=== PATIENT | male | born 1935 | race Caucasian/White ===

== ENCOUNTER 2020-07-21 09:42 | Emergency (ER) | payer MEDICARE, SELFPAY ==
[2020-07-21 09:52] VITALS: BP 115/61; PULSE 92; RESP 16; TEMP 36.8; O2SAT 95; BMI 25.8
--- NOTE | 2020-07-21 09:57 | ECG_ITS ---
Test Reason : NAUSA VOMMITING Blood Pressure : / mmHG Vent. Rate : 087 BPM Atrial Rate : 087 BPM P-R Int : 186 ms QRS Dur : 096 ms QT Int : 360 ms P-R-T Axes : 073 076 071 degrees QTc Int : 433 ms Sinus rhythm with Premature atrial complexes in a pattern of bigeminy Nonspecific ST abnormality Inferior leads Abnormal ECG When compared with ECG of 10-AUG-2008 13:06, Premature atrial complexes are now Present Referred By: Kristen Freeman Electronically Signed By:DALIA NAIR MD
--- NOTE | 2020-07-21 09:58 | XR_ITS ---
EXAMINATION: XR CHEST CLINICAL INFORMATION: Weakness with chills COMPARISON: April 10, 2014 TECHNIQUE: AP portable view of the chest was obtained. FINDINGS: Bilateral regions of chronic scarring are evident. There is question of small focus of density in the mid peripheral right lung which appear to be related to overlying soft tissues. There are prominent calcified costochondral junctions. No definite new confluent pneumonitis is seen. Heart normal size. No evidence of pulmonary edema. No pneumothorax or pleural effusion. XR/XR chest 1V IMPRESSION: Chronic lung scarring with no definite acute parenchymal disease.
--- NOTE | 2020-07-21 10:00 | ED.GENADULT ---
HPI - General Adult General Chief complaint: General Medical Stated complaint: flu like symptoms Time Seen by Provider: 07/21/20 09:45 Source: patient Mode of arrival: ambulatory Limitations: no limitations History of Present Illness HPI narrative: 84-year-old male with a past medical history of COPD, anxiety, HLD, GERD here with multiple complaints. The patient will be on Wednesday he had nausea with dry heaves. Had some associated chills and malaise. On Wednesday he had several episodes of diarrhea as well as morning. He tells me he has some upper abdominal discomfort and feels like something is stuck, this radiates to his sternum with the same sensation.He denies chest pain, cough, fevers. He tells me he has shortness of breath but this is chronic for him and is unchanged from baseline. No leg swelling or pain. No sick contact. Onset (ago): day(s) Location: abdomen Radiation: non-radiation Severity: mild Pain Consistency: constant Relieving factors: none Exacerbating factors: none Associated symptoms: malaise and nausea/vomiting Treatments prior to arrival: none Related Data Home Medications Medication Instructions Recorded Confirmed paroxetine HCl 1 tab PO DAILY 07/21/20 07/21/20 Previous Rx's Medication Instructions Recorded ondansetron 4 mg PO Q6H PRN #10 tab 07/21/20 Allergies Allergy/AdvReac Type Severity Reaction Status Date / Time No Known Allergies Allergy Mild NOT Verified 07/21/20 09:56 APPLICABLE Review of Systems Review of Systems: Yes all other systems are reviewed and are negative Constitutional: Constitutional: Reports no additional constitutional complaints, Denies body ache(s), Reports chills, Denies fever(s), Denies headache(s) and Denies weakness Eyes: Eyes: Reports no additional eye complaints and Denies change in vision ENT: Reports system reviewed and no additional complaints, except as documented, Denies dizziness, Denies headache(s), Denies nasal congestion, Denies nasal discharge and Denies neck pain Cardiovascular: Cardiovascular: Reports no additional cardiovascular complaints, Denies chest pain, Denies leg edema and Denies dyspnea Respiratory: Respiratory: Reports no additional respiratory complaints, Denies cough and Denies dyspnea Gastrointestinal: Gastrointestinal: Reports no additional gastrointestinal complaints, Reports abdominal pain, Denies diarrhea, Reports nausea and Denies vomiting Genitourinary: Genitourinary: Denies urinary incontinence Musculoskeletal: Musculoskeletal: Reports no additional musculoskeletal complaints, Denies back pain, Denies arthralgias, Denies joint swelling, Denies neck pain, Denies numbness and Denies tingling Integumentary/Breasts: Skin/Breast: Reports system reviewed and no additional complaints, except as docu and Denies rash Neurologic: Reports system reviewed and no additional complaints, except as documented, Denies Abnormal speech present, Denies dizziness, Denies headache(s), Denies numbness, Denies tingling and Denies weakness [facility] Past Medical History Attestation statement: The following information was validated with the patient. Source: obtained from family and nursing notes reviewed Medical History Anxiety COPD (chronic obstructive pulmonary disease) Social History Social History Smoking Status: Former smoker Use of substances other than those prescribed or required for medical reasons: No Advance Directives: No Advance Directives Information Provided: Yes Physical Exam Vital Signs: Vital Signs: Last Vital Signs Temp 98.3 F 07/21/20 09:52 Pulse 82 07/21/20 14:00 Resp 16 07/21/20 14:00 BP 140/56 H 07/21/20 14:00 Pulse Ox 95 07/21/20 14:00 Body Mass Index 25.8 Const: General: cooperative, healthy appearing, comfortable and no acute distress Orientation/consciousness: patient oriented x3 Limitations: no limitations HENMT: Head: Yes normal to inspection Ears: hearing grossly normal bilaterally General nose exam: Normal external nose present Face and sinus: Yes normal facial exam Mouth: Normal oral and palatal mucosa present Throat: Yes posterior oropharynx normal Eyes: General: appearance normal, both eyes and all related structures Pupils: Equal, round and reactive pupils present Neck: Neck: Yes normal visual inspection Chest: Chest palpation & inspection: normal inspection of the chest Resp: Effort & Inspection: normal respiratory effort Auscultation: clear to auscultation bilaterally Cardio: Rate: regular rate Rhythm: regular rhythm Peripheral pulses: Peripheral pulses 2+ throughout GI: Inspection: Yes normal to inspection Palpation (GI): Firmness to palpation present (GI), Tenderness to palpation present (GI) (moderate tenderness) in the epigastrum; with no rebound tenderness and no guarding Auscultation: normal bowel sounds Back/Spine/Pelvis: Thoracic/Lumbar Spine: thoracic and lumbar spine normal to inspection Skin: General skin exam: no rashes or lesions noted Neuro: General: patient oriented x3, no focal motor deficits and normal sensation to monofilament Cranial nerves: Yes Equal, round and reactive pupils present Cognition (Neuro): normal cognition Speech: No Abnormal speech present Gait exam (Neuro): Normal gait present Motor exam (neuro): 5/5 motor strength present throughout Extrem: General: Yes normal to inspection Course Course Course Narrative: 84 yo male here with diarrhea, upper abdominal discomfort, nausea, chills x several days. On exam has moderate tenderness in upper abdomen. Will need labs including blood cultures, lactic acid, UA, EKG, CXR, Viral panel including COVID 19, CT A/P, CT chest. 1115-lactic acid 2.5. Likely secondary to dehydration from diarrhea. Will give normal saline bolus and recheck. 1430-Repeat lactic acid and troponin pending. Unfortunately, CT chest is concerning for lung malignancy with reactive lymphadenopathy, small pericardial effusion. Discussed findings in detail with patient and son (IRMA). Aware of results and plan for follow-up with oncology outpatient. 1515-Repeat troponin pending down. Repat lactic acid normalized. Patient tolerating PO. Stable vital signs with no hypoxia on discharge. Reviewed worrisome signs/symptoms with patient and when to return to ED. Comfortable with discharge home. Medical Decision Making MDM Narrative Medical decision making narrative: considered ACS, gastritis, GERD, gastroenteritis, cholecystitis, cholelithiasis, viral infection, COVID-19 infection less likely acs with 2 unequivocal troponins, unremarkable ekg, atypical symptoms. less likely viral or covid infection with negative swab. less likely shraddha/gallstones with no RUQ pain or CT showing no abnormality. Medical Records Medical records reviewed: Yes I reviewed the patient's medical records. Lab Data Lab results reviewed: Yes I reviewed the patient's lab results. Result diagrams: 07/21/20 10:30 07/21/20 10:30 Labs: Lab Results 07/21/20 07/21/20 07/21/20 Range/Units 10:30 10:30 10:30 WBC 6.3 (4.8-10.8) X10*3/uL RBC 4.88 (4.60-5.80) X10*6/uL Hgb 15.2 (14.0-18.0) g/dl Hct 43.6 (42-52) % MCV 89.3 (80-98) fL MCH 31.1 (27.0-33.0) pg MCHC 34.9 (31.0-36.0) g/dl RDW 12.8 (11.0-16.0) % Plt Count 155 L (160-400) X10*3/uL MPV 8.8 L (9.4-12.4) fL Immature Gran % (Auto) 0.6 H (0.0-0.4) % Neut % (Auto) 64.3 (45-73) % Lymph % (Auto) 10.2 L (20-40) % [place] % (Auto) 24.6 H (2-11) % Eos % (Auto) 0.0 (0-4) % Baso % (Auto) 0.3 (0-2) % Lymph # (Auto) 0.6 L (1.2-4.9) X10*3/uL [place] # (Auto) 1.5 H (0.1-1.2) X10*3/uL Eos # (Auto) 0.0 (0.0-0.4) X10*3/uL Baso # (Auto) 0.0 (0.0-0.2) X10*3/uL Abs Immat Gran (auto) 0.04 H (0.00-0.03) X10*3/uL Absolute Neuts (auto) 4.0 (2.0-8.3) X10*3/uL Absolute Nucleated RBC 0.000 (0.0-0.012) X10*3/uL Nucleated RBC % (auto) 0.0 (0.0-0.2) /100WBC Smear Tech's Comments VERIFIED PT 13.0 (10.8-13.0) SEC INR 1.1 (0.9-1.1) Sodium 132 L (135-145) mmol/L Potassium 4.8 (3.3-5.1) mmol/l Chloride 96 (96-108) mmol/L Carbon Dioxide 26 (22-29) mmol/L Anion Gap 15 (12-20) BUN 18 H (9-16) mg/dL Creatinine 1.08 (0.5-1.4) mg/dL Estim Creat Clear Calc 51.8 Estimated GFR > 60 Random Glucose 97 (60-115) mg/dL Lactic Acid (0.5-2.0) mmol/L Lactic Acid Fup @ 2Hr (0.5-2.0) mmol/L Calcium 8.4 (8.4-10.2) mg/dL Magnesium 2.4 (1.6-2.6) mg/dL Total Bilirubin 0.7 (0.0-1.0) mg/dL Direct Bilirubin 0.3 (0.0-0.5) mg/dL AST 29 (5-37) U/L ALT 22 (0-40) U/L Alkaline Phosphatase 53 (39-117) U/L Troponin I High Sens (<3.5-35.0) ng/L Total Protein 6.6 (6.5-8.0) g/dL Albumin 3.9 (3.5-5.0) g/dL Urine Color Urine Appearance Urine pH (5.0-8.0) Ur Specific [place] (1.005-1.025) Urine Protein (NEG-TRACE) MG/DL Urine Glucose (UA) (NEG) MG/DL Urine Ketones (NEG) MG/DL Urine Blood (NEG) Urine Nitrite (NEG) Ur Leukocyte Esterase (NEG) Urine RBC (0) /HPF Urine WBC (0-4) /HPF Ur Squamous Epith Cells /LPF Urine Bacteria /LPF Urine Mucus /LPF Respiratory Panel [place] Adenovirus (Rapid PCR) (Not Detect.) B.pert (TEM-PCR) (Not Detect.) B.parapertussis DNA PCR (Not Detect.) C. pneumoniae DNA (PCR) (Not Detect.) Coronavirus OC43 (PCR) (Not Detect.) Coronavirus HKU1 (PCR) (Not Detect.) Coronavirus 229E (PCR) (Not Detect.) Coronavirus NL63 (PCR) (Not Detect.) Human Metapneumovir PCR (Not Detect.) Influenza A (RT-PCR) (Not Detect.) Influenza B (RT-PCR) (Not Detect.) M. pneumoniae (PCR) (Not Detect.) Parainfluenza 1 (PCR) (Not Detect.) Parainfluenza 2 (PCR) (Not Detect.) Parainfluenza 3 (PCR) (Not Detect.) Parainfluenza 4 (PCR) (Not Detect.) RSV (PCR) (Not Detect.) Entero/Rhino (PCR) (Not Detect.) SARS-CoV-2 RNA (RT-PCR) (Not Detect.) 07/21/20 07/21/20 07/21/20 Range/Units 10:30 10:30 10:35 WBC (4.8-10.8) X10*3/uL RBC (4.60-5.80) X10*6/uL Hgb (14.0-18.0) g/dl Hct (42-52) % MCV (80-98) fL MCH (27.0-33.0) pg MCHC (31.0-36.0) g/dl RDW (11.0-16.0) % Plt Count (160-400) X10*3/uL MPV (9.4-12.4) fL Immature Gran % (Auto) (0.0-0.4) % Neut % (Auto) (45-73) % Lymph % (Auto) (20-40) % [place] % (Auto) (2-11) % Eos % (Auto) (0-4) % Baso % (Auto) (0-2) % Lymph # (Auto) (1.2-4.9) X10*3/uL [place] # (Auto) (0.1-1.2) X10*3/uL Eos # (Auto) (0.0-0.4) X10*3/uL Baso # (Auto) (0.0-0.2) X10*3/uL Abs Immat Gran (auto) (0.00-0.03) X10*3/uL Absolute Neuts (auto) (2.0-8.3) X10*3/uL Absolute Nucleated RBC (0.0-0.012) X10*3/uL Nucleated RBC % (auto) (0.0-0.2) /100WBC Smear Tech's Comments PT (10.8-13.0) SEC INR (0.9-1.1) Sodium (135-145) mmol/L Potassium (3.3-5.1) mmol/l Chloride (96-108) mmol/L Carbon Dioxide (22-29) mmol/L Anion Gap (12-20) BUN (9-16) mg/dL Creatinine (0.5-1.4) mg/dL Estim Creat Clear Calc Estimated GFR Random Glucose (60-115) mg/dL Lactic Acid 2.5 H* (0.5-2.0) mmol/L Lactic Acid Fup @ 2Hr (0.5-2.0) mmol/L Calcium (8.4-10.2) mg/dL Magnesium (1.6-2.6) mg/dL Total Bilirubin (0.0-1.0) mg/dL Direct Bilirubin (0.0-0.5) mg/dL AST (5-37) U/L ALT (0-40) U/L Alkaline Phosphatase (39-117) U/L Troponin I High Sens 6.3 (<3.5-35.0) ng/L Total Protein (6.5-8.0) g/dL Albumin (3.5-5.0) g/dL Urine Color Urine Appearance Urine pH (5.0-8.0) Ur Specific [place] (1.005-1.025) Urine Protein (NEG-TRACE) MG/DL Urine Glucose (UA) (NEG) MG/DL Urine Ketones (NEG) MG/DL Urine Blood (NEG) Urine Nitrite (NEG) Ur Leukocyte Esterase (NEG) Urine RBC (0) /HPF Urine WBC (0-4) /HPF Ur Squamous Epith Cells /LPF Urine Bacteria /LPF Urine Mucus /LPF Respiratory Panel [place] See Note Adenovirus (Rapid PCR) Not Detected (Not Detect.) B.pert (TEM-PCR) Not Detected (Not Detect.) B.parapertussis DNA PCR Not Detected (Not Detect.) C. pneumoniae DNA (PCR) Not Detected (Not Detect.) Coronavirus OC43 (PCR) Not Detected (Not Detect.) Coronavirus HKU1 (PCR) Not Detected (Not Detect.) Coronavirus 229E (PCR) Not Detected (Not Detect.) Coronavirus NL63 (PCR) Not Detected (Not Detect.) Human Metapneumovir PCR Not Detected (Not Detect.) Influenza A (RT-PCR) Not Detected (Not Detect.) Influenza B (RT-PCR) Not Detected (Not Detect.) M. pneumoniae (PCR) Not Detected (Not Detect.) Parainfluenza 1 (PCR) Not Detected (Not Detect.) Parainfluenza 2 (PCR) Not Detected (Not Detect.) Parainfluenza 3 (PCR) Not Detected (Not Detect.) Parainfluenza 4 (PCR) Not Detected (Not Detect.) RSV (PCR) Not Detected (Not Detect.) Entero/Rhino (PCR) Not Detected (Not Detect.) SARS-CoV-2 RNA (RT-PCR) Not Detected (Not Detect.) 07/21/20 07/21/20 07/21/20 Range/Units 12:07 13:44 13:44 WBC (4.8-10.8) X10*3/uL RBC (4.60-5.80) X10*6/uL Hgb (14.0-18.0) g/dl Hct (42-52) % MCV (80-98) fL MCH (27.0-33.0) pg MCHC (31.0-36.0) g/dl RDW (11.0-16.0) % Plt Count (160-400) X10*3/uL MPV (9.4-12.4) fL Immature Gran % (Auto) (0.0-0.4) % Neut % (Auto) (45-73) % Lymph % (Auto) (20-40) % [place] % (Auto) (2-11) % Eos % (Auto) (0-4) % Baso % (Auto) (0-2) % Lymph # (Auto) (1.2-4.9) X10*3/uL [place] # (Auto) (0.1-1.2) X10*3/uL Eos # (Auto) (0.0-0.4) X10*3/uL Baso # (Auto) (0.0-0.2) X10*3/uL Abs Immat Gran (auto) (0.00-0.03) X10*3/uL Absolute Neuts (auto) (2.0-8.3) X10*3/uL Absolute Nucleated RBC (0.0-0.012) X10*3/uL Nucleated RBC % (auto) (0.0-0.2) /100WBC Smear Tech's Comments PT (10.8-13.0) SEC INR (0.9-1.1) Sodium (135-145) mmol/L Potassium (3.3-5.1) mmol/l Chloride (96-108) mmol/L Carbon Dioxide (22-29) mmol/L Anion Gap (12-20) BUN (9-16) mg/dL Creatinine (0.5-1.4) mg/dL Estim Creat Clear Calc Estimated GFR Random Glucose (60-115) mg/dL Lactic Acid (0.5-2.0) mmol/L Lactic Acid Fup @ 2Hr 3.8 H* (0.5-2.0) mmol/L Calcium (8.4-10.2) mg/dL Magnesium (1.6-2.6) mg/dL Total Bilirubin (0.0-1.0) mg/dL Direct Bilirubin (0.0-0.5) mg/dL AST (5-37) U/L ALT (0-40) U/L Alkaline Phosphatase (39-117) U/L Troponin I High Sens 6.9 (<3.5-35.0) ng/L Total Protein (6.5-8.0) g/dL Albumin (3.5-5.0) g/dL Urine Color YELLOW Urine Appearance CLEAR Urine pH 5.5 (5.0-8.0) Ur Specific [place] 1.010 (1.005-1.025) Urine Protein NEG (NEG-TRACE) MG/DL Urine Glucose (UA) NEG (NEG) MG/DL Urine Ketones NEG (NEG) MG/DL Urine Blood TRACE (NEG) Urine Nitrite NEG (NEG) Ur Leukocyte Esterase NEG (NEG) Urine RBC 0-2 (0) /HPF Urine WBC 0-2 (0-4) /HPF Ur Squamous Epith Cells TRACE /LPF Urine Bacteria NONE /LPF Urine Mucus TRACE /LPF Respiratory Panel [place] Adenovirus (Rapid PCR) (Not Detect.) B.pert (TEM-PCR) (Not Detect.) B.parapertussis DNA PCR (Not Detect.) C. pneumoniae DNA (PCR) (Not Detect.) Coronavirus OC43 (PCR) (Not Detect.) Coronavirus HKU1 (PCR) (Not Detect.) Coronavirus 229E (PCR) (Not Detect.) Coronavirus NL63 (PCR) (Not Detect.) Human Metapneumovir PCR (Not Detect.) Influenza A (RT-PCR) (Not Detect.) Influenza B (RT-PCR) (Not Detect.) M. pneumoniae (PCR) (Not Detect.) Parainfluenza 1 (PCR) (Not Detect.) Parainfluenza 2 (PCR) (Not Detect.) Parainfluenza 3 (PCR) (Not Detect.) Parainfluenza 4 (PCR) (Not Detect.) RSV (PCR) (Not Detect.) Entero/Rhino (PCR) (Not Detect.) SARS-CoV-2 RNA (RT-PCR) (Not Detect.) 07/21/20 Range/Units 14:34 WBC (4.8-10.8) X10*3/uL RBC (4.60-5.80) X10*6/uL Hgb (14.0-18.0) g/dl Hct (42-52) % MCV (80-98) fL MCH (27.0-33.0) pg MCHC (31.0-36.0) g/dl RDW (11.0-16.0) % Plt Count (160-400) X10*3/uL MPV (9.4-12.4) fL Immature Gran % (Auto) (0.0-0.4) % Neut % (Auto) (45-73) % Lymph % (Auto) (20-40) % [place] % (Auto) (2-11) % Eos % (Auto) (0-4) % Baso % (Auto) (0-2) % Lymph # (Auto) (1.2-4.9) X10*3/uL [place] # (Auto) (0.1-1.2) X10*3/uL Eos # (Auto) (0.0-0.4) X10*3/uL Baso # (Auto) (0.0-0.2) X10*3/uL Abs Immat Gran (auto) (0.00-0.03) X10*3/uL Absolute Neuts (auto) (2.0-8.3) X10*3/uL Absolute Nucleated RBC (0.0-0.012) X10*3/uL Nucleated RBC % (auto) (0.0-0.2) /100WBC Smear Tech's Comments PT (10.8-13.0) SEC INR (0.9-1.1) Sodium (135-145) mmol/L Potassium (3.3-5.1) mmol/l Chloride (96-108) mmol/L Carbon Dioxide (22-29) mmol/L Anion Gap (12-20) BUN (9-16) mg/dL Creatinine (0.5-1.4) mg/dL Estim Creat Clear Calc Estimated GFR Random Glucose (60-115) mg/dL Lactic Acid 1.3 (0.5-2.0) mmol/L Lactic Acid Fup @ 2Hr (0.5-2.0) mmol/L Calcium (8.4-10.2) mg/dL Magnesium (1.6-2.6) mg/dL Total Bilirubin (0.0-1.0) mg/dL Direct Bilirubin (0.0-0.5) mg/dL AST (5-37) U/L ALT (0-40) U/L Alkaline Phosphatase (39-117) U/L Troponin I High Sens (<3.5-35.0) ng/L Total Protein (6.5-8.0) g/dL Albumin (3.5-5.0) g/dL Urine Color Urine Appearance Urine pH (5.0-8.0) Ur Specific [place] (1.005-1.025) Urine Protein (NEG-TRACE) MG/DL Urine Glucose (UA) (NEG) MG/DL Urine Ketones (NEG) MG/DL Urine Blood (NEG) Urine Nitrite (NEG) Ur Leukocyte Esterase (NEG) Urine RBC (0) /HPF Urine WBC (0-4) /HPF Ur Squamous Epith Cells /LPF Urine Bacteria /LPF Urine Mucus /LPF Respiratory Panel [place] Adenovirus (Rapid PCR) (Not Detect.) B.pert (TEM-PCR) (Not Detect.) B.parapertussis DNA PCR (Not Detect.) C. pneumoniae DNA (PCR) (Not Detect.) Coronavirus OC43 (PCR) (Not Detect.) Coronavirus HKU1 (PCR) (Not Detect.) Coronavirus 229E (PCR) (Not Detect.) Coronavirus NL63 (PCR) (Not Detect.) Human Metapneumovir PCR (Not Detect.) Influenza A (RT-PCR) (Not Detect.) Influenza B (RT-PCR) (Not Detect.) M. pneumoniae (PCR) (Not Detect.) Parainfluenza 1 (PCR) (Not Detect.) Parainfluenza 2 (PCR) (Not Detect.) Parainfluenza 3 (PCR) (Not Detect.) Parainfluenza 4 (PCR) (Not Detect.) RSV (PCR) (Not Detect.) Entero/Rhino (PCR) (Not Detect.) SARS-CoV-2 RNA (RT-PCR) (Not Detect.) Imaging Data Chest x-ray: Attestation: I personally reviewed and interpreted this imaging study as follows: Radiologist's impression: [address] [address] XRay Report Signed Patient: Asaf Sheth JMR#: [id number] : 12/28/1936Acct:[id number] Age/Sex: 84 / MADM Date: 07/21/20 Loc: .ED Attending Dr: Ordering Physician: KRISTEN ADKINS NP Date of Service: 07/21/20 Procedure(s): XR chest 1V Accession Number(s): [id number] cc: KRISTEN ADKINS NP~ EXAMINATION: XR CHEST CLINICAL INFORMATION: Weakness with chills COMPARISON: April 10, 2014 TECHNIQUE: AP portable view of the chest was obtained. FINDINGS: Bilateral regions of chronic scarring are evident. There is question of small focus of density in the mid peripheral right lung which appear to be related to overlying soft tissues. There are prominent calcified costochondral junctions. No definite new confluent pneumonitis is seen. Heart normal size. No evidence of pulmonary edema. No pneumothorax or pleural effusion. XR/XR chest 1V IMPRESSION: Chronic lung scarring with no definite acute parenchymal disease. CT scan - abdomen: Attestation: I personally reviewed and interpreted this imaging study as follows: Radiologist's impression: EXAMINATION: CT ABDOMEN AND PELVIS WITH CONTRAST CLINICAL INFORMATION: Diffuse abdominal pain. Constipation. Rule out small bowel obstruction. COMPARISON: None TECHNIQUE: Multidetector volumetric images were obtained from the superior aspect of the liver through the pubic symphysis following administration 85 mL of Omnipaque 350 intravenous contrast. Sagittal and coronal reformatted images were obtained on the technologist's workstation. Oral contrast: No This CT examination was performed using dose optimization techniques as appropriate, variously including the following: *Automated exposure control *Adjustment of mA and/or kV according to patient size (this includes techniques or standardized protocols for targeted exams where dose is matched to indication/reason for exam; i.e. extremities or head) *Use of iterative reconstruction technique DLP: 712 mGy-cm FINDINGS: LUNG BASES: There is mild dependent atelectasis bilaterally. LIVER, GALLBLADDER, AND BILIARY TREE: The liver is normal in size, shape, and attenuation. No focal hepatic lesion or biliary ductal dilatation is present. The gallbladder is unremarkable with no evidence of radiopaque gallstones, gallbladder wall thickening, or obvious pericholecystic inflammatory changes. PANCREAS: Unremarkable. SPLEEN: Unremarkable. ADRENAL GLANDS: Unremarkable. KIDNEYS AND URETERS: The kidneys are normal in size, shape, and attenuation. No hydronephrosis, hydroureter, or calculi seen. No perinephric stranding. BLADDER: Unremarkable. GASTROINTESTINAL TRACT: The stomach and duodenum are unremarkable. Proximal loops of jejunum are mildly dilated. There is a transition zone to the right of midline in the upper abdomen. The appearance suggests incomplete obstruction. No mass or wall thickening is demonstrated. Distal small bowel loops are decompressed and unremarkable. No abnormality of the small bowel mesentery is demonstrated. The colon is unremarkable. Air and stool are present through the course of the colon. The appendix is normal. ABDOMINAL WALL: No significant hernia is appreciated. LYMPH NODES: Normal. VASCULAR: Unremarkable. PELVIC VISCERA: Unremarkable. OSSEOUS STRUCTURES: An electrical stimulator is present along the right side of the sacrum extending to the sciatic notch. No bony abnormality is demonstrated. CT/CT abdomen pelvis w con IMPRESSION: Mildly dilated proximal jejunal loops with transition zone in the right upper abdomen concerning for incomplete small bowel obstruction. Cause of obstruction is not apparent. CT scan - chest: Attestation: I personally reviewed and interpreted this imaging study as follows: Radiologist's impression: EXAMINATION: CT CHEST WITHOUT CONTRAST CLINICAL INFORMATION: Shortness of breath. COMPARISON: Chest radiograph done earlier today. CT of the chest done on 08/11/2008. TECHNIQUE: Multidetector volumetric CT imaging of the chest was done. Axial MIP volume rendering provided. Sagittal and coronal reformatted images were obtained. This CT examination was performed using dose optimization techniques as appropriate, variously including the following: *Automated exposure control *Adjustment of mA and/or kV according to patient size (this includes techniques or standardized protocols for targeted exams where dose is matched to indication/reason for exam; i.e. extremities or head) *Use of iterative reconstruction technique DLP: 291.2 mGy-cm FINDINGS: SHOULDER BONER: Hyperinflated lung field is present with presumed superimposed pleural parenchymal scar at both upper lobes. LUNGS: Concordant with prior chest radiograph, extensive emphysematous disease is present bilaterally with predominant involvement of both upper lobes and presumed superimposed pleural parenchymal scar at both lung apices. Note is made of presence of a somewhat irregular, 6 solid sub-5 mm noncalcified within the right lower lobe of the lung laterally (image #[id number] series 6). Few scattered sub-5 mm nodular opacities are also noted within the right middle lobe adjacent to the fissure anteriorly and also at left upper lobe anteriorly (image #304, and 313, and image #333. Tiny patent punctate calcified nodule is also noted within the right upper lobe near the apex (image #115 series 6). MEDIASTINUM: Right paratracheal lymphadenopathy is noted with maximum short axis dimension measuring 1.6 cm (image #238 series 6). Few additional subcarinal and probable bilateral hilar lymph nodes are also noted. As you know, due to lack of contrast, evaluation of the hilum is technically limited. Atherosclerotic disease including coronary arterial calcifications are noted. PLEURA: There is no pleural effusion. No pleural mass or thickening. PERICARDIUM: Trace amount of simple appearing pericardial effusion is noted. AXILLA: No lymphadenopathy. UPPER ABDOMEN: Please refer to the report of the CT of the abdomen and pelvis done earlier today for further full details. OSSEOUS STRUCTURES: Unremarkable. CT/CT chest wo con IMPRESSION: 1. Extensive emphysematous disease is present predominantly involving both upper lobes with superimposed presumed pleural-parenchymal scar at both lung apices. 2. Superimposed sub-5 mm multifocal lung nodules are noted at right upper, left upper and right lower lobe of the lung. All these nodules appear new since 2007. The right lower lobar lung nodule is slightly irregular and is suspicious for potential primary malignancy. 3. Note is also made of presence of pathologically enlarged right paratracheal lymphadenopathy. 4. Trace amount of simple appearing pericardial effusion. ECG Data Attestation: I personally reviewed and interpreted this ECG as follows: Interpretation: Normal sinus rhythm with frequent PACs. Normal p.r., normal QRS, normal QT Discharge Plan Discharge Clinical Impression: Lung mass Patient Disposition: Home, Self-Care Instructions: Pulmonary Nodules (ED) Additional Instructions: Your CT chest shows a lung mass concerning for cancer. Please call Dr Finch (oncology) for a follow-up appointment Prescriptions: New ondansetron 4 mg tablet,disintegrating 4 mg PO Q6H PRN (Reason: nausea and vomiting) Qty: 10 RF: 0 No Action paroxetine HCl 20 mg tablet 1 tab PO DAILY RF: 0 Referrals: Safia Finch MD [Physician] - 2 days Interventions: ED Discharge Assessment Last Done: 07/21/20 15:44 Discharge Date/Time: 07/21/20 15:44
[2020-07-21 10:17] VITALS: PULSE 84; O2SAT 95
[2020-07-21 10:37] VITALS: BP 110/51; PULSE 86; RESP 16; O2SAT 94
[2020-07-21 10:40] LABS: Basophils Percent Auto 0.3 % (0-2); Hematocrit 43.6 % (42-52); Hemoglobin 15.2 g/dl (14.0-18.0); Imm Gran Abs Auto 0.04 X10*3/uL (0.00-0.03); Imm Gran Pct Auto 0.6 % (0.0-0.4); Lymphocytes Absolute Auto 0.6 X10*3/uL (1.2-4.9); Lymphocytes Percent Auto 10.2 % (20-40); MANUAL DIFF FLAG SCAN; Mean Corpuscular HGB Conc 34.9 g/dl (31.0-36.0); Mean Corpuscular Hemoglobin 31.1 pg (27.0-33.0); Mean Corpuscular Volume 89.3 fL (80-98); Mean Platelet Volume 8.8 fL (9.4-12.4); Monocytes Absolute Auto 1.5 X10*3/uL (0.1-1.2); Monocytes Percent Auto 24.6 % (2-11); Neutrophils Percent Auto 64.3 % (45-73); Platelet Count 155 X10*3/uL (160-400); Red Blood Count 4.88 X10*6/uL (4.60-5.80); Red Cell Distribution Width 12.8 % (11.0-16.0); SCAN SMEAR FLAG 1; White Blood Count 6.3 X10*3/uL (4.8-10.8)
[2020-07-21 10:47] LABS: INTERNATIONAL NORM RATIO 1.1 (0.9-1.1)
[2020-07-21 10:59] LABS: Adenovirus PCR Not Detected (Not Detect.); Bordetella parapertussis PCR Not Detected (Not Detect.); Bordetella pertussis PCR Not Detected (Not Detect.); Chlamydia pneumoniae PCR Not Detected (Not Detect.); Coronavirus 229E PCR Not Detected (Not Detect.); Coronavirus HKU1 PCR Not Detected (Not Detect.); Coronavirus NL63 PCR Not Detected (Not Detect.); Coronavirus OC43 PCR Not Detected (Not Detect.); Human metapneumovirus PCR Not Detected (Not Detect.); Influenza A PCR Not Detected (Not Detect.); Influenza B PCR Not Detected (Not Detect.); Mycoplasma pneumoniae PCR Not Detected (Not Detect.); Parainfluenza 1 PCR Not Detected (Not Detect.); Parainfluenza 2 PCR Not Detected (Not Detect.); Parainfluenza 3 PCR Not Detected (Not Detect.); Parainfluenza 4 PCR Not Detected (Not Detect.); RSV PCR Not Detected (Not Detect.); Rhino/Enterovirus PCR Not Detected (Not Detect.); SARS-CoV-2 PCR Not Detected (Not Detect.)
[2020-07-21 11:07] LABS: Alanine Aminotransferase 22 U/L (0-40); Albumin Level 3.9 g/dL (3.5-5.0); Alkaline Phosphatase 53 U/L (39-117); Anion Gap 15 (12-20); Aspartate Amino Transferase 29 U/L (5-37); Bilirubin Direct 0.3 mg/dL (0.0-0.5); Bilirubin Total 0.7 mg/dL (0.0-1.0); Blood Urea Nitrogen 18 mg/dL (9-16); Calcium 8.4 mg/dL (8.4-10.2); Carbon Dioxide 26 mmol/L (22-29); Chloride 96 mmol/L (96-108); Creatinine Clr Calc Pharmacy 51.8; Estimated Glomerular Filt Rate > 60; Glucose Random 97 mg/dL (60-115); Magnesium 2.4 mg/dL (1.6-2.6); Potassium 4.8 mmol/l (3.3-5.1); Sodium 132 mmol/L (135-145); Total Protein 6.6 g/dL (6.5-8.0)
--- NOTE | 2020-07-21 11:12 | CT_ITS ---
EXAMINATION: CT ABDOMEN AND PELVIS WITH CONTRAST CLINICAL INFORMATION: Diffuse abdominal pain, vomiting, and dysphagia. COMPARISON: None TECHNIQUE: Multidetector volumetric images were obtained from the superior aspect of the liver through the pubic symphysis following administration 85 mL of Omnipaque 350 intravenous contrast. Sagittal and coronal reformatted images were obtained on the technologist's workstation. Oral contrast: No This CT examination was performed using dose optimization techniques as appropriate, variously including the following: *Automated exposure control *Adjustment of mA and/or kV according to patient size (this includes techniques or standardized protocols for targeted exams where dose is matched to indication/reason for exam; i.e. extremities or head) *Use of iterative reconstruction technique DLP: 601.27 mGy-cm FINDINGS: LUNG BASES: The visualized lung bases are unremarkable. Note is however made of small simple appearing pericardial effusion seen within the base (image #88 series 4). LIVER, GALLBLADDER, AND BILIARY TREE: The liver is normal in size, shape, and attenuation. No focal hepatic lesion or biliary ductal dilatation is present. Multiple calcified gallstones are noted without any CT features of superimposed acute cholecystitis or biliary obstruction. PANCREAS: Unremarkable. SPLEEN: Unremarkable. ADRENAL GLANDS: Unremarkable. KIDNEYS AND URETERS: The kidneys are normal in size, shape, and attenuation. No hydronephrosis, hydroureter, or calculi seen. No perinephric stranding. Multiple cortical circumscribed hypodensities are present measuring in size between a few millimeters to a centimeter, most consistent with incidental cortical renal cysts. BLADDER: The base of the urine bladder is displaced superiorly by an enlarged prostate. No intrinsic focal abnormalities present. GASTROINTESTINAL TRACT: Colonic diverticulosis within the descending and proximal sigmoid colon without any CT features of superimposed acute diverticulitis. Nonvisualized appendix without any inflammatory changes around the cecum. The small bowel loops including terminal ileum appear decompressed. The stomach is decompressed. ABDOMINAL WALL: No significant hernia is appreciated. LYMPH NODES: There are no pathologically enlarged, morphologically abnormal lymphadenopathy identified within the retroperitoneum, mesentery, pelvis, and groin. VASCULAR: Mild diffuse atherosclerotic disease is present within the aorta and is branches without aneurysm formation. PELVIC VISCERA: The prostate is enlarged, protruding into the base of the urine bladder measures 4.8 x 5.6 cm at its maximum anteroposterior by transverse dimension. There is no periprostatic lymphadenopathy present. Both lateral pelvic faith are free. The seminal vesicles are unremarkable. No evidence of any free fluid and/or free air. OSSEOUS STRUCTURES: Mild mid to anterior compression deformity of T12 vertebral body is noted. Mild to moderate diffuse osteopenia and multilevel [id number] degenerative spondylosis related changes are noted. Well-circumscribed osteolytic lesion is noted along the superolateral aspect of the left femoral neck, measures 1.6 cm at its maximum dimension, shows nonaggressive appearance. CT/CT abdomen pelvis w con IMPRESSION: 1. No CT evidence of any acute intra-abdominal and/or intrapelvic pathology is present. 2. Incidental note is made of simple-appearing small pericardial effusion, multiple calcified gallstones, bilateral multiple cortical renal cysts, colonic diverticulosis, and abnormally enlarged prostate, and diffuse mild atherosclerotic disease of the aorta and is branches. 3. Note is also made of mild mid to anterior compression deformity of T12 vertebral body, mild to moderate diffuse osteopenia, multilevel [id number] degenerative spondylosis, and nonspecific nonaggressive 1.6 cm lytic/cystic lesion involving the superolateral aspect of the left femoral neck, indeterminate etiology.
[2020-07-21 11:13] LABS: Troponin-I High Sensitivity 6.3 ng/L (<3.5-35.0)
[2020-07-21 11:15] LABS: SLIDE REVIEW VERIFIED
[2020-07-21 11:18] LABS: Lactic Acid 2.5 mmol/L (0.5-2.0)
[2020-07-21] MEDS: 0.9 % Sodium Chloride 1,000 ML 999 ML IV (11:30)
[2020-07-21 12:00] VITALS: BP 114/44; PULSE 76; RESP 20; O2SAT 98
[2020-07-21] MEDS: iohexoL 350 MG/ML 100 ML INFUS..BTL 85 ML IV (12:05)
[2020-07-21 12:13] LABS: Glucose Urine UA NEG (NEG); Leukocyte Esterase Urine NEG (NEG); Nitrite Urine NEG (NEG); PH 5.5 (5.0-8.0); Urine Blood TRACE (NEG); Urine Ketones NEG (NEG); Urine Protein NEG (NEG-TRACE)
[2020-07-21 12:14] LABS: Appearance Urine CLEAR; Color Urine YELLOW
[2020-07-21 12:21] LABS: RBC Urine 0-2 /HPF (0); WBC Urine 0-2 /HPF (0-4)
[2020-07-21 12:22] LABS: Mucus Urine TRACE /LPF; Squamous Epithelial Cell Urine TRACE /LPF
--- NOTE | 2020-07-21 12:32 | CT_ITS ---
EXAMINATION: CT CHEST WITHOUT CONTRAST CLINICAL INFORMATION: Shortness of breath. COMPARISON: Chest radiograph done earlier today. CT of the chest done on 08/11/2008. TECHNIQUE: Multidetector volumetric CT imaging of the chest was done. Axial MIP volume rendering provided. Sagittal and coronal reformatted images were obtained. This CT examination was performed using dose optimization techniques as appropriate, variously including the following: *Automated exposure control *Adjustment of mA and/or kV according to patient size (this includes techniques or standardized protocols for targeted exams where dose is matched to indication/reason for exam; i.e. extremities or head) *Use of iterative reconstruction technique DLP: 291.2 mGy-cm FINDINGS: EMISSIONS INSPECTOR: Hyperinflated lung field is present with presumed superimposed pleural parenchymal scar at both upper lobes. LUNGS: Concordant with prior chest radiograph, extensive emphysematous disease is present bilaterally with predominant involvement of both upper lobes and presumed superimposed pleural parenchymal scar at both lung apices. Note is made of presence of a somewhat irregular, 6 solid sub-5 mm noncalcified within the right lower lobe of the lung laterally (image #[id number] series 6). Few scattered sub-5 mm nodular opacities are also noted within the right middle lobe adjacent to the fissure anteriorly and also at left upper lobe anteriorly (image #304, and 313, and image #333. Tiny patent punctate calcified nodule is also noted within the right upper lobe near the apex (image #115 series 6). MEDIASTINUM: Right paratracheal lymphadenopathy is noted with maximum short axis dimension measuring 1.6 cm (image #238 series 6). Few additional subcarinal and probable bilateral hilar lymph nodes are also noted. As you know, due to lack of contrast, evaluation of the hilum is technically limited. Atherosclerotic disease including coronary arterial calcifications are noted. PLEURA: There is no pleural effusion. No pleural mass or thickening. PERICARDIUM: Trace amount of simple appearing pericardial effusion is noted. AXILLA: No lymphadenopathy. UPPER ABDOMEN: Please refer to the report of the CT of the abdomen and pelvis done earlier today for further full details. OSSEOUS STRUCTURES: Unremarkable. CT/CT chest wo con IMPRESSION: 1. Extensive emphysematous disease is present predominantly involving both upper lobes with superimposed presumed pleural-parenchymal scar at both lung apices. 2. Superimposed sub-5 mm multifocal lung nodules are noted at right upper, left upper and right lower lobe of the lung. All these nodules appear new since 2008. The right lower lobar lung nodule is slightly irregular and is suspicious for potential primary malignancy. 3. Note is also made of presence of pathologically enlarged right paratracheal lymphadenopathy. 4. Trace amount of simple appearing pericardial effusion.
[2020-07-21 12:37] LABS: Reflex Lactate? Lactic Acid Added
[2020-07-21 14:00] VITALS: BP 140/56; PULSE 82; RESP 16; O2SAT 95
[2020-07-21 14:23] LABS: ~Lactic Acid-LAB USE ONLY 3.8 mmol/L (0.5-2.0)
[2020-07-21 14:24] LABS: Troponin-I High Sensitivity 6.9 ng/L (<3.5-35.0)
[2020-07-21] MEDS: ondansetron HCL 4 MG/2 ML VIAL IVPUSH (14:44)
[2020-07-21 15:01] LABS: Lactic Acid 1.3 mmol/L (0.5-2.0)
[2020-07-21 15:52] LABS: Reflex Lactate? 2 Y
== END 2020-07-21 15:44 | disposition home or self-care (01) ==
PROVIDERS: Nurse Practitioner Family; Emergency Provider Emergency Medicine; PCP Internal Medicine
DX: R91.8 Other nonspecific abnormal finding of lung field (principal); R53.81 Other malaise; M54.6 Pain in thoracic spine; R10.9 Unspecified abdominal pain; Z79.899 Other long term (current) drug therapy
CPT/HCPCS: 36415; 71045; 71250; 74177; 80048; 80076; 81001; 83605; 83735; 84484; 85025; 85610; 87040; 87633; 93005; 96361; 96374; 99284; J2405; Q9967

== ENCOUNTER → 2020-07-26 08:52 | Outpatient (BNVA) | payer MEDICARE, SELFPAY | PROVIDERS: PCP Internal Medicine; Visit Provider Surgery | DX: R91.8 Other nonspecific abnormal finding of lung field (principal); R59.0 Localized enlarged lymph nodes | CPT/HCPCS: 99205 ==

== ENCOUNTER 2020-08-01 07:58 | Day surgery (SDC) | payer MEDICARE, SELFPAY ==
[2020-07-31 11:00] VITALS: BMI 26.0
--- NOTE | 2020-07-31 12:37 | HO.ANESPROP2 ---
HPI - Anesthesia Eval Consult details Narrative: 84yo M for Endoscopic Bronchial Ultrasound ED on 07/21/2020 for chills, night sweats, SOB - imaging found suspicious lung nodule and mediastinal lympadenopathy PMFSH Past Medical History Medical History Abdominal pain Anxiety Cataract COPD (chronic obstructive pulmonary disease) GERD (gastroesophageal reflux disease) HLD (hyperlipidemia) Pilonidal cyst Shortness of breath Family History Family History Sister Cancer Sister Cancer Surgical History Surgical History History of appendectomy Social History Social History Alcohol intake: former Smoking Status: Former smoker Packs Per Day: 2.0 Cigarettes Per Day: 40.0 Years Smoked: 40 Second Hand Smoke Exposure: No Meds Allergies Allergy/AdvReac Type Severity Reaction Status Date / Time No Known Allergies Allergy Mild NOT Verified 07/21/20 09:56 APPLICABLE Home Medications Medication Instructions Recorded Confirmed Type paroxetine HCl 1 tab PO DAILY 07/21/20 07/26/20 History fluticasone propion-salmeterol 1 puff PO BID 07/24/20 07/26/20 History [Advair Diskus] ipratropium bromide [Atrovent HFA] 2 puff PO QID 07/24/20 07/26/20 History Exam Exam Date and Time: July 31, 2020 1237 Height,Weight and Vital Signs: Height 5 ft 9 in Weight 80 kg Pertinent Lab Results Pertinent Lab Results: Laboratory Tests 07/21/20 07/21/20 10:30 10:30 WBC 6.3 Hgb 15.2 Hct 43.6 Plt Count 155 L Sodium 132 L Potassium 4.8 Chloride 96 Carbon Dioxide 26 BUN 18 H Creatinine 1.08 Assessment and Plan Assessment Anesthesia Assessment: Chart Reviewed
[2020-08-01] VITALS (7 sets, daily range): BP systolic 102–121; BP diastolic 45–69; PULSE 78–99; RESP 16–20; TEMP 36.1–36.2; O2SAT 93–99
--- NOTE | 2020-08-01 08:28 | MHC.SHP ---
Pre-Procedural Eval Section B Chief Complaint: Enlarged Lymph Nodes Allergies: Allergies Allergy/AdvReac Type Severity Reaction Status Date / Time No Known Allergies Allergy Mild NOT Verified 07/21/20 09:56 APPLICABLE Plan Patient has been examined and remains a candidate for the planned procedure
--- NOTE | 2020-08-01 08:33 | P.HPSUR_ITS ---
Pre-Procedural Eval Section B Chief Complaint: Enlarged Lymph Nodes Allergies: Allergies Allergy/AdvReac Type Severity Reaction Status Date / Time No Known Allergies Allergy Mild NOT Verified 07/21/20 09:56 APPLICABLE Plan Patient has been examined and remains a candidate for the planned procedure [facility] Medical History (Updated 07/26/20 @ 12:28 by Tal Edmond MD) Abdominal pain Anxiety Cataract COPD (chronic obstructive pulmonary disease) GERD (gastroesophageal reflux disease) HLD (hyperlipidemia) Pilonidal cyst Shortness of breath Surgical History (Updated 07/24/20 @ 10:39 by Ellen Odonnell MD) History of appendectomy Family History (Updated 07/24/20 @ 09:53 by Dorene Velasquez) Sister Cancer Sister Cancer Social History (Updated 07/24/20 @ 09:55 by Dorene Velasquez) Alcohol intake: former Smoking Status: Former smoker Packs Per Day: 2 Years Smoked: 40 HPI Multiple Lung Nodule HPI Details Patient is an 84-year-old male former smoker 2 packs per day from age 16 up until age 58 when he quit. He had a CT scan of the chest done showing severe emphysematous changes bilaterally multiple sub cm pulmonary nodules and significant mediastinal and right hilar lymphadenopathy. CT scan of the chest was done 07/2020. He reports feeling generally in good health denies unintentional weight loss decreased appetite fevers chills does have occasional night sweats and does report fatigue. He does report shortness of breath but can go up a flight of stairs without stopping denies cough or hemoptysis. Denies any neurologic symptoms. Other than above, 12 point review of systems was done and documented separately in the office chart with detailed social and family history. Physical Exam Vital Signs:Last Vital Signs Temp 98.1 F 07/26/20 09:09 Pulse 76 07/26/20 09:09 BP 102/60 07/26/20 09:09 Pulse Ox 93 07/26/20 09:09 Body Mass Index 26.0 General: No acute distress HEENT: Moist mucous membranes, normocephalic, pupils equal round and reactive to light. Neck: No thyromegaly, supple, no JVD Lymph: No cervical, supraclavicular, or other lymphadenopathy Chest: No chest wall abnormalities or deformities Heart: Regular rate and rhythm Lungs: Clear to auscultation bilaterally Abdomen: Soft, nontender, normal bowel sounds Extremities: No edema, cyanosis, or clubbing. Full range of motion Neuro: Grossly intact, alert and oriented x3, and nonfocal Skin: Warm and dry no rashes Affect: Normal Assessment & Plan Assessment & Plan (1) Lung nodules: Code(s): R91.8 - Other nonspecific abnormal finding of lung field Category: Medical (2) Mediastinal lymphadenopathy: Code(s): R59.0 - Localized enlarged lymph nodes Category: Medical
--- NOTE | 2020-08-01 08:44 | HO.ANESPROP2 ---
[facility] Past Medical History Medical History Abdominal pain Anxiety Cataract COPD (chronic obstructive pulmonary disease) GERD (gastroesophageal reflux disease) HLD (hyperlipidemia) Pilonidal cyst Shortness of breath Family History Family History Sister Cancer Sister Cancer Surgical History Surgical History History of appendectomy Social History Social History Alcohol intake: former Smoking Status: Former smoker Packs Per Day: 2.0 Cigarettes Per Day: 40.0 Years Smoked: 40 Second Hand Smoke Exposure: No Use of substances other than those prescribed or required for medical reasons: No Advance Directives: No Advance Directives Information Provided: No Advance Directives on File: No Meds Allergies Allergy/AdvReac Type Severity Reaction Status Date / Time No Known Allergies Allergy Mild NOT Verified 07/21/20 09:56 APPLICABLE Home Medications Medication Instructions Recorded Confirmed Type paroxetine HCl 1 tab PO DAILY 07/21/20 07/26/20 History fluticasone propion-salmeterol 1 puff PO BID 07/24/20 07/26/20 History [Advair Diskus] ipratropium bromide [Atrovent HFA] 2 puff PO QID 07/24/20 07/26/20 History Exam Exam Date and Time: August 01, 2020 0844 Height,Weight and Vital Signs: Height 5 ft 9 in Weight 80 kg Last Vital Signs Temp 97.2 F 08/01/20 08:35 Pulse 99 08/01/20 08:35 Resp 18 08/01/20 08:35 BP 113/69 08/01/20 08:35 Pulse Ox 94 08/01/20 08:35 Airway Mallampati Class: II TM Dist: >3cm Neck ROM: Full Partial: Upper and Lower
[2020-08-01] MEDS: Lactated Ringers 1,000 ML 100 ML IVCONT (08:46)
--- NOTE | 2020-08-01 10:34 | PM.OP ---
Brief Operative Note Date of Service: 08/01/20 Pre-op diagnosis: lymphadenoapthy Post-op diagnosis: same Procedure: EBUS with TBNA Bronchoscopy with brusings/washings/endobronchial biopsies of the right lung Surgeon: Bacilio Norris MD Anesthesia: GETA Estimated blood loss (mL): 0 Condition: stable Disposition: same day
--- NOTE | 2020-08-01 11:26 | HO.POSTANES ---
Post Anesthesia Evaluation Post Anesthesia Evaluation Vital Signs: Vital Signs Temp Pulse Resp BP Pulse Ox 08/01/20 11:20 97 F 78 20 102/57 L 95 08/01/20 11:05 83 20 105/45 L 93 08/01/20 10:48 84 20 114/59 L 99 08/01/20 10:43 88 20 109/64 98 08/01/20 10:38 87 20 121/61 98 08/01/20 10:33 97 F 93 16 111/45 L 97 08/01/20 08:35 97.2 F 99 18 113/69 94 Anesthesia: General Endotracheal-GETA Mental Status: Awake Pain Control: Satisfactory Nausea/Vomiting: None Hydration: Adequate Anesthesia-Related Issues: No Anes. Related Issues
--- NOTE | 2020-08-02 10:18 | OP_ITS ---
SURGEON: Bacilio Norris MD PREOPERATIVE DIAGNOSIS: POSTOPERATIVE DIAGNOSIS: PROCEDURE PERFORMED: ESTIMATED BLOOD LOSS: COMPLICATIONS: ANESTHESIA: General endotracheal anesthesia. ASSISTANTS: SPECIMENS: PREOPERATIVE DIAGNOSES: Hilar lymphadenopathy and mediastinal lymphadenopathy, question cancer, pulmonary nodules. POSTOPERATIVE DIAGNOSES: Lymphadenopathy hilar, evidence of bronchitis. PROCEDURES PERFORMED: Bronchoscopy with endobronchial ultrasound bronchoscopy and transbronchial needle aspiration and bronchoscopy with biopsy and brushings. DESCRIPTION OF PROCEDURE: After the patient was adequately sedated, the flexible digital bronchoscope with endobronchial ultrasound bronchoscopy was inserted via the ET tube to the level of the main anders. Using the ultrasound guidance to try to visualize the lymph node stations. The patient has subcentimeter paratracheal lymph node. The patient had elongated station 7 lymph node, which appeared to be normal in appearance and had more significant enlargement of lymph nodes in the hilum on the right side. Initially had endobronchial question and endobronchial involvement on the CAT scan, however, it was all mucus, though endobronchial mucosa appeared to be erythematous, but without any evidence of malignancy. Using ultrasound guidance, initially went after station 7, multiple passes, 4 passes were done with the transbronchial needle aspirate, sent to cytology. We did get some blood and specimens were placed on CytoRich medium for cell block. The bronchoscope was then navigated to station 11R, and transbronchial needle aspirations 3 attempts were done. Lymphoid tissue was collected and no apparent malignancy appreciated. Thus, the specimens were placed in CytoRich for cell block. I did come back up to a station 4R where 1 attempt of transbronchial needle aspirate was done of the 4R lymph node, and that was put on CytoRich for further evaluation. After the 3 different stations intervened on, the endobronchial ultrasound bronchoscopy was removed and set up with a regular bronchoscope. The tracheobronchial tree was examined to the subsegmental level. No evidence of any endobronchial lesions or masses. Did have some erythema and some inflammation to the right mainstem bronchus and airways. Did have some mucus, primarily actually more on the left than the right. The brushings were sent from the right lung. Initially, a brush was introduced into the right mainstem bronchus and brushed the endobronchial mucosa and sent to cytology. Also, endobronchial biopsies were collected from the right mainstem bronchus as well because of the inflammation and placed on pathology. The patient tolerated the procedure well. No bleeding. No complications. INTERPRETATION: 1. Successful transbronchial needle aspiration with EBUS from station 4R, station 7, and station 11R. 2. Bronchoscopy with brushings in the right mainstem bronchus and endobronchial biopsies to the right mainstem bronchus, bronchial washings from the right lung. Bacilio Norris MD MR/LEANDRO / [id number]
== END 2020-08-01 12:00 | disposition home or self-care (01) ==
PROVIDERS: PCP Internal Medicine; Visit Provider Hospitalist
PROC: (CPT 31653; principal; 2020-08-01 09:00)
DX: R59.0 Localized enlarged lymph nodes (principal); R91.8 Other nonspecific abnormal finding of lung field; J40 Bronchitis, not specified as acute or chronic
CPT/HCPCS: 31653; 31625; 31623; 87071; 87205; 88112; 88172; 88173; 88177; 88305; 88312; J0171; J1100; J2250; J2405; J3010

== ENCOUNTER → 2020-08-19 09:49 | Outpatient (BNVA) | payer MEDICARE, SELFPAY | PROVIDERS: PCP Internal Medicine; Visit Provider Hospitalist | DX: J43.2 Centrilobular emphysema (principal); R91.8 Other nonspecific abnormal finding of lung field; R59.0 Localized enlarged lymph nodes | CPT/HCPCS: 99202; 99212 ==

== ENCOUNTER 2020-08-30 09:23 | Outpatient (REF) | payer MEDICARE, SELFPAY ==
--- NOTE | 2020-08-30 09:25 | CT_ITS ---
EXAMINATION: CT CHEST WITHOUT CONTRAST CLINICAL INFORMATION: Emphysema. Follow up pulmonary nodules. COMPARISON: Previous chest x-ray and chest CT scan most recent 07/21/2020 TECHNIQUE: Multidetector volumetric CT imaging of the chest was done. Axial MIP volume rendering provided. Sagittal and coronal reformatted images were obtained. This CT examination was performed using dose optimization techniques as appropriate, variously including the following: *Automated exposure control *Adjustment of mA and/or kV according to patient size (this includes techniques or standardized protocols for targeted exams where dose is matched to indication/reason for exam; i.e. 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 LUNGS: There is evidence of severe emphysema. There are bullous changes seen in the bilateral upper lobes. There is bilateral upper lobe scarring and volume loss. There is an abnormal parenchymal density in the right lung apex. It is difficult to define the major fissure due to upper lobe volume loss and this finding may be in the superior segment of the right lower lobe. This is triangular in shape and measures 0.8 x 1.1 cm axial image 91 series 5. There has several small calcifications. Stable from previous exam and probably represents scarring. There are 2 adjacent smaller 5 6 mm noncalcified nodules or parenchymal densities axial image 113 series 5 that are stable as well. Again, these findings are similar to old exams going back to 2008 and probably represent areas of scarring. There is a 4 mm peripheral right lower lobe nodule axial image 495 that is stable from most recent exam July 2020 but new in the interval from older 2008. There are several peripheral or subpleural calcified and noncalcified right lower lobe nodules adjacent to the diaphragmatic pleural surface, largest measuring 5 mm axial image 548 series 5 that are stable going back to old exam from 2018. MEDIASTINUM: There is mild coronary artery and aortic valve calcification. The mediastinum is otherwise normal. PLEURA: There is no pleural effusion. No pleural mass or thickening. AXILLA: No lymphadenopathy. UPPER ABDOMEN: There are gallstones in the gallbladder. OSSEOUS STRUCTURES: There are degenerative changes of the spine. There is a probable Schmorl's node in the left superior endplate of the body. CT/CT chest wo con IMPRESSION: Severe emphysema and bilateral upper lobe scarring and volume loss. Stable abnormal parenchymal densities in the right upper lobe probably related to post infectious or inflammatory scarring. Stable right lower lobe nodules adjacent to the diaphragmatic pleural surface. Stable 4 mm peripheral right lower lobe nodule from recent exam July 2020 but new in the interval from older [address] follow-up recommended in one year.
== END 2020-08-30 09:24 | disposition home or self-care (01) ==
LOC: HO.CT 09:23
PROVIDERS: PCP Internal Medicine; Visit Provider Hospitalist
DX: R91.8 Other nonspecific abnormal finding of lung field (principal); R59.0 Localized enlarged lymph nodes
CPT/HCPCS: 71250

== ENCOUNTER 2020-10-08 13:14 | Outpatient (REF) | payer MEDICARE, SELFPAY ==
[2020-10-08 14:00] LABS: MANUAL DIFF FLAG NO
[2020-10-08 14:16] LABS: Basophils Absolute Auto 0.1 X10*3/uL (0.0-0.2); Basophils Percent Auto 0.7 % (0-2); Eosinophils Absolute Auto 0.2 X10*3/uL (0.0-0.4); Eosinophils Percent Auto 2.2 % (0-4); Hematocrit 45.9 % (42-52); Hemoglobin 15.5 g/dl (14.0-18.0); Imm Gran Abs Auto 0.08 X10*3/uL (0.00-0.03); Imm Gran Pct Auto 0.8 % (0.0-0.4); Lymphocytes Absolute Auto 1.9 X10*3/uL (1.2-4.9); Lymphocytes Percent Auto 18.1 % (20-40); Mean Corpuscular HGB Conc 33.8 g/dl (31.0-36.0); Mean Corpuscular Hemoglobin 31.4 pg (27.0-33.0); Mean Corpuscular Volume 93.1 fL (80-98); Mean Platelet Volume 9.1 fL (9.4-12.4); Monocytes Absolute Auto 1.3 X10*3/uL (0.1-1.2); Neutrophils Absolute Auto 6.9 X10*3/uL (2.0-8.3); Neutrophils Percent Auto 66.2 % (45-73); Platelet Count 240 X10*3/uL (160-400); Red Blood Count 4.93 X10*6/uL (4.60-5.80); Red Cell Distribution Width 13.4 % (11.0-16.0); White Blood Count 10.5 X10*3/uL (4.8-10.8)
[2020-10-08 14:27] LABS: Anion Gap 15 (12-20); Blood Urea Nitrogen 18 mg/dL (9-16); Calcium 9.2 mg/dL (8.4-10.2); Carbon Dioxide 27 mmol/L (22-29); Chloride 104 mmol/L (96-108); Estimated Glomerular Filt Rate > 60; Glucose Random 82 mg/dL (60-115); Potassium 4.6 mmol/l (3.3-5.1); Sodium 141 mmol/L (135-145)
[2020-10-08 15:35] LABS: Erythrocyte Sedimentation Rate 5 MM/HR (0-15)
[2020-10-09 13:33] LABS: Anti Nuclear Antibody Screen NEGATIVE (NEGATIVE)
[2020-10-09 15:07] LABS: Cyclic Citrullinated Peptide <16 UNITS
[2020-10-10 04:41] LABS: SARS COV2 IgG Negative (Negative)
[2020-10-13 06:32] LABS: Angiotensin Converting Enzyme 38 U/L (9-67)
== END 2020-10-08 13:15 | disposition home or self-care (01) ==
LOC: HO.HMGCLDS 13:14
PROVIDERS: PCP Internal Medicine; Visit Provider Hospitalist
DX: R91.8 Other nonspecific abnormal finding of lung field (principal); R59.0 Localized enlarged lymph nodes; Z01.84 Encounter for antibody response examination
CPT/HCPCS: 36415; 80048; 82164; 85025; 85652; 86038; 86039; 86200; 86769

== ENCOUNTER → 2020-10-22 10:12 | Outpatient (BNVA) | payer MEDICARE, SELFPAY | PROVIDERS: PCP Internal Medicine; Visit Provider Hospitalist | DX: R91.8 Other nonspecific abnormal finding of lung field (principal); R59.0 Localized enlarged lymph nodes; J43.2 Centrilobular emphysema | CPT/HCPCS: 99212 ==

== ENCOUNTER 2021-03-13 10:12 | Outpatient (REF) | payer MEDICARE, SELFPAY ==
--- NOTE | ~2021-03-13 | CT_ITS ---
EXAMINATION: CT CHEST WITHOUT CONTRAST CLINICAL INFORMATION: Abnormal lung findings COMPARISON: CT chest 08/30/2020 TECHNIQUE: Multidetector volumetric CT imaging of the chest was done. Axial MIP volume rendering provided. Sagittal and coronal reformatted images were obtained. This CT examination was performed using dose optimization techniques as appropriate, variously including the following: *Automated exposure control *Adjustment of mA and/or kV according to patient size (this includes techniques or standardized protocols for targeted exams where dose is matched to indication/reason for exam; i.e. 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 There is bilateral apical pleural scarring. Triangular nodule described on the previous exam right lung apex is likely thick parenchymal scarring and best visualized on axial image 12/4. 2 smaller nodules noncalcified in the right upper lobe are also visualized and less dense but same size. The second nodule has an extension to the posterior pleura and likely represents part of the scarring. A 6 mm nodule is seen but appears to be right lower lobe on axial image 199/7. There is hard to differentiate between upper lobe and the lower lobe due to thick scarring in the right upper lobe and nonvisualization of the fissure. There are noncalcified nodules in the right lower lobe measuring 5 mm adjacent to the diaphragm on axial image 59/4. One of the nodules has central calcification. Focal atelectatic changes seen in the right lung base. There is a 2 mm subpleural nodule left lower lobe lateral basal segment image 56/4. MEDIASTINUM: The thyroid lobes are symmetrical and normal. The central trachea and the bronchi are widely patent. There are several pretracheal and aortic window lymph nodes noted, largest short axis lymph node measures 8 mm in the pretracheal space. They are benign. Heart size and the great vessels are normal caliber. There are coronary artery calcifications present. No pericardial effusion seen. PLEURA: There is no pleural effusion. No pleural mass or thickening. AXILLA: No lymphadenopathy. UPPER ABDOMEN: Visualized liver, spleen, pancreas and bilateral adrenal glands are unremarkable. There are multiple radiopaque gallstones. No wall thickening seen. OSSEOUS STRUCTURES: No lytic or sclerotic process seen. CT/CT chest wo con IMPRESSION: Severe emphysematous changes of both lungs most prominent in the upper lobes with extensive bilateral apical scarring. The right upper lobe and right lower lobe nodules are essentially stable to last exam 08/30/2020 and the exam previously from 2007. There are no new nodules seen. No abnormal axillary and mediastinal lymph nodes seen. There are coronary artery calcifications present. No pericardial effusion seen.
== END 2021-03-13 10:13 | disposition home or self-care (01) ==
LOC: HO.CT 10:12
PROVIDERS: Visit Provider Hospitalist
DX: R91.8 Other nonspecific abnormal finding of lung field (principal); R59.0 Localized enlarged lymph nodes
CPT/HCPCS: 71250

== ENCOUNTER 2021-03-20 09:19 | Outpatient (REF) | payer MEDICARE, SELFPAY ==
[2021-03-20 10:41] LABS: Anion Gap 14 (12-20); Blood Urea Nitrogen 18 mg/dL (9-16); C Reactive Protein 0.55 mg/dL (< or = 0.50); Calcium 9.7 mg/dL (8.4-10.2); Carbon Dioxide 27 mmol/L (22-29); Chloride 106 mmol/L (96-108); Estimated Glomerular Filt Rate > 60; Glucose Random 89 mg/dL (60-115); Sodium 142 mmol/L (135-145); Uric Acid 4.2 mg/dL (3.4-7.0)
== END 2021-03-20 09:20 | disposition home or self-care (01) ==
LOC: HO.10HDL 09:19
PROVIDERS: PCP Internal Medicine; Visit Provider Internal Medicine
DX: M25.562 Pain in left knee (principal)
CPT/HCPCS: 36415; 80048; 84550; 86140

== ENCOUNTER 2021-04-01 08:11 | Outpatient (REF) | payer MEDICARE, SELFPAY ==
--- NOTE | ~2021-04-01 | XR_ITS ---
EXAMINATION: AP BILATERAL KNEE AND RIGHT KNEE. CLINICAL INFORMATION: Pain in right knee. COMPARISON: None TECHNIQUE: AP bilateral knees standing. Right knee 2 views. FINDINGS: AP bilateral knee: There is mild loss of medial and lateral compartment joint space both kidneys with chondrocalcinosis. No fracture or lytic process seen. Left knee: There is loss of patellofemoral compartment joint space. Mild periarticular spurring and mild suprapatellar joint effusion. No visible acute fracture, dislocation. There is chondrocalcinosis noted. XR/XR knee standing BI IMPRESSION: Chondrocalcinosis bilateral knees. Mild reduction in tricompartment joint space left knee without bony erosive changes or loose bodies. There is mild suprapatellar joint effusion.
--- NOTE | ~2021-04-01 | XR_ITS ---
EXAMINATION: AP BILATERAL KNEE AND RIGHT KNEE. CLINICAL INFORMATION: Pain in right knee. COMPARISON: None TECHNIQUE: AP bilateral knees standing. Right knee 2 views. FINDINGS: AP bilateral knee: There is mild loss of medial and lateral compartment joint space both kidneys with chondrocalcinosis. No fracture or lytic process seen. Left knee: There is loss of patellofemoral compartment joint space. Mild periarticular spurring and mild suprapatellar joint effusion. No visible acute fracture, dislocation. There is chondrocalcinosis noted. XR/XR knee LT 2V IMPRESSION: Chondrocalcinosis bilateral knees. Mild reduction in tricompartment joint space left knee without bony erosive changes or loose bodies. There is mild suprapatellar joint effusion.
== END 2021-04-01 08:12 | disposition home or self-care (01) ==
LOC: HO.HOSX 08:11
PROVIDERS: Visit Provider Orthopaedic Surgery
DX: M25.562 Pain in left knee (principal); M25.561 Pain in right knee; M76.892 Other specified enthesopathies of left lower limb, excluding foot; M11.261 Other chondrocalcinosis, right knee
CPT/HCPCS: 73560; 73565; 99202

== ENCOUNTER → 2021-04-22 12:43 | Outpatient (BNVA) | payer MEDICARE, SELFPAY | PROVIDERS: PCP Internal Medicine; Visit Provider Hospitalist | DX: J43.2 Centrilobular emphysema (principal); J84.10 Pulmonary fibrosis, unspecified; R91.8 Other nonspecific abnormal finding of lung field; R59.0 Localized enlarged lymph nodes; K21.9 Gastro-esophageal reflux disease without esophagitis; F17.210 Nicotine dependence, cigarettes, uncomplicated | CPT/HCPCS: 99212 ==

== ENCOUNTER 2021-10-28 10:44 | Outpatient (REF) | payer MEDICARE, SELFPAY ==
--- NOTE | ~2021-10-28 | XR_ITS ---
EXAMINATION: XR CHEST CLINICAL INFORMATION: COPD. COMPARISON: CT chest 03/13/2021, chest radiograph 07/21/2020 TECHNIQUE: 2 views of the chest were obtained. FINDINGS: Again seen are changes of COPD with hyperinflation and scattered areas of chronic scarring. When comparison is made to the prior chest radiograph from 07/21/2020, there has been no interval change. Lung nodules seen on prior CT exams are beyond the resolution of the plain film technique. XR/XR chest 2V IMPRESSION: COPD with areas of chronic scarring, stable chest radiographic appearance since 07/21/2020.
[2021-10-28 11:42] LABS: Basophils Absolute Auto 0.1 X10*3/uL (0.0-0.2); Basophils Percent Auto 0.4 % (0-2); Eosinophils Absolute Auto 0.2 X10*3/uL (0.0-0.4); Eosinophils Percent Auto 1.7 % (0-4); Hematocrit 42.6 % (42.0-52.0); Hemoglobin 14.5 g/dl (14.0-18.0); Imm Gran Abs Auto 0.11 X10*3/uL (0.00-0.03); Lymphocytes Absolute Auto 1.5 X10*3/uL (1.2-4.9); MANUAL DIFF FLAG SCAN; Mean Corpuscular Hemoglobin 31.2 pg (27.0-33.0); Mean Corpuscular Volume 91.6 fL (80.0-98.0); Mean Platelet Volume 8.6 fL (9.4-12.4); Monocytes Absolute Auto 1.5 X10*3/uL (0.1-1.2); Monocytes Percent Auto 13.5 % (2-11); Neutrophils Percent Auto 70.4 % (45-73); Platelet Count 363 X10*3/uL (160-400); Red Blood Count 4.65 X10*6/uL (4.60-5.80); Red Cell Distribution Width 12.4 % (11.0-16.0); SCAN SMEAR FLAG 1; White Blood Count 11.4 X10*3/uL (4.8-10.8)
[2021-10-28 12:11] LABS: SLIDE REVIEW VERIFIED
[2021-10-28 12:24] LABS: Alanine Aminotransferase 26 U/L (0-40); Albumin Level 3.8 g/dL (3.5-5.0); Alkaline Phosphatase 59 U/L (39-117); Anion Gap 14 (12-20); Aspartate Amino Transferase 15 U/L (5-37); Bilirubin Total 0.5 mg/dL (0.0-1.0); Blood Urea Nitrogen 17 mg/dL (9-16); C Reactive Protein 7.95 mg/dL (< or = 0.50); Calcium 9.7 mg/dL (8.4-10.2); Carbon Dioxide 30 mmol/L (22-29); Chloride 103 mmol/L (96-108); Estimated Glomerular Filt Rate > 60; Glucose Random 90 mg/dL (60-115); Potassium 4.7 mmol/L (3.3-5.1); Sodium 142 mmol/L (135-145); Total Protein 6.9 g/dL (6.5-8.0)
== END 2021-10-28 10:45 | disposition home or self-care (01) ==
LOC: HO.XRAY 10:44
PROVIDERS: PCP Internal Medicine; Visit Provider Internal Medicine
DX: J44.9 Chronic obstructive pulmonary disease, unspecified (principal); R13.10 Dysphagia, unspecified
CPT/HCPCS: 36415; 71046; 80053; 85025; 86140

== ENCOUNTER 2021-10-29 10:05 | Outpatient (REF) | payer MEDICARE, SELFPAY ==
--- NOTE | ~2021-10-29 | FL_ITS ---
EXAMINATION: XR FLUOROSCOPY UPPER GI WITH AIR CLINICAL INFORMATION: Dysphagia. COMPARISON: None. TECHNIQUE: Routine upper GI air-contrast study was performed. FINDINGS: Following oral administration of thick barium and effervescent granules in upright view, there is normal propagation of bolus from the oral cavity through the pharynx and esophagus and into the stomach. A prominent cricoesophageal splinter is noted indenting the posterior cervical esophagus but causing no obstruction. The mucosal pattern of esophagus is normal. On placing patient supine and prone lying, the course, caliber and peristalsis of the stomach and the duodenum are normal. There is a small sliding hiatal hernia with mild gastroesophageal reflux. Otherwise, the rest the course of the stomach, duodenal bulb and the sweep is normal. The mucosal pattern of the stomach and the duodenum is normal. FLUOROSCOPY TIME: 1.3 minutes DOSE AREA PRODUCT: 20.680 Gy-cm2 (Verdugo-centimeter squared) FL/FL upper GI w air IMPRESSION: Small sliding hiatal hernia with mild gastroesophageal reflux.
== END 2021-10-29 10:06 | disposition home or self-care (01) ==
LOC: HO.XRAY 10:05
PROVIDERS: PCP Internal Medicine; Visit Provider Internal Medicine
DX: R13.10 Dysphagia, unspecified (principal)
CPT/HCPCS: 74246

== ENCOUNTER → 2021-12-16 12:53 | Outpatient (BNVA) | payer MEDICARE, SELFPAY | PROVIDERS: PCP Internal Medicine; Visit Provider Hospitalist | DX: R91.8 Other nonspecific abnormal finding of lung field (principal); R59.0 Localized enlarged lymph nodes; J43.2 Centrilobular emphysema | CPT/HCPCS: 94618; 99212 ==

== ENCOUNTER 2022-01-30 07:08 | Outpatient (REF) | payer MEDICARE, SELFPAY ==
--- NOTE | ~2022-01-30 | CT_ITS ---
EXAMINATION: CT CHEST WITHOUT CONTRAST CLINICAL INFORMATION: Follow up lung nodules. COMPARISON: CT of the chest done on 03/13/2021, 08/30/2020 and 08/11/2008. TECHNIQUE: Multidetector volumetric CT imaging of the chest was done. Axial MIP volume rendering provided. Sagittal and coronal reformatted images were obtained. This CT examination was performed using dose optimization techniques as appropriate, variously including the following: *Automated exposure control *Adjustment of mA and/or kV according to patient size (this includes techniques or standardized protocols for targeted exams where dose is matched to indication/reason for exam; i.e. 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 LUNGS: Severe emphysematous disease predominantly involving both upper lobes with superimposed presumed pleuroparenchymal scar related changes are noted at both lung apices. However, when compared to the available baseline study dated 08/11/2008, pleuroparenchymal thickening at right lung apex as well as adjacent subcentimeter nodule appear more pronounced. The appearance although is stable since the most recent prior studies dating back to 08/30/2020. Follow-up PET CT study may be considered for further clarification, if clinically appropriate. Multiple other scattered subcentimeter nodules seen within both lower lobes (right greater the left including peridiaphragmatic nodules at right lung base appear stable since more recent prior studies dating back to 08/30/2020 and new since 08/11/2008. Tracheobronchial tree is patent. MEDIASTINUM: There are no pathologically enlarged mediastinal or hilar lymphadenopathy present. Atherosclerotic disease of the aorta including coronary artery calcifications are noted. No significant change. The heart size is within normal limit. There is trace simple appearing pericardial effusion present. PLEURA: There is no pleural effusion. No pleural mass or thickening. AXILLA: No lymphadenopathy. UPPER ABDOMEN: Calcified gallstones are present, similar to prior study. There is no adrenal mass present. OSSEOUS STRUCTURES: No suspicious focal lesion. CT/CT chest wo con IMPRESSION: 1. Abnormal study. Extensive emphysematous disease predominantly involving both upper lobes and superimposed presumed pleuroparenchymal scar related changes are noted at both lung apices, appears similar to recent CT of the chest dated 07/21/2020 and 03/13/2021. However, the pleural-parenchymal opacities at right lung apex as well as subtle subcentimeter adjacent nodule appear much more pronounced as compared to the baseline study dated 08/11/2008. Follow-up PET CT study may be considered for further clarification, if clinically appropriate. 2. Previously documented bilateral lower lobar (right greater than left) including peridiaphragmatic nodules appear stable since most recent prior studies dating back to 07/31/2020 and appear new since 08/11/2008. 3. No new or enlarging lung nodules since the most recent prior study dated 03/13/2021.
== END 2022-01-30 07:09 | disposition home or self-care (01) ==
LOC: HO.CT 07:08
PROVIDERS: PCP Internal Medicine; Visit Provider Hospitalist
DX: R59.0 Localized enlarged lymph nodes (principal); R91.8 Other nonspecific abnormal finding of lung field
CPT/HCPCS: 71250

== ENCOUNTER 2022-02-24 09:41 | Outpatient (REF) | payer MEDICARE, SELFPAY ==
--- NOTE | 2022-02-24 16:35 | PFT_ITS ---
FLOWS: FEV1 73% of predicted at 1.87 L. FVC 113% of predicted at 4.14 L. FEV1 to FVC ratio of 0.45. No bronchodilator response. LUNG VOLUMES: Total lung capacity 93% of predicted at 6.40 L. Residual volume 87% of predicted at 2.38 L. Slow vital capacity 96% of predicted at 4.02 L. Expiratory reserve volume 101% of predicted at 1.06 L. Diffusion capacity is severely decreased. IMPRESSION: Moderate obstructive ventilatory defect with no bronchodilator response. Decreased diffusion capacity suggests emphysema. William Velasquez MD AP/MODL / [id number]
== END 2022-02-24 09:42 | disposition home or self-care (01) ==
LOC: HO.RESP 09:41
PROVIDERS: Visit Provider Hospitalist
DX: J43.2 Centrilobular emphysema (principal); R91.8 Other nonspecific abnormal finding of lung field; R59.0 Localized enlarged lymph nodes
CPT/HCPCS: 94060; 94727; 94729; 99212

== ENCOUNTER → 2022-03-31 10:14 | Outpatient (BNVA) | payer MEDICARE, SELFPAY | PROVIDERS: PCP Internal Medicine; Visit Provider Hospitalist | DX: J43.2 Centrilobular emphysema (principal); R91.8 Other nonspecific abnormal finding of lung field; R59.0 Localized enlarged lymph nodes; Z79.899 Other long term (current) drug therapy | CPT/HCPCS: 94618; 99212 ==

== ENCOUNTER 2022-08-17 07:16 | Outpatient (REF) | payer MEDICARE, SELFPAY ==
--- NOTE | ~2022-08-17 | CT_ITS ---
EXAMINATION: CT CHEST WITHOUT CONTRAST CLINICAL INFORMATION: Other nonspecific abnormal finding of lung field COMPARISON: Previous chest CT scans most recent January 2022 TECHNIQUE: Multidetector volumetric CT imaging of the chest was done. Axial MIP volume rendering provided. Sagittal and coronal reformatted images were obtained. This CT examination was performed using dose optimization techniques as appropriate, variously including the following: *Automated exposure control *Adjustment of mA and/or kV according to patient size (this includes techniques or standardized protocols for targeted exams where dose is matched to indication/reason for exam; i.e. extremities or head) *Use of iterative reconstruction technique DLP: 169 mGy-cm FINDINGS: LUNGS: There is evidence of severe emphysema. There is biapical pleural and parenchymal scarring that appears stable. There is volume loss and architectural distortion seen in both upper lobes with areas of linear scarring that appear unchanged. There are nodular opacities in the right upper lobe measuring 6 mm and 8 mm axial for example axial image 125 series 7 that are stable. There is a new irregularly-shaped abnormal parenchymal density in the left lower lobe abutting the fissure. This measures 1 x 2 cm axial image 260 series 7 and 1.2 x 2.2 cm axial image 243 series 7.. There are small pulmonary nodules that are stable, largest measuring 4 mm in the right lower lobe axial image 509 series 7. No endobronchial or endotracheal lesion. MEDIASTINUM: Small mediastinal lymph nodes that are stable. Normal heart size. Trace pericardial effusion or thickening that is stable. Coronary artery and aortic valve calcification. Normal caliber thoracic aorta. Normal caliber pulmonary arteries. CORONARY ARTERY CALCIFICATION: Mild PLEURA: There is no pleural effusion. Small right diaphragmatic pleural thickening and calcification that is stable. AXILLA: No lymphadenopathy. UPPER ABDOMEN: Gallstones. OSSEOUS STRUCTURES: Unremarkable. CT/CT chest wo IV con IMPRESSION: New irregularly-shaped slightly spiculated abnormal parenchymal density in the left lower lobe abutting the fissure. Either short-term follow-up chest CT, PET/CT or tissue sampling should be considered. Severe emphysema. Biapical pleural parenchymal scarring. Bilateral upper lobe volume loss, scarring and architectural distortion and right upper lobe nodular opacities that are stable. Fleischner guidelines were followed.
== END 2022-08-17 07:17 | disposition home or self-care (01) ==
LOC: HO.CT 07:16
PROVIDERS: Visit Provider Hospitalist
DX: R91.8 Other nonspecific abnormal finding of lung field (principal)
CPT/HCPCS: 71250

== ENCOUNTER → 2022-08-25 10:53 | Outpatient (BNVA) | payer MEDICARE, SELFPAY | PROVIDERS: PCP Internal Medicine; Visit Provider Hospitalist | DX: J43.2 Centrilobular emphysema (principal); R91.1 Solitary pulmonary nodule; R59.0 Localized enlarged lymph nodes; R91.8 Other nonspecific abnormal finding of lung field; Z79.899 Other long term (current) drug therapy | CPT/HCPCS: 99212 ==

== ENCOUNTER 2022-09-15 09:39 | Outpatient (REF) | payer MEDICARE, SELFPAY ==
--- NOTE | ~2022-09-15 | PE_ITS ---
EXAMINATION: Fluorine-18 FDG PET/CT Scan CLINICAL INDICATION: Initial treatment management. Pulmonary opacity, diagnosis. PROCEDURE: 62 minutes following the intravenous administration of 19.8 mCi of fluorine 18 FDG, images from the base of the skull to the mid thighs were obtained using a combined PET/CT scanner with CT scan based attenuation correction. No oral contrast was administered. No intravenous contrast was administered. Transverse, coronal, sagittal, and volume reconstruction projections were obtained. The patient's blood glucose as determined by a finger stick, was 95 mg/dl immediately prior to injection. Total CT exam dose-length product 448.46 mGy-cm * These CT images were obtained using dose optimization techniques as appropriate, variously including the following: Automated exposure control * Adjustment of mA and/or kV according to patient size (this includes techniques or standardized protocols for targeted exams where dose is matched to indication/reason for exam; i.e. extremities or head) * Use of iterative reconstruction technique COMPARISON: No prior PET/CT scan is available for comparison. CT scan of the chest dated 08/17/[address] scan of the abdomen and pelvis dated 07/21/2020 are available for comparison. FINDINGS: (Slice numbers described in this report are numbered superiorly to inferiorly with slice #1 in the head) NECK AND VISUALIZED HEAD: No foci of abnormal FDG activity are noted. The distribution of FDG activity is physiological. There is no cervical lymphadenopathy. THORAX: There is an FDG avid spiculated left lower lobe pulmonary nodule that measures 1.3 x 0.7 cm in largest transverse dimensions and approximately 3.2 cm cephalocaudad. This abuts the interlobar fissure and is better delineated on the 08/17/[address] and does not appear significantly changed from the latter. This shows SUVmax 4.3, slice 70/267. There are no additional foci of abnormal FDG activity present in the chest. Additional subcentimeter pulmonary nodules visualized on the 08/17/2022 CT scan are not well visualized on the current study, with the largest of these laterally in the right lower lobe measuring 4 mm just barely visualized, slice 267/698. This is much too small to be characterized on the FDG PET images. There is severe diffuse emphysema. There is no pleural or pericardial fluid, or pneumothorax. There is no mediastinal, supraclavicular, or axillary lymphadenopathy. ABDOMEN AND PELVIS: There are no foci of abnormal FDG activity in the abdomen or pelvis. Mild FDG activity throughout the gastrointestinal tract is noted without a suspicious focal component and likely physiological. There is diverticulosis without evidence of diverticulitis. The hollow viscera are otherwise unremarkable. The liver and spleen are unremarkable. Multiple peripherally calcified gallbladder calculi are present in the gallbladder neck. The gallbladder is otherwise unremarkable. The kidneys, adrenal glands, and pancreas are unremarkable. There is no retroperitoneal, mesenteric, pelvic or inguinal lymphadenopathy. Bilateral fat-containing inguinal hernias are present. The prostate gland is enlarged measuring 5.6 cm in largest transverse dimensions. There is mild diffuse FDG activity in the prostate with no suspicious focal component. The pelvic organs are otherwise unremarkable. MUSCULOSKELETAL: There is mild diffuse FDG activity in both shoulders and slightly more prominently increased activity is present in the right sternoclavicular joint all likely degenerative or arthritic. There is mildly increased FDG activity in a soft tissue focus posteriorly in the left elbow. The posterior location suggests this is not related to the radiopharmaceutical injection which was in the left antecubital fossa but likely anteriorly located. This is probably due to some nonspecific inflammation at this site. No additional foci of abnormal FDG activity are present in the osseous structures. There are degenerative changes in both hips, more prominently on the left. A subchondral cyst laterally in the left femoral head is noted with no associated abnormal FDG activity. There are degenerative changes in the spine most prominently in the mid and lower thoracic spine. There is a mild thoracolumbar scoliosis with lumbar convexity to the left. There are no suspicious sclerotic or lytic lesions visualized. VASCULAR: Diffuse vascular calcifications including coronary. PET/PET CT fusion skull to thigh IMPRESSION: 1. A left lower lobe pulmonary nodule which abuts the interlobar fissure is FDG avid is strongly suspicious for a primary lung malignancy. 2. No additional abnormalities are present suspicious for metastatic or other malignant lesions. 3. Mild FDG activity posteriorly in the left elbow is nonspecific and probably not related to the radiopharmaceutical injection in the left antecubital fossa. This is probably due to some inflammatory changes in this region. Clinical correlation is recommended. 4. Cholelithiasis. 5. Diffuse vascular calcifications including coronary.
== END 2022-09-15 09:40 | disposition home or self-care (01) ==
LOC: HO.PET 09:39
PROVIDERS: Visit Provider Hospitalist
DX: Z13.89 Encounter for screening for other disorder (principal)

== ENCOUNTER → 2022-09-18 09:54 | Outpatient (BNVA) | payer MEDICARE, SELFPAY | PROVIDERS: PCP Internal Medicine; Visit Provider Hospitalist | DX: R91.1 Solitary pulmonary nodule (principal); R91.8 Other nonspecific abnormal finding of lung field; J43.2 Centrilobular emphysema; M19.90 Unspecified osteoarthritis, unspecified site | CPT/HCPCS: 99212 ==

== ENCOUNTER → 2022-10-02 09:01 | Outpatient (BNVA) | payer MEDICARE, SELFPAY | PROVIDERS: PCP Internal Medicine; Visit Provider Surgery | DX: R91.1 Solitary pulmonary nodule (principal); J43.2 Centrilobular emphysema | CPT/HCPCS: 99202 ==

== ENCOUNTER → 2022-10-30 09:53 | Outpatient (BNVA) | payer MEDICARE, SELFPAY | PROVIDERS: PCP Internal Medicine; Visit Provider Surgery | DX: R91.1 Solitary pulmonary nodule (principal); R59.0 Localized enlarged lymph nodes | CPT/HCPCS: 99212 ==

== ENCOUNTER 2023-01-08 07:15 | Outpatient (REF) | payer MEDICARE, SELFPAY ==
--- NOTE | ~2023-01-08 | CT_ITS ---
EXAMINATION: CT CHEST WITHOUT CONTRAST CLINICAL INFORMATION: Solitary pulmonary nodule. COMPARISON: CT PET exam 09/15/2022. CT chest 08/17/2022. TECHNIQUE: Multidetector volumetric CT imaging of the chest was done. Axial MIP volume rendering provided. Sagittal and coronal reformatted images were obtained. This CT examination was performed using dose optimization techniques as appropriate, variously including the following: *Automated exposure control *Adjustment of mA and/or kV according to patient size (this includes techniques or standardized protocols for targeted exams where dose is matched to indication/reason for exam; i.e. 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 LUNGS: There are diffuse emphysematous lungs with chronic bilateral upper lobe scarring or atelectasis and bullous changes. There is a known left lower lobe spiculated nodule measuring 1.6 x 1.2 cm. On the previous CT chest, this measured 1.2 x 2.2 cm and has increased in size. There are other small pulmonary nodules which are stable for example; a 7 mm nodule in the right upper lobe (axial image 113/5), ill-defined posterior right upper lobe nodule with adjacent radiating fibers or scarring measuring 7 mm (axial image 113/5), 4 mm nodule right lower lobe (axial image 515/5). There are no new nodules seen. No acute consolidation. MEDIASTINUM: The heart size and the great vessels are normal caliber. The central trachea and the bronchi are widely patent. The thyroid lobes are symmetric and normal. There are benign lymph nodes in the mediastinum. No pericardial effusion is seen. CORONARY ARTERY CALCIFICATION: Mild coronary artery calcifications are present. PLEURA: There is no pleural effusion. No pleural mass or thickening. AXILLA: No lymphadenopathy. UPPER ABDOMEN: Visualized liver, spleen, pancreas and bilateral adrenal glands are unremarkable. There are multiple radiopaque gallstones. OSSEOUS STRUCTURES: No aggressive lytic or sclerotic process is seen. There are endplate Schmorl's nodes in the lower dorsal spine. CT/CT chest wo IV con IMPRESSION: 1. Diffuse emphysema with bilateral upper lobe scarring and bullous changes. 2. There is a left lower lobe spiculated nodule which has increased in size since the last CT chest exam of 08/17/2022. 3. There are other small pulmonary nodules which are stable. 4. No abnormal mediastinal or axillary lymphadenopathy is seen. 5. Cholelithiasis without wall thickening. Fleischner guidelines were followed.
== END 2023-01-08 07:16 | disposition home or self-care (01) ==
LOC: HO.CT 07:15
PROVIDERS: PCP Internal Medicine; Visit Provider Surgery
DX: R91.1 Solitary pulmonary nodule (principal)
CPT/HCPCS: 71250

== ENCOUNTER → 2023-01-25 08:51 | Outpatient (BNVA) | payer MEDICARE, SELFPAY | PROVIDERS: PCP Internal Medicine; Visit Provider Hospitalist | DX: R91.1 Solitary pulmonary nodule (principal); R91.8 Other nonspecific abnormal finding of lung field; J43.2 Centrilobular emphysema | CPT/HCPCS: 99212 ==

== ENCOUNTER → 2023-02-05 10:04 | Outpatient (BNVA) | payer MEDICARE, SELFPAY | PROVIDERS: PCP Internal Medicine; Visit Provider Surgery | DX: R91.1 Solitary pulmonary nodule (principal) | CPT/HCPCS: 99212 ==

== ENCOUNTER → 2023-02-15 12:48 | Outpatient (BNVA) | payer MEDICARE, SELFPAY | PROVIDERS: PCP Internal Medicine; Visit Provider Internal Medicine Cardiovascular Disease | DX: Z01.810 Encounter for preprocedural cardiovascular examination (principal) | CPT/HCPCS: 93005; 99202 ==

== ENCOUNTER → 2023-02-25 07:41 | Outpatient (REF) | payer MEDICARE, SELFPAY ==
--- NOTE | 2023-02-25 07:45 | CA_ITS ---
Transthoracic Echocardiogram Patient (Last, First, Middle): Asaf Sheth J Gender: Male Date of : 1935 Age: 87 Procedure Date: 02/25/2023 Procedure Type: Transthoracic Echocardiogram Location: OP Height: 175.26 cm Weight: 78.02 kg BSA: 1.94 m2 Heart Rate: bpm BP: 118 / 60 mmHg [employer]: RALF Referring MD: Jaime Leigh MD Applique Cutter: Jaime Leigh MD Symptoms: Z01.810 - Encounter for preprocedural cardiovascular examination Study Quality: Fair ECG Rhythm: Sinus Conclusions: - 1. Normal LV systolic function with LVEF of 55-60% with impaired relaxation filling pattern 2. Normal cardiac valvular Doppler 3. No gross pericardial effusion Findings Left Ventricle Normal left ventricular size, thickness, and systolic function. The visually estimated ejection fraction is between 55-60%. Spectral Doppler is indicative of an impaired relaxation filling pattern. E/E prime ratio is between 8 and 15 consistent with indeterminate filling pressures. There is mild septal asymmetric hypertrophy. Peak GLS is -17%, which is borderline low. Right Ventricle Normal right ventricular cavity size and systolic function. Atria The left atrium is normal in size. Interatrial shunt cannot be excluded. The right atrium is normal in size. Aortic Valve There is mild calcification of the aortic valve. There is no aortic valve stenosis. There is no aortic valve regurgitation. Mitral Valve There is mild anterior and posterior mitral leaflet thickening. There is mild mitral annular calcification. There is trace mitral valve regurgitation. There is no mitral valve stenosis. Pulmonic Valve The pulmonic valve was not well visualized. Tricuspid Valve Likely normal tricuspid valve structure and function. Tricuspid regurgitation envelope is inadequate for calculation of right ventricular systolic pressure. Great Vessels All visible segments of the aorta are normal in size. The pulmonary artery was not well visualized. Venous The inferior vena cava is normal in size and collapses greater than 50% with inspiration. Pericardium/Pleural There is no evidence of pericardial effusion. Prior Study Comparison No significant change compared to prior study dated: 10/04/2015. Measurements 2D Linear Measurements IVSd: 1.32 0.6-0.9/0.6-1.0 cm LVIDd: 4.05 3.9-5.3/4.2-5.9 cm LVIDd Index: 2.09 2.4-3.2/2.2-3.1 cm/m2 LVIDs: 2.53 2.0-3.6 cm LVPWd: 0.89 0.7-1.1 cm LA Diam: 3.30 2.7-3.8/3.0-4.0 cm LAIDs Index: 1.70 1.5-2.3 cm/m2 LV Mass: 186.28 67-162/88-224 g LV Mass Index: 96.02 43-95/49-115 g/m2 LVOT Diam: 2.40 3.0+(-)1.3 cm 2D Systolic Function EF 4C: 59.40 >55% EF 2C: 57.40 >55% EF BiP: 58.10 >55% Mitral Valve E'Lateral: 7.94 E'Medial: 5.55 Aortic Valve AoV Pk Lan: 1.42 AoV Mn Lan: 1.06 AoV VTI: 0.35 AoV Pk Grad: 8.00 Aov Mn Grad: 5.00 LÁZARO Cont.VTI: 2.43 LVOT LVOT Pk Lan: 0.76 LVOT Mn Lan: 0.50 LVOT VTI: 0.19 LVOT Pk Grad: 2.00 LVOT Mn Grad: 1.00 LVOT Diam: 2.40 LVOT Area: 4.52 Diastolic Function E'Medial: 5.55 E' Laterial: 7.94 Right Ventricle TAPSE (mm): 21.20 TVS' Lan: 11.10 Tricuspid Valve RA Press: 3.00 Great Vessels Aorta Sinus of Valsalva: 3.69 2.0-3.5 cm Ao Asc: 3.20 2.1-3.4 cm Updated in Other Vendor System with Status of Final Jaime Leigh MD electronically signed on 02/26/2023 4:17:59 PM with status of Final
== END ==
LOC: HO.CARD 07:41
PROVIDERS: Visit Provider Internal Medicine Cardiovascular Disease
DX: Z01.810 Encounter for preprocedural cardiovascular examination (principal)
CPT/HCPCS: 93306; 93356

== ENCOUNTER → 2023-02-26 07:39 | Outpatient (REF) | payer MEDICARE, SELFPAY ==
--- NOTE | ~2023-02-26 | NM_ITS ---
Myocardial perfusion study Indication: Preoperative cardiovascular risk stratification 2 evaluate for myocardial ischemia Technique: The patient was brought in for a Lexiscan perfusion study on 02/26/2023. Patient performed low-level exercise and was injected 0.4 mg of Lexiscan intravenously. Within a minute of injection, 25 mCi of sestamibi was given intravenously. Images were obtained using the SPECT gamma camera interlaced with the gating device. Images were obtained in supine position. Resting perfusion study was performed on 03/02/2023. Patient was administered 25 mCi of sestamibi intravenously at rest. Images were then obtained in supine position. Images obtained with and without CT attenuation. Total DLP 76 mGy-cm. Images were processed with the software and compared side to side in short axis, horizontal long axis and vertical long axis views. Findings: The stress perfusion study showed non attenuated images show minimal thinning of the inferior wall of the LV myocardium. Remainder of the LV myocardium is normally perfused. Attenuation corrected images show normal uptake of radiotracer in all segments of LV myocardium. The gated study shows normal LV systolic function with calculated LVEF of 66%. LV cavity is normal size. The gated study shows normal systolic wall thickening and contraction of segments. Resting study shows no significant change in perfusion pattern compared to stress perfusion study. Gating at rest reveals normal systolic wall motion with ejection fraction at 69%. The findings are consistent with normal myocardial perfusion. NM/NM yesi perf SPECT rest & str Impression: 1. Myocardial perfusion imaging study shows normal myocardial perfusion 2. Gated LVEF is 66% 3. Transient ischemic dilatation not present EKG nondiagnostic for ischemia
--- NOTE | 2023-02-26 07:41 | CA_ITS ---
Acquisition Time: 2023-02-26 07:47:59 Total Exercise Time: 00:02:00 Test Indications: PREOP Medications: SEE H Protocol: LEXISCAN Max HR: 088 BPM 65% of Pred: 134 BPM Max BP: 130/088 mmHG Max Work Load: 1.0 METS Pharmacological stress test with Lexiscan injection while sitting and kicking his legs, without anginal symptom, with isolated PACs and PVCs, with normotensive response to injection, without EKG changes meeting criteria for ischemia. Nuclear images pending. Test reviewed with Dr. Leigh. Referred By: Jaime Leigh Overread By: BEN PEÑA
== END ==
LOC: HO.CARD 07:39
PROVIDERS: Visit Provider Internal Medicine Cardiovascular Disease
DX: Z01.810 Encounter for preprocedural cardiovascular examination (principal)
CPT/HCPCS: 78452; 93017; A9500; J0280; J2785

== ENCOUNTER 2023-05-14 09:12 | Outpatient (AMB) | payer MEDICARE, SELFPAY ==
--- NOTE | 2023-05-14 09:13 | MHC.OFFVIS ---
Intake Vital Signs 05/14/23 09:14 Height 5 ft 9 in Weight 160 lb 14.999 oz BMI 23.8 BP 118/58 L Blood Pressure Location Rt brachial Position Sitting Pulse 99 Pulse Source Doppler Pulse Oximetry (%) 92 Oxygen Delivery Method Room Air Intake Visit Reasons: pulm fibrosis Allergies No Known Allergies Allergy (Mild, Verified 05/14/23 09:16) NOT APPLICABLE HPI HPI Comments History of Present Illness Details The patient is an 87-year-old gentleman with a known history of COPD who apparently was in his usual state health until he started developing malaise worsening cough as well as other constitutional symptoms. He felt like he had pneumonia. Therefore, he went to the ER for further evaluation. There he had an abnormal chest x-ray and subsequently had any CT scan of the chest. It did demonstrate small pulmonary nodules in addition to know mediastinal lymphadenopathy. In addition to that appeared to have an endobronchial lesion of some type. Therefore the patient was referred to Oncology and subsequently went to thoracic surgery. I did perform an endobronchial ultrasound bronchoscopy in sample the 3 different stations; right paratracheal, subcarinal and right hilar lymph node. The specimens demonstrated small lymphocytes consistent with normal lymph node aspirate, without any malignancy. He did have a granuloma noted bringing up the question of sarcoidosis. No evidence of any fungal or AFB on smear or on culture. In addition to that he had no evidence of any endobronchial lesions. It was only mucus. The endobronchial biopsies were consistent with benign bronchial mucosa. The patient also had moderate amount of emphysema in his CAT scan. At this point he continues his respiratory therapy with good effect. 02/24/2022 the patient is here for pulmonary follow-up visit. Overall the patient is feeling better. The azithromycin seems to be improving his respiratory capacity and chest congestion. He is back to playing golf. This week he played a 18 hope. His last week he can only play 9 because of the weather. He is monitoring closely the weather specially heat humidity that make his breathing worse. We did review his pulmonary function studies. He does have moderate COPD but a severe diffusion impairment. The patient did qualify for oxygen during the last visit. At this point he seems to be doing well will retest him in 6 months when he comes back with a 6 minute walk test. I do not believe that he needs oxygen at this time. We also reviewed his CT scan of the chest. It appears that he has stable pulmonary nodules he also has an irregular reticular nodular area in the left upper lobe area. Seems to be slightly more pronounced but about the same size. Will have him come back in 6 months and assess his symptoms. If he has any worsening symptoms will go ahead and repeat the CT scan sooner than expected otherwise if he is doing well will plan to follow-up with a CT scan 1 year from the last. He is really not a surgical candidate. He is also not a great candidate for CT-guided biopsy of this nodular density due to high risk of pneumothorax. The only real option would be if this nodular densities growing would be to consider a PET scan and or consider SBRT. Will continue monitoring closely. 03/31/2022 the patient is here for a pulmonary follow-up visit. He continues to do well with the chest congestion. He is tolerating the azithromycin. Is helping his chronic bronchitis. However, he continues to have shortness of breath. He has been having hard time when he is playing golf. He does have his own pulse oximeter that sometimes reads in the mid 80s. We did review his CT scan demonstrating extensive emphysema. He does have the nodular density that is concerning that he has to be followed closely. In addition to that we did do a 6 minutes walk test the patient did desaturate down to 87%. She was placed on the conserving device initially at 2 L and his pulse ox did decrease down to 80%. On 3 L pulse to maintain a pulse ox of 92%. Therefore I will request him to start oxygen with portability at 2 L pulse. In the meantime we need to continue to monitor his abnormal CT scan. 08/25/2022 the patient is here for a pulmonary follow-up visit. Overall the patient is feeling well. He is tolerating the current respiratory regimen appears to be working well for him. He also uses the oxygen with activity. This also has been helpful for him. He did undergo a CT scan of the chest that was personally by me. Appears to have a 2 cm nodular density in the left upper lobe which appears to be new and concerning. The recommendations from the radiologist was to get a PET scan. The patient should get a PET scan to further address this area. If the patient does have an avid hyper metabolic area to suggest malignancy he should consider having a CT-guided biopsy. but, if the nodular density does not have any significant FDG activity been hold off on any high risk procedures for this patient significant emphysema and respiratory failure. The patient is agreeable to undergoing a PET scan at this time. 09/18/2022 The patient is here for a pulmonary follow up visit. He did undergo a PET scan. Then, he started complainng of hand pain and swealling. He is getting better, but it may be a bout of gout. In the meantime, we did discuss his abnormal PET scan. He does have an abnormal pulmonary nodule concerning for malignancy. Although, it is a solitary nodule, it is centrally located. It would be technically difficult to perform a CT guided biopsy. Therefore, he will be referred to Thoracic surgery. 01/25/2023 the patient is here for a pulmonary follow-up visit. The patient underwent a repeat CT scan of the chest and is here for follow-up. Unfortunately looks like the left lower lobe pulmonary nodule has increased in size. Appears to be more spiculated. This color starting for malignant process. The patient already had a PET scan that demonstrated significant FDG activity. The patient had been referred to thoracic surgery where he did undergo a CT-guided biopsy that was nondiagnostic. Not clear if the patient wanted to pursue any interventions at that point. Therefore he was referred back to Pulmonary. Now this CT scan demonstrates interval worsening of the nodule. We did review his last PFTs from February 2022 which demonstrated a DLCO 31% predicted. He has a lot of emphysema so therefore the area that is surrounding this nodular density has a lot of emphysema which is reassuring. The problem is that the nodule is abutting the fissure and is in the lower lobe where he has more preserved lung capacity. Therefore difficult for him to tolerate a full left lower lobe lobectomy. I will discuss this with thoracic surgery. The patient being to have a resection at this point the other option is stereotactic radiation if the resection is not possible. 05/14/2023 the patient is here for a pulmonary follow-up visit. She has been doing better. He did have surgery video-assisted thoracoscopy knee with resection of the nodule and lymph node biopsies. 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 Afterwards developed significant air leak requiring further interventions. Currently has a one-way valve because of the air leak that was persistent. He is scheduled to have that [address] way air valve removed in the coming days. His oxygen requirements have been decreasing which is reassuring. He is back to using the Trelegy now that he is recovering. The patient is having a productive cough with yellow sputum. He went back on the azithromycin 3 times a week that provide him some relief. In addition to that will start him on doxy just to cover better for MRSA specially after surgery and being in the hospital. Will continue with current respiratory therapy. Will get a placard card provided based on his oxygen needs any COPD and chronic respiratory failure. [facility] Medical History (Updated 05/14/23 @ 13:56 by Lyndsay Harper PA-C) Abdominal pain Anxiety COPD (chronic obstructive pulmonary disease) GERD (gastroesophageal reflux disease) HLD (hyperlipidemia) Pilonidal cyst Pulmonary nodule Shortness of breath Tobacco dependence Tubular adenoma of colon (~1997) Surgical History History of appendectomy History of bronchoscopy History of cataract surgery History of colonoscopy Family History Sister Cancer Sister Cancer Social History (Reviewed 05/14/23 @ 09:18 by Ludmila Diop [facility]) 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 () Alcohol intake: former Patient Tobacco Use Status: Former Tobacco user Tobacco use type: Cigarette Cigarette Packs Per Day: 2.0 Cigarettes Per Day: 40.0 Years Smoked: 40 Second Hand Smoke Exposure: No Current occupational status: retired Current occupation: Right Handed Review of Systems Const Denies night sweats ENT Denies change in voice, Denies lip swelling, Denies mouth pain, Reports nasal congestion, Reports nasal discharge and Denies tongue swelling Card Denies chest pain and Reports dyspnea on exertion Resp Reports change in phlegm color, Reports chest congestion, Reports cough and Reports dyspnea on exertion GI Denies abdominal pain Musc Denies no additional complaints, Reports arthralgias and Reports joint swelling Neuro Denies Neuro-related abnormal movements Psych Denies no additional complaints Rafael/Lymph Denies easy bleeding and Denies lymphadenopathy Aller/Immun Denies lip swelling and Denies tongue swelling Physical Exam Vital Signs: Last Vital Signs Pulse 99 05/14/23 09:14 BP 118/58 L 05/14/23 09:14 Pulse Ox 92 05/14/23 09:14 Oxygen Delivery Method Room Air 05/14/23 09:14 BMI result Body Mass Index 23.8 Const General: healthy appearing Orientation/consciousness: patient oriented x3 Eyes General: appearance normal, both eyes and all related structures Neck Neck: Yes normal visual inspection Chest Chest palpation & inspection: normal inspection of the chest Resp Effort & Inspection: normal respiratory effort and able to speak in complete sentences Auscultation: no wheezes and diminished lung sounds Cardio Rate: regular rate Rhythm: regular rhythm Heart sounds: S1 normal heart sound present and S2 normal heart sound present GI Palpation (GI): Soft to palpation and nontender Auscultation: normal bowel sounds Skin General skin exam: no rashes or lesions noted Neuro General: patient oriented x3 and moves all extremities Extrem Other: Left knee Inspection: No visual abnormalities Alignment: Normal Palpation: Exquisite tenderness to palpation the distal quadriceps the suprapatellar area. Does not have any significant retropatellar tenderness itself. No joint line pain. ROM: Full range of motion Stability: Cruciate collateral ligaments intact Strength: He has full strength with straight leg raising. He has good resisted strength for knee extension though he has pain in the area of the superior patella. Distal neurovascular is normal Radiological investigations: Bilateral standing AP lateral skyline views of the left knee demonstrates he has chondrocalcinosis minimal degenerative changes. Assessment & Plan Assessment & Plan (1) Pulmonary nodule: Code(s): R91.1 - Solitary pulmonary nodule (2) COPD (chronic obstructive pulmonary disease): Comment: (02/24/22 PFT: FEV1 73%, FVS 113%, DLCO 31 -Moderate obstructive ventilatory defect) Code(s): J44.9 - Chronic obstructive pulmonary disease, unspecified Qualifiers: COPD type: emphysema Emphysema type: centrilobular Qualified Code(s): J43.2 - Centrilobular emphysema (3) Lung nodules: Code(s): R91.8 - Other nonspecific abnormal finding of lung field Plan continue Trelegy 200 daily hold Azithromycin MWF start Doxycycline x 10 days continue Oxygen conserving device 3L pulse with activity Will follow up with Thoracic for Xephyr valve removal F/U 2-3 months Medications: New doxycycline hyclate 100 mg PO BID 10 days 20 caps 0RF Coding Level of Care Code Est Pt Level 4 (83914) Diagnoses Pulmonary nodule R91.1 COPD (chronic obstructive pulmonary disease) J43.2 COPD type: emphysema Emphysema type: centrilobular Lung nodules R91.8 Time Spent (min) 17
[2023-05-14 09:14] VITALS: BP 118/58; PULSE 99; O2SAT 92; BMI 23.8
== END 2023-05-14 09:43 | disposition home or self-care (01) ==
PROVIDERS: PCP Physician Assistant; Visit Provider Hospitalist
DX: R91.1 Solitary pulmonary nodule (principal); J43.2 Centrilobular emphysema; R91.8 Other nonspecific abnormal finding of lung field
CPT/HCPCS: 99214

== ENCOUNTER → 2023-05-14 09:12 | Outpatient (BNVA) | payer MEDICARE, SELFPAY | PROVIDERS: Visit Provider Hospitalist | DX: J43.2 Centrilobular emphysema (principal); R91.1 Solitary pulmonary nodule; R91.8 Other nonspecific abnormal finding of lung field | CPT/HCPCS: 99212 ==

== ENCOUNTER 2023-11-27 13:12 | Emergency (ER) | payer MEDICARE, SELFPAY ==
--- NOTE | ~2023-11-27 | US_ITS ---
EXAMINATION: US ABDOMEN LIMITED CLINICAL INFORMATION: Right upper quadrant pain. COMPARISON: Selected portions of CT earlier same day TECHNIQUE: Real-time imaging of the right upper quadrant abdominal viscera. FINDINGS: PANCREAS: Not examined LIVER: No suspicious abnormality demonstrated GALLBLADDER: There are at least 2 mobile gallstones. No definite gallbladder wall thickening. No pericholecystic fluid. Sonographic Weber's sign was not documented COMMON BILE DUCT: Normal in caliber measuring 0.4 cm in diameter. FREE FLUID: None. US/US abdomen limited IMPRESSION: Mobile gallstones. No biliary dilation. No pericholecystic fluid
--- NOTE | ~2023-11-27 | CT_ITS ---
EXAMINATION: CTA CHEST WITHOUT AND WITH CONTRAST (PE STUDY) CT ABDOMEN/PELVIS WITH CONTRAST CLINICAL INFORMATION: Chest pain. Pleuritic pain. History of cancer. COMPARISON: Portions of a chest CT performed without contrast 01/08/23 TECHNIQUE: CT angiography of the chest. Multidetector CT helical examination of the chest during the rapid IV administration 85 mL of intravenous Omnipaque 350. Multidetector CT of the abdomen and pelvis following IV contrast Extensive postprocessing was performed including reformatting and multiplanar reconstructions with maximum intensity projections. Pulmonary embolus technique. This CT examination was performed using dose optimization techniques as appropriate, variously including the following: *Automated exposure control *Adjustment of mA and/or kV according to patient size (this includes techniques or standardized protocols for targeted exams where dose is matched to indication/reason for exam; i.e. extremities or head) *Use of iterative reconstruction technique DLP: 292 mGy-cm. FINDINGS: CHEST: Quality: Slightly limited study secondary to extensive lung disease Pulmonary arteries: There is no acute pulmonary embolus demonstrated. The main pulmonary artery is normal caliber. Thoracic aorta: There is no thoracic aortic aneurysm. Coronary calcium: There is mild coronary calcification. Mediastinum: There are some right paratracheal lymph nodes. There is a retrocaval pretracheal lymph node. There are some scattered subcarinal and hilar lymph nodes. There is a tiny sliding-type hiatal hernia. There is no significant pericardial fluid. Pleura: There is no significant pleural fluid. There is no definite pneumothorax. LUNGS: There is no suspicious abnormality the trachea. There are some secretions in the left mainstem bronchus. The lungs are severely abnormal. There is severe centrilobular emphysema. There are irregular opacities in the apex which may be postinflammatory scarring. There are irregular opacities with volume loss in the right apex. There is a 1.4 cm irregular solid nodule in the right upper lobe (series 7, image 142). This is not present on 01/08/23. There are a few scattered peripheral nodules in the right middle lobe. There are moderate coarse reticular opacities and consolidation in the dependent right lower lung. There are reticular opacities in the left apex with volume loss and distortion. There is suture present. There is some fissural thickening. There are some opacities in the left lower lung with moderately severe consolidation in the left lower lung. In comparison with December 2022 marked interval worsening Chest wall/axilla: There are no enlarged axillary lymph nodes ABDOMEN/PELVIS: Liver, Gallbladder, And Biliary Tree: The liver is normal in size, shape, and attenuation. No focal hepatic lesion or biliary ductal dilatation is present. No suspicious abnormality in the liver. The gallbladder is distended. There is cholelithiasis. Pancreas: No suspicious abnormality. Spleen: Within normal limits Adrenal Glands: No suspicious mass Kidneys And Ureters: There is no dilation of the urinary collecting system on either side. The nephrograms are symmetric. There are numerous bilateral small round low attenuating masses. Most of these can be characterized as simple cysts. Some are too small to characterize. Gastrointestinal Tract: Large amount of fecal residue throughout the colon. No localized pericolonic fat stranding. No CT evidence of acute appendicitis. There is a small hiatal hernia. The stomach is not distended. There is no significant small bowel dilation. 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 Abdominal Wall: Fat protrudes into the inguinal canal. There is a smooth oval subcutaneous mass in the soft tissues ventral to the left hip. This is unchanged since at least 07/21/20 Lymphovascular Structures And Fluid: Extensive atherosclerotic calcification with some peripheral plaque in the distal abdominal aorta. The portal vein enhances. Bladder: No suspicious abnormality in the urinary bladder. The bladder is distended. Pelvic Viscera: The prostate indents upon the bladder. Musculoskeletal: No acute or suspicious osseous abnormality. Degenerative changes in the spine CT/CT angio chest PE protocol IMPRESSION: No pulmonary embolus demonstrated Severe lung abnormalities with previous surgery. Consolidation in the lower lungs greater on left than right. An irregular spiculated nodule in the right upper lung is concerning for malignancy. Cholelithiasis. No evidence of high-grade GI tract obstruction.
[2023-11-27 13:23] VITALS: BP 124/50; BP 124/72; PULSE 88; PULSE 99; RESP 16; TEMP 36.9; O2SAT 92; O2SAT 93; BMI 26.7
--- NOTE | 2023-11-27 14:31 | ECG_ITS ---
Test Reason : SOB Blood Pressure : / mmHG Vent. Rate : 080 BPM Atrial Rate : 080 BPM P-R Int : 180 ms QRS Dur : 088 ms QT Int : 368 ms P-R-T Axes : 075 051 049 degrees QTc Int : 424 ms Sinus rhythm with Premature atrial complexes Otherwise normal ECG When compared with ECG of 21-JUL-2020 10:14, No significant change was found Referred By: Generic ED Physician Electronically Signed By:ANDREA CASTILLO MD
[2023-11-27 15:25] LABS: Basophils Absolute Auto 0.1 X10*3/uL (0.0-0.2); Basophils Percent Auto 0.3 % (0-2); Hematocrit 38.1 % (42.0-52.0); Hemoglobin 13.2 g/dl (14.0-18.0); Imm Gran Abs Auto 0.12 X10*3/uL (0.00-0.03); Imm Gran Pct Auto 0.8 % (0.0-0.4); Lymphocytes Absolute Auto 0.8 X10*3/uL (1.2-4.9); Lymphocytes Percent Auto 5.3 % (20-40); MANUAL DIFF FLAG SCAN; Mean Corpuscular HGB Conc 34.6 g/dl (31.0-36.0); Mean Corpuscular Hemoglobin 31.3 pg (27.0-33.0); Mean Corpuscular Volume 90.3 fL (80.0-98.0); Mean Platelet Volume 8.5 fL (9.4-12.4); Monocytes Absolute Auto 1.9 X10*3/uL (0.1-1.2); Monocytes Percent Auto 12.1 % (2-11); Neutrophils Percent Auto 81.5 % (45-73); Platelet Count 224 X10*3/uL (160-400); Red Blood Count 4.22 X10*6/uL (4.60-5.80); Red Cell Distribution Width 12.8 % (11.0-16.0); SCAN SMEAR FLAG 1; White Blood Count 15.9 X10*3/uL (4.8-10.8)
[2023-11-27 15:38] LABS: Alanine Aminotransferase 15 U/L (0-40); Albumin Level 3.4 g/dL (3.5-5.0); Alkaline Phosphatase 55 U/L (39-117); Anion Gap 13 (12-20); Aspartate Amino Transferase 17 U/L (5-37); Bilirubin Total 1.2 mg/dL (0.0-1.0); Blood Urea Nitrogen 12 mg/dL (9-16); Carbon Dioxide 24 mmol/L (22-29); Chloride 104 mmol/L (96-108); Creatinine Clr Calc Pharmacy 54.1; Estimated Glomerular Filt Rate > 60; Glucose Random 109 mg/dL (60-115); Potassium 3.9 mmol/L (3.3-5.1); Sodium 137 mmol/L (135-145); Total Protein 6.6 g/dL (6.5-8.0)
[2023-11-27 15:47] LABS: SLIDE REVIEW VERIFIED
[2023-11-27 16:24] VITALS: BP 114/50; PULSE 77; RESP 18; TEMP 36.6; O2SAT 94
--- NOTE | 2023-11-27 17:03 | ED.SOB ---
HPI - SOB/Dyspnea General Chief Complaint: Dyspnea Stated Complaint: ABD BLOATING,SOB ON EXERTION PER EMS Time Seen by Provider: 11/27/23 16:11 Source: patient and EMS Mode of arrival: EMS Limitations: no limitations History of Present Illness HPI Narrative: 87-year-old male with a history of COPD with p.r.n. oxygen presents to the ER with complaints of increasing shortness of breath with exertion over the last 4 days. Patient denies associated cough, fevers, chest pain, leg swelling or leg pain. Does report generalized abdominal discomfort described as bloating and some nausea and vomiting. He denies any diarrhea, constipation, urinary symptoms. Of note patient has a lung nodule that is being followed by pulmonology and he has plans this week for a biopsy. He reports he normally only needs oxygen p.r.n. but over the last 4 days he has had to use it 05/04 Related Data Home Medications Medication Instructions Recorded Confirmed ipratropium bromide 17 2 puff PO QID 07/24/20 02/15/23 mcg/actuation HFA aerosol inhaler (Atrovent HFA) Oxygen Home Use 01/25/23 02/15/23 paroxetine HCl 20 mg tablet 20 mg PO DAILY 02/15/23 02/15/23 azithromycin 250 mg tablet mg PO 05/14/23 Previous Rx's Medication Instructions Recorded albuterol sulfate 90 mcg/actuation 2 puff inhalation Q6H PRN 08/19/20 aerosol inhaler (ProAir HFA) shortness of breath or wheezing 90 days #3 ea doxycycline hyclate 100 mg capsule 100 mg PO BID 10 days #20 caps 05/14/23 fluticasone fur. 200 mcg-umeclid 1 inh inhalation DAILY #60 ea 08/09/23 62.5 mcg-vilant 25 mcg inhalat.powder (Trelegy Ellipta) amoxicillin 875 mg-potassium 1 tab PO BID #14 tabs 11/27/23 clavulanate 125 mg tablet prednisone 20 mg tablet 40 mg (2 x 20 mg) PO DAILY #8 tabs 11/27/23 Allergies Allergy/AdvReac Type Severity Reaction Status Date / Time No Known Allergies Allergy Mild NOT Verified 05/14/23 09:16 APPLICABLE Review of Systems Review of Systems: Yes all other systems are reviewed and are negative Constitutional: Constitutional: Reports no additional constitutional complaints, Denies body ache(s), Denies chills, Denies fever(s), Denies headache(s) and Denies weakness Eyes: Eyes: Reports no additional eye complaints and Denies change in vision ENT: Reports system reviewed and no additional complaints, except as documented, Denies dizziness, Denies headache(s), Denies nasal congestion, Denies nasal discharge and Denies neck pain Cardiovascular: Cardiovascular: Reports no additional cardiovascular complaints, Denies chest pain, Denies leg edema and Reports dyspnea Respiratory: Respiratory: Reports no additional respiratory complaints, Denies cough and Reports dyspnea Gastrointestinal: Gastrointestinal: Reports no additional gastrointestinal complaints, Reports abdominal pain, Denies diarrhea, Reports nausea and Reports vomiting Genitourinary: Genitourinary: Denies urinary incontinence Musculoskeletal: Musculoskeletal: Reports no additional musculoskeletal complaints, Denies back pain, Denies arthralgias, Denies joint swelling, Denies neck pain, Denies numbness and Denies tingling Integumentary/Breasts: Skin/Breast: Reports system reviewed and no additional complaints, except as docu and Denies rash Neurologic: Reports system reviewed and no additional complaints, except as documented, Denies Abnormal speech present, Denies dizziness, Denies headache(s), Denies numbness, Denies tingling and Denies weakness [facility] Past Medical History Attestation statement: The following information was validated with the patient. 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 () Alcohol intake: former Patient Tobacco Use Status: Former Tobacco user Tobacco use type: Cigarette Cigarette Packs Per Day: 2.0 Cigarettes Per Day: 40.0 Years Smoked: 40 Smoked in Last 30 Days: No Second Hand Smoke Exposure: No Use of substances other than those prescribed or required for medical reasons: No Advance Directives: No Advance Directives Information Provided: No Current occupational status: retired Current occupation: Right Handed Physical Exam Vital Signs: Vital Signs: Last Vital Signs Temp 98.6 F 11/27/23 21:15 Pulse 80 11/27/23 21:15 Resp 15 11/27/23 21:15 BP 119/60 11/27/23 21:15 Pulse Ox 93 11/27/23 21:15 O2 Del Method Nasal Cannula 11/27/23 21:15 O2 Flow Rate 4 11/27/23 21:15 Oxygen Flow Rate 4 11/27/23 13:23 BMI result Body Mass Index 26.7 Const: General: cooperative, healthy appearing, comfortable and no acute distress Orientation/consciousness: patient oriented x3 Limitations: no limitations HEENT: Head: Yes normal to inspection Ears: hearing grossly normal bilaterally and TM's normal bilaterally General nose exam: Normal external nose present Face and sinus: Yes normal facial exam Mouth: Normal oral and palatal mucosa present Throat: Yes posterior oropharynx normal Eyes: General: appearance normal, both eyes and all related structures Pupils: Equal, round and reactive pupils present Neck: Neck: Yes normal visual inspection Chest: Chest palpation & inspection: normal inspection of the chest Resp: Effort & Inspection: normal respiratory effort Auscultation: clear to auscultation bilaterally Cardio: Rate: regular rate Rhythm: regular rhythm Peripheral pulses: Peripheral pulses 2+ throughout GI: Inspection: Yes normal to inspection Palpation (GI): Soft to palpation and nontender Auscultation: normal bowel sounds Back/Spine/Pelvis: Thoracic/Lumbar Spine: thoracic and lumbar spine normal to inspection Skin: General skin exam: no rashes or lesions noted Neuro: General: patient oriented x3, no focal motor deficits and normal sensation to monofilament Cranial nerves: Yes Equal, round and reactive pupils present Cognition (Neuro): normal cognition Speech: No Abnormal speech present Gait exam (Neuro): Normal gait present Motor exam (neuro): 5/5 motor strength present throughout Extrem: General: Yes normal to inspection, Yes no pedal edema and Yes no calf tenderness Course Course Course Narrative: CT of the chest shows several opacities within both lungs. There is a more severe consolidation in the left lower lung. There is an irregular nodule in the right upper lung concerning for malignancy. Patient is aware of the nodule and has plans for a biopsy with Dr. Savage this week at [facility]. In the setting of increasing shortness of breath, cough and malaise I will treat the patient for superimposed bacterial infection with oral antibiotics. His CT showed gallstones due to abdominal pain reported an ultrasound was obtained which shows gallstones with no evidence of acute cholecystitis. Patient was informed of the results. He is maintaining his oxygen saturation on several L here in the emergency room and has oxygen at home. He does not wish to be admitted and would like to go home with oral antibiotics and prednisone. Recommend he follow up outpatient with his fire and safety helper. Reviewed worrisome signs and symptoms of when to return to the emergency room. Comfortable plan for discharge home. Medications Administered Discontinued Medications Generic Name Dose Route Start Last Admin Trade Name Freq PRN Reason Stop Dose Admin Amoxicillin/Clavulanate Potassium 875 mg 11/27/23 20:43 11/27/23 21:05 Amoxicillin/Potassium Clav 875 Mg Tablet PO 11/27/23 20:44 875 mg ONCE ONE Administration Iohexol 100 ml 11/27/23 17:18 11/27/23 17:18 Iohexol 350 Mg/Ml 100 Ml Infus..Btl IV 11/27/23 17:19 85 ml ONCE ONE Administration Prednisone 60 mg 11/27/23 20:43 11/27/23 21:05 Prednisone 20 Mg Tablet PO 11/27/23 20:44 60 mg ONCE ONE Administration Medical Decision Making Medical Decision Making MDM Narrative: 87-year-old male with a history of COPD with p.r.n. oxygen presents to the ER with complaints of increasing shortness of breath with exertion over the last 4 days. Patient denies associated cough, fevers, chest pain, leg swelling or leg pain. Does report generalized abdominal discomfort described as bloating and some nausea and vomiting. He denies any diarrhea, constipation, urinary symptoms. Of note patient has a lung nodule that is being followed by pulmonology and he has plans this week for a biopsy. He reports he normally only needs oxygen p.r.n. but over the last 4 days he has had to use it 24/ Lungs are clear Vitals are stable Will obtain labs, EKG, viral testing, CT chest/abdomen/pelvis Differential Diagnosis Differential Diagnoses: The differential diagnosis associated with the presentation includes Pneumonia, PE, bowel obstruction, COPD exacerbation, viral syndrome Admission/Observation Consideration of admission/observation: Escalation of care including admission/observation considered Patient has oxygen at home. He feels comfortable going home and does not feel that he needs to be admitted for further management. His oxygen saturation is stable on several L here. He is afebrile, nontoxic appearing Lab Data MDM Lab Attestation statement: I reviewed the patient's lab results. 11/27/23 15:18 11/27/23 15:18 Labs: Lab Results 11/27/23 11/27/23 11/27/23 Range/Units 15:18 17:10 19:39 WBC 15.9 H (4.8-10.8) X10*3/uL RBC 4.22 L (4.60-5.80) X10*6/uL Hgb 13.2 L (14.0-18.0) g/dl Hct 38.1 L (42.0-52.0) % MCV 90.3 (80.0-98.0) fL MCH 31.3 (27.0-33.0) pg MCHC 34.6 (31.0-36.0) g/dl RDW 12.8 (11.0-16.0) % Plt Count 224 D (160-400) X10*3/uL MPV 8.5 L (9.4-12.4) fL Immature Gran % (Auto) 0.8 H (0.0-0.4) % Neut % (Auto) 81.5 H (45-73) % Lymph % (Auto) 5.3 L (20-40) % [place] % (Auto) 12.1 H (2-11) % Eos % (Auto) 0.0 (0-4) % Baso % (Auto) 0.3 (0-2) % Lymph # (Auto) 0.8 L (1.2-4.9) X10*3/uL [place] # (Auto) 1.9 H (0.1-1.2) X10*3/uL Eos # (Auto) 0.0 (0.0-0.4) X10*3/uL Baso # (Auto) 0.1 (0.0-0.2) X10*3/uL Abs Immat Gran (auto) 0.12 H (0.00-0.03) X10*3/uL Absolute Neuts (auto) 13.0 H (2.0-8.3) x10*3/uL Absolute Nucleated RBC 0.000 (0.0-0.012) X10*3/uL Nucleated RBC % (auto) 0.0 (0.0-0.2) /100WBC Smear Tech's Comments VERIFIED VBG pH 7.44 H (7.32-7.43) VBG pCO2 40 mmHg VBG pO2 32 mmHg VBG HCO3 28 H (22-26) mmol/L VBG O2 Saturation 46.0 % VBG Base Excess 4.0 mmol/L Sodium 137 (135-145) mmol/L Potassium 3.9 (3.3-5.1) mmol/L Chloride 104 (96-108) mmol/L Carbon Dioxide 24 (22-29) mmol/L Anion Gap 13 (12-20) BUN 12 (9-16) mg/dL Creatinine 0.98 (0.5-1.4) mg/dL Estim Creat Clear Calc 54.1 Estimated GFR > 60 Random Glucose 109 (60-115) mg/dL Calcium 9.0 D (8.4-10.2) mg/dL Total Bilirubin 1.2 H (0.0-1.0) mg/dL AST 17 (5-37) U/L ALT 15 (0-40) U/L Alkaline Phosphatase 55 (39-117) U/L Troponin I High Sens 2.9 (<3.5-35.0) ng/L Total Protein 6.6 (6.5-8.0) g/dL Albumin 3.4 L (3.5-5.0) g/dL Influenza Type A (PCR) NEGATIVE (Negative) Influenza Type B (PCR) NEGATIVE (Negative) RSV RNA Qual (PCR) NEGATIVE (Negative) SARS-CoV-2 RNA (RT-PCR) NEGATIVE (Negative) Independent Interpretation I performed an independent interpretation of an: EKG, Ultrasound and CT Scan Interpretation: I independently viewed the EKG which shows sinus rhythm with PACs with a rate of 80, normal IN, normal QRS, no acute I independently reviewed the ultrasound and CT scan agree with the radiology report Radiology Impression Discussion of test interpretation with radiology: I have reviewed the radiologist's reading. Radiologist Impression: [address] [address] [address] Scan Report Signed Patient: Asaf Sheth MR#: [id number] : 1935 Acct:[id number] Age/Sex: 87 / M ADM Date: 11/27/23 Loc: HO.ED Attending Dr: Ordering Physician: Kristen Freeman NP Date of Service: 11/27/23 Procedure(s): CT angio chest PE protocol Accession Number(s): [id number] cc: Gabe Burrell MD; Kristen Freeman NP~ EXAMINATION: CTA CHEST WITHOUT AND WITH CONTRAST (PE STUDY) CT ABDOMEN/PELVIS WITH CONTRAST CLINICAL INFORMATION: Chest pain. Pleuritic pain. History of cancer. COMPARISON: Portions of a chest CT performed without contrast 01/08/23 TECHNIQUE: CT angiography of the chest. Multidetector CT helical examination of the chest during the rapid IV administration 85 mL of intravenous Omnipaque 350. Multidetector CT of the abdomen and pelvis following IV contrast Extensive postprocessing was performed including reformatting and multiplanar reconstructions with maximum intensity projections. Pulmonary embolus technique. This CT examination was performed using dose optimization techniques as appropriate, variously including the following: *Automated exposure control *Adjustment of mA and/or kV according to patient size (this includes techniques or standardized protocols for targeted exams where dose is matched to indication/reason for exam; i.e. extremities or head) *Use of iterative reconstruction technique DLP: 292 mGy-cm. FINDINGS: CHEST: Quality: Slightly limited study secondary to extensive lung disease Pulmonary arteries: There is no acute pulmonary embolus demonstrated. The main pulmonary artery is normal caliber. Thoracic aorta: There is no thoracic aortic aneurysm. Coronary calcium: There is mild coronary calcification. Mediastinum: There are some right paratracheal lymph nodes. There is a retrocaval pretracheal lymph node. There are some scattered subcarinal and hilar lymph nodes. There is a tiny sliding-type hiatal hernia. There is no significant pericardial fluid. Pleura: There is no significant pleural fluid. There is no definite pneumothorax. LUNGS: There is no suspicious abnormality the trachea. There are some secretions in the left mainstem bronchus. The lungs are severely abnormal. There is severe centrilobular emphysema. There are irregular opacities in the apex which may be postinflammatory scarring. There are irregular opacities with volume loss in the right apex. There is a 1.4 cm irregular solid nodule in the right upper lobe (series 7, image 142). This is not present on 01/08/23. There are a few scattered peripheral nodules in the right middle lobe. There are moderate coarse reticular opacities and consolidation in the dependent right lower lung. There are reticular opacities in the left apex with volume loss and distortion. There is suture present. There is some fissural thickening. There are some opacities in the left lower lung with moderately severe consolidation in the left lower lung. In comparison with December 2022 marked interval worsening Chest wall/axilla: There are no enlarged axillary lymph nodes ABDOMEN/PELVIS: Liver, Gallbladder, And Biliary Tree: The liver is normal in size, shape, and attenuation. No focal hepatic lesion or biliary ductal dilatation is present. No suspicious abnormality in the liver. The gallbladder is distended. There is cholelithiasis. Pancreas: No suspicious abnormality. Spleen: Within normal limits Adrenal Glands: No suspicious mass Kidneys And Ureters: There is no dilation of the urinary collecting system on either side. The nephrograms are symmetric. There are numerous bilateral small round low attenuating masses. Most of these can be characterized as simple cysts. Some are too small to characterize. Gastrointestinal Tract: Large amount of fecal residue throughout the colon. No localized pericolonic fat stranding. No CT evidence of acute appendicitis. There is a small hiatal hernia. The stomach is not distended. There is no significant small bowel dilation. 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 Abdominal Wall: Fat protrudes into the inguinal canal. There is a smooth oval subcutaneous mass in the soft tissues ventral to the left hip. This is unchanged since at least 07/21/20 Lymphovascular Structures And Fluid: Extensive atherosclerotic calcification with some peripheral plaque in the distal abdominal aorta. The portal vein enhances. Bladder: No suspicious abnormality in the urinary bladder. The bladder is distended. Pelvic Viscera: The prostate indents upon the bladder. Musculoskeletal: No acute or suspicious osseous abnormality. Degenerative changes in the spine CT/CT angio chest PE protocol IMPRESSION: No pulmonary embolus demonstrated Severe lung abnormalities with previous surgery. Consolidation in the lower lungs greater on left than right. An irregular spiculated nodule in the right upper lung is concerning for malignancy. Cholelithiasis. No evidence of high-grade GI tract obstruction. [address] [address] Ultrasound Report Signed Patient: Asaf Sheth MR#: [id number] : 1935 Acct:[id number] Age/Sex: 87 / M ADM Date: 11/27/23 Loc: HO.ED Attending Dr: Ordering Physician: Kristen Freeman NP Date of Service: 11/27/23 Procedure(s): US abdomen limited Accession Number(s): [id number] cc: Gabe Burrell MD; Kristen Freeman NP~ EXAMINATION: US ABDOMEN LIMITED CLINICAL INFORMATION: Right upper quadrant pain. COMPARISON: Selected portions of CT earlier same day TECHNIQUE: Real-time imaging of the right upper quadrant abdominal viscera. FINDINGS: PANCREAS: Not examined LIVER: No suspicious abnormality demonstrated GALLBLADDER: There are at least 2 mobile gallstones. No definite gallbladder wall thickening. No pericholecystic fluid. Sonographic Weber's sign was not documented COMMON BILE DUCT: Normal in caliber measuring 0.4 cm in diameter. FREE FLUID: None. US/US abdomen limited IMPRESSION: Mobile gallstones. No biliary dilation. No pericholecystic fluid Independent Historian Clinical information obtained from an independent historian. History obtained from or confirmed by: EMS Prescription Management I considered prescription management with: Pain Medication and Antibiotic Chronic Conditions Patient?s care impacted by: Cancer Discharge Plan Discharge Clinical Impression: Acute exacerbation of chronic obstructive airways disease, Pneumonia Patient Disposition: Home, Self-Care Instructions: COPD (Chronic Obstructive Pulmonary Disease) (ED), Pneumonia (ED) Additional Instructions: Your provided with a report of your CT scan Start taking your prednisone and antibiotics tomorrow Return for any worsening symptoms Follow-up with your fire and safety helper outpatient Prescriptions: New prednisone 20 mg tablet 40 mg PO DAILY Qty: 8 0RF amoxicillin-pot clavulanate 875-125 mg tablet 1 tab PO BID Qty: 14 0RF No Action Trelegy Ellipta 200-62.5-25 mcg blister with device 1 inh inhalation DAILY Qty: 60 5RF paroxetine HCl 20 mg tablet 20 mg PO DAILY Atrovent HFA 17 mcg/actuation HFA aerosol inhaler 2 puff PO QID albuterol sulfate [ProAir HFA] 90 mcg/actuation HFA aerosol inhaler 2 puff inhalation Q6H PRN (Reason: shortness of breath or wheezing) 90 Days Qty: 3 3RF (DME) Oxygen Home Use Kit See Rx Instructions .Route Rx Instructions: As directed azithromycin 250 mg tablet PO doxycycline hyclate 100 mg capsule 100 mg PO BID 10 Days Qty: 20 0RF Referrals: Gabe Burrell MD [Primary Care Provider] - 1 week Interventions: ED Discharge Assessment Last Done: 11/27/23 21:15 Discharge Date/Time: 11/27/23 21:16
[2023-11-27] MEDS: iohexoL 350 MG/ML 100 ML INFUS..BTL IV (17:18)
[2023-11-27 17:37] LABS: Troponin-I High Sensitivity 2.9 ng/L (<3.5-35.0)
[2023-11-27 18:22] LABS: Influenza A PCR NEGATIVE (Negative); Influenza B PCR NEGATIVE (Negative); Resp Syncy Virus RNA Qual PCR NEGATIVE (Negative); SARS COV2 PCR INHOUSE NEGATIVE (Negative)
[2023-11-27 19:16] VITALS: BP 120/52; PULSE 84; RESP 14; TEMP 36.4; O2SAT 93
[2023-11-27 19:44] LABS: Venous Blood Gas Refer to POC result
[2023-11-27 19:45] LABS: VBG HCO3 28 mmol/L (22-26); VBG pCO2 40 mmHg; VBG pH 7.44 (7.32-7.43); VBG pO2 32 mmHg
--- NOTE | 2023-11-27 20:19 | PC.NURSE ---
this rn assumed care of pt. pt sititng up in stretcher, no acute distress noted. pt on 4L nasal cannula sating 93-95% at this time.
[2023-11-27] MEDS: predniSONE 20 MG TABLET 60 MG PO (21:05)
[2023-11-27] MEDS: Amoxicillin/Potassium Clav 875 MG TABLET PO (21:05)
[2023-11-27 21:15] VITALS: BP 119/60; PULSE 80; RESP 15; TEMP 37; O2SAT 93
== END 2023-11-27 21:16 | disposition home or self-care (01) ==
PROVIDERS: Nurse Practitioner Family; Student in an Organized Health Care Education/Training Program; Emergency Provider Internal Medicine; PCP Internal Medicine
DX: J44.1 Chronic obstructive pulmonary disease with (acute) exacerbation (principal); J18.9 Pneumonia, unspecified organism; R06.02 Shortness of breath; R07.9 Chest pain, unspecified; R91.8 Other nonspecific abnormal finding of lung field; Z85.9 Personal history of malignant neoplasm, unspecified; Z11.52 Encounter for screening for COVID-19; Z20.828 Contact with and (suspected) exposure to other viral communicable diseases
CPT/HCPCS: 0241U; 36415; 71275; 74177; 76705; 80053; 82803; 84484; 85025; 93005; 99285; Q9967

== ENCOUNTER → 2023-11-27 14:31 | Outpatient (BNV) | payer MEDICARE, SELFPAY | PROVIDERS: Emergency Provider Internal Medicine; PCP Internal Medicine; Visit Provider Internal Medicine Cardiovascular Disease | DX: R07.9 Chest pain, unspecified (principal) | CPT/HCPCS: 93010 ==

== ENCOUNTER 2024-01-20 10:46 | Emergency (ER) | payer MEDICARE, SELFPAY ==
--- NOTE | ~2024-01-20 | XR_ITS ---
EXAMINATION: XR CHEST CLINICAL INFORMATION: Shortness of breath COMPARISON: Chest radiograph 10/29/2021, chest CT 01/08/2023 TECHNIQUE: 2 views of the chest were obtained. FINDINGS: The lungs are hyperinflated. The lungs are severely abnormal. There are scattered areas of chronic scarring, predominantly in the upper lobes. Biapical pleural thickening is noted. Surgical clips are seen in the left upper lobe. Increased bilateral perihilar markings are again noted. No focal consolidation is appreciated. The cardiomediastinal silhouette is stable. Heart size is normal. There is new blunting of the left costophrenic angle suggestive of small pleural effusion. Solid nodule seen on CT angiogram 11/27/2023 is not well appreciated on the current study. XR/XR chest 2V IMPRESSION: 1. New small left pleural effusion. 2. Severely abnormal lungs with scattered areas of chronic scarring. 3. No focal consolidation.
[2024-01-20 10:49] VITALS: PULSE 90; RESP 19; TEMP 37.2; O2SAT 92; BMI 25.7
--- NOTE | 2024-01-20 10:53 | ECG_ITS ---
Test Reason : sob Blood Pressure : / mmHG Vent. Rate : 078 BPM Atrial Rate : 078 BPM P-R Int : 180 ms QRS Dur : 088 ms QT Int : 374 ms P-R-T Axes : 084 057 050 degrees QTc Int : 426 ms Normal sinus rhythm with sinus arrhythmia Normal ECG When compared with ECG of 27-NOV-2023 14:41, Premature atrial complexes are no longer Present Referred By: Generic ED Physician Electronically Signed By:Kade Yan
[2024-01-20 11:10] LABS: MANUAL DIFF FLAG NO
[2024-01-20 11:13] VITALS: PULSE 89; RESP 22; O2SAT 96
[2024-01-20 11:15] LABS: Basophils Percent Auto 0.3 % (0-2); Eosinophils Percent Auto 0.4 % (0-4); Hematocrit 42.9 % (42.0-52.0); Imm Gran Abs Auto 0.12 X10*3/uL (0.00-0.03); Imm Gran Pct Auto 1.1 % (0.0-0.4); Lymphocytes Absolute Auto 1.1 X10*3/uL (1.2-4.9); Lymphocytes Percent Auto 9.8 % (20-40); Mean Corpuscular Hemoglobin 31.8 pg (27.0-33.0); Mean Corpuscular Volume 90.9 fL (80.0-98.0); Mean Platelet Volume 8.5 fL (9.4-12.4); Monocytes Absolute Auto 0.9 X10*3/uL (0.1-1.2); Monocytes Percent Auto 8.5 % (2-11); Neutrophils Absolute Auto 8.7 x10*3/uL (2.0-8.3); Neutrophils Percent Auto 79.9 % (45-73); Platelet Count 231 X10*3/uL (160-400); Red Blood Count 4.72 X10*6/uL (4.60-5.80); Red Cell Distribution Width 13.2 % (11.0-16.0); White Blood Count 10.9 X10*3/uL (4.8-10.8)
--- NOTE | 2024-01-20 11:15 | ED_ITS ---
HPI - General Adult General Chief complaint: Upper Respiratory Symptoms Stated complaint: Difficulty breathing Time Seen by Provider: 01/20/24 13:59 Source: patient Mode of arrival: ambulatory Limitations: no limitations History of Present Illness HPI narrative: 88-year-old male past history for COPD on oxygen as needed appendectomy hyperlipidemia GERD anxiety history of irregular nocturnal in the right upper lung patient is aware of this is followed by Dr. Ribera [facility] has had a biopsy was here back in November started on antibiotics and prednisone and sent home. Patient is here today complaining of shortness of breath for the past 2 days that has been worsening Related Data Home Medications ?Medication ?Instructions ?Recorded ?Confirmed ipratropium bromide 17 2 puff PO QID 07/24/20 02/15/23 mcg/actuation HFA aerosol inhaler (Atrovent HFA) Oxygen Home Use 01/25/23 02/15/23 paroxetine HCl 20 mg tablet 20 mg PO DAILY 02/15/23 02/15/23 azithromycin 250 mg tablet mg PO 05/14/23 Previous Rx's ?Medication ?Instructions ?Recorded albuterol sulfate 90 mcg/actuation 2 puff inhalation Q6H PRN 08/19/20 aerosol inhaler (ProAir HFA) shortness of breath or wheezing 90 days #3 ea doxycycline hyclate 100 mg capsule 100 mg PO BID 10 days #20 caps 05/14/23 fluticasone fur. 200 mcg-umeclid 1 inh inhalation DAILY #60 ea 08/09/23 62.5 mcg-vilant 25 mcg inhalat.powder (Trelegy Ellipta) amoxicillin 875 mg-potassium 1 tab PO BID #14 tabs 11/27/23 clavulanate 125 mg tablet prednisone 20 mg tablet 40 mg (2 x 20 mg) PO DAILY #8 tabs 11/27/23 albuterol sulfate 90 mcg/actuation 1 inh inhalation Q6H PRN shortness 01/20/24 breath activated powder of breath or wheezing #1 ea inhaler,sensor benzonatate 100 mg capsule 100 mg PO BID PRN cough #20 caps 01/20/24 prednisone 20 mg tablet 60 mg (3 x 20 mg) PO DAILY Asthma 01/20/24 5 days #15 tabs Allergies Allergy/AdvReac Type Severity Reaction Status Date / Time No Known Allergies Allergy Mild NOT Verified 01/20/24 10:51 APPLICABLE Review of Systems 2 Review of Systems: Review of systems: General: Patient denies any fever chills recent illness or falls Musculoskeletal: Denies back pain or body aches or other injuries HEENT: denies headache, runny nose, ear pain Respiratory: shortness of breath, cough Cardiovascular: no chest pain or palpitations : denies dysuria, frequency Abdomen: no nausea vomiting denies abdominal pain Extremities: no swelling, no pain Skin: no diaphoresis Yes all other systems are reviewed and are negative PMFSH Past Medical History Medical History Pulmonary nodule Tobacco dependence Tubular adenoma of colon (~1997) COPD (chronic obstructive pulmonary disease) Pilonidal cyst Shortness of breath Abdominal pain HLD (hyperlipidemia) GERD (gastroesophageal reflux disease) Anxiety Surgical History History of bronchoscopy History of cataract surgery History of colonoscopy History of appendectomy Family History Family History Sister Cancer Sister Cancer Social History Social History 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 () Alcohol intake: former Patient Tobacco Use Status: Former Tobacco user Tobacco use type: Cigarette Cigarette Packs Per Day: 2.0 Cigarettes Per Day: 40.0 Years Smoked: 40 Second Hand Smoke Exposure: No Advance Directives: No Advance Directives Information Provided: Yes Do you have a plan to hurt others: No Plan Current occupational status: retired Current occupation: Right Handed Physical Exam ED Vital Signs: Vital Signs - 24 hr 01/20/24 10:49 01/20/24 11:13 01/20/24 11:32 Temperature 99 F Pulse Rate 90 89 Respiratory Rate 19 22 H Blood Pressure 103/58 L Pulse Oximetry 92 96 Oxygen Delivery Method Nasal Cannula Room Air 01/20/24 14:27 Temperature 97.5 F Pulse Rate 67 Respiratory Rate 18 Blood Pressure 122/66 Pulse Oximetry 97 Oxygen Delivery Method Room Air BMI result Body Mass Index 25.7 General: Well-appearing well-nourished in no signs of distress HEENT: Normocephalic atraumatic Neck: No signs of JVD, no masses no tenderness or lymphadenopathy Cardiovascular: Regular rate and rhythm Respiratory: Clear to auscultation bilaterally Abdomen: Soft nontender no masses Extremities: Normal pedal pulses no signs of edema Skin: Dry warm no rashes Back: No tenderness full ROM Course Course Course Narrative: RME: 8-year-old male history of COPD presents ED for coughing, yellow mucus phlegm and shortness of breath for the past 2 days. Patient is on 4 L oxygen. Patient's baseline oxygen as needed but has been on it all day today. On room air O2 sat 96% lungs clear. Legs negative for swelling. Patient stable. EKG labs SARs chest x-ray ordered. Reevaluation(s) Reevaluation #1: Patient looks well is no longer wheezing I will send him with benzonatate and albuterol he states he only has Atrovent home. Did explain this is a seen here the can use but albuterol is much better. I will also send him home with prednisone he has not wheezing states he has been for the past couple days has been unable to sleep. Medications Administered Discontinued Medications Generic Name Dose Route Start Last Admin Trade Name Freq PRN Reason Stop Dose Admin Benzonatate 100 mg 01/20/24 14:13 01/20/24 14:25 Benzonatate 100 Mg Capsule PO 01/20/24 14:14 100 mg ONCE ONE Administration Prednisone 60 mg 01/20/24 14:13 01/20/24 14:25 Prednisone 20 Mg Tablet PO 01/20/24 14:14 60 mg ONCE ONE Administration Medical Decision Making Medical Decision Making [facility] Narrative: Patient is well underwent x-ray and labs which were all unremarkable there is no signs of pneumonia there might be a small left pleural effusion which do not think is contributing to his symptoms today. Differential Diagnosis Differential Diagnoses: The differential diagnosis associated with the presentation includes Acute bronchitis COPD exacerbation COVID flu RSV pneumonia Admission/Observation Consideration of admission/observation: Escalation of care including admission/observation considered Lab Data [facility] Lab Attestation statement: I reviewed the patient's lab results. 01/20/24 11:04 01/20/24 11:04 Labs: Lab Results 01/20/24 Range/Units 11:04 WBC 10.9 H (4.8-10.8) X10*3/uL RBC 4.72 (4.60-5.80) X10*6/uL Hgb 15.0 (14.0-18.0) g/dl Hct 42.9 (42.0-52.0) % MCV 90.9 (80.0-98.0) fL MCH 31.8 (27.0-33.0) pg MCHC 35.0 (31.0-36.0) g/dl RDW 13.2 (11.0-16.0) % Plt Count 231 (160-400) X10*3/uL MPV 8.5 L (9.4-12.4) fL Immature Gran % (Auto) 1.1 H (0.0-0.4) % Neut % (Auto) 79.9 H (45-73) % Lymph % (Auto) 9.8 L (20-40) % [place] % (Auto) 8.5 (2-11) % Eos % (Auto) 0.4 (0-4) % Baso % (Auto) 0.3 (0-2) % Lymph # (Auto) 1.1 L (1.2-4.9) X10*3/uL [place] # (Auto) 0.9 (0.1-1.2) X10*3/uL Eos # (Auto) 0.0 (0.0-0.4) X10*3/uL Baso # (Auto) 0.0 (0.0-0.2) X10*3/uL Abs Immat Gran (auto) 0.12 H (0.00-0.03) X10*3/uL Absolute Neuts (auto) 8.7 H (2.0-8.3) x10*3/uL Absolute Nucleated RBC 0.000 (0.0-0.012) X10*3/uL Nucleated RBC % (auto) 0.0 (0.0-0.2) /100WBC PT 11.6 (11.1-13.3) SEC INR 1.0 (0.9-1.1) APTT 31.7 (26.0-36.8) SEC Sodium 141 (135-145) mmol/L Potassium 4.1 (3.3-5.1) mmol/L Chloride 104 (96-108) mmol/L Carbon Dioxide 25 (22-29) mmol/L Anion Gap 16 (12-20) BUN 14 (9-16) mg/dL Creatinine 0.85 (0.5-1.4) mg/dL Estim Creat Clear Calc 61.2 Estimated GFR > 60 Random Glucose 107 (60-115) mg/dL Calcium 10.0 D (8.4-10.2) mg/dL Troponin I High Sens < 2.7 (<3.5-35.0) ng/L B-Natriuretic Peptide 23 (<100) pg/mL Influenza Type A (PCR) NEGATIVE (Negative) Influenza Type B (PCR) NEGATIVE (Negative) RSV RNA Qual (PCR) NEGATIVE (Negative) SARS-CoV-2 RNA (RT-PCR) NEGATIVE (Negative) Independent Interpretation I performed an independent interpretation of an: EKG and Plain X-Ray Radiology Impression Discussion of test interpretation with radiology: I have reviewed the radiologist's reading. External Record Review External record reviewed: Inpatient record, Office record and Outpatient record Prescription Management I will send patient home on prednisone Social Determinants Patient?s care significantly limited by Social Determinants of Health including: Inadequate housing and Problems related to primary support group Discharge Plan Discharge Clinical Impression: Pulmonary nodule, Tobacco dependence COPD (chronic obstructive pulmonary disease) Qualifiers: COPD type: emphysema Emphysema type: centrilobular Qualified Code(s): J43.2 - Centrilobular emphysema Patient Disposition: Home, Self-Care Instructions: COPD (Chronic Obstructive Pulmonary Disease) (DC), Pulmonary Nodules (ED) Additional Instructions: You seen today in the emergency department for your breathing. You had an x-ray and labs done which were all normal. You started on prednisone was sent home with prednisone for the next few days. If you have worsening shortness of breath fever or any other concerns please return to the emergency department. Prescriptions: New benzonatate 100 mg capsule 100 mg PO BID PRN (Reason: cough) Qty: 20 0RF albuterol sulfate 90 mcg/actuation aero powdr breath act w/sensor 1 inh inhalation Q6H PRN (Reason: shortness of breath or wheezing) Qty: 1 0RF prednisone 20 mg tablet 60 mg PO DAILY 5 Days Qty: 15 0RF No Action Trelegy Ellipta 200-62.5-25 mcg blister with device 1 inh inhalation DAILY Qty: 60 5RF paroxetine HCl 20 mg tablet 20 mg PO DAILY Atrovent HFA 17 mcg/actuation HFA aerosol inhaler 2 puff PO QID prednisone 20 mg tablet 40 mg PO DAILY Qty: 8 0RF amoxicillin-pot clavulanate 875-125 mg tablet 1 tab PO BID Qty: 14 0RF albuterol sulfate [ProAir HFA] 90 mcg/actuation HFA aerosol inhaler 2 puff inhalation Q6H PRN (Reason: shortness of breath or wheezing) 90 Days Qty: 3 3RF (DME) Oxygen Home Use Kit See Rx Instructions .Route Rx Instructions: As directed azithromycin 250 mg tablet PO doxycycline hyclate 100 mg capsule 100 mg PO BID 10 Days Qty: 20 0RF Interventions: ED Discharge Assessment Last Done: 01/20/24 14:27 Discharge Date/Time: 01/20/24 14:29 Print Language: Tamazight
[2024-01-20 11:18] LABS: Prothrombin Time 11.6 SEC (11.1-13.3)
[2024-01-20 11:23] LABS: Anion Gap 16 (12-20); Blood Urea Nitrogen 14 mg/dL (9-16); Carbon Dioxide 25 mmol/L (22-29); Chloride 104 mmol/L (96-108); Creatinine Clr Calc Pharmacy 61.2; Estimated Glomerular Filt Rate > 60; Glucose Random 107 mg/dL (60-115); Potassium 4.1 mmol/L (3.3-5.1); Sodium 141 mmol/L (135-145)
[2024-01-20 11:25] LABS: Partial Thromboplastin Time 31.7 SEC (26.0-36.8)
[2024-01-20 11:31] LABS: B Type Natriuretic Peptide 23 pg/mL (<100)
[2024-01-20 11:32] VITALS: BP 103/58
[2024-01-20 11:32] LABS: Troponin-I High Sensitivity < 2.7 ng/L (<3.5-35.0)
[2024-01-20 11:51] LABS: Influenza A PCR NEGATIVE (Negative); Influenza B PCR NEGATIVE (Negative); Resp Syncy Virus RNA Qual PCR NEGATIVE (Negative); SARS COV2 PCR INHOUSE NEGATIVE (Negative)
[2024-01-20] MEDS: Benzonatate 100 MG CAPSULE PO (14:25)
[2024-01-20] MEDS: predniSONE 20 MG TABLET 60 MG PO (14:25)
[2024-01-20 14:27] VITALS: BP 122/66; PULSE 67; RESP 18; TEMP 36.4; O2SAT 97
== END 2024-01-20 14:29 | disposition home or self-care (01) ==
PROVIDERS: Physician Assistant; Emergency Provider Student in an Organized Health Care Education/Training Program; PCP Internal Medicine
DX: J43.2 Centrilobular emphysema (principal); J44.9 Chronic obstructive pulmonary disease, unspecified; F17.210 Nicotine dependence, cigarettes, uncomplicated; R06.02 Shortness of breath; Z11.52 Encounter for screening for COVID-19; Z20.822 Contact with and (suspected) exposure to COVID-19; Z99.81 Dependence on supplemental oxygen; Z79.899 Other long term (current) drug therapy
CPT/HCPCS: 0241U; 71046; 80048; 83880; 84484; 85025; 85610; 85730; 93005; 99283

== ENCOUNTER → 2024-01-20 10:53 | Outpatient (BNV) | payer MEDICARE, SELFPAY | PROVIDERS: Emergency Provider Student in an Organized Health Care Education/Training Program; PCP Internal Medicine; Visit Provider Internal Medicine Cardiovascular Disease | DX: R06.02 Shortness of breath (principal) | CPT/HCPCS: 93010 ==

== ENCOUNTER 2024-01-24 10:58 | Outpatient (AMB) | payer MEDICARE, SELFPAY ==
[2024-01-24 11:01] VITALS: PULSE 69; O2SAT 93; BMI 25.8
--- NOTE | 2024-01-24 11:01 | A.OFFVIS_ITS ---
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 He felt like he had pneumonia. Therefore, he went to the ER for further evaluation. There he had an abnormal chest x-ray and subsequently had any CT scan of the chest. It did demonstrate small pulmonary nodules in addition to know mediastinal lym phadenopathy. In addition to that appeared to have an endobronchial lesion of some type. Therefore the patient was referred to Oncology and subsequently went to thoracic surgery. I did perform an endobronchial ultrasound bronchoscopy in sample the 3 different stations; right paratracheal, subcarinal and right hilar lymph node. The specimens demonstrated small lymphocytes consistent with normal lymph node aspirate, without any malignancy. He did have a granuloma noted bringing up the question of sarcoidosis. No evidence of any fungal or AFB on smear or on culture. In addition to that he had no evidence of any endobronchial lesions. It was only mucus. The endobronchial biopsies were consistent with benign bronchial mucosa. The patient also had moderate amount of emphysema in his CAT scan. At this point he continues his respiratory therapy with good effect. 02/24/2022 the patient is here for pulmonary follow-up visit. Overall the patient is feeling better. The azithromycin seems to be improving his respiratory capacity and chest congestion. He is back to playing golf. This week he played a 18 hope. His last week he can only play 9 because of the weather. He is monitoring closely the weather specially heat humidity that make his breathing worse. We did review his pulmonary function studies. He does have moderate COPD but a severe diffusion impairment. The patient did qualify for oxygen during the last visit. At this point he seems to be doing well will retest him in 6 months when he comes back with a 6 minute walk test. I do not believe that he needs oxygen at this time. We also reviewed his CT scan of the chest. It appears that he has stable pulmonary nodules he also has an irregular reticular nodular area in the left upper lobe area. Seems to be slightly more pronounced but about the same size. Will have him come back in 6 months and assess his symptoms. If he has any worsening symptoms will go ahead and repeat the CT scan sooner than expected otherwise if he is doing well will plan to follow-up with a CT scan 1 year from the last. He is really not a surgical candidate. He is also not a great candidate for CT-guided biopsy of this nodu lar density due to high risk of pneumothorax. The only real option would be if this nodular densities growing would be to consider a PET scan and or consider SBRT. Will continue monitoring closely. 03/31/2022 the patient is here for a pulmonary follow-up visit. He continues to do well with the chest congestion. He is tolerating the azithromycin. Is helping his chronic bronchitis. However, he continues to have shortness of breath. He has been having hard time when he is playing golf. He does have his own pulse oximeter that sometimes reads in the mid 80s. We did review his CT scan demonstrating extensive emphysema. He does have the nodular density that is concerning that he has to be followed closely. In addition to that we did do a 6 minutes walk test the patient did desaturate down to 87%. She was placed on the conserving device initially at 2 L and his pulse ox did decrease down to 80%. On 3 L pulse to maintain a pulse ox of 92%. Therefore I will request him to start oxygen with portability at 2 L pulse. In the meantime we need to continue to monitor his abnormal CT scan. 08/25/2022 the patient is here for a pulmonary follow-up visit. Overall the patient is feeling well. He is tolerating the current respiratory regimen appears to be working well for him. He also uses the oxygen with activity. This also has been helpful for him. He did undergo a CT scan of the chest that was personally by me. Appears to have a 2 cm nodular density in the left upper lobe which appears to be new and concerning. The recommendations from the radiologist was to get a PET scan. The patient should get a PET scan to further address this area. If the patient does have an avid hyper metabolic area to suggest malignancy he should consider having a CT-guided biopsy. but, if the nodular density does not have any significant FDG activity been hold off on any high risk procedures for this patient significant emphysema and respiratory failure. The patient is agreeable to undergoing a PET scan at this time. 09/18/2022 The patient is here for a pulmonary follow up visit. He did undergo a PET scan. Then, he started complainng of hand pain and swealling. He is getting better, but it may be a bout of gout. In the meantime, we did discuss his abnormal PET scan. He does have an abnormal pulmonary nodule concerning for malignancy. Although, it is a solitary nodule, it is centrally located. It would be technically difficult to perform a CT guided biopsy. Therefore, he will be referred to Thoracic surgery. 01/25/2023 the patient is here for a pulmonary follow-up visit. The patient underwent a repeat CT scan of the chest and is here for follow-up. Unfortunately looks like the left lower lobe pulmonary nodule has increased in size. Appears to be more spiculated. This color starting for malignant process. The patient already had a PET scan that demonstrated significant FDG activity. The patient had been referred to thoracic surgery where he did undergo a CT-guided biopsy that was nondiagnostic. Not clear if the patient wanted to pursue any interventions at that point. Therefore he was referred back to Pulmonary. Now this CT scan demonstrates interval worsening of the nodule. We did review his last PFTs from February 2022 which demonstrated a DLCO 31% predicted. He has a lot of emphysema so therefore the area that is surrounding this nodular density has a lot of emphysema which is reassuring. The problem is that the nodule is abutting the fissure and is in the lower lobe where he has more preserved lung capacity. Therefore difficult for him to tolerate a full left lower lobe lobectomy. I will discuss this with thoracic surgery. The patient being to have a resection at this point the other option is stereotactic radiation if the resection is not possible. 05/14/2023 the patient is here for a pulmonary follow-up visit. She has been doing better. He did have surgery video-assisted thoracoscopy knee with resection of the nodule and lymph node biopsies. 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 Afterwards developed significant air leak requiring further interventions. Currently has a one-way valve because of the air leak that was persistent. He is scheduled to have that 1 way air valve removed in the coming days. His oxygen requirements have been decreasing which is reassuring. He is back to using the Trelegy now that he is recovering. The patient is having a productive cough with yellow sputum. He went back on the azithromycin 3 times a week that provide him some relief. In addition to that will start him on doxy just to cover better for MRSA specially after surgery and being in the hospital. Will continue with current respiratory therapy. Will get a placard card provided based on his oxygen needs any COPD and chronic respiratory failure. 01/24/2024 the patient is here for a pulmonary follow-up visit. Since we last spoke he did go to the ER for worsening respiratory symptoms. He was also complaining of productive cough with green sputum. In the ER patient was given prednisone for a COPD exacerbation. He was also given a short-acting beta agonist to use. He has been also been using the Trelegy inhaler. The prednisone did help although he still developing a productive cough with now grayish sputum. I did review his chest x-ray. Has small trace pleural effusion on the left side where he had surgery and also has not hazy changes. Will going to go ahead and give him Augmentin to treat for lower respiratory infection. Clinically he is feeling better. He does have a pulmonary nodule in the right upper lobe. He is following closely with Interventional Pulmonary at [facility]. He will be undergoing a CT or PET scan sometime in February and then follow-up then. They decide what to do with the abnormal finding. I did encourage him to consider undergoing stereotactic radiation in case if the areas positive on PET and avoid any complication from an invasive diagnostic intervention that may lead to further complications. 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 caregiver to a significant other at home: Yes () Alcohol intake: former Patient Tobacco Use Status: Former Tobacco user Tobacco use type: Cigarette Cigarette Packs Per Day: 2.0 Cigarettes Per Day: 40.0 Years Smoked: 40 Second Hand Smoke Exposure: No Current occupational status: retired Current occupation: Right Handed Review of Systems Const Denies night sweats ENT Denies change in voice, Denies lip swelling, Denies mouth pain, Reports nasal congestion, Reports nasal discharge and Denies tongue swelling Card Denies chest pain and Reports dyspnea on exertion Resp Reports change in phlegm color, Reports chest congestion, Reports cough and Reports dyspnea on exertion GI Denies abdominal pain Musc Denies no additional complaints, Reports arthralgias and Reports joint swelling Neuro Denies Neuro-related abnormal movements Psych Denies no additional complaints Rafael/Lymph Denies easy bleeding and Denies lymphadenopathy Aller/Immun Denies lip swelling and Denies tongue swelling Physical Exam Vital Signs: Last Vital Signs Pulse 69 01/24/24 11:01 Pulse Ox 93 01/24/24 11:01 Oxygen Delivery Method Room Air 01/24/24 11:01 BMI result Body Mass Index 25.8 Const General: healthy appearing Orientation/consciousness: patient oriented x3 Eyes General: appearance normal, both eyes and all related structures Neck Neck: Yes normal visual inspection Chest Chest palpation & inspection: normal inspection of the chest Resp Effort & Inspection: normal respiratory effort and able to speak in complete sentences Auscultation: crackles, no wheezes and diminished lung sounds Cardio Rate: regular rate Rhythm: regular rhythm Heart sounds: S1 normal heart sound present and S2 normal heart sound present GI Palpation (GI): Soft to palpation and nontender Auscultation: normal bowel sounds Skin General skin exam: no rashes or lesions noted Neuro General: patient oriented x3 and moves all extremities Extrem Other: Left knee Inspection: No visual abnormalities Alignment: Normal Palpation: Exquisite tenderness to palpation the distal quadriceps the suprapatellar area. Does not have any significant retropatellar tenderness itself. No joint line pain. ROM: Full range of motion Stability: Cruciate collateral ligaments intact Strength: He has full strength with straight leg raising. He has good resisted strength for knee extension though he has pain in the area of the superior patella. Distal neurovascular is normal Radiological investigations: Bilateral standing AP lateral skyline views of the left knee demonstrates he has chondrocalcinosis minimal degenerative changes. Assessment & Plan Assessment & Plan (1) Pulmonary nodule: Code(s): R91.1 - Solitary pulmonary nodule Category: Medical (2) COPD (chronic obstructive pulmonary disease): Comment: (02/24/22 PFT: FEV1 73%, FVS 113%, DLCO 31 -Moderate obstructive ventilatory defect) Code(s): J44.9 - Chronic obstructive pulmonary disease, unspecified Category: Medical Qualifiers: COPD type: emphysema Emphysema type: centrilobular Qualified Code(s): J43.2 - Centrilobular emphysema (3) Lung nodules: Code(s): R91.8 - Other nonspecific abnormal finding of lung field Category: Medical Plan continue Trelegy 200 daily ABILIO as needed start Augmentin continue Oxygen conserving device 3L pulse with activity CT or PET at [facility] 02/2024 re: RUL nodule F/U 3-4 months Medications: New amoxicillin-pot clavulanate 875-125 mg 1 tab PO BID 10 days 20 tabs 0RF benzonatate 200 mg PO BID 30 days PRN 30 caps 6RF cough benzonatate 200 mg PO BID 30 days PRN 30 caps 6RF cough Coding Level of Care Code Est Pt Level 4 (56100) Diagnoses Pulmonary nodule R91.1 Centrilobular emphysema J43.2 COPD type: emphysema Emphysema type: centrilobular Lung nodules R91.8 Time Spent (min) 17
== END 2024-01-24 11:20 | disposition home or self-care (01) ==
PROVIDERS: PCP Physician Assistant; Visit Provider Hospitalist
DX: R91.1 Solitary pulmonary nodule (principal); J43.2 Centrilobular emphysema; R91.8 Other nonspecific abnormal finding of lung field
CPT/HCPCS: 99214

== ENCOUNTER → 2024-01-24 10:58 | Outpatient (BNVA) | payer MEDICARE, SELFPAY | PROVIDERS: PCP Physician Assistant; Visit Provider Hospitalist | DX: J43.2 Centrilobular emphysema (principal); R91.8 Other nonspecific abnormal finding of lung field; R91.1 Solitary pulmonary nodule | CPT/HCPCS: 99212 ==

== ENCOUNTER 2024-03-11 20:50 | Emergency (ER) | payer MEDICARE, SELFPAY ==
--- NOTE | 2024-03-11 | ECG_ITS ---
Test Reason : EPIGASTRIC PAIN Blood Pressure : / mmHG Vent. Rate : 067 BPM Atrial Rate : 067 BPM P-R Int : 198 ms QRS Dur : 094 ms QT Int : 402 ms P-R-T Axes : 077 051 041 degrees QTc Int : 424 ms Normal sinus rhythm with sinus arrhythmia Normal ECG When compared with ECG of 20-JAN-2024 10:56, No significant change was found Referred By: Generic ED Physician Electronically Signed By:ANDREA CASTILLO MD
--- NOTE | ~2024-03-11 | XR_ITS ---
EXAMINATION: XR CHEST CLINICAL INFORMATION: Epigastric pain. COMPARISON: 01/20/2024. TECHNIQUE: Upright portable AP view of the chest was obtained. FINDINGS: The study is somewhat limited by portable AP technique. Emphysema and chronic fibrotic changes appear similar compared with 01/20/2024. Surgical clips and chain sutures project over the left upper lung field. No acute focal infiltrate, effusion, pneumothorax is seen. The heart appears normal in size. XR/XR chest 1V IMPRESSION: No acute finding.
--- NOTE | ~2024-03-11 | US_ITS ---
EXAMINATION: US ABDOMEN LIMITED CLINICAL INFORMATION: Right upper abdominal pain with gallstone . COMPARISON: None available. TECHNIQUE: Real-time imaging of the gallbladder/CBD. FINDINGS: GALLBLADDER: The gallbladder is physiologically distended. Multiple mobile gallstones are present. No evidence of gallbladder wall thickening or pericholecystic fluid. COMMON BILE DUCT: Normal in caliber measuring 0.4 cm in diameter. Portal vein is patent. US/US abdomen limited IMPRESSION: Cholelithiasis without sonographic evidence of acute cholecystitis.
--- NOTE | ~2024-03-11 | CT_ITS ---
EXAMINATION: CT CHEST WITHOUT CONTRAST CLINICAL INFORMATION: Right lung mass. Dyspnea. COMPARISON: 11/27/2023 TECHNIQUE: Multidetector volumetric CT imaging of the chest was done. Axial MIP volume rendering provided. Sagittal and coronal reformatted images were obtained. This CT examination was performed using dose optimization techniques as appropriate, variously including the following: *Automated exposure control *Adjustment of mA and/or kV according to patient size (this includes techniques or standardized protocols for targeted exams where dose is matched to indication/reason for exam; i.e. extremities or head) *Use of iterative reconstruction technique DLP: 274 mGy-cm FINDINGS: LUNGS: Diffuse centrilobular and bullous emphysema. Secretions are present dependently within the distal trachea and mainstem bronchi. Lobar, segmental and subsegmental bronchi appear patent without appreciable secretions. Significant pleural parenchymal scarring is present within both lungs, more notably around the bullae in the upper lobes. Chain toñito are present in the left upper lobe, suggesting prior wedge resection. There is a spiculated, irregular nodule in the right upper lobe which is unchanged in size as compared to prior, measuring 1.4 x 0.8 cm (average diameter of 1.1 cm). At the right apex, there is a partially calcified region of pleural-parenchymal scarring with small superimposed foci of nodularity which are Unchanged in size from prior, measuring 7 and 8 mm in average diameter (image 98/610 of series 5). Previously seen bibasilar consolidation has resolved since the prior study. Partially calcified nodules are present at the right lung base adjacent to the right hemidiaphragm. There is a 4 mm nodule in the lateral aspect of the right lower lobe on image 424 which is unchanged. MEDIASTINUM: Heart is normal in size. Vascular calcifications in the coronary arteries. Calcific effusions are present at the aortic valve. No pericardial effusion. Vascular is normal in caliber. No adenopathy. Thyroid gland is normal. CORONARY ARTERY CALCIFICATION: Present PLEURA: Pleural parenchymal scarring is present at the lung apices. No effusion. AXILLA: No lymphadenopathy. UPPER ABDOMEN: Cholelithiasis without findings of acute cholecystitis. No acute findings in the upper abdomen. OSSEOUS STRUCTURES: No acute fracture or malalignment. Chronic superior endplate compression deformity is evident at T12. Multiple Schmorl's nodes. CT/CT chest wo IV con IMPRESSION: 1. Unchanged spiculated 1.1 cm nodule in the right upper lobe which is not appreciably changed as clinically. The is not appreciably changed in size from the recent prior study but is new from 01/08/2023 and remains concerning for malignancy. 2. Diffuse centrilobular and bullous emphysema. 3. Resolution of the previously seen bibasilar consolidation. 4. Cholelithiasis. Fleischner guidelines were followed.
[2024-03-11 21:01] VITALS: BP 103/45; PULSE 81; RESP 20; TEMP 36.6; O2SAT 97; BMI 26.6
[2024-03-11 21:26] LABS: MANUAL DIFF FLAG NO
[2024-03-11 21:27] LABS: Basophils Percent Auto 0.2 % (0-2); Eosinophils Percent Auto 0.2 % (0-4); Hematocrit 42.2 % (42.0-52.0); Hemoglobin 14.7 g/dl (14.0-18.0); Imm Gran Abs Auto 0.03 X10*3/uL (0.00-0.03); Imm Gran Pct Auto 0.6 % (0.0-0.4); Lymphocytes Absolute Auto 0.6 X10*3/uL (1.2-4.9); Lymphocytes Percent Auto 12.4 % (20-40); Mean Corpuscular HGB Conc 34.8 g/dl (31.0-36.0); Mean Corpuscular Hemoglobin 31.1 pg (27.0-33.0); Mean Corpuscular Volume 89.2 fL (80.0-98.0); Mean Platelet Volume 8.4 fL (9.4-12.4); Monocytes Absolute Auto 0.9 X10*3/uL (0.1-1.2); Neutrophils Absolute Auto 3.2 x10*3/uL (2.0-8.3); Neutrophils Percent Auto 67.6 % (45-73); Platelet Count 163 X10*3/uL (160-400); Red Blood Count 4.73 X10*6/uL (4.60-5.80); Red Cell Distribution Width 13.2 % (11.0-16.0); White Blood Count 4.7 X10*3/uL (4.8-10.8)
--- NOTE | 2024-03-11 21:27 | ED.GENADULT ---
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 and rifabutin, GERD with history of gallstones in the past comes here for increased pain midsternal when upper abdomen 2 days pain gets worse after eating taking deep breath has poor appetite for last 2 days with nausea and dry heaving no chills no fever patient had a CT scan done in 12/04 which showed spiculated lesion in the right lung but been followed by ID and treated for MAC no weight loss no night sweats no biopsy was done for lesion Related Data Home Medications ?Medication ?Instructions ?Recorded ?Confirmed Oxygen Home Use 01/25/23 02/15/23 paroxetine HCl 20 mg tablet 20 mg PO DAILY 02/15/23 02/15/23 Previous Rx's ?Medication ?Instructions ?Recorded fluticasone fur. 200 mcg-umeclid 1 inh inhalation DAILY #60 ea 08/09/23 62.5 mcg-vilant 25 mcg inhalat.powder (Trelegy Ellipta) albuterol sulfate 90 mcg/actuation 1 inh inhalation Q6H PRN shortness 01/20/24 breath activated powder of breath or wheezing #1 ea inhaler,sensor benzonatate 100 mg capsule 100 mg PO BID PRN cough #20 caps 01/20/24 prednisone 20 mg tablet 60 mg (3 x 20 mg) PO DAILY Asthma 01/20/24 5 days #15 tabs albuterol sulfate 90 mcg/actuation 2 puff inhalation Q6H PRN 01/21/24 aerosol inhaler (ProAir HFA) shortness of breath or wheezing 90 days #3 ea amoxicillin 875 mg-potassium 1 tab PO BID 10 days #20 tabs 01/24/24 clavulanate 125 mg tablet benzonatate 200 mg capsule 200 mg PO BID PRN cough 30 days 01/24/24 #30 caps omeprazole 40 mg capsule,delayed 40 mg PO DAILY #90 caps 03/12/24 release sucralfate 1 gram tablet 1 g PO TID #90 tabs 03/12/24 Allergies Allergy/AdvReac Type Severity Reaction Status Date / Time No Known Allergies Allergy Mild NOT Verified 03/11/24 21:06 APPLICABLE Review of Systems Review of Systems: Yes all other systems are reviewed and are negative [facility] Past Medical History Medical History Pulmonary nodule Tobacco dependence Tubular adenoma of colon (~1997) COPD (chronic obstructive pulmonary disease) Pilonidal cyst Shortness of breath Abdominal pain HLD (hyperlipidemia) GERD (gastroesophageal reflux disease) Anxiety Surgical History History of bronchoscopy History of cataract surgery History of colonoscopy History of appendectomy Family History Family History Sister Cancer Sister Cancer Social History Social History 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 () Alcohol intake: former Patient Tobacco Use Status: Former Tobacco user Tobacco use type: Cigarette Cigarette Packs Per Day: 2.0 Cigarettes Per Day: 40.0 Years Smoked: 40 Smoked in Last 30 Days: No Second Hand Smoke Exposure: No Use of substances other than those prescribed or required for medical reasons: No Advance Directives: No Advance Directives Information Provided: No Do you have a plan to hurt others: No Plan Current occupational status: retired Current occupation: Right Handed Physical Exam ED Vital Signs: Vital Signs - 24 hr 03/11/24 21:01 03/12/24 01:30 Temperature 97.9 F 98.0 F Pulse Rate 81 84 Respiratory Rate 20 18 Blood Pressure 103/45 L 110/59 L Pulse Oximetry 97 95 Oxygen Delivery Method Room Air Room Air Nasal Cannula Oxygen Flow Rate 2 BMI result Body Mass Index 26.6 Appearance: Alert. Oriented X3. Thin emaciated, on 2 liter/minute oxygen Eyes: No pallor or icterus ENT: Pharynx normal. Oral Mucosa moist Neck: Normal inspection. Neck supple. CVS: Normal heart rate and rhythm. Pulses normal. Respiratory: No respiratory distress. Equal air entry bilateral, no wheezing/rales/rhonchi Abdomen: Soft and right upper quadrant tenderness on deep palpation Weber sign positive no rebound tenderness or guarding Bowel sounds are present, no mass palpable, no CVA tenderness Skin: Skin warm and dry. Normal skin color. Normal skin turgor. Extremities: No lower extremity edema. No calf tenderness Neuro: Oriented X 3. Medications Administered Discontinued Medications Generic Name Dose Route Start Last Admin Trade Name Paulq PRN Reason Stop Dose Admin Al Hydroxide/Mg Hydroxide 30 ml 03/12/24 00:02 03/12/24 01:10 Magnesium Hydrox/Alum Hydrox 30 Ml Oral.Susp PO 03/12/24 00:03 30 ml ONCE ONE Administration Famotidine 20 mg 03/11/24 21:53 03/11/24 22:31 Famotidine/Pf 20 Mg/2 Ml Vial IVPUSH 03/11/24 21:54 20 mg ONCE ONE Administration Sodium Chloride 1,000 mls @ 999 mls/hr 03/11/24 21:53 03/11/24 23:45 Ns IV 03/11/24 22:53 Infused .Q1H1M ONE Infusion Ondansetron HCl 4 mg 03/11/24 21:53 03/11/24 22:31 Ondansetron Hcl 4 Mg/2 Ml Vial IVPUSH 03/11/24 21:54 4 mg ONCE ONE Administration Medical Decision Making Medical Decision Making [facility] Narrative: Patient's CT scan without any significant change ultrasound showed gallstones not cholecystitis patient feeling much better symptoms likely from esophagitis will discharge patient home on H2 alyce and sucralfate Differential Diagnosis Differential Diagnoses: The differential diagnosis associated with the presentation includes Cholecystitis/cholelithiasis pleural effusion/pleurisy/GERD Lab Data [facility] Lab Attestation statement: I reviewed the patient's lab results. 03/11/24 21:19 03/11/24 21:19 Labs: Lab Results 03/11/24 Range/Units 21:19 WBC 4.7 L (4.8-10.8) X10*3/uL RBC 4.73 (4.60-5.80) X10*6/uL Hgb 14.7 (14.0-18.0) g/dl Hct 42.2 (42.0-52.0) % MCV 89.2 (80.0-98.0) fL MCH 31.1 (27.0-33.0) pg MCHC 34.8 (31.0-36.0) g/dl RDW 13.2 (11.0-16.0) % Plt Count 163 D (160-400) X10*3/uL MPV 8.4 L (9.4-12.4) fL Immature Gran % (Auto) 0.6 H (0.0-0.4) % Neut % (Auto) 67.6 (45-73) % Lymph % (Auto) 12.4 L (20-40) % Terry % (Auto) 19.0 H (2-11) % Eos % (Auto) 0.2 (0-4) % Baso % (Auto) 0.2 (0-2) % Lymph # (Auto) 0.6 L (1.2-4.9) X10*3/uL Terry # (Auto) 0.9 (0.1-1.2) X10*3/uL Eos # (Auto) 0.0 (0.0-0.4) X10*3/uL Baso # (Auto) 0.0 (0.0-0.2) X10*3/uL Abs Immat Gran (auto) 0.03 (0.00-0.03) X10*3/uL Absolute Neuts (auto) 3.2 (2.0-8.3) x10*3/uL Absolute Nucleated RBC 0.000 (0.0-0.012) X10*3/uL Nucleated RBC % (auto) 0.0 (0.0-0.2) /100WBC PT 11.8 (11.1-13.3) SEC INR 1.0 (0.9-1.1) Sodium 141 (135-145) mmol/L Potassium 4.5 (3.3-5.1) mmol/L Chloride 103 (96-108) mmol/L Carbon Dioxide 25 (22-29) mmol/L Anion Gap 18 (12-20) BUN 10 (9-16) mg/dL Creatinine 0.95 (0.5-1.4) mg/dL Estim Creat Clear Calc 53.0 Estimated GFR > 60 Random Glucose 109 (60-115) mg/dL Calcium 9.2 D (8.4-10.2) mg/dL Magnesium 2.0 (1.6-2.6) mg/dL Total Bilirubin 0.7 (0.0-1.0) mg/dL AST 22 (5-37) U/L ALT 17 (0-40) U/L Alkaline Phosphatase 58 (39-117) U/L Troponin I High Sens < 2.7 (<3.5-35.0) ng/L Total Protein 7.1 (6.5-8.0) g/dL Albumin 4.1 (3.5-5.0) g/dL Lipase 23 (8-78) U/L Independent Interpretation I performed an independent interpretation of an: Plain X-Ray Radiology Impression Discussion of test interpretation with radiology: I have reviewed the radiologist's reading. Discharge Plan Discharge Clinical Impression: GERD with esophagitis, Gallstone Patient Disposition: Home, Self-Care Instructions: Gallstones (ED), Gastroesophageal Reflux Disease (ED) Additional Instructions: Avoid caffeinated drinks avoid NSAIDs avoid fatty meals Take Prilosec 40 mg daily Sucralfate 1 tablet 3 times a day half an hour before meals Follow up with field tech for further evaluation Prescriptions: New sucralfate 1 gram tablet 1 g PO TID Qty: 90 0RF omeprazole 40 mg capsule,delayed release(DR/EC) 40 mg PO DAILY Qty: 90 0RF No Action Trelegy Ellipta 200-62.5-25 mcg blister with device 1 inh inhalation DAILY Qty: 60 5RF albuterol sulfate [ProAir HFA] 90 mcg/actuation HFA aerosol inhaler 2 puff inhalation Q6H PRN (Reason: shortness of breath or wheezing) 90 Days Qty: 3 3RF paroxetine HCl 20 mg tablet 20 mg PO DAILY benzonatate 100 mg capsule 100 mg PO BID PRN (Reason: cough) Qty: 20 0RF albuterol sulfate 90 mcg/actuation aero powdr breath act w/sensor 1 inh inhalation Q6H PRN (Reason: shortness of breath or wheezing) Qty: 1 0RF prednisone 20 mg tablet 60 mg PO DAILY 5 Days Qty: 15 0RF (DME) Oxygen Home Use Kit See Rx Instructions .Route Rx Instructions: As directed benzonatate 200 mg capsule 200 mg PO BID PRN (Reason: cough) 30 Days Qty: 30 6RF amoxicillin-pot clavulanate 875-125 mg tablet 1 tab PO BID 10 Days Qty: 20 0RF Interventions: ED Discharge Assessment Last Done: 03/12/24 01:30 Discharge Date/Time: 03/12/24 01:31 Print Language: Kazakh
--- NOTE | 2024-03-11 21:29 | MHC.EDTECH ---
Patient was brought into the room at 21:20.
[2024-03-11 21:34] LABS: Prothrombin Time 11.8 SEC (11.1-13.3)
[2024-03-11 21:44] LABS: Alanine Aminotransferase 17 U/L (0-40); Albumin Level 4.1 g/dL (3.5-5.0); Alkaline Phosphatase 58 U/L (39-117); Anion Gap 18 (12-20); Aspartate Amino Transferase 22 U/L (5-37); Bilirubin Total 0.7 mg/dL (0.0-1.0); Blood Urea Nitrogen 10 mg/dL (9-16); Calcium 9.2 mg/dL (8.4-10.2); Carbon Dioxide 25 mmol/L (22-29); Chloride 103 mmol/L (96-108); Estimated Glomerular Filt Rate > 60; Glucose Random 109 mg/dL (60-115); Lipase 23 U/L (8-78); Potassium 4.5 mmol/L (3.3-5.1); Sodium 141 mmol/L (135-145); Total Protein 7.1 g/dL (6.5-8.0)
[2024-03-11 21:53] LABS: Troponin-I High Sensitivity < 2.7 ng/L (<3.5-35.0)
[2024-03-11] MEDS: ondansetron HCL 4 MG/2 ML VIAL IVPUSH (22:31)
[2024-03-11] MEDS: 0.9 % Sodium Chloride 1,000 ML 999 ML IV (22:31)
[2024-03-11] MEDS: Famotidine/PF 20 MG/2 ML VIAL IVPUSH (22:31)
[2024-03-12] MEDS: Magnesium Hydrox/Alum Hydrox 30 ML ORAL.SUSP PO (01:10)
[2024-03-12 01:30] VITALS: BP 110/59; PULSE 84; RESP 18; TEMP 36.7; O2SAT 95
== END 2024-03-12 01:31 | disposition home or self-care (01) ==
PROVIDERS: Emergency Provider Internal Medicine; PCP Physician Assistant
DX: K21.00 Gastro-esophageal reflux disease with esophagitis, without bleeding (principal); K80.20 Calculus of gallbladder without cholecystitis without obstruction; J44.9 Chronic obstructive pulmonary disease, unspecified; Z99.81 Dependence on supplemental oxygen; Z79.899 Other long term (current) drug therapy
CPT/HCPCS: 36415; 71045; 71250; 76705; 80053; 83690; 83735; 84484; 85025; 85610; 93005; 96361; 96374; 96375; 99284; J2405

== ENCOUNTER → 2024-03-11 21:21 | Outpatient (BNV) | payer MEDICARE, SELFPAY | PROVIDERS: Emergency Provider Internal Medicine; PCP Physician Assistant; Visit Provider Internal Medicine Cardiovascular Disease | DX: R10.13 Epigastric pain (principal) | CPT/HCPCS: 93010 ==

== ENCOUNTER 2024-03-12 14:19 | Emergency (ER) | payer MEDICARE, SELFPAY ==
[2024-03-12 14:54] VITALS: BP 126/61; PULSE 85; RESP 18; TEMP 36.6; O2SAT 94; BMI 25.8
--- NOTE | 2024-03-12 14:54 | ED.GENADULT ---
HPI - General Adult General Chief complaint: General Medical Stated complaint: Seen last night, meds not working Time Seen by Provider: 03/12/24 16:23 Source: patient, family and RN notes reviewed Mode of arrival: ambulatory Limitations: no limitations History of Present Illness ED Provider: Analia Olmos PA-C HPI narrative: This is a 88-year-old male, with a history of COPD, mac infection of the right lung on Zithromax and rifabutin, GERD, who presents emergency department with complaints of intractable nausea. Patient was seen here last night and was diagnosed with gastritis and was sent home on PPIs however states that he has had persistent nausea. He states that the medication he was given yesterday provided him with full relief however states that today he has been unable to eat due to nausea. He denies any fevers, chills, chest pain, shortness of breath, headache, dizziness, blurred vision, abdominal pain, vomiting or diarrhea. Had a normal bowel movement this morning. No other complaints or concerns at this time. MD complaint: Nausea Onset (ago): day(s) Radiation: non-radiation Relieving factors: none Exacerbating factors: none Associated symptoms: denies other symptoms Treatments prior to arrival: none Related Data Home Medications ?Medication ?Instructions ?Recorded ?Confirmed Oxygen Home Use 01/25/23 02/15/23 paroxetine HCl 20 mg tablet 20 mg PO DAILY 02/15/23 02/15/23 Previous Rx's ?Medication ?Instructions ?Recorded fluticasone fur. 200 mcg-umeclid 1 inh inhalation DAILY #60 ea 08/09/23 62.5 mcg-vilant 25 mcg inhalat.powder (Trelegy Ellipta) albuterol sulfate 90 mcg/actuation 1 inh inhalation Q6H PRN shortness 01/20/24 breath activated powder of breath or wheezing #1 ea inhaler,sensor benzonatate 100 mg capsule 100 mg PO BID PRN cough #20 caps 01/20/24 prednisone 20 mg tablet 60 mg (3 x 20 mg) PO DAILY Asthma 01/20/24 5 days #15 tabs albuterol sulfate 90 mcg/actuation 2 puff inhalation Q6H PRN 01/21/24 aerosol inhaler (ProAir HFA) shortness of breath or wheezing 90 days #3 ea amoxicillin 875 mg-potassium 1 tab PO BID 10 days #20 tabs 01/24/24 clavulanate 125 mg tablet benzonatate 200 mg capsule 200 mg PO BID PRN cough 30 days 01/24/24 #30 caps omeprazole 40 mg capsule,delayed 40 mg PO DAILY #90 caps 03/12/24 release ondansetron 4 mg disintegrating 4 mg PO Q8H PRN nausea and 03/12/24 tablet vomiting 5 days #7 tabs sucralfate 1 gram tablet 1 g PO TID #90 tabs 03/12/24 Allergies Allergy/AdvReac Type Severity Reaction Status Date / Time No Known Allergies Allergy Mild NOT Verified 03/12/24 14:55 APPLICABLE Review of Systems Review of Systems: Yes all other systems are reviewed and are negative Constitutional: Constitutional: Reports as per [facility] Past Medical History Medical History Pulmonary nodule Tobacco dependence Tubular adenoma of colon (~1997) COPD (chronic obstructive pulmonary disease) Pilonidal cyst Shortness of breath Abdominal pain HLD (hyperlipidemia) GERD (gastroesophageal reflux disease) Anxiety Surgical History History of bronchoscopy History of cataract surgery History of colonoscopy History of appendectomy Family History Family History Sister Cancer Sister Cancer Social History Social History 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 () Alcohol intake: former Patient Tobacco Use Status: Former Tobacco user Tobacco use type: Cigarette Cigarette Packs Per Day: 2.0 Cigarettes Per Day: 40.0 Years Smoked: 40 Second Hand Smoke Exposure: No Advance Directives: No Advance Directives Information Provided: Yes Do you have a plan to hurt others: No Plan Current occupational status: retired Current occupation: Right Handed Physical Exam ED Vital Signs: Vital Signs - 24 hr 03/12/24 14:54 Temperature 97.9 F Pulse Rate 85 Respiratory Rate 18 Blood Pressure 126/61 Pulse Oximetry 94 Oxygen Delivery Method Nasal Cannula BMI result Body Mass Index 25.8 Const General: cooperative, comfortable and no acute distress Orientation/consciousness: patient oriented x3 Limitations: no limitations HENMT Head: Yes normal to inspection, Yes normocephalic and Yes atraumatic Ears: hearing grossly normal bilaterally General nose exam: Normal external nose present Face and sinus: Yes normal facial exam Mouth: Normal oral and palatal mucosa present, oropharynx normal and moist mucous membranes Throat: Yes posterior oropharynx normal Eyes General: appearance normal, both eyes and all related structures Eyelids: Yes eyelids normal Conjunctivae: conjunctivae normal Sclerae: sclerae normal Pupils: Equal, round and reactive pupils present EOM: EOMs intact bilaterally Neck Neck: Yes normal visual inspection, Yes full ROM and Yes no lymphadenopathy Lymphatic: no lymphadenopathy noted Chest Chest palpation & inspection: normal inspection of the chest Resp Effort & Inspection: normal respiratory effort and able to speak in complete sentences Auscultation: clear to auscultation bilaterally, no crackles, no rales, no rhonchi and no wheezes Cardio Rate: regular rate Rhythm: regular rhythm Heart sounds: S1 normal heart sound present and S2 normal heart sound present GI Other: Abdomen is soft, nontender, nondistended. Negative Weber's sign Inspection: Yes normal to inspection Skin General skin exam: no rashes or lesions noted Trauma: no lacerations or abrasions Wounds: no wounds Neuro General: patient oriented x3 and moves all extremities Cranial nerves: Yes Equal, round and reactive pupils present Extrem General: Yes normal to inspection Right upper extremity: normal to inspection Left upper extremity: normal to inspection Right lower extremity: normal to inspection Left lower extremity: normal to inspection Course Course Course Narrative: This is a rapid medical exam. Deferred additional HPI, ROS, PE to primary provider. 88 yo male w/ history of COPD oxygen-dependent p.r.n., MAC nfection right lung on Zithromax and rifabutin, GERD, seen here last night. Sent home on carafate, omeprazole. Took one dose of each this morning. +nausea, decreased appetite. Able to drink fluids. WIll obtain labs, give SL zofran. [facility]ACKENZIE [facility] Reevaluation(s) Reevaluation #1: Patient able to drink fluids and department without difficulty. Nausea improved after receiving dose of Zofran as well as Compazine. Discussed importance of following up with PCP. Nausea may be attributed to medications he is taking for spiculated nodule in his lung. Patient understands and agrees with plan. Patient given return precautions. Patient stable for discharge. Time: 19:17 Medications Administered Discontinued Medications Generic Name Dose Route Start Last Admin Trade Name Epi PRN Reason Stop Dose Admin Sodium Chloride 1,000 mls @ 999 mls/hr 03/12/24 17:01 03/12/24 17:03 Ns IV 03/12/24 18:01 999 mls/hr .Q1H1M ONE Administration Ondansetron HCl 4 mg 03/12/24 14:58 03/12/24 14:59 Ondansetron Odt 4 Mg Tab.Rapdis TRANSLINGU 03/12/24 14:59 4 mg ONCE ONE Administration Prochlorperazine Edisylate 10 mg 03/12/24 16:47 03/12/24 16:59 Prochlorperazine Edisylate 10 Mg/2 Ml Vial IVPUSH 03/12/24 16:48 10 mg ONCE ONE Administration Medical Decision Making Medical Decision Making [facility] Narrative: This is a 88-year-old male who presents emergency department with complaints of nausea. Patient was seen here yesterday where he had a full workup which was unremarkable. Ultrasound revealing cholelithiasis, no evidence of cholecystitis. On arrival, vital signs within normal limits. He is speaking in full sentences under no acute distress. He has been on medications treating a spiculated nodule on his right lung for the last 3-4 weeks. Nausea may be due to side effect of these medications. Labs were repeated today, he has no leukocytosis, stable H&H, chemistry within normal limits. No evidence of ROBERT. Discussed workup with Dr. Chavez. Given patient has no severe abdominal pain or any other symptoms, patient does not need further workup today, and will treat nausea. He was given Zofran 4 mg p.o. in the waiting room which provided him with some relief temporarily however nausea has since returned. Patient medicated with IV Compazine and fluids. Differential Diagnosis Differential Diagnoses: The differential diagnosis associated with the presentation includes Nausea, electrolyte abnormality, gastritis, gastroenteritis Admission/Observation Consideration of admission/observation: Escalation of care including admission/observation considered Escalation of care including admission/observation considered however given workup today not warranted at this time. Lab Data [facility] Lab Attestation statement: I reviewed the patient's lab results. 03/12/24 15:12 03/12/24 15:12 Labs: Lab Results 03/12/24 03/12/24 Range/Units 15:12 18:33 WBC 5.6 (4.8-10.8) X10*3/uL RBC 4.58 L (4.60-5.80) X10*6/uL Hgb 14.3 (14.0-18.0) g/dl Hct 41.0 L (42.0-52.0) % MCV 89.5 (80.0-98.0) fL MCH 31.2 (27.0-33.0) pg MCHC 34.9 (31.0-36.0) g/dl RDW 13.2 (11.0-16.0) % Plt Count 154 L (160-400) X10*3/uL MPV 8.3 L (9.4-12.4) fL Immature Gran % (Auto) 0.5 H (0.0-0.4) % Neut % (Auto) 70.9 (45-73) % Lymph % (Auto) 14.0 L (20-40) % Hardin % (Auto) 14.4 H (2-11) % Eos % (Auto) 0.0 (0-4) % Baso % (Auto) 0.2 (0-2) % Lymph # (Auto) 0.8 L (1.2-4.9) X10*3/uL Hardin # (Auto) 0.8 (0.1-1.2) X10*3/uL Eos # (Auto) 0.0 (0.0-0.4) X10*3/uL Baso # (Auto) 0.0 (0.0-0.2) X10*3/uL Abs Immat Gran (auto) 0.03 (0.00-0.03) X10*3/uL Absolute Neuts (auto) 4.0 (2.0-8.3) x10*3/uL Absolute Nucleated RBC 0.000 (0.0-0.012) X10*3/uL Nucleated RBC % (auto) 0.0 (0.0-0.2) /100WBC Sodium 140 (135-145) mmol/L Potassium 4.6 (3.3-5.1) mmol/L Chloride 106 (96-108) mmol/L Carbon Dioxide 25 (22-29) mmol/L Anion Gap 14 (12-20) BUN 9 (9-16) mg/dL Creatinine 0.87 (0.5-1.4) mg/dL Estim Creat Clear Calc 59.8 Estimated GFR > 60 Random Glucose 109 (60-115) mg/dL Calcium 9.2 (8.4-10.2) mg/dL Total Bilirubin 0.6 (0.0-1.0) mg/dL Direct Bilirubin 0.2 (0.0-0.5) mg/dL AST 25 (5-37) U/L ALT 21 (0-40) U/L Alkaline Phosphatase 52 (39-117) U/L Total Protein 6.6 (6.5-8.0) g/dL Albumin 3.9 (3.5-5.0) g/dL Urine Color Yellow Urine Appearance Clear Urine pH 6.5 (5.0-9.0) Ur Specific [place] 1.015 (1.005-1.025) Urine Protein Negative (Neg-Trace) mg/dL Urine Glucose (UA) Negative (Negative) mg/dL Urine Ketones 15 (Negative) mg/dL Urine Blood Negative (Negative) Urine Nitrite Negative (Negative) Ur Leukocyte Esterase Negative (Negative) Radiology Impression Discussion of test interpretation with radiology: I have reviewed the radiologist's reading. External Record Review External record reviewed: Inpatient record, Office record, Outpatient record, Prior outpatient labs, Prior outpatient radiology, Primary care record and Outside ED record Discharge Plan Discharge Clinical Impression: Nausea Patient Disposition: Home, Self-Care Instructions: Acute Nausea and Vomiting (ED) Additional Instructions: You were seen here due to nausea. Your symptoms may be attributed to side effects due to your medications. You had a full workup yesterday which showed gallstones, otherwise no other findings. Please drink plenty of fluids get plenty of rest. Stick to a bland diet, avoid spicy or fried foods. Take prescribed medication as needed for nausea. If any new or worsening symptoms occur including but not limited to fevers, chills, chest pain, shortness of breath, please return for re-evaluation Prescriptions: New ondansetron 4 mg tablet,disintegrating 4 mg PO Q8H PRN (Reason: nausea and vomiting) 5 Days Qty: 7 0RF No Action Trelegy Ellipta 200-62.5-25 mcg blister with device 1 inh inhalation DAILY Qty: 60 5RF albuterol sulfate [ProAir HFA] 90 mcg/actuation HFA aerosol inhaler 2 puff inhalation Q6H PRN (Reason: shortness of breath or wheezing) 90 Days Qty: 3 3RF paroxetine HCl 20 mg tablet 20 mg PO DAILY sucralfate 1 gram tablet 1 g PO TID Qty: 90 0RF omeprazole 40 mg capsule,delayed release(DR/EC) 40 mg PO DAILY Qty: 90 0RF benzonatate 100 mg capsule 100 mg PO BID PRN (Reason: cough) Qty: 20 0RF albuterol sulfate 90 mcg/actuation aero powdr breath act w/sensor 1 inh inhalation Q6H PRN (Reason: shortness of breath or wheezing) Qty: 1 0RF prednisone 20 mg tablet 60 mg PO DAILY 5 Days Qty: 15 0RF (DME) Oxygen Home Use Kit See Rx Instructions .Route Rx Instructions: As directed benzonatate 200 mg capsule 200 mg PO BID PRN (Reason: cough) 30 Days Qty: 30 6RF amoxicillin-pot clavulanate 875-125 mg tablet 1 tab PO BID 10 Days Qty: 20 0RF Print Language: Cook Islander
[2024-03-12] MEDS: Ondansetron ODT 4 MG TAB.RAPDIS TRANSLINGU (14:59)
[2024-03-12 15:16] LABS: MANUAL DIFF FLAG NO
[2024-03-12 15:17] LABS: Basophils Percent Auto 0.2 % (0-2); Hemoglobin 14.3 g/dl (14.0-18.0); Imm Gran Abs Auto 0.03 X10*3/uL (0.00-0.03); Imm Gran Pct Auto 0.5 % (0.0-0.4); Lymphocytes Absolute Auto 0.8 X10*3/uL (1.2-4.9); Mean Corpuscular HGB Conc 34.9 g/dl (31.0-36.0); Mean Corpuscular Hemoglobin 31.2 pg (27.0-33.0); Mean Corpuscular Volume 89.5 fL (80.0-98.0); Mean Platelet Volume 8.3 fL (9.4-12.4); Monocytes Absolute Auto 0.8 X10*3/uL (0.1-1.2); Monocytes Percent Auto 14.4 % (2-11); Neutrophils Percent Auto 70.9 % (45-73); Platelet Count 154 X10*3/uL (160-400); Red Blood Count 4.58 X10*6/uL (4.60-5.80); Red Cell Distribution Width 13.2 % (11.0-16.0); White Blood Count 5.6 X10*3/uL (4.8-10.8)
[2024-03-12 15:32] LABS: Alanine Aminotransferase 21 U/L (0-40); Albumin Level 3.9 g/dL (3.5-5.0); Alkaline Phosphatase 52 U/L (39-117); Anion Gap 14 (12-20); Aspartate Amino Transferase 25 U/L (5-37); Bilirubin Direct 0.2 mg/dL (0.0-0.5); Bilirubin Total 0.6 mg/dL (0.0-1.0); Blood Urea Nitrogen 9 mg/dL (9-16); Calcium 9.2 mg/dL (8.4-10.2); Carbon Dioxide 25 mmol/L (22-29); Chloride 106 mmol/L (96-108); Creatinine Clr Calc Pharmacy 59.8; Estimated Glomerular Filt Rate > 60; Glucose Random 109 mg/dL (60-115); Potassium 4.6 mmol/L (3.3-5.1); Sodium 140 mmol/L (135-145); Total Protein 6.6 g/dL (6.5-8.0)
[2024-03-12] MEDS: Prochlorperazine Edisylate 10 MG/2 ML VIAL IVPUSH (16:59)
[2024-03-12] MEDS: 0.9 % Sodium Chloride 1,000 ML 999 ML IV (17:03)
[2024-03-12 18:41] LABS: Appearance Urine Clear; Color Urine Yellow; Glucose Urine UA Negative (Negative); Leukocyte Esterase Urine Negative (Negative); Nitrite Urine Negative (Negative); PH 6.5 (5.0-9.0); Specific Gravity - Urine 1.015 (1.005-1.025); Urine Blood Negative (Negative); Urine Ketones 15 mg/dL (Negative); Urine Protein Negative (Neg-Trace)
[2024-03-12 19:29] VITALS: BP 126/61; PULSE 85; RESP 18; TEMP 36.6; O2SAT 94
== END 2024-03-12 19:29 | disposition home or self-care (01) ==
PROVIDERS: Nurse Practitioner Family; Physician Assistant Medical; Emergency Provider Emergency Medicine; PCP Internal Medicine
DX: R11.2 Nausea with vomiting, unspecified (principal); Z79.899 Other long term (current) drug therapy; Z87.891 Personal history of nicotine dependence
CPT/HCPCS: 36415; 80048; 80076; 81003; 85025; 96374; 99283; 99284; J0737

== ENCOUNTER 2024-05-02 19:00 | Emergency (ER) | payer MEDICARE, SELFPAY ==
--- NOTE | 2024-05-02 | ECG_ITS ---
Test Reason : CHEST TIGHTNESS Blood Pressure : / mmHG Vent. Rate : 082 BPM Atrial Rate : 082 BPM P-R Int : 170 ms QRS Dur : 082 ms QT Int : 378 ms P-R-T Axes : 083 055 048 degrees QTc Int : 441 ms Normal sinus rhythm Normal ECG When compared with ECG of 11-MAR-2024 21:21, No significant change was found Referred By: Generic ED Physician Electronically Signed By:SHA GUERRA
--- NOTE | ~2024-05-02 | XR_ITS ---
EXAMINATION: XR CHEST CLINICAL INFORMATION: Pain COMPARISON: None available. TECHNIQUE: 2 views of the chest were obtained. FINDINGS: The cardiac silhouette is normal. There is mild chronic interstitial disease. There are no areas of consolidation. There are no pleural effusions or pneumothoraces. The bones and soft tissues are unremarkable for the patient's age. XR/XR chest 2V IMPRESSION: Mild chronic interstitial disease. Electronically signed by: Jessy Osborn MD 05/02/2024 09:27 PM EDT RP
--- NOTE | 2024-05-02 19:25 | PC.NURSE ---
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
[2024-05-02 19:35] VITALS: BP 117/83; PULSE 88; RESP 18; TEMP 36.6; O2SAT 96; BMI 25.1
--- NOTE | 2024-05-02 19:36 | ED.GENADULT ---
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 He started them he has had nausea and poor p.o. intake. He told his infectious disease doctor who told him to take them Wednesday. He continued to have symptoms and stopped taking them last week. He reports getting attacks of nausea and sweats and chills. He also reports intermittent episodes of chest tightness that occurs randomly and salt resolved. This has been going on for quite some time and is related to his nausea. He denies any difficulty breathing although his productive cough is changed now that he is taking these antibiotics. He is supposed to be on these antibiotics for 4 weeks but can not tolerate them. He sees his infectious disease doctor in a couple of weeks. He has had decreased p.o. intake but is drinking ensures. MD complaint: Nausea Onset (ago): week(s) Severity: moderate Pain Consistency: intermittent Relieving factors: none Exacerbating factors: medication Associated symptoms: chest pain, diaphoresis, loss of appetite and nausea/vomiting Treatments prior to arrival: none Related Data Home Medications ?Medication ?Instructions ?Recorded ?Confirmed Oxygen Home Use 01/25/23 02/15/23 paroxetine HCl 20 mg tablet 20 mg PO DAILY 02/15/23 02/15/23 Previous Rx's ?Medication ?Instructions ?Recorded albuterol sulfate 90 mcg/actuation 1 inh inhalation Q6H PRN shortness 01/20/24 breath activated powder of breath or wheezing #1 ea inhaler,sensor benzonatate 100 mg capsule 100 mg PO BID PRN cough #20 caps 01/20/24 prednisone 20 mg tablet 60 mg (3 x 20 mg) PO DAILY Asthma 01/20/24 5 days #15 tabs albuterol sulfate 90 mcg/actuation 2 puff inhalation Q6H PRN 01/21/24 aerosol inhaler (ProAir HFA) shortness of breath or wheezing 90 days #3 ea amoxicillin 875 mg-potassium 1 tab PO BID 10 days #20 tabs 01/24/24 clavulanate 125 mg tablet benzonatate 200 mg capsule 200 mg PO BID PRN cough 30 days 01/24/24 #30 caps omeprazole 40 mg capsule,delayed 40 mg PO DAILY #90 caps 03/12/24 release ondansetron 4 mg disintegrating 4 mg PO Q8H PRN nausea and 03/12/24 tablet vomiting 5 days #7 tabs sucralfate 1 gram tablet 1 g PO TID #90 tabs 03/12/24 fluticasone fur. 200 mcg-umeclid 1 inh inhalation DAILY #60 ea 03/20/24 62.5 mcg-vilant 25 mcg inhalat.powder (Trelegy Ellipta) ondansetron 4 mg disintegrating 4 mg PO Q8H PRN nausea and 05/03/24 tablet vomiting #14 tabs Allergies Allergy/AdvReac Type Severity Reaction Status Date / Time No Known Allergies Allergy Mild NOT Verified 05/02/24 19:39 APPLICABLE Review of Systems Review of Systems: Yes all other systems are reviewed and are negative PMFSH Past Medical History Medical History Pulmonary nodule Tobacco dependence Tubular adenoma of colon (~1997) COPD (chronic obstructive pulmonary disease) Pilonidal cyst Shortness of breath Abdominal pain HLD (hyperlipidemia) GERD (gastroesophageal reflux disease) Anxiety Surgical History History of bronchoscopy History of cataract surgery History of colonoscopy History of appendectomy Family History Family History Sister Cancer Sister Cancer Social History Social History 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 () Alcohol intake: former Patient Tobacco Use Status: Former Tobacco user Tobacco use type: Cigarette Cigarette Packs Per Day: 2.0 Cigarettes Per Day: 40.0 Years Smoked: 40 Smoked in Last 30 Days: No Second Hand Smoke Exposure: No Use of substances other than those prescribed or required for medical reasons: No Advance Directives: No Advance Directives Information Provided: No Do you have a plan to hurt others: No Plan Current occupational status: retired Current occupation: Right Handed Physical Exam ED Vital Signs: Vital Signs - 24 hr 05/02/24 19:35 05/02/24 22:00 05/03/24 01:20 Temperature 97.9 F 98.3 F Pulse Rate 88 85 67 Respiratory Rate 18 18 17 Blood Pressure 117/83 115/81 119/66 Pulse Oximetry 96 99 97 Oxygen Delivery Method Nasal Cannula Nasal Cannula Nasal Cannula Oxygen Flow Rate 2.5 3 05/03/24 03:48 05/03/24 06:29 Temperature Pulse Rate 82 76 Respiratory Rate 20 19 Blood Pressure 125/75 121/71 Pulse Oximetry 98 98 Oxygen Delivery Method Room Air Room Air Oxygen Flow Rate BMI result Body Mass Index 25.1 Appearance: Alert elderly male resting in bed. Oriented X3. No acute distress. Head: normocephalic, atraumatic. Eyes: Pupils equal, round and reactive to light. ENT: Pharynx normal. No tonsillar swelling or exudate. Neck: Normal inspection. Neck supple. CVS: Normal heart rate and rhythm. Pulses normal. Respiratory: No respiratory distress. Breath sounds diminished in LLL and RUL Abdomen: Soft and nontender. +BS x4 Skin: Skin warm and dry. Normal skin color. Normal skin turgor. No rashes. Extremities: No lower extremity edema. No joint swelling. Neuro/psych: Oriented X 3. grossly, normal, nonfocal. CN II-XII intact. Normal speech and cognition. Course Course Course Narrative: RME, this is a rapid medical exam performed by Leonid Almendarez please refer to primary provider for complete H&P- 88-year-old male presents for evaluation of nausea, chest tightness. 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 He has been noncompliant in taking them sporadically due to side effects of nausea. He reports he is not taking any of his medications for at least a week. He reports subjective chills, nausea, cough. Plan for cardiac workup given the chest. The patient is on 2.5 L of oxygen chronically due to COPD Medications Administered Discontinued Medications Generic Name Dose Route Start Last Admin Trade Name Freq PRN Reason Stop Dose Admin Ondansetron HCl 4 mg 05/03/24 05:28 05/03/24 05:45 Ondansetron Odt 4 Mg Tab.Natalya ALBERT 05/03/24 05:29 4 mg ONCE STA Administration Medical Decision Making Medical Decision Making [facility] Narrative: 88-year-old male with history of COPD on intermittent as needed O2, mac infection of the right upper lobe being treated by Infectious Disease doctor at [facility] who presents to the ER for evaluation of intermittent episodes of nausea, chills, sweats and chest pain. They have been happening for months since he started the antibiotics in January. No current symptoms. He was given sublingual Zofran in the ER and is feeling better. His lab workup today shows no leukocytosis, no anemia. His electrolytes are all normal as is his renal function. His vital signs are stable no evidence of dehydration. His chest tightness does not seem to be life-threatening cardiac cause. He just feels better and would like to go home. At this time I am comfortable discharge home with plan to outpatient follow-up with his infectious disease doctor. 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 He would like to go home with Zofran and try to premedicate before taking his antibiotics. Will send Zofran to his pharmacy. Stable for DC home Differential Diagnosis Differential Diagnoses: The differential diagnosis associated with the presentation includes Adverse medication reaction, failure to thrive, MAC infection, atypical presentation of ACS Admission/Observation Consideration of admission/observation: Escalation of care including admission/observation considered FTT, considered admit however patient wants to go home and f/u with his doctors as outpatient Lab Data [facility] Lab Attestation statement: I reviewed the patient's lab results. No leukocytosis, no anemia, normal electrolytes 05/02/24 20:19 05/02/24 20:19 Labs: Lab Results 05/02/24 Range/Units 20:19 WBC 7.7 (4.8-10.8) X10*3/uL RBC 4.93 (4.60-5.80) X10*6/uL Hgb 15.3 (14.0-18.0) g/dl Hct 43.4 (42.0-52.0) % MCV 88.0 (80.0-98.0) fL MCH 31.0 (27.0-33.0) pg MCHC 35.3 (31.0-36.0) g/dl RDW 13.2 (11.0-16.0) % Plt Count 200 D (160-400) X10*3/uL MPV 8.9 L (9.4-12.4) fL Immature Gran % (Auto) 0.5 H (0.0-0.4) % Neut % (Auto) 64.1 (45-73) % Lymph % (Auto) 21.8 (20-40) % [place] % (Auto) 12.9 H (2-11) % Eos % (Auto) 0.4 (0-4) % Baso % (Auto) 0.3 (0-2) % Lymph # (Auto) 1.7 (1.2-4.9) X10*3/uL [place] # (Auto) 1.0 (0.1-1.2) X10*3/uL Eos # (Auto) 0.0 (0.0-0.4) X10*3/uL Baso # (Auto) 0.0 (0.0-0.2) X10*3/uL Abs Immat Gran (auto) 0.04 H (0.00-0.03) X10*3/uL Absolute Neuts (auto) 4.9 (2.0-8.3) x10*3/uL Absolute Nucleated RBC 0.000 (0.0-0.012) X10*3/uL Nucleated RBC % (auto) 0.0 (0.0-0.2) /100WBC PT 11.5 (11.1-13.3) SEC INR 0.9 (0.9-1.1) Sodium 139 (135-145) mmol/L Potassium 3.6 D (3.3-5.1) mmol/L Chloride 103 (96-108) mmol/L Carbon Dioxide 23 (22-29) mmol/L Anion Gap 17 (12-20) BUN 14 (9-16) mg/dL Creatinine 0.88 (0.5-1.4) mg/dL Estim Creat Clear Calc 59.1 Estimated GFR > 60 Random Glucose 97 (60-115) mg/dL Calcium 9.7 (8.4-10.2) mg/dL Total Bilirubin 0.9 (0.0-1.0) mg/dL AST 28 (5-37) U/L ALT 33 (0-40) U/L Alkaline Phosphatase 51 (39-117) U/L Troponin I High Sens < 2.7 (<3.5-35.0) ng/L Total Protein 7.2 (6.5-8.0) g/dL Albumin 4.3 (3.5-5.0) g/dL Lipase 20 (8-78) U/L COVID-19 (AMANDA) Negative (Negative) COVID-19 Clin Com See Note Independent Interpretation I performed an independent interpretation of an: EKG and Plain X-Ray Interpretation: EKG with normal sinus rhythm, ventricular rate 82 beats per minute, no ST segment elevations or depressions. Normal QTC, normal SC interval Chest x-ray with no significant change from prior, no focal infiltrate, agrees radiology read Radiology Impression Discussion of test interpretation with radiology: I have reviewed the radiologist's reading. Radiologist Impression: EXAMINATION: XR CHEST CLINICAL INFORMATION: Pain COMPARISON: None available. TECHNIQUE: 2 views of the chest were obtained. FINDINGS: The cardiac silhouette is normal. There is mild chronic interstitial disease. There are no areas of consolidation. There are no pleural effusions or pneumothoraces. The bones and soft tissues are unremarkable for the patient's age. XR/XR chest 2V IMPRESSION: Mild chronic interstitial disease. External Record Review External record reviewed: Prior outpatient radiology CT scan from February showed a 1.1 cm nodule in the right upper lobe that is spiculated, unchanged. He states he has had a PET scan in his spaces being treated as mac and not cancer Prescription Management I considered prescription management with: Pain Medication and Antibiotic Chronic Conditions Patient?s care impacted by: Other (COPD) Critical Care Time Critical Care Time Critical Care Time: No Discharge Plan Discharge Clinical Impression: Nausea Patient Disposition: Home, Self-Care Instructions: Acute Nausea and Vomiting (ED) Additional Instructions: Your lab workup today was reassuring. Recommend trial of zofran under your tongue 1 hour before you need to take your antibiotics. Follow up with your ID doctor and Primary Care doctor as soon as possible. Drink plenty of fluids and stay hydrated. If you develop new or worsening symptoms call 911 or come back to the ER for further evaluation. Prescriptions: New ondansetron 4 mg tablet,disintegrating 4 mg PO Q8H PRN (Reason: nausea and vomiting) Qty: 14 0RF No Action albuterol sulfate [ProAir HFA] 90 mcg/actuation HFA aerosol inhaler 2 puff inhalation Q6H PRN (Reason: shortness of breath or wheezing) 90 Days Qty: 3 3RF Trelegy Ellipta 200-62.5-25 mcg blister with device 1 inh inhalation DAILY Qty: 60 5RF paroxetine HCl 20 mg tablet 20 mg PO DAILY sucralfate 1 gram tablet 1 g PO TID Qty: 90 0RF omeprazole 40 mg capsule,delayed release(DR/EC) 40 mg PO DAILY Qty: 90 0RF ondansetron 4 mg tablet,disintegrating 4 mg PO Q8H PRN (Reason: nausea and vomiting) 5 Days Qty: 7 0RF benzonatate 100 mg capsule 100 mg PO BID PRN (Reason: cough) Qty: 20 0RF albuterol sulfate 90 mcg/actuation aero powdr breath act w/sensor 1 inh inhalation Q6H PRN (Reason: shortness of breath or wheezing) Qty: 1 0RF prednisone 20 mg tablet 60 mg PO DAILY 5 Days Qty: 15 0RF (DME) Oxygen Home Use Kit See Rx Instructions .Route Rx Instructions: As directed benzonatate 200 mg capsule 200 mg PO BID PRN (Reason: cough) 30 Days Qty: 30 6RF amoxicillin-pot clavulanate 875-125 mg tablet 1 tab PO BID 10 Days Qty: 20 0RF Referrals: Gabe Burrell MD [Primary Care Provider] - Print Language: Arabic
[2024-05-02 20:26] LABS: MANUAL DIFF FLAG NO
[2024-05-02 20:41] LABS: Basophils Percent Auto 0.3 % (0-2); COVID-19 Test Negative (Negative); Eosinophils Percent Auto 0.4 % (0-4); Hematocrit 43.4 % (42.0-52.0); Hemoglobin 15.3 g/dl (14.0-18.0); IDNOW Serial# 08D9AD1C; Imm Gran Abs Auto 0.04 X10*3/uL (0.00-0.03); Imm Gran Pct Auto 0.5 % (0.0-0.4); Lymphocytes Absolute Auto 1.7 X10*3/uL (1.2-4.9); Lymphocytes Percent Auto 21.8 % (20-40); Mean Corpuscular HGB Conc 35.3 g/dl (31.0-36.0); Mean Platelet Volume 8.9 fL (9.4-12.4); Monocytes Percent Auto 12.9 % (2-11); Neutrophils Absolute Auto 4.9 x10*3/uL (2.0-8.3); Neutrophils Percent Auto 64.1 % (45-73); Platelet Count 200 X10*3/uL (160-400); Red Blood Count 4.93 X10*6/uL (4.60-5.80); Red Cell Distribution Width 13.2 % (11.0-16.0); White Blood Count 7.7 X10*3/uL (4.8-10.8)
[2024-05-02 20:50] LABS: INTERNATIONAL NORM RATIO 0.9 (0.9-1.1); Prothrombin Time 11.5 SEC (11.1-13.3)
[2024-05-02 21:04] LABS: Alanine Aminotransferase 33 U/L (0-40); Albumin Level 4.3 g/dL (3.5-5.0); Alkaline Phosphatase 51 U/L (39-117); Anion Gap 17 (12-20); Aspartate Amino Transferase 28 U/L (5-37); Bilirubin Total 0.9 mg/dL (0.0-1.0); Blood Urea Nitrogen 14 mg/dL (9-16); Calcium 9.7 mg/dL (8.4-10.2); Carbon Dioxide 23 mmol/L (22-29); Chloride 103 mmol/L (96-108); Creatinine Clr Calc Pharmacy 59.1; Estimated Glomerular Filt Rate > 60; Glucose Random 97 mg/dL (60-115); Lipase 20 U/L (8-78); Potassium 3.6 mmol/L (3.3-5.1); Sodium 139 mmol/L (135-145); Total Protein 7.2 g/dL (6.5-8.0)
[2024-05-02 21:14] LABS: Troponin-I High Sensitivity < 2.7 ng/L (<3.5-35.0)
[2024-05-02 22:00] VITALS: BP 115/81; PULSE 85; RESP 18; TEMP 36.8; O2SAT 99
--- NOTE | 2024-05-02 22:24 | PC.NURSE ---
pt from lobby, assume care of pt at this time
[2024-05-03 01:20] VITALS: BP 119/66; PULSE 67; RESP 17; O2SAT 97
[2024-05-03 03:48] VITALS: BP 125/75; PULSE 82; RESP 20; O2SAT 98
[2024-05-03] MEDS: Ondansetron ODT 4 MG TAB.RAPDIS TRANSLINGU (05:45)
--- NOTE | 2024-05-03 05:56 | PC.NURSE ---
pt medicated for nausea and states, it is starting to feel better, going away, not ready to try anything to eat at this time
--- NOTE | 2024-05-03 06:26 | PC.NURSE ---
pt's nausea is better, resting quietly, resp with ease, no s/s of acute distress
[2024-05-03 06:29] VITALS: BP 121/71; PULSE 76; RESP 19; O2SAT 98
--- NOTE | 2024-05-03 07:06 | PC.NURSE ---
report given to Grisel RN, day shift
[2024-05-03 07:33] VITALS: BP 125/60; PULSE 77; RESP 17; TEMP 36.8; O2SAT 96
[2024-05-03 07:48] VITALS: BP 125/60; PULSE 77; RESP 17; TEMP 36.8; O2SAT 96
== END 2024-05-03 07:51 | disposition home or self-care (01) ==
PROVIDERS: Physician Assistant; Emergency Provider Emergency Medicine; PCP Internal Medicine
DX: R07.89 Other chest pain (principal); R11.2 Nausea with vomiting, unspecified; Z79.899 Other long term (current) drug therapy; Z87.891 Personal history of nicotine dependence; Z11.52 Encounter for screening for COVID-19
CPT/HCPCS: 36415; 71046; 80053; 83690; 84484; 85025; 85610; 87635; 93005; 99283; 99284

== ENCOUNTER 2024-05-03 11:46 | Emergency (ER) | payer MEDICARE, SELFPAY ==
--- NOTE | ~2024-05-03 | XR_ITS ---
EXAMINATION: XR CHEST CLINICAL INFORMATION: Right upper lobe infiltrate COMPARISON: 05/02/2024 TECHNIQUE: 2 views of the chest were obtained. FINDINGS: Cardiac mediastinal silhouette is stable in size. There is fairly extensive emphysema. No dense consolidation, pleural effusion or pneumothorax. No acute osseous abnormalities. XR/XR chest 2V IMPRESSION: No acute cardiopulmonary process. Emphysema. Electronically signed by: Jesus Ching MD 05/03/2024 10:08 PM EDT
--- NOTE | ~2024-05-03 | CT_ITS ---
EXAMINATION: CT ABDOMEN AND PELVIS WITH CONTRAST CLINICAL INFORMATION: Upper abdominal discomfort, nausea, unable too eat. COMPARISON: CT abdomen and pelvis 11/27/2023.. TECHNIQUE: Multidetector volumetric imaging was performed from the lung bases to the pubic symphysis following the administration of: Oral contrast: No Intravenous contrast: 85 mL Omnipaque 350 No contrast reaction reported Sagittal and coronal reformatted images were obtained on the technologist workstation. Total exam dose-length product 450 mGy-cm FINDINGS: VISUALIZED CHEST: Stable subpleural angular nodule in the right lower lobe measuring 5 mm, likely a lymph node. LIVER, GALLBLADDER AND BILIARY TREE: Hepatic steatosis. No suspicious liver mass. No biliary ductal dilatation. Cholelithiasis. PANCREAS: No discrete mass. No pancreatic ductal dilatation. SPLEEN: The spleen appears normal. ADRENAL GLANDS: Normal no mass. KIDNEYS AND URETERS: Symmetric nephrograms. No nephrolithiasis or hydronephrosis. 1.4 cm nonsimple lesion from the posterior aspect of the mid left kidney is unchanged. GASTROINTESTINAL TRACT: Small hiatal hernia. The small bowel is normal in caliber. There is moderate colonic diverticulosis without evidence of acute diverticulitis. ABDOMINAL WALL: Small fat-containing inguinal hernias. LYMPHOVASCULAR STRUCTURES: No pathologically enlarged lymph nodes. BLADDER: No focal mass or wall thickening seen. No bladder calculi. PELVIC VISCERA: The prostate is enlarged. OSSEOUS STRUCTURES: No destructive osseous lesions. Degenerative changes in the spine and hips. Subcutaneous cyst over the left hip is stable. CT/CT abdomen pelvis w IV con IMPRESSION: No acute findings in the abdomen/pelvis. Cholelithiasis without evidence of acute cholecystitis. Clonic diverticulosis without evidence of acute diverticulitis. Other chronic and incidental findings as above. Electronically signed by: Frederick Morris MD 05/04/2024 02:47 PM EDT
[2024-05-03 12:03] VITALS: BP 140/68; PULSE 87; RESP 18; TEMP 36.4; O2SAT 93; BMI 23.5
--- NOTE | 2024-05-03 12:10 | ED_ITS ---
HPI - General Adult General Chief complaint: Nausea/Vomiting/Diarrhea Stated complaint: nausea, abd pain Time Seen by Provider: 05/03/24 21:16 Source: patient Mode of arrival: ambulatory Limitations: no limitations History of Present Illness ED Provider: Dr. 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 He is followed by infectious disease. Since starting the medication he has not had appetite and has had nausea. He was seen yesterday with the same Related Data Home Medications ?Medication ?Instructions ?Recorded ?Confirmed Oxygen Home Use 01/25/23 02/15/23 paroxetine HCl 20 mg tablet 20 mg PO DAILY 02/15/23 02/15/23 albuterol sulfate 90 mcg/actuation 2 puff inhalation Q6H PRN wheezing 05/04/24 05/04/24 aerosol inhaler ethambutol 400 mg tablet 2,000 mg PO 3XW 05/04/24 fluticasone fur. 200 mcg-umeclid 1 ea inhalation DAILY 05/04/24 62.5 mcg-vilant 25 mcg inhalat.powder (Trelegy Ellipta) rifabutin 150 mg capsule 300 mg PO 3XW 05/04/24 Previous Rx's ?Medication ?Instructions ?Recorded albuterol sulfate 90 mcg/actuation 1 inh inhalation Q6H PRN shortness 01/20/24 breath activated powder of breath or wheezing #1 ea inhaler,sensor benzonatate 100 mg capsule 100 mg PO BID PRN cough #20 caps 01/20/24 albuterol sulfate 90 mcg/actuation 2 puff inhalation Q6H PRN 01/21/24 aerosol inhaler (ProAir HFA) shortness of breath or wheezing 90 days #3 ea amoxicillin 875 mg-potassium 1 tab PO BID 10 days #20 tabs 01/24/24 clavulanate 125 mg tablet benzonatate 200 mg capsule 200 mg PO BID PRN cough 30 days 01/24/24 #30 caps omeprazole 40 mg capsule,delayed 40 mg PO DAILY #90 caps 03/12/24 release sucralfate 1 gram tablet 1 g PO TID #90 tabs 03/12/24 fluticasone fur. 200 mcg-umeclid 1 inh inhalation DAILY #60 ea 03/20/24 62.5 mcg-vilant 25 mcg inhalat.powder (Trelegy Ellipta) ondansetron 4 mg disintegrating 4 mg PO Q8H PRN nausea and 05/03/24 tablet vomiting #14 tabs ondansetron HCl 4 mg tablet 4 mg PO Q6H PRN nausea and 05/04/24 vomiting #14 tabs prochlorperazine maleate 10 mg 10 mg PO Q6H PRN nausea and 05/04/24 tablet vomiting #20 tabs Allergies Allergy/AdvReac Type Severity Reaction Status Date / Time No Known Allergies Allergy Mild NOT Verified 05/03/24 12:07 APPLICABLE Review of Systems 2 Review of Systems: Yes all other systems are reviewed and are negative Neurologic: Denies Sensory deficit (Neuro) FOR[facility]LY [facility] Past Medical History Medical History Pulmonary nodule Tobacco dependence Tubular adenoma of colon (~1997) COPD (chronic obstructive pulmonary disease) Pilonidal cyst Shortness of breath Abdominal pain HLD (hyperlipidemia) GERD (gastroesophageal reflux disease) Anxiety Surgical History History of bronchoscopy History of cataract surgery History of colonoscopy History of appendectomy Family History Family History Sister Cancer Sister Cancer Social History Social History 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 () Alcohol intake: former Patient Tobacco Use Status: Former Tobacco user Tobacco use type: Cigarette Cigarette Packs Per Day: 2.0 Cigarettes Per Day: 40.0 Years Smoked: 40 Second Hand Smoke Exposure: No Advance Directives: Yes Advance Directives Information Provided: No Advance Directives on File: No Do you have a plan to hurt others: No Plan Current occupational status: retired Current occupation: Right Handed Physical Exam ED Vital Signs: Vital Signs - 24 hr 05/03/24 18:08 05/03/24 21:54 05/03/24 23:58 Temperature 97.5 F 97.7 F 97.6 F Pulse Rate 82 73 96 Respiratory Rate 16 20 16 Blood Pressure 118/51 L 107/69 128/71 Pulse Oximetry 94 99 96 Oxygen Delivery Method Room Air Room Air Nasal Cannula Oxygen Flow Rate 3 05/04/24 04:09 05/04/24 06:24 05/04/24 12:40 Temperature 97.8 F 97.7 F 97.8 F Pulse Rate 99 65 82 Respiratory Rate 16 16 16 Blood Pressure 124/60 115/60 115/48 L Pulse Oximetry 96 99 95 Oxygen Delivery Method Nasal Cannula Nasal Cannula Nasal Cannula Oxygen Flow Rate 3 3 3 BMI result Body Mass Index 23.5 Const Other: Thin frail male in no acute distress Orientation/consciousness: oriented to person and patient oriented x3 Limitations: no limitations HENMT Head: Yes normal to inspection Ears: external ears normal General nose exam: Normal external nose present Mouth: Normal oral and palatal mucosa present and oropharynx normal Throat: Yes posterior oropharynx normal Eyes General: appearance normal, both eyes and all related structures Neck Neck: Yes normal visual inspection Chest Chest palpation & inspection: normal inspection of the chest Resp Auscultation: clear to auscultation bilaterally Cardio Jugular venous distension: no JVD Rate: regular rate Rhythm: regular rhythm Heart sounds: S1 normal heart sound present and S2 normal heart sound present GI Inspection: Yes normal to inspection Palpation (GI): Soft to palpation, nontender and No hepatosplenomegaly present Auscultation: normal bowel sounds General: Yes no CVA tenderness Back/Spine/Pelvis Back: no CVA tenderness Skin General skin exam: no rashes or lesions noted Neuro General: oriented to person and patient oriented x3 Cranial nerves: Yes CN's II-XII intact bilaterally Motor exam (neuro): 5/5 motor strength present throughout Sensory Exam: No Sensory deficit (Neuro) Extrem General: Yes normal to inspection Psych Appearance: grossly normal Course Course Course Narrative: RME, this is a rapid medical exam performed by Leonid Almendarez please refer to primary provider for complete H&P- patient was seen here yesterday complaining of nausea and unable to eat or drink for the last 3 days. He reports that he was prescribed nausea medicine (ondansetron) and has had no improvement in his symptoms. He presents for re-evaluation. Reevaluation(s) Reevaluation #1: labs and xray look good will try and medicate patient and see if he will eat Time: 00:28 Reevaluation #2: physician observation started at 12:30am. Indication is to see if patient will feel well enough to eat. Will continue with IV hydration Time: 00:29 Reevaluation #3: The patient was signed out to me by the overnight physician. The patient has been placed in physician observation. 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 He has been prescribed azithromycin and rifabutin. The patient claims that these medications give him nausea. The patient has been having problems with nausea for several weeks. He was here at the end of February on 2 occasions because of his nausea. He was prescribed omeprazole and sucralfate at 1 of these visits and ondansetron at the 2nd of these visits. The patient says that during the summer the ondansetron may have helped somewhat but for the most part he would simply stopped taking the antibiotics. He saw his doctor at [facility] who adjusted his antibiotics somewhat. He has continued to have a lot of problems with nausea and seems to be frequently not taking his antibiotics because of the nausea. He was signed out to me pending possible improvement with treatment. The patient continued to complain of nausea throughout the day. Ultimately I did a CT scan of his abdomen. This shows no acute findings. He was given IV prochlorperazine and ondansetron and ultimately possibly felt a little bit better. He seemed to be tolerating ibrahima dimitry throughout the day. Ultimately I felt that he was appropriate for discharge (his labs had shown no significant metabolic derangements from starvation or dehydration). The patient will be discharged with prescriptions for prochlorperazine and ondansetron and should follow up with his regular providers. The patient was taken out of physician observation. Time: 16:09 Medications Administered Discontinued Medications Generic Name Dose Route Start Last Admin Trade Name Freq PRN Reason Stop Dose Admin Sodium Chloride 1,000 mls @ 500 mls/hr 05/03/24 21:30 05/04/24 00:36 Ns IVCONT 05/03/24 23:29 Infused .Q2H GEOVANNA Infusion Azithromycin 500 mg/ Sodium 250 mls @ 125 mls/hr 05/03/24 21:25 05/04/24 00:36 Chloride IV 05/03/24 23:24 Infused ONCE ONE Infusion Sodium Chloride 1,000 mls @ 999 mls/hr 05/04/24 12:00 05/04/24 13:00 Ns IV 05/04/24 13:00 Infused .Q1H1M GEOVANNA Infusion Iohexol 100 ml 05/04/24 12:20 05/04/24 12:21 Iohexol 350 Mg/Ml 100 Ml Infus..Btl IV 05/04/24 12:21 85 ml ONCE ONE Administration Ondansetron HCl 4 mg 05/04/24 00:01 05/04/24 04:31 Ondansetron Hcl 4 Mg/2 Ml Vial IVPUSH 05/04/24 00:02 4 mg ONCE ONE Administration Ondansetron HCl 4 mg 05/04/24 13:23 05/04/24 13:59 Ondansetron Hcl 4 Mg/2 Ml Vial IVPUSH 05/04/24 13:24 4 mg ONCE ONE Administration Pantoprazole Sodium 40 mg 05/03/24 21:25 05/03/24 22:13 Pantoprazole Sodium 40 Mg/10 Ml Vial IVPUSH 05/03/24 21:26 40 mg ONCE ONE Administration Prochlorperazine Edisylate 10 mg 05/04/24 11:25 05/04/24 11:56 Prochlorperazine Edisylate 10 Mg/2 Ml Vial IVPUSH 05/04/24 11:26 10 mg ONCE ONE Administration Rifampin 600 mg 05/03/24 21:25 05/03/24 23:50 Rifampin 300 Mg Capsule PO 05/03/24 21:26 600 mg ONCE ONE Administration Medical Decision Making Differential Diagnosis Differential Diagnoses: The differential diagnosis associated with the presentation includes (dehydration, pneumonia, renal failure) Admission/Observation Consideration of admission/observation: Escalation of care including admission/observation considered (upon arrival patient considered for admission) Lab Data 05/03/24 13:00 05/03/24 13:00 Labs: Lab Results 05/03/24 05/03/24 05/04/24 Range/Units 13:00 13:20 11:18 WBC 8.7 (4.8-10.8) X10*3/uL RBC 4.81 (4.60-5.80) X10*6/uL Hgb 15.0 (14.0-18.0) g/dl Hct 42.4 (42.0-52.0) % MCV 88.1 (80.0-98.0) fL MCH 31.2 (27.0-33.0) pg MCHC 35.4 (31.0-36.0) g/dl RDW 13.2 (11.0-16.0) % Plt Count 198 (160-400) X10*3/uL MPV 8.7 L (9.4-12.4) fL Immature Gran % (Auto) 0.6 H (0.0-0.4) % Neut % (Auto) 75.7 H (45-73) % Lymph % (Auto) 12.0 L (20-40) % Garrett % (Auto) 11.2 H (2-11) % Eos % (Auto) 0.2 (0-4) % Baso % (Auto) 0.3 (0-2) % Lymph # (Auto) 1.0 L (1.2-4.9) X10*3/uL Garrett # (Auto) 1.0 (0.1-1.2) X10*3/uL Eos # (Auto) 0.0 (0.0-0.4) X10*3/uL Baso # (Auto) 0.0 (0.0-0.2) X10*3/uL Abs Immat Gran (auto) 0.05 H (0.00-0.03) X10*3/uL Absolute Neuts (auto) 6.6 (2.0-8.3) x10*3/uL Absolute Nucleated RBC 0.000 (0.0-0.012) X10*3/uL Nucleated RBC % (auto) 0.0 (0.0-0.2) /100WBC Sodium 140 (135-145) mmol/L Potassium 3.9 (3.3-5.1) mmol/L Chloride 103 (96-108) mmol/L Carbon Dioxide 26 (22-29) mmol/L Anion Gap 15 (12-20) BUN 14 (9-16) mg/dL Creatinine 0.96 (0.5-1.4) mg/dL Estim Creat Clear Calc 54.2 Estimated GFR > 60 Random Glucose 104 (60-115) mg/dL Calcium 9.8 (8.4-10.2) mg/dL Total Bilirubin 1.0 (0.0-1.0) mg/dL AST 26 (5-37) U/L ALT 35 (0-40) U/L Alkaline Phosphatase 49 (39-117) U/L Total Protein 7.0 (6.5-8.0) g/dL Albumin 4.1 (3.5-5.0) g/dL Lipase 22 (8-78) U/L Urine Color Dark Yellow Urine Appearance Clear Urine pH 5.5 (5.0-9.0) Ur Specific Baldwin 1.020 (1.005-1.025) Urine Protein Negative (Neg-Trace) mg/dL Urine Glucose (UA) Negative (Negative) mg/dL Urine Ketones 15 (Negative) mg/dL Urine Blood Negative (Negative) Urine Nitrite Negative (Negative) Ur Leukocyte Esterase Small (1+) H (Negative) Urine RBC 0-2 (0-2) /HPF Urine WBC 0-5 (0-5) /HPF Ur Squamous Epith Cells 0-2 (0-2) /HPF Urine Bacteria None Seen (None Seen) Hyaline Casts 0-2 (0-2) /LPF Influenza Type A (PCR) NEGATIVE (Negative) Influenza Type B (PCR) NEGATIVE (Negative) RSV RNA Qual (PCR) NEGATIVE (Negative) SARS-CoV-2 RNA (RT-PCR) NEGATIVE (Negative) Independent Interpretation I performed an independent interpretation of an: Plain X-Ray (CXR: COPD changes) External Record Review External record reviewed: Outpatient record Prescription Management I considered prescription management with: Antibiotic (patient already on abx for MAC) Chronic Conditions Patient?s care impacted by: Other (COPD) Discharge Plan Discharge Clinical Impression: Nausea Patient Disposition: Home, Self-Care Additional Instructions: Your testing in the emergency room today has been very reassuring from the point of view of any dangerous process. Unfortunately I do not have a good explanation for your symptoms. I have sent to prescriptions for nausea medications. One of these prescriptions is prochlorperazine which is also known as Compazine. The other of these prescriptions is ondansetron which is also known as Zofran. I would recommend trying these medications to see if they help with your symptoms at home at all. Please do your best to take fluids and what solids you can tolerate. Please contact your regular doctor soon to make an appointment to discuss these symptoms you have been experiencing. Return to the emergency room if worse. Prescriptions: New prochlorperazine maleate 10 mg tablet 10 mg PO Q6H PRN (Reason: nausea and vomiting) Qty: 20 0RF ondansetron HCl 4 mg tablet 4 mg PO Q6H PRN (Reason: nausea and vomiting) Qty: 14 0RF No Action albuterol sulfate [ProAir HFA] 90 mcg/actuation HFA aerosol inhaler 2 puff inhalation Q6H PRN (Reason: shortness of breath or wheezing) 90 Days Qty: 3 3RF Trelegy Ellipta 200-62.5-25 mcg blister with device 1 inh inhalation DAILY Qty: 60 5RF paroxetine HCl 20 mg tablet 20 mg PO DAILY sucralfate 1 gram tablet 1 g PO TID Qty: 90 0RF omeprazole 40 mg capsule,delayed release(DR/EC) 40 mg PO DAILY Qty: 90 0RF benzonatate 100 mg capsule 100 mg PO BID PRN (Reason: cough) Qty: 20 0RF albuterol sulfate 90 mcg/actuation aero powdr breath act w/sensor 1 inh inhalation Q6H PRN (Reason: shortness of breath or wheezing) Qty: 1 0RF ondansetron 4 mg tablet,disintegrating 4 mg PO Q8H PRN (Reason: nausea and vomiting) Qty: 14 0RF rifabutin 150 mg capsule 300 mg PO 3XW ethambutol 400 mg tablet 2,000 mg PO 3XW albuterol sulfate 90 mcg/actuation HFA aerosol inhaler 2 puff inhalation Q6H PRN (Reason: wheezing) Trelegy Ellipta 200-62.5-25 mcg blister with device 1 ea INHALATION DAILY (DME) Oxygen Home Use Kit See Rx Instructions .Route Rx Instructions: As directed benzonatate 200 mg capsule 200 mg PO BID PRN (Reason: cough) 30 Days Qty: 30 6RF amoxicillin-pot clavulanate 875-125 mg tablet 1 tab PO BID 10 Days Qty: 20 0RF Referrals: Gabe Burrell MD [Primary Care Provider] - (Nausea related to lung disease antibiotics) Print Language: Urdu
[2024-05-03 13:03] LABS: MANUAL DIFF FLAG NO
[2024-05-03 13:05] LABS: Basophils Percent Auto 0.3 % (0-2); Eosinophils Percent Auto 0.2 % (0-4); Hematocrit 42.4 % (42.0-52.0); Imm Gran Abs Auto 0.05 X10*3/uL (0.00-0.03); Imm Gran Pct Auto 0.6 % (0.0-0.4); Mean Corpuscular HGB Conc 35.4 g/dl (31.0-36.0); Mean Corpuscular Hemoglobin 31.2 pg (27.0-33.0); Mean Corpuscular Volume 88.1 fL (80.0-98.0); Mean Platelet Volume 8.7 fL (9.4-12.4); Monocytes Percent Auto 11.2 % (2-11); Neutrophils Absolute Auto 6.6 x10*3/uL (2.0-8.3); Neutrophils Percent Auto 75.7 % (45-73); Platelet Count 198 X10*3/uL (160-400); Red Blood Count 4.81 X10*6/uL (4.60-5.80); Red Cell Distribution Width 13.2 % (11.0-16.0); White Blood Count 8.7 X10*3/uL (4.8-10.8)
[2024-05-03 13:22] LABS: Alanine Aminotransferase 35 U/L (0-40); Albumin Level 4.1 g/dL (3.5-5.0); Alkaline Phosphatase 49 U/L (39-117); Anion Gap 15 (12-20); Aspartate Amino Transferase 26 U/L (5-37); Blood Urea Nitrogen 14 mg/dL (9-16); Calcium 9.8 mg/dL (8.4-10.2); Carbon Dioxide 26 mmol/L (22-29); Chloride 103 mmol/L (96-108); Creatinine Clr Calc Pharmacy 54.2; Estimated Glomerular Filt Rate > 60; Glucose Random 104 mg/dL (60-115); Lipase 22 U/L (8-78); Potassium 3.9 mmol/L (3.3-5.1); Sodium 140 mmol/L (135-145)
[2024-05-03 13:27] LABS: Appearance Urine Clear; Color Urine Dark Yellow; Glucose Urine UA Negative (Negative); Leukocyte Esterase Urine Small (1+) (Negative); Nitrite Urine Negative (Negative); PH 5.5 (5.0-9.0); UMIC TRIGGER UACC YES; Urine Blood Negative (Negative); Urine Ketones 15 mg/dL (Negative); Urine Protein Negative (Neg-Trace)
[2024-05-03 13:34] LABS: Bacteria Urine None Seen (None Seen); Hyaline Casts Urine 0-2 /LPF (0-2); RBC Urine 0-2 /HPF (0-2); Squamous Epithelial Cell Urine 0-2 /HPF (0-2); UACC Culture Trigger YES; WBC Urine 0-5 /HPF (0-5)
[2024-05-03 18:08] VITALS: BP 118/51; PULSE 82; RESP 16; TEMP 36.4; O2SAT 94
[2024-05-03 21:54] VITALS: BP 107/69; PULSE 73; RESP 20; TEMP 36.5; O2SAT 99
[2024-05-03] MEDS: Azithromycin 500 MG in 0.9 % Sodium Chloride 250 ML 125 MG IV (22:10)
[2024-05-03] MEDS: 0.9 % Sodium Chloride 1,000 ML 500 ML IVCONT (22:10)
[2024-05-03] MEDS: Pantoprazole Sodium 40 MG/10 ML VIAL IVPUSH (22:13)
[2024-05-03] MEDS: rifAMPin 300 MG CAPSULE 600 MG PO (23:50)
[2024-05-03 23:58] VITALS: BP 128/71; PULSE 96; RESP 16; TEMP 36.4; O2SAT 96
--- NOTE | 2024-05-04 01:20 | PC.NURSE ---
per pt to be phys obs til AM and to PO challenge pt prior to d/c. pt refuses zofran at this time states hes not nauseous and will reassess in AM prior to DC.
[2024-05-04 04:09] VITALS: BP 124/60; PULSE 99; RESP 16; TEMP 36.6; O2SAT 96
--- NOTE | 2024-05-04 04:10 | MHC.EDTECH ---
0400 rounding done ,Pt awake ,vitals taken ,Pt void 250 ml in urinal ,Plan of care continue .
[2024-05-04] MEDS: ondansetron HCL 4 MG/2 ML VIAL IVPUSH ×2 (04:31→13:59)
--- NOTE | 2024-05-04 04:32 | PC.NURSE ---
pt reports hes now feeling nauseous and requesting zofran. per md can administer zofran per previous order. pt medicated per nov.
[2024-05-04 06:24] VITALS: BP 115/60; PULSE 65; RESP 16; TEMP 36.5; O2SAT 99
--- NOTE | 2024-05-04 06:24 | MHC.EDTECH ---
0600 ROUNDING DONE ,VITALS TAKEN ,PROVIDER WANTED PT TO EAT AND DRINK ,PATIENT REFUSED FOOD AND FLUIDS ,RN AWARE ,PT SAID HE CANT EAT OR DRINK ,HE FEEL FULL .
--- NOTE | 2024-05-04 06:56 | MHC.EDTECH ---
Patient change his mind and drank a few sips of gingerale ,Still not able to eat ,RN aware .
--- NOTE | 2024-05-04 07:54 | PC.NURSE ---
this nurse took over care of patient at 7am, pt sleeping, wakes to verbal stimulus, vss, pt stating he feels congested and he has increased nausea with medications he is taking at home. pt denies pain/discomfort, call scott within reach, will continue to monitor
--- NOTE | 2024-05-04 11:17 | PC.NURSE ---
pt woke and was complaining of persistent nausea, pt states at home he has ongoing nausea since beginning the medication he has been on for an infection. pt states he was prescribed nausea medication which has not helped. this nurse spoke with ED provider who was going in to assess. tech to perform nasal swab as well.
--- NOTE | 2024-05-04 11:42 | MHC.CM.PN ---
CM CONSULT RECEIVED, PT WITH SEVERAL ED VISITS RECENTLY PT REPORTS HE LIVES ALONE AT PENDING SALE TO [facility] HE SAYS HE IS INDEPENDENT WITH CARE AND HAS O2 HE USES PRN PCP: PAULINO NAIR CM DISCUSSED BOTH STR AND VNA OPTIONS WITH PT PT STATES HE DOES NOT NEED EITHER, HE WILL BE FINE
[2024-05-04] MEDS: Prochlorperazine Edisylate 10 MG/2 ML VIAL IVPUSH (11:56)
[2024-05-04] MEDS: 0.9 % Sodium Chloride 1,000 ML 999 ML IV (11:56)
--- NOTE | 2024-05-04 11:59 | PC.NURSE ---
pt medicated per orders
[2024-05-04 12:07] LABS: Influenza A PCR NEGATIVE (Negative); Influenza B PCR NEGATIVE (Negative); Resp Syncy Virus RNA Qual PCR NEGATIVE (Negative); SARS COV2 PCR INHOUSE NEGATIVE (Negative)
[2024-05-04] MEDS: iohexoL 350 MG/ML 100 ML INFUS..BTL IV (12:21)
[2024-05-04 12:40] VITALS: BP 115/48; PULSE 82; RESP 16; TEMP 36.6; O2SAT 95
--- NOTE | 2024-05-04 14:00 | PC.NURSE ---
pt medicated per order
[2024-05-04 16:11] VITALS: BP 117/60; PULSE 60; RESP 16; TEMP 36.6; O2SAT 98
--- NOTE | 2024-05-04 16:28 | PC.NURSE ---
pt was discharged by emily bills
[2024-05-04 16:29] VITALS: BP 117/60; PULSE 60; RESP 16; TEMP 36.6; O2SAT 98
== END 2024-05-04 16:29 | disposition home or self-care (01) ==
PROVIDERS: Physician Assistant; Emergency Provider Emergency Medicine; PCP Internal Medicine
DX: R11.0 Nausea (principal); A31.0 Pulmonary mycobacterial infection; J44.9 Chronic obstructive pulmonary disease, unspecified; Z03.818 Encounter for observation for suspected exposure to other biological agents ruled out; Z79.899 Other long term (current) drug therapy
CPT/HCPCS: 0241U; 36415; 71046; 74177; 80053; 81001; 83690; 85025; 87086; 96361; 96374; 96375; 96376; 99284; J0456; J0737; J2405; J2470; Q9967

== ENCOUNTER → 2024-05-09 14:40 | Outpatient (RCR) | payer MEDICARE, SELFPAY ==
[2020-07-24 09:43] VITALS: BP 119/68; PULSE 78; RESP 14; TEMP 36.8; O2SAT 95; BMI 26.3
--- NOTE | 2020-07-24 10:39 | P.CNHO_ITS ---
Subjective - Subjective Chief complaint: Shortness of breath, lung nodules Consult date: 07/24/20 Primary Care Provider: Gabe Burrell MD HPI - Consult Narrative Reason for consult: Probable lung cancer Narrative: Asaf Sheth is a 84 year old male presented to the ED on July 21 with complaints of chills, night sweats and shortness of breath. He was not found to be febrile but imaging revealed suspicious lung nodule and mediastinal lymphadenopathy. He does not report any significant cough, no hemoptysis, no weight loss although he has had some recent loss of appetite. He denies any headache or dizziness. No chest pain, abdominal pain or change in bowel habits. He does report mild constipation since he is not eating much. Review of Systems - Constitutional Reports no additional constitutional complaints - Eyes Reports no additional eye complaints, Denies change in vision - ENT Denies change in voice, Denies dysphagia - Cardiovascular Denies chest pain with activity, Denies leg swelling, Denies lightheadedness - Respiratory Denies pain with cough, Reports dyspnea, Reports dyspnea on exertion, Denies stridor, Denies wheezing - Gastrointestinal Reports no additional gastrointestinal complaints - Musculoskeletal Reports no additional musculoskeletal complaints - Integumentary/Breasts Skin/Breast: Reports no additional skin complaints - Neurologic Denies frequent falls, Denies headache(s), Denies memory loss - Endocrine Reports no additional endocrine complaints Oncology Screenings - ECOG Performance Status ECOG Performance Status: 1 - G8 Geriatric Assessment Weight loss during the last 3 months: No weight loss Mobility: Goes out Neuropsychological problems: No psychological problems Body Mass Index: 23 or greater Patient takes > 3 prescription drugs per day: Yes Patient's assessment of health status compared to others: As good Patient age: 80 to 85 G8 Score: 13 G8 Risk Level: Intermediate risk for early functional decline and reduced survival [facility] Medical History: Medical History (Last Updated 07/24/20 @ 09:52 by Dorene Velasquez) Abdominal pain Anxiety Cataract COPD (chronic obstructive pulmonary disease) GERD (gastroesophageal reflux disease) HLD (hyperlipidemia) Pilonidal cyst Shortness of breath Family History: Family History (Last Updated 07/24/20 @ 09:53 by Dorene Velasquez) Sister Cancer Sister Cancer Surgical History: Surgical History (Last Updated 07/24/20 @ 09:52 by Dorene Velasquez) History of appendectomy Smoking status: Former smoker Home Medications and Allergies Home Medications Medication Instructions Recorded Confirmed Type paroxetine HCl 1 tab PO DAILY 07/21/20 07/24/20 History fluticasone propion-salmeterol 1 puff PO BID 07/24/20 07/24/20 History [Advair Diskus] ipratropium bromide [Atrovent HFA] 2 puff PO QID 07/24/20 07/24/20 History Allergies Allergy/AdvReac Type Severity Reaction Status Date / Time No Known Allergies Allergy Mild NOT Verified 07/21/20 09:56 APPLICABLE Physical Exam Vital signs: Vital Signs Temp 98.2 F 07/24/20 09:43 Pulse 78 07/24/20 09:43 Resp 14 07/24/20 09:43 BP 119/68 07/24/20 09:43 Pulse Ox 95 07/24/20 09:43 Intake & Output 07/23/20 07/24/20 07/24/20 18:59 06:59 18:59 Other: Weight 80.8 kg Weight 80.8 kg - Constitutional Present: no acute distress - Routine HEENT Exam Head: Present: normal inspection Eye: Present: EOMI, periorbital swelling - Routine Neck Exam Present: full ROM. Absent: JVD, lymphadenopathy - Routine Respiratory Exam Present: decreased breath sounds, CTAB. Absent: accessory muscle use - Routine Cardiovascular Exam Cardiovascular: Present: RRR, S1, S2 - Routine Abdominal Exam Present: normal bowel sounds, soft. Absent: organomegaly - Routine Extremities Exam Present: full ROM, normal inspection. Absent: pedal edema - Routine Skin Exam Present: intact. Absent: cyanosis, erythema - Routine Neurological Exam Present: alert, oriented X3 Assessment and Plan (1) Lung nodules Status: Acute 1. This is a pleasant 84-year-old male with past medical history of smoking presenting with suspicious multifocal lung nodules most prominent in the right lower lobe as well as right paratracheal lymphadenopathy measuring up to 1.6 cm. Note of small pericardial effusion, cortical renal cysts, abnormally enlarged prostate, mild anterior compression deformity of T12 vertebral body and 1.6 cm lytic/cystic lesion involving superior lateral aspect of left femoral neck, indeterminate etiology. I discussed probable diagnosis of lung cancer with patient and his 2 sons who accompanied him today. Further management with whole-body PET-CT and referral to Cardiothoracic surgery for bronchoscopy/biopsy has been made. Since the lung nodules are rather small and he has significant emphysema, CT-guided transthoracic biopsy might be risky and may not yield enough tissue for pathology and molecular studies. Blood work performed on July 21 did not show significant abnormalities. Further recommendations to follow. Follow-up in 2-3 weeks.
--- NOTE | 2020-07-24 13:00 | MHC.HEMONCSW ---
fax md order/clinicals to [facility] on 07/30/20.
--- NOTE | 2020-07-29 09:08 | MHC.HEMONCSW ---
MEDICARE WILL NOT COVER PET SCAN BECAUSE PULMONARY NODULES ARE UNDER 8MM. INFORMED DR. UP AND THE PT. PT WILL FOLLOW UP IN PULMONARY DEPT.
--- NOTE | 2020-07-29 09:11 | MHC.HEMONCSW ---
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 HE IS INDEPENDENT, ABLE TO MAKE NEEDS KNOWN. DIAGNOSIS IS PROBABLE LUNG CANCER. WAITING FOR FINAL DIAGNOSIS. HE IS A BUT SAW NO COMBAT HEALTHCARE PROXIES ARE SONS KILO AND IRMA. MONITORING FOR FINAL DIAGNOSIS.
== END | disposition home or self-care (01) ==
LOC: HO.ONC 07-24 09:10
PROVIDERS: PCP Internal Medicine; Referring Provider Emergency Medicine; Visit Provider Internal Medicine
DX: R91.8 Other nonspecific abnormal finding of lung field (principal); Z87.891 Personal history of nicotine dependence
CPT/HCPCS: 99204

== ENCOUNTER 2024-05-24 10:58 | Outpatient (AMB) | payer MEDICARE, SELFPAY ==
--- NOTE | 2024-05-24 11:09 | A.OFFVIS_ITS ---
Vital Signs 05/24/24 11:14 Height 5 ft 9 in Weight 154 lb 5.177 oz BMI 22.8 BP 118/70 Blood Pressure Location Lt brachial Position Sitting Pulse 90 Pulse Source Pulse Oximeter Pulse Oximetry (%) 94 Oxygen Delivery Method Room Air Intake Visit Reasons: Resp failure Home Administrator Required: No Allergies No Known Allergies Allergy (Mild, Verified 05/24/24 11:16) NOT APPLICABLE HPI Comments Details: The patient is an 88-year-old gentleman with a known history of COPD who apparently was in his usual state health until he started developing malaise worsening cough as well as other constitutional symptoms. He felt like he had pneumonia. Therefore, he went to the ER for further evaluation. There he had an abnormal chest x-ray and subsequently had any CT scan of the chest. It did demonstrate small pulmonary nodules in addition to know mediastinal lymphadenopathy. In addition to that appeared to have an endobronchial lesion of some type. Therefore the patient was referred to Oncology and subsequently went to thoracic surgery. I did perform an endobronchial ultrasound bronchoscopy in sample the 3 different stations; right paratracheal, subcarinal and right hilar lymph node. The specimens demonstrated small lymphocytes consistent with normal lymph node aspirate, without any malignancy. He did have a granuloma noted bringing up the question of sarcoidosis. No evidence of any fungal or AFB on smear or on culture. In addition to that he had no evidence of any endobronchial lesions. It was only mucus. The endobronchial biopsies were consistent with benign bronchial mucosa. The patient also had moderate amount of emphysema in his CAT scan. At this point he continues his respiratory therapy with good effect. 02/24/2022 the patient is here for pulmonary follow-up visit. Overall the patient is feeling better. The azithromycin seems to be improving his respiratory capacity and chest congestion. He is back to playing golf. This week he played a 18 hope. His last week he can only play 9 because of the weather. He is monitoring closely the weather specially heat humidity that make his breathing worse. We did review his pulmonary function studies. He does have moderate COPD but a severe diffusion impairment. The patient did qualify for oxygen during the last visit. At this point he seems to be doing well will retest him in 6 months when he comes back with a 6 minute walk test. I do not believe that he needs oxygen at this time. We also reviewed his CT scan of the chest. It appears that he has stable pulmonary nodules he also has an irregular reticular nodular area in the left upper lobe area. Seems to be slightly more pronounced but about the same size. Will have him come back in 6 months and assess his symptoms. If he has any worsening symptoms will go ahead and repeat the CT scan sooner than expected otherwise if he is doing well will plan to follow-up with a CT scan 1 year from the last. He is really not a surgical candidate. He is also not a great candidate for CT-guided biopsy of this nodular density due to high risk of pneumothorax. The only real option would be if this nodular densities growing would be to consider a PET scan and or consider SBRT. Will continue monitoring closely. 03/31/2022 the patient is here for a pulmonary follow-up visit. He continues to do well with the chest congestion. He is tolerating the azithromycin. Is helping his chronic bronchitis. However, he continues to have shortness of breath. He has been having hard time when he is playing golf. He does have his own pulse oximeter that sometimes reads in the mid 80s. We did review his CT scan demonstrating extensive emphysema. He does have the nodular density that is concerning that he has to be followed closely. In addition to that we did do a 6 minutes walk test the patient did desaturate down to 87%. She was placed on the conserving device initially at 2 L and his pulse ox did decrease down to 80%. On 3 L pulse to maintain a pulse ox of 92%. Therefore I will request him to start oxygen with portability at 2 L pulse. In the meantime we need to continue to monitor his abnormal CT scan. 08/25/2022 the patient is here for a pulmonary follow-up visit. Overall the patient is feeling well. He is tolerating the current respiratory regimen appears to be working well for him. He also uses the oxygen with activity. This also has been helpful for him. He did undergo a CT scan of the chest that was personally by me. Appears to have a 2 cm nodular density in the left upper lobe which appears to be new and concerning. The recommendations from the radiologist was to get a PET scan. The patient should get a PET scan to further address this area. If the patient does have an avid hyper metabolic area to suggest malignancy he should consider having a CT-guided biopsy. but, if the nodular density does not have any significant FDG activity been hold off on any high risk procedures for this patient significant emphysema and respiratory failure. The patient is agreeable to undergoing a PET scan at this time. 09/18/2022 The patient is here for a pulmonary follow up visit. He did undergo a PET scan. Then, he started complainng of hand pain and swealling. He is getting better, but it may be a bout of gout. In the meantime, we did discuss his abnormal PET scan. He does have an abnormal pulmonary nodule concerning for malignancy. Although, it is a solitary nodule, it is centrally located. It would be technically difficult to perform a CT guided biopsy. Therefore, he will be referred to Thoracic surgery. 01/25/2023 the patient is here for a pulmonary follow-up visit. The patient underwent a repeat CT scan of the chest and is here for follow-up. Unfortunately looks like the left lower lobe pulmonary nodule has increased in size. Appears to be more spiculated. This color starting for malignant proces s. The patient already had a PET scan that demonstrated significant FDG activity. The patient had been referred to thoracic surgery where he did undergo a CT-guided biopsy that was nondiagnostic. Not clear if the patient wanted to pursue any interventions at that point. Therefore he was referred back to Pulmonary. Now this CT scan demonstrates interval worsening of the nodule. We did review his last PFTs from February 2022 which demonstrated a DLCO 31% predicted. He has a lot of emphysema so therefore the area that is surrounding this nodular density has a lot of emphysema which is reassuring. The problem is that the nodule is abutting the fissure and is in the lower lobe where he has more preserved lung capacity. Therefore difficult for him to tolerate a full left lower lobe lobectomy. I will discuss this with thoracic surgery. The patient being to have a resection at this point the other option is stereotactic radiation if the resection is not possible. 05/14/2023 the patient is here for a pulmonary follow-up visit. She has been doing better. He did have surgery video-assisted thoracoscopy knee with resection of the nodule and lymph node biopsies. 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 Afterwards developed significant air leak requiring further interventions. Currently has a one-way valve because of the air leak that was persistent. He is scheduled to have that 1 [address] air valve removed in the coming days. His oxygen requirements have been decreasing which is reassuring. He is back to using the Trelegy now that he is recovering. The patient is having a productive cough with yellow sputum. He went back on the azithromycin 3 times a week that provide him some relief. In addition to that will start him on doxy just to cover better for MRSA specially after surgery and being in the hospital. Will continue with current respiratory therapy. Will get a placard card provided based on his oxygen needs any COPD and chronic respiratory failure. 01/24/2024 the patient is here for a pulmonary follow-up visit. Since we last spoke he did go to the ER for worsening respiratory symptoms. He was also complaining of productive cough with green sputum. In the ER patient was given prednisone for a COPD exacerbation. He was also given a short-acting beta agonist to use. He has been also been using the Trelegy inhaler. The prednisone did help although he still developing a productive cough with now grayish sputum. I did review his chest x-ray. Has small trace pleural effusion on the left side where he had surgery and also has not hazy changes. Will going to go ahead and give him Augmentin to treat for lower respiratory infection. Clinically he is feeling better. He does have a pulmonary nodule in the right upper lobe. He is following closely with Interventional Pulmonary at [facility]. He will be undergoing a CT or PET scan sometime in February and then follow-up then. They decide what to do with the abnormal finding. I did encourage him to consider undergoing stereotactic radiation in case if the areas positive on PET and avoid any complication from an invasive diagnostic intervention that may lead to further complications. 05/24/2024 The patient is here for a pulmonary follow up visit. Overall, doing well. 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 He was then referred to ID and started on anti mycobacterial therapy 3 times a week. About a week ago he stopped the Ethambutol due to GI adverse effects. He continues on his respiratory therapy with good effect. Also, continues to use the oxygen with activity with good effect. We will request records from [facility]. 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 () Alcohol intake: former Patient Tobacco Use Status: Former Tobacco user Tobacco use type: Cigarette Cigarette Packs Per Day: 2.0 Cigarettes Per Day: 40.0 Years Smoked: 40 Second Hand Smoke Exposure: No Current occupational status: retired Current occupation: Right Handed Review of Systems Const Denies night sweats ENT Denies change in voice, Denies lip swelling, Denies mouth pain, Reports nasal congestion, Reports nasal discharge and Denies tongue swelling Card Denies chest pain and Reports dyspnea on exertion Resp Reports change in phlegm color, Reports chest congestion, Reports cough and Reports dyspnea on exertion GI Denies abdominal pain Musc Denies no additional complaints, Reports arthralgias and Reports joint swelling Neuro Denies Neuro-related abnormal movements Psych Denies no additional complaints Rafael/Lymph Denies easy bleeding and Denies lymphadenopathy Aller/Immun Denies lip swelling and Denies tongue swelling Physical Exam Vital Signs: Last Vital Signs Pulse 90 05/24/24 11:14 BP 118/70 05/24/24 11:14 Pulse Ox 94 05/24/24 11:14 Oxygen Delivery Method Room Air 05/24/24 11:14 BMI result Body Mass Index 22.8 Const General: healthy appearing Orientation/consciousness: patient oriented x3 Eyes General: appearance normal, both eyes and all related structures Neck Neck: Yes normal visual inspection Chest Chest palpation & inspection: normal inspection of the chest Resp Effort & Inspection: normal respiratory effort and able to speak in complete sentences Auscultation: no crackles, no wheezes and diminished lung sounds Cardio Rate: regular rate Rhythm: regular rhythm Heart sounds: S1 normal heart sound present and S2 normal heart sound present GI Palpation (GI): Soft to palpation and nontender Auscultation: normal bowel sounds Skin General skin exam: no rashes or lesions noted Neuro General: patient oriented x3 and moves all extremities Extrem Other: Left knee Inspection: No visual abnormalities Alignment: Normal Palpation: Exquisite tenderness to palpation the distal quadriceps the suprapatellar area. Does not have any significant retropatellar tenderness itself. No joint line pain. ROM: Full range of motion Stability: Cruciate collateral ligaments intact Strength: He has full strength with straight leg raising. He has good resisted strength for knee extension though he has pain in the area of the superior patella. Distal neurovascular is normal Radiological investigations: Bilateral standing AP lateral skyline views of the left knee demonstrates he has chondrocalcinosis minimal degenerative changes. Assessment & Plan Assessment & Plan (1) Pulmonary nodule: Code(s): R91.1 - Solitary pulmonary nodule Category: Medical (2) COPD (chronic obstructive pulmonary disease): Comment: (02/24/22 PFT: FEV1 73%, FVS 113%, DLCO 31 -Moderate obstructive ventilatory defect) Code(s): J44.9 - Chronic obstructive pulmonary disease, unspecified Category: Medical Qualifiers: COPD type: emphysema Emphysema type: centrilobular Qualified Code(s): J43.2 - Centrilobular emphysema (3) Lung nodules: Code(s): R91.8 - Other nonspecific abnormal finding of lung field Category: Medical Plan continue Trelegy 200 daily ABILIO as needed Currently on ZTX/ Rifabutin. He had stopped the Ethambutol. He will meet with ID soon continue Oxygen conserving device 3L pulse with activity Need to review records from [facility] F/U 6 months Coding Level of Care Code Est Pt Level 4 (14527) Diagnoses Pulmonary nodule R91.1 Centrilobular emphysema J43.2 COPD type: emphysema Emphysema type: centrilobular Lung nodules R91.8 Time Spent (min) 16
[2024-05-24 11:14] VITALS: BP 118/70; PULSE 90; O2SAT 94; BMI 22.8
== END 2024-05-24 11:36 | disposition home or self-care (01) ==
PROVIDERS: PCP Physician Assistant; Visit Provider Hospitalist
DX: R91.1 Solitary pulmonary nodule (principal); J43.2 Centrilobular emphysema; R91.8 Other nonspecific abnormal finding of lung field
CPT/HCPCS: 99214

== ENCOUNTER → 2024-05-24 10:58 | Outpatient (BNVA) | payer MEDICARE, SELFPAY | PROVIDERS: PCP Physician Assistant; Visit Provider Hospitalist | DX: J43.2 Centrilobular emphysema (principal); R91.8 Other nonspecific abnormal finding of lung field; Z87.891 Personal history of nicotine dependence | CPT/HCPCS: 99212 ==

== ENCOUNTER 2024-11-22 10:22 | Outpatient (AMB) | payer MEDICARE, SELFPAY ==
--- NOTE | 2024-11-22 10:25 | MHC.OFFVIS ---
Vital Signs 11/22/24 10:26 Height 5 ft 9 in Weight 174 lb 2.643 oz BMI 25.7 BP 130/60 Blood Pressure Location Rt brachial Position Sitting Pulse 72 Pulse Source Pulse Oximeter Pulse Oximetry (%) 94 Oxygen Delivery Method Room Air Intake Visit Reasons: Resp failure Allergies No Known Allergies Allergy (Mild, Verified 11/22/24 10:28) NOT APPLICABLE HPI Comments Details: The patient is an 88-year-old gentleman with a known history of COPD who apparently was in his usual state health until he started developing malaise worsening cough as well as other constitutional symptoms. He felt like he had pneumonia. Therefore, he went to the ER for further evaluation. There he had an abnormal chest x-ray and subsequently had any CT scan of the chest. It did demonstrate small pulmonary nodules in addition to know mediastinal lymphadenopathy. In addition to that appeared to have an endobronchial lesion of some type. Therefore the patient was referred to Oncology and subsequently went to thoracic surgery. I did perform an endobronchial ultrasound bronchoscopy in sample the 3 different stations; right paratracheal, subcarinal and right hilar lymph node. The specimens demonstrated small lymphocytes consistent with normal lymph node aspirate, without any malignancy. He did have a granuloma noted bringing up the question of sarcoidosis. No evidence of any fungal or AFB on smear or on culture. In addition to that he had no evidence of any endobronchial lesions. It was only mucus. The endobronchial biopsies were consistent with benign bronchial mucosa. The patient also had moderate amount of emphysema in his CAT scan. At this point he continues his respiratory therapy with good effect. 02/24/2022 the patient is here for pulmonary follow-up visit. Overall the patient is feeling better. The azithromycin seems to be improving his respiratory capacity and chest congestion. He is back to playing golf. This week he played a 18 hope. His last week he can only play 9 because of the weather. He is monitoring closely the weather specially heat humidity that make his breathing worse. We did review his pulmonary function studies. He does have moderate COPD but a severe diffusion impairment. The patient did qualify for oxygen during the last visit. At this point he seems to be doing well will retest him in 6 months when he comes back with a 6 minute walk test. I do not believe that he needs oxygen at this time. We also reviewed his CT scan of the chest. It appears that he has stable pulmonary nodules he also has an irregular reticular nodular area in the left upper lobe area. Seems to be slightly more pronounced but about the same size. Will have him come back in 6 months and assess his symptoms. If he has any worsening symptoms will go ahead and repeat the CT scan sooner than expected otherwise if he is doing well will plan to follow-up with a CT scan 1 year from the last. He is really not a surgical candidate. He is also not a great candidate for CT-guided biopsy of this nodular density due to high risk of pneumothorax. The only real option would be if this nodular densities growing would be to consider a PET scan and or consider SBRT. Will continue monitoring closely. 03/31/2022 the patient is here for a pulmonary follow-up visit. He continues to do well with the chest congestion. He is tolerating the azithromycin. Is helping his chronic bronchitis. However, he continues to have shortness of breath. He has been having hard time when he is playing golf. He does have his own pulse oximeter that sometimes reads in the mid 80s. We did review his CT scan demonstrating extensive emphysema. He does have the nodular density that is concerning that he has to be followed closely. In addition to that we did do a 6 minutes walk test the patient did desaturate down to 87%. She was placed on the conserving device initially at 2 L and his pulse ox did decrease down to 80%. On 3 L pulse to maintain a pulse ox of 92%. Therefore I will request him to start oxygen with portability at 2 L pulse. In the meantime we need to continue to monitor his abnormal CT scan. 08/25/2022 the patient is here for a pulmonary follow-up visit. Overall the patient is feeling well. He is tolerating the current respiratory regimen appears to be working well for him. He also uses the oxygen with activity. This also has been helpful for him. He did undergo a CT scan of the chest that was personally by me. Appears to have a 2 cm nodular density in the left upper lobe which appears to be new and concerning. The recommendations from the radiologist was to get a PET scan. The patient should get a PET scan to further address this area. If the patient does have an avid hyper metabolic area to suggest malignancy he should consider having a CT-guided biopsy. but, if the nodular density does not have any significant FDG activity been hold off on any high risk procedures for this patient significant emphysema and respiratory failure. The patient is agreeable to undergoing a PET scan at this time. 09/18/2022 The patient is here for a pulmonary follow up visit. He did undergo a PET scan. Then, he started complainng of hand pain and swealling. He is getting better, but it may be a bout of gout. In the meantime, we did discuss his abnormal PET scan. He does have an abnormal pulmonary nodule concerning for malignancy. Although, it is a solitary nodule, it is centrally located. It would be technically difficult to perform a CT guided biopsy. Therefore, he will be referred to Thoracic surgery. 01/25/2023 the patient is here for a pulmonary follow-up visit. The patient underwent a repeat CT scan of the chest and is here for follow-up. Unfortunately looks like the left lower lobe pulmonary nodule has increased in size. Appears to be more spiculated. This color starting for malignant process. The patient already had a PET scan that demonstrated significant FDG activity. The patient had been referred to thoracic surgery where he did undergo a CT-guided biopsy that was nondiagnostic. Not clear if the patient wanted to pursue any interventions at that point. Therefore he was referred back to Pulmonary. Now this CT scan demonstrates interval worsening of the nodule. We did review his last PFTs from February 2022 which demonstrated a DLCO 31% predicted. He has a lot of emphysema so therefore the area that is surrounding this nodular density has a lot of emphysema which is reassuring. The problem is that the nodule is abutting the fissure and is in the lower lobe where he has more preserved lung capacity. Therefore difficult for him to tolerate a full left lower lobe lobectomy. I will discuss this with thoracic surgery. The patient being to have a resection at this point the other option is stereotactic radiation if the resection is not possible. 05/14/2023 the patient is here for a pulmonary follow-up visit. She has been doing better. He did have surgery video-assisted thoracoscopy knee with resection of the nodule and lymph node biopsies. 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 Afterwards developed significant air leak requiring further interventions. Currently has a one-way valve because of the air leak that was persistent. He is scheduled to have that [address] air valve removed in the coming days. His oxygen requirements have been decreasing which is reassuring. He is back to using the Trelegy now that he is recovering. The patient is having a productive cough with yellow sputum. He went back on the azithromycin 3 times a week that provide him some relief. In addition to that will start him on doxy just to cover better for MRSA specially after surgery and being in the hospital. Will continue with current respiratory therapy. Will get a placard card provided based on his oxygen needs any COPD and chronic respiratory failure. 01/24/2024 the patient is here for a pulmonary follow-up visit. Since we last spoke he did go to the ER for worsening respiratory symptoms. He was also complaining of productive cough with green sputum. In the ER patient was given prednisone for a COPD exacerbation. He was also given a short-acting beta agonist to use. He has been also been using the Trelegy inhaler. The prednisone did help although he still developing a productive cough with now grayish sputum. I did review his chest x-ray. Has small trace pleural effusion on the left side where he had surgery and also has not hazy changes. Will going to go ahead and give him Augmentin to treat for lower respiratory infection. Clinically he is feeling better. He does have a pulmonary nodule in the right upper lobe. He is following closely with Interventional Pulmonary at [facility]. He will be undergoing a CT or PET scan sometime in February and then follow-up then. They decide what to do with the abnormal finding. I did encourage him to consider undergoing stereotactic radiation in case if the areas positive on PET and avoid any complication from an invasive diagnostic intervention that may lead to further complications. 05/24/2024 The patient is here for a pulmonary follow up visit. Overall, doing well. 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 He was then referred to ID and started on anti mycobacterial therapy 3 times a week. About a week ago he stopped the Ethambutol due to GI adverse effects. He continues on his respiratory therapy with good effect. Also, continues to use the oxygen with activity with good effect. We will request records from [facility]. 11/22/2024 the patient is here for a pulmonary follow-up visit. Overall he is doing okay. Could not tolerate the antimycobacterial therapy because of significant GI discomforts and other constitutional symptoms. So therefore he is completely off it. He will follow-up with Infectious Disease and they will going to order another CT scan. He does reasonable. In the meantime he continues to respond well to the oxygen. The therapy has been affecting beneficial. He also has his respiratory therapy. He is going to follow-up with thoracic surgery and having CT scan soon. Will plan to follow-up in 6-8 months. If he has any issues prior to that he will call for an earlier assessment. 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 () Alcohol intake: former Patient Tobacco Use Status: Former Tobacco user Tobacco use type: Cigarette Cigarette Packs Per Day: 2.0 Cigarettes Per Day: 40.0 Years Smoked: 40 Second Hand Smoke Exposure: No Current occupational status: retired Current occupation: Right Handed Review of Systems Const Denies night sweats ENT Denies change in voice, Denies lip swelling, Denies mouth pain, Reports nasal congestion, Reports nasal discharge and Denies tongue swelling Card Denies chest pain and Reports dyspnea on exertion Resp Reports change in phlegm color, Reports chest congestion, Reports cough and Reports dyspnea on exertion GI Denies abdominal pain Musc Denies no additional complaints, Reports arthralgias and Reports joint swelling Neuro Denies Neuro-related abnormal movements Psych Denies no additional complaints Rafael/Lymph Denies easy bleeding and Denies lymphadenopathy Aller/Immun Denies lip swelling and Denies tongue swelling Physical Exam Vital Signs: Last Vital Signs Pulse 72 11/22/24 10:26 BP 130/60 11/22/24 10:26 Pulse Ox 94 11/22/24 10:26 Oxygen Delivery Method Room Air 11/22/24 10:26 BMI result Body Mass Index 25.7 Const General: healthy appearing Orientation/consciousness: patient oriented x3 Eyes General: appearance normal, both eyes and all related structures Neck Neck: Yes normal visual inspection Chest Chest palpation & inspection: normal inspection of the chest Resp Effort & Inspection: normal respiratory effort and able to speak in complete sentences Auscultation: no crackles, no wheezes and diminished lung sounds Cardio Rate: regular rate Rhythm: regular rhythm Heart sounds: S1 normal heart sound present and S2 normal heart sound present GI Palpation (GI): Soft to palpation and nontender Auscultation: normal bowel sounds Skin General skin exam: no rashes or lesions noted Neuro General: patient oriented x3 and moves all extremities Extrem Other: Left knee Inspection: No visual abnormalities Alignment: Normal Palpation: Exquisite tenderness to palpation the distal quadriceps the suprapatellar area. Does not have any significant retropatellar tenderness itself. No joint line pain. ROM: Full range of motion Stability: Cruciate collateral ligaments intact Strength: He has full strength with straight leg raising. He has good resisted strength for knee extension though he has pain in the area of the superior patella. Distal neurovascular is normal Radiological investigations: Bilateral standing AP lateral skyline views of the left knee demonstrates he has chondrocalcinosis minimal degenerative changes. Assessment & Plan Assessment & Plan (1) Pulmonary nodule: Code(s): R91.1 - Solitary pulmonary nodule Category: Medical (2) COPD (chronic obstructive pulmonary disease): Comment: (02/24/22 PFT: FEV1 73%, FVS 113%, DLCO 31 -Moderate obstructive ventilatory defect) Code(s): J44.9 - Chronic obstructive pulmonary disease, unspecified Category: Medical Qualifiers: COPD type: emphysema Emphysema type: centrilobular Qualified Code(s): J43.2 - Centrilobular emphysema (3) Lung nodules: Code(s): R91.8 - Other nonspecific abnormal finding of lung field Category: Medical Plan continue Trelegy 200 daily ABILIO as needed start acapella valve OFF all anti mycobacterial therapy. He will meet with ID soon. Will have a CT chest at [facility]. continue Oxygen conserving device 3L pulse with activity Need to review records from [facility] F/U 6 months Coding Level of Care Code Tele Est Pt Level 4 (17762) Diagnoses Pulmonary nodule R91.1 Centrilobular emphysema J43.2 COPD type: emphysema Emphysema type: centrilobular Lung nodules R91.8 Time Spent (min) 16
[2024-11-22 10:26] VITALS: BP 130/60; PULSE 72; O2SAT 94; BMI 25.7
--- OUTSIDE RECORDS SUMMARY | 2024-11-22 11:53 | XMS_ITS | Encounter Summary ---
Author Organization 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); Drug intolerance Social History Tobacco Use Types Packs/Day Years Used Date Smoking Tobacco: Former Cigarettes 2 52 0 09/13/1941 - 09/13/1993 Smokeless Tobacco: Never Alcohol Use Standard Drinks/Week Comments Not Currently 0 (1 standard drink = 0.6 oz pur e alcohol) Sex and Gender Information Value Date Recorded Sex Assigned at Not on file Legal Sex Male 8:36 PM EST Gender Identity Not on file Sexual Orientation Not on file documented as of this encounter Last Filed Vital Signs Vital Sign Reading Time Taken Comments Blood Pressure 95/60 11/21/2024 2:53 PM EDT Pulse - - Temperature 36.3 ??C (97.4 ??F) 11/21/2024 2:53 PM ED T Respiratory Rate - - Oxygen Saturation 90% 11/21/2024 2:53 PM EDT Inhaled Oxygen Concentration - - Weight 75.6 kg (166 lb 9.6 oz) 11/21/2024 2:53 P M EDT Height - - Body Mass Index 26.09 08/08/2024 10:30 AM EST documented in this encounter Progress Notes * Winsome Clemons MD - 11/21/2024 3:00 PM EDT We will see you back in 3 months Please call us if your symptoms worsen in the interim * Winsome Clemons MD - 11/21/2024 3:00 PM EDT 11/21/24 Gabe Burrell MD Reason for Consultation: CLAUDIA History Of Present Illness (includes Chief Complaint): Asaf Sheth is a 88 y.o. male who has a past medical history of Abdominal pain, Anxiety disorder, COPD (chronic obstructive pulmonary disease) (CMS/HCC), Dysphagia, Elevated HDL, GERD (gastroesophageal reflux disease), Pilonidal cyst, Pulmonary nodule, Shortness of breath, Tobacco dependence,and Tubular adenoma of colon.. nevin Sheth is a 88 y.o. male who has a past medical history of Abdominal pain, Anxiety disorder, COPD (chronic obstructive pulmonary disease) (CMS/HCC), Dysphagia, Elevated HDL, GERD (gastroesophageal reflux disease), Pilonidal cyst, Pulmonary nodule, Shortness of breath, Tobacco dependence, and Tubular adenoma of colon.. I first saw Mr. Sheth on February 08, 2024 for CLAUDIA and had recommended he start rifabutin, azithromycin and ethambutol 3 times a week for his CLAUDIA nodular disease with cultures positive on bronchial washings from his VATS, unfortunately he has had much trouble tolerating his antibiotics, previously he stopped all of them, then I saw him for follow-up on April 12 and recommended that he try starting with 1 medicine at a time to figure out which one is causing problems, he was able to isolate having issues with ethambutol, he has significant GI distress every time he takes it even when he tried reducing the dose on his own. Previously he was only been taking the azithromycin and rifabutin despiteus trying to prescribe Zofran to help alleviate some of his GI distress. I then changed his Ethambutol to Minocycline, the pt states that this was also not tolerable to him and stopped taking it. HisCT scan in the interim shows stable disease. Since he was unable to tolerate either ethambutol or mi nocycline, I requested for prior Auth for inhaled amikacin, this was approved and the patient started in October unfortunately, he started having what he calls hallucinations and felt sick and stopped taking his antibiotics again and decided to take them only once every 5 days, this was his pills the rifabutin and azithromycin. He has been taking his Arikayce nebulizers. I then recommended when I saw him on 10/24 that he stop all of his medications and evaluate for his symptoms to see whetherhis GI distress improves and how his respiratory status is. The patient states his GI symptoms haveresolved. He feels that his respiratory status is also stable, he uses his rescue inhaler 1-2 times a day. He is able to walk every day for about a mile. He does not feel that he will be able to tolerate the pills again. He is due to see pulmonology tomorrow and thoracic surgery next month. Past Medical History: Past Medical History: Diagnosis Date Abdominal pain DX:Abdominal pain Anxiety disorder DX:Anxiety disorder COPD (chronic obstructive pulmonary disease) ([facility]) DX:COPD (chronic obstructive pulmonary disease) ([facility]) Dysphagia DX:Dysphagia Elevated HDL DX:Elevated HDL GERD (gastroesophageal reflux disease) DX:GERD (gastroesophageal reflux disease) Pilonidal cyst DX:Pilonidal cyst Pulmonary nodule DX:Pulmonary nodule Shortness of breath DX:Shortness of breath Tobacco dependence DX:Tobacco dependence Tubular adenoma of colon DX:Tubular adenoma of colon Surgical History: Past Surgical History: Procedure Laterality Date APPENDECTOMY N/A PROCEDURE: HISTORICAL APPENDECTOMY CATARACT EXTRACTION N/A PROCEDURE: HISTORICAL CATARACT REMOVAL COLONOSCOPY N/A PROCEDURE: HISTORICAL COLONOSCOPY OTHER SURGICAL HISTORY N/A PROCEDURE: PULMONOLOGY BRONCHOSCOPY OTHER SURGICAL HISTORY Left 03/17/2023 PROCEDURE: MT THORACOSCOPY W/DX WEDGE RESEXN ANATO LUNG RESEXN; COMMENT: robotic LLL wedge resection (Dr. Edmond, [facility]) OTHER SURGICAL HISTORY Left 03/31/2023 PROCEDURE: MT BRNCHSC OCCLUSION&INSERT BRONCH VALVE INIT LOBE; COMMENT: medial segment LLL OTHER SURGICAL HISTORY Left 04/01/2023 PROCEDURE: MT THORACOSCOPY W/PLEURODESIS; COMMENT: VATS L mechanical and talc pleurodesis Family History: Family History Problem Relation Name Age of Onset Other cancer Sister Other cancer Sister Social History: Social History Tobacco Use Smoking status: Former Current packs/day: 0.00 Average packs/day: 2.0 packs/day for 52.0 years (104.0 ttl pk-yrs) Types: Cigarettes Start date: 09/13/1941 Quit date: 09/13/1993 Years since quittin.2 Smokeless tobacco: Never Vaping Use Vaping status: Never Used Substance Use Topics Alcohol use: Not Currently Drug use: Never Allergies: Prednisone Home Medications: Prior to Admission medications Medication Sig Start Date End Date Taking? Authorizing Provider albuterol HFA (PROAIR HFA ; PROVENTIL HFA ; VENTOLIN HFA) 90 mcg/actuation inhaler INHALE 2 PUFF INHALED EVERY 6 HOURS NEEDED FOR SHORTNESS OF BREATH OR WHEEZING FOR 90 DAYS 04/17/24 Yes Historical Provider, amikacin (AMIKIN) 250 mg/mL aerosol for inhalation Take 2 mL (250 mg total) by nebulization 2 (two)times a day. 08/23/24 11/21/24 Yes Winsome Clemons MD azithromycin (ZITHROMAX) 250 mg tablet Take 2 tablets (500 mg total) by mouth 3 (three) times a week. 08/23/24 11/21/24 Yes Winsome Clemons MD azithromycin (ZITHROMAX) 500 mg tablet Take 1 tablet (500 mg total) by mouth 3 (three) times a week. 02/09/24 Yes Historical Provider, mtntlhgmvun-kvkdsfacpvbv-aaiinodeyv (TRELEGY ELLIPTA) 200-62.5-25 mcg inhaler Inhale by mouth. Yes Historical Provider, cyarpvrnfzd-yeafkvbjcbjn-alxlbxvyjo (Trelegy Ellipta) 200-62.5-25 mcg inhaler Inhale 1 puff (200 mcg total) by mouth. Yes Historical Provider, guaifenesin/pseudoephedrne HCl (PSEUDOEPHEDRINE-GUAIFENESIN ORAL) Sig - Route: Take by mouth. - Oral Yes Historical Provider, ibuprofen (ADVIL,MOTRIN) 800 mg tablet Take 1 tablet (800 mg total) by mouth every 8 (eight) hours if needed. Yes Historical Provider, IPRATROPIUM BROMIDE INHL Sig - Route: Inhale 2 Puffs into the lungs 4 times daily. - Inhalation YesHistorical Provider, ipratropium HFA (ATROVENT HFA) 17 mcg/actuation inhaler Inhale 2 puffs by mouth. Yes Historical Provider, minocycline (DYNACIN) 100 mg tablet Sig - Route: Take 2 Tablets by mouth three times a week for 84 days. - Oral Sent to pharmacy as: Minocycline HCl 100 MG Oral Tablet (DYNACIN) Yes Historical Provider, omeprazole (PriLOSEC) [address] capsule Take 1 capsule (40 mg total) by mouth 1 (one) time each day.03/12/24 Yes Historical Provider, ondansetron ODT (ZOFRAN-ODT) 8 mg disintegrating tablet Take 1 tablet (8 mg total) by mouth. 05/03/24 Yes Historical Provider, PARoxetine (PAXIL) 20 mg tablet Take 1 tablet (20 mg total) by mouth 1 (one) time each day in the morning. Yes Historical Provider, PARoxetine (PAXIL) 20 mg tablet Take 1 tablet (20 mg total) by mouth 1 (one) time each day in the morning. Yes Historical Provider, PARoxetine CR (PAXIL-CR) 25 mg 24 hr tablet Take 1 tablet (25 mg total) by mouth 1 (one) time each day in the morning. Yes Historical Provider, predniSONE (DELTASONE) 20 mg tablet TAKE 3 TABS ORALLY DAILY FOR ASTHMA FOR 5 DAYS 01/20/24 Yes Historical Provider, pseudoephedrine-guaiFENesin (MUCINEX D) 60-600 mg per 12 hr tablet Take by mouth. Yes Historical Provider, rifabutin (MYCOBUTIN) 150 mg capsule Sig - Route: Take 2 Capsules by mouth three times a week for 112 days. - Oral Sent to pharmacy as: Rifabutin 150 MG Oral Capsule (MYCOBUTIN) Yes Historical Provider, rifabutin (Mycobutin) 150 mg capsule Take 2 capsules (300 mg total) by mouth 3 (three) times a week. 08/23/24 11/21/24 Yes Winsome Clemons MD sucralfate (CARAFATE) 1 gram tablet Take 1 tablet (1 g total) by mouth. 03/12/24 Yes Historical Provider, Current Medications: Current Outpatient Medications: albuterol HFA (PROAIR HFA ; PROVENTIL HFA ; VENTOLIN HFA) 90 mcg/actuation inhaler, INHALE 2 PUFF INHALED EVERY 6 HOURS NEEDED FOR SHORTNESS OF BREATH OR WHEEZING FOR 90 DAYS, Disp: , Rfl: amikacin (AMIKIN) 250 mg/mL aerosol for inhalation, Take 2 mL (250 mg total) by nebulization 2 (two) times a day., Disp: 120 mL, Rfl: 2 azithromycin (ZITHROMAX) 250 mg tablet, Take 2 tablets (500 mg total) by mouth 3 (three) times a week., Disp: 72 each, Rfl: 0 azithromycin (ZITHROMAX) 500 mg tablet, Take 1 tablet (500 mg total) by mouth 3 (three) times a week., Disp: , Rfl: qdprzmmszca-eakilpcnesua-iknaesjdhr (TRELEGY ELLIPTA) 200-62.5-25 mcg inhaler, Inhale by mouth., Disp: , Rfl: tbkxjajtuam-rqovgtspcqbe-ywhlmainob (Trelegy Ellipta) 200-62.5-25 mcg inhaler, Inhale 1 puff (200 mcg total) by mouth., Disp: , Rfl: guaifenesin/pseudoephedrne HCl (PSEUDOEPHEDRINE-GUAIFENESIN ORAL), Sig - Route: Take by mouth. - Oral, Disp: , Rfl: ibuprofen (ADVIL,MOTRIN) 800 mg tablet, Take 1 tablet (800 mg total) by mouth every 8 (eight) hoursif needed., Disp: , Rfl: IPRATROPIUM BROMIDE INHL, Sig - Route: Inhale 2 Puffs into the lungs 4 times daily. - Inhalation, Disp: , Rfl: ipratropium HFA (ATROVENT HFA) 17 mcg/actuation inhaler, Inhale 2 puffs by mouth., Disp: , Rfl: minocycline (DYNACIN) 100 mg tablet, Sig - Route: Take 2 Tablets by mouth three times a week for 84days. - Oral Sent to pharmacy as: Minocycline HCl 100 MG Oral Tablet (DYNACIN), Disp: , Rfl: omeprazole (PriLOSEC) [address] capsule, Take 1 capsule (40 mg total) by mouth 1 (one) time each day., Disp: , Rfl: ondansetron ODT (ZOFRAN-ODT) 8 mg disintegrating tablet, Take 1 tablet (8 mg total) by mouth., Disp: , Rfl: PARoxetine (PAXIL) 20 mg tablet, Take 1 tablet (20 mg total) by mouth 1 (one) time each day in the morning., Disp: , Rfl: PARoxetine (PAXIL) 20 mg tablet, Take 1 tablet (20 mg total) by mouth 1 (one) time each day in the morning., Disp: , Rfl: PARoxetine CR (PAXIL-CR) 25 mg 24 hr tablet, Take 1 tablet (25 mg total) by mouth 1 (one) time eachday in the morning., Disp: , Rfl: predniSONE (DELTASONE) 20 mg tablet, TAKE 3 TABS ORALLY DAILY FOR ASTHMA FOR 5 DAYS, Disp: , Rfl: pseudoephedrine-guaiFENesin (MUCINEX D) 60-600 mg per 12 hr tablet, Take by mouth., Disp: , Rfl: rifabutin (MYCOBUTIN) 150 mg capsule, Sig - Route: Take 2 Capsules by mouth three times a week for 112 days. - Oral Sent to pharmacy as: Rifabutin 150 MG Oral Capsule (MYCOBUTIN), Disp: , Rfl: rifabutin (Mycobutin) 150 mg capsule, Take 2 capsules (300 mg total) by mouth 3 (three) times a week., Disp: 24 capsule, Rfl: 2 sucralfate (CARAFATE) 1 gram tablet, Take 1 tablet (1 g total) by mouth., Disp: , Rfl: ROS: Review of Systems Constitutional: Negative. Negative for appetite change, chills and unexpected weight change. HENT: Negative. Respiratory: Positive for shortness of breath. Negative for cough, choking and chest tightness. Cardiovascular: Negative. Gastrointestinal: Negative. Genitourinary: Negative. Musculoskeletal: Negative. Neurological: Negative. Vital signs for last 24 hours: Temp: 36.3 ??C (97.4 ??F) (11/21 1453) BP: 95/60 (11/21 1453) Physicial Exam Physical Exam Vitals reviewed. Constitutional: Appearance: Normal appearance. HENT: Head: Normocephalic and atraumatic. Eyes: General: No scleral icterus. Cardiovascular: Rate and Rhythm: Normal rate and regular rhythm. Heart sounds: No murmur heard. No friction rub. No gallop. Pulmonary: Effort: Pulmonary effort is normal. No respiratory distress. Breath sounds: Normal breath sounds. No stridor. No wheezing, rhonchi or rales. Chest: Chest wall: No tenderness. Abdominal: General: Abdomen is flat. Bowel sounds are normal. There is no distension. Palpations: Abdomen is soft. There is no mass. Tenderness: There is no abdominal tenderness. There is no right CVA tenderness, left CVA tenderness, guarding or rebound. Hernia: No hernia is present. Musculoskeletal: General: No swelling or tenderness. Skin: General: Skin is warm and dry. Findings: No rash. Neurological: General: No focal deficit present. Mental Status: He is alert and oriented to person, place, and time. Results: Lab No visits with results within 2 Day(s) from this visit. Latest known visit with results is: Abstract on 06/13/2024 Component Date Value HM Annual BMP Blood Test 02/08/2024 abstracted No results found for: BLOODCX , URINECX , CSFCX , AFBCX , MRSA No results found for this or any previous visit (from the past week). Radiology: CT CHEST [facility] Diagnostic Imaging Department [address] [place] [address] Patient: SUNIASAF Edgar Ayala/Age/Sex: 1935 - 88 - M Unit#: [id number] Location/Status: SPDICAT/REG CLI Mnemonic/Ordering Site: [facility] Ordering Physician: BRIAN MCBRIDE MD CT Chest [facility] 07/14/24 - Report Status:Signed CT chest without contrast HISTORY: Pulmonary nodule COMPARISON: CT chest November 2023. CT chest September 2023. PET examination October 2023. TECHNIQUE: Noncontrast CT was performed of the chest. Reformatted images were provided. DOSE: CTDIvol: 13.3mGy. Total exam DLP: 523.4mGy-cm FINDINGS: Severe emphysematous disease is again noted. Suture line is present in the left upper chest. A 1.3 x 0.8 cm nodule in the right upper lobe appears stable compared to examination in November. Other small regions of nodularity or scarring also appears stable. Mediastinum appears normal. No abnormal lymphadenopathy. Heart size is normal without effusion. Coronary atherosclerotic disease. Mild plaque in the aorta without aneurysm. Chest wall appears within normal limits. No abnormal lymphadenopathy is noted. Limited views of the upper abdomen appear within normal limits. Mild degenerative changes of the spine. IMPRESSION: Stable emphysematous disease and stable nodule in the right chest as described above. Dictating Physician: JOVANA ARTIS MD Electronically Signed by: JOVANA ARTIS MD Dic Date/Time: 07/14/24 1708 Sign date/Time: 07/14/24 1720 Assessment/Plan 1. CLAUDIA (mycobacterium avium-intracellulare) ([facility]) (Primary) 2. Drug intolerance Since the patient is unable to tolerate any pills for CLAUDIA, we discussed his options and felt that it was best for him to hold off on treatment for now Since he would need to be off treatment for at least 1 year post sputum clearance and he has not been able to achieve even 1 month of complete treatment, despite over 6 months of trying multiple different regimens I believe it is best for the patient to be observed with watchful waiting, if his symptoms were to worsen, we can consider restarting him on medication again Patient is agreeable to this approach, we performed shared decision making and felt that this mightbe his best option moving forward I will see him back in 3 months to see how he is doing in terms of his symptoms, he is also following up with pulmonology and thoracic surgery in the interim Counseled him to reach out to us if his symptoms significantly worsen in terms of his breathing RTC 3 months I personally spent 30 minutes in this encounter. This included performing a detailed chart review, reviewing and independently interpreting labs and other tests ordered by other providers, performinga history and physical, counseling the patient/family, , performing complex medical decision making, coordinating his/her/their plan of care and performing documentation. The patient has CLAUDIA infection, this is a chronic illness that requires frequent longitudinal follow- ups, I am the primary physician in charge of dealing with his infection and have been since last year I will continue to follow-up with him Please note that this note has been completed with the help of voice recognition dictation software, as such there may be certain words that may be substituted or written in error error based on the voice-recognition tool, please contact me to clarify if any confusion Winsome Clemons MD documented in this encounter Plan of Treatment Upcoming Encounters Date Type Department Care Team ([facility] Contact Info) Description 01/04/2025 1:30 PM EDT Office Visit Pulmonology - [place] [address] [facility] [address] [place] [address] Brian Mcbride MD [address] [place] [id number] 02/21/2025 2:00 PM EDT Office Visit Infectious Disease - [place] [address] [facility] [address] [place] [address] Winsome Clemons MD [address] [facility] [address] [place] [address] documented as of this encounter Visit Diagnoses Diagnosis CLAUDIA (mycobacterium avium-intracellulare) ([facility])- Primary 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
--- OUTSIDE RECORDS SUMMARY | 2024-11-22 11:53 | XMS_ITS | Encounter Summary ---
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) Social History Tobacco Use Types Packs/Day Years [...] Sign Reading Time Taken Comments Blood Pressure 141/63 10/24/2024 2:27 PM EST Pulse - - Temperature 36.2 ??C (97.2 ??F) 10/24/2024 2:27 PM ES T Respiratory Rate - - Oxygen Saturation 96% 10/24/2024 2:27 PM EST Inhaled Oxygen Concentration - - Weight 75.8 kg (167 lb) 10/24/2024 2:27 PM EST Height - - Body Mass Index 26.16 08/08/2024 10:30 AM EST documented in this encounter Progress Notes * Winsome Clemons MD - 10/24/2024 2:30 PM EST Please stop taking all your antibiotics for the next 1 month We will see you back in 1 month * Winsome Clemons MD - 10/24/2024 2:30 PM EST 10/24/24 Gabe Burrell MD Reason for Consultation: CLAUDIA History Of Present Illness (includes Chief Complaint): Asaf Sheth is a 88 y.o. male who has a past medical history of Abdominal pain, Anxiety disorder, COPD (chronic obstructive pulmonary disease) (CMS/HCC), Dysphagia, Elevated HDL, GERD (gastroesophageal reflux disease), Pilonidal cyst, Pulmonary nodule, Shortness of breath, Tobacco dependence,and Tubular adenoma of colon.. Asaf Sheth is a 88 y.o. male who has a past medical history of Abdominal pain, Anxiety disorder, COPD (chronic obstructive pulmonary disease) (CMS/HCC), Dysphagia, Elevated HDL, GERD (gastroesophageal reflux disease), Pilonidal cyst, Pulmonary nodule, Shortness of breath, Tobacco dependence,and Tubular adenoma of colon.. I first saw [...] at a time to figure out which 1 is causing problems, he was able to isolate having issues with ethambutol, he has significant GI distress every time he takes it even when he tried reducing the dose on his own. For the past month he has only been taking the azithromycin and rifabutin despite us trying to prescribe Zofran to help alleviate some of his GI distress. He tolerates other medications without any incident. I then changed his Ethambutol to Minocycline, the pt states that this was also not tolerable to him and stopped taking it. His CT scan in the interim shows stable disease. Since he was unable to tolerate either ethambutol or minocycline, I requested for prior Auth for inhaled amikacin, this was approved and the patient started last week. Unfortunately, he started having what he calls hallucinations and felt sick and stopped taking his antibiotics again and decided to take them only once every 5 days. He has been taking his Arikayce nebulizers. He states that overall he feels better but again did start missing doses of the medication, he did not notify us ofany adverse effects. He is also being evaluated for macular degeneration which is progressive Past Medical History: Past Medical History: Diagnosis Date Abdominal pain DX:Abdominal pain Anxiety disorder DX:Anxiety disorder COPD (chronic obstructive pulmonary disease) ([facility]/HCC) DX:COPD (chronic obstructive pulmonary disease) ([facility]) Dysphagia DX:Dysphagia Elevated HDL DX:Elevated HDL GERD [...] BRONCHOSCOPY OTHER SURGICAL HISTORY Left 03/17/2023 PROCEDURE: [place] THORACOSCOPY W/DX WEDGE RESEXN ANATO LUNG RESEXN; COMMENT: robotic LLL wedge resection (Dr. Edmond, [facility]) OTHER SURGICAL HISTORY Left 03/31/2023 PROCEDURE: [place] BRNCHSC OCCLUSION&INSERT BRONCH VALVE INIT LOBE; COMMENT: medial segment LLL OTHER SURGICAL HISTORY Left 04/01/2023 PROCEDURE: [place] THORACOSCOPY W/PLEURODESIS; COMMENT: VATS L mechanical and talc pleurodesis Family History: Family History Problem Relation Name Age of Onset Other cancer Sister Other cancer Sister Social History: Social History Tobacco Use Smoking status: Former Current packs/day: 0.00 Average packs/day: 2.0 packs/day for 52.0 years (104.0 ttl pk-yrs) Types: Cigarettes Start date: 09/13/1940 Quit date: 09/13/1993 Years since quittin.1 Smokeless tobacco: Never Vaping Use Vaping status: [...] times a week. 02/09/24 Yes Historical Provider, vhbmwnayenh-uwevcydhhxok-tmxzxaxfcm (TRELEGY ELLIPTA) 200-62.5-25 mcg inhaler Inhale by mouth. Yes Historical Provider, qynxuqnchxo-vdfedjqfqwpg-nleitmmtnr (Trelegy Ellipta) 200-62.5-25 mcg inhaler Inhale 1 [...] (three) times a week., Disp: , Rfl: ovazvbccpvr-sbaebrrjanmp-kdoiyqcrve (TRELEGY ELLIPTA) 200-62.5-25 mcg inhaler, Inhale by mouth., Disp: , Rfl: euzagkfnxbw-iueghhdjuqwd-gjedmgirki (Trelegy Ellipta) 200-62.5-25 mcg inhaler, Inhale 1 [...] Rfl: ROS: Review of Systems Constitutional: Negative. HENT: Negative. Respiratory: Negative. Cardiovascular: Negative. Gastrointestinal: Negative. Genitourinary: Negative. Musculoskeletal: Negative. Skin: Negative. Neurological: Negative. Vital signs for last 24 hours: Temp: 36.2 ??C (97.2 ??F) (10/24 1426) BP: 141/63 (10/24 1426) Physicial Exam Physical Exam Vitals reviewed. Constitutional: Appearance: Normal appearance. HENT: Head: Normocephalic and atraumatic. Eyes: General: No scleral icterus. Cardiovascular: Rate and Rhythm: Normal rate and regular rhythm. Heart sounds: No murmur heard. No friction rub. No gallop. Pulmonary: Effort: Pulmonary effort is normal. No respiratory distress. Breath sounds: No stridor. No wheezing, rhonchi or rales. Chest: Chest wall: No tenderness. Abdominal: General: Abdomen is flat. There is no distension. Palpations: Abdomen is soft. There is no mass. Tenderness: There is no abdominal tenderness. There is no right CVA tenderness, left CVA tenderness, guarding or rebound. Hernia: No hernia is present. Skin: General: Skin is warm and dry. Findings: No rash. Neurological: Mental Status: He is alert. Results: Lab No visits with results within 2 Day(s) from this visit. Latest known visit with results is: Abstract on 06/13/2024 Component Date Value HM Annual BMP Blood Test 02/08/2024 abstracted No results found for: BLOODCX , URINECX , CSFCX , AFBCX , MRSA No results found for this or any previous visit (from the past week). Radiology: CT CHEST WO [facility] Diagnostic Imaging Department [address] [place] [id number] Patient: ASAF SHETH Edgar /Age/Sex: 1935 - 88 - M Unit#: [id number] Location/Status: SPDICAT/REG CLI Mnemonic/Ordering Site: [facility] Ordering Physician: BRIAN MCBRIDE MD CT Chest WO - 07/14/24 - Report Status:Signed CT chest without [...] by: JOVANA ARTIS MD Dic Date/Time: 07/14/24 170 Sign date/Time: 07/14/24 1720 Assessment/Plan CLAUDIA We have been trying to initiate this patient on antibiotics since January. He is unable to tolerate anytreatment, initially could not tolerate ethambutol, then we switched to minocycline, he could not tolerate this either. Now that his third medication is added Kcentra minocycline he is now having trouble with azithromycin and rifabutin. Unclear if he is actually having adverse effects to the medications or he has an underlying problem since he states that he was having hallucinations . I think at this juncture it is best to stop all antibiotics and observe him for symptoms and to see whether he has these hallucinations again and how his baseline respiratory status is If the patient does not remain adherent to the medications, he would most likely become resistant to treatment, we will see how he does with the break of 1 month and if he has his symptoms despite not being on medications then we will try to convince him to restart Explained to the patient that if he is not adherent to the medication, we will have to stop treatment in the future RTC 1 month I personally spent 30 minutes in this encounter. This included performing a detailed chart review, reviewing and independently interpreting labs and other tests ordered by other providers, performinga history and physical, counseling the patient/family, , performing complex medical decision making, coordinating his/her/their plan of care and performing documentation. The patient has a highly complex infection and diagnosis of CLAUDIA, I am the point person treating his CLAUDIA and following him longitudinally for adverse effects of treatment as well as response. Please note that this note has been completed with the help of voice recognition dictation software, as such there may be certain words that may be substituted or written in error error based on the voice-recognition tool, please contact me to clarify if any confusion Winsome Clemons MD documented in this encounter Plan of Treatment Upcoming Encounters Date Type Department Care Team (Late st Contact Info) Description 01/04/2025 1:30 PM EDT Office Visit Pulmonology - [place] [address] [facility] [address] [place] [address] Brian Mcbride MD [address] [place] [address] 02/21/2025 2:00 PM EDT Office Visit Infectious Disease - [place] [address] [facility] [address] [place] [phone] Winsome Clemons MD [address] [facility] [address] [place] [address] documented as of this encounter Visit Diagnoses Diagnosis 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
--- OUTSIDE RECORDS SUMMARY | 2024-11-22 11:53 | XMS_ITS ---
Author Name [facility] Organization Unknown History of Medication Use Medication Directions Dispensed Refills Start Date End Date Stat us PARoxetine CR (PAXIL-CR) 25 mg 24 hr tablet Take 1 tablet (25 mg total) by mouth 1 (one) time each day in the morning. active fluticasone-umeclidin ium-vilanterol (TRELEGY ELLIPTA) 200-62.5-25 mcg inhaler Inhale by mouth. active sucralfate (CARAFATE) 1 gram tablet Take 1 tablet (1 g total) by mouth. 03/12/2024 active rifabutin (Mycobutin) 150 mg capsule Take 2 capsules (300 mg total) by mouth 3 (three) times a week. 08/23/2024 active ipratropium HFA (ATROVENT HFA) 17 mcg/actuation inhaler Inhale 2 puffs by mouth. active omeprazole (PriLOSEC) [address] capsule Take 1 capsule (40 mg total) by mouth 1 (one) time each day. 03/12/2024 active IPRATROPIUM BROMIDE INHL Sig - Route: Inhale 2 Puffs into the lungs 4 times daily. - Inhalation active Problems Problem Status Onset Date Problem Type Date of Resoluti on Source Pulmonary nodule active 2023-04-12 ProblemAct C T_THSFRAN Postoperative air leak active 2023-04-12 ProblemAct CT_THSFRAN Immunizations Vaccine Date Source Lot Number Status Influenza trivalent, 0.5mL ( Fluad) 65yo and older 06/17/2020 CT_SynappioSFRAN [id number] completed Influenza trivalent, 0.5mL ( Fluad) 65yo and older 06/30/2018 CT_SynappioSFRAN [id number] completed Influenza trivalent, 0.5mL ( Fluzone High-dose) 65yo and older 06/24/2011 CT_THSFRAN comple jai Influenza trivalent, 0.5mL ( Fluad) 65yo and older 07/07/2016 CT_THSFRAN [id number] completed Influenza trivalent, 0.5mL ( Fluzone High-dose) 65yo and older 06/20/2022 CT_SFRLENI comple jai Influenza trivalent, 0.5mL ( Fluad) 65yo and older 06/30/2021 CT_[facility] [id number] completed COVID-19 (Moderna) 6mo to less than 12yr 01/03/2021 CT_Joshua HELTON completed
--- OUTSIDE RECORDS SUMMARY | 2024-11-22 11:53 | XMS_ITS | Encounter Summary ---
Author Organization [facility] Address [address] [place] [address] Care Team Providers Care Associate Professor Of Mathematics Name Role Phone Gabe Burrell MD Primary Care Provider [phone] Reason for Visit * Reason Onset Date Comments Prior Authorization 10/05/2024 Encounter Details Date Type Department Care Team (Late st Contact Info) Description 10/05/2024 Telephone Infectious Disease - [place] [address] [facility] [address] [place] [address] Gabe Burrell MD [address] [place] [address] Dr [place] Prior Authorization Social History Tobacco Use Types Packs/Day Years [...] on file documented as of this encounter Progress Notes * Sarah Perez MA - 10/10/2024 9:07 AM EST Approved on September 26 by [employer] NCPDP 2017 Your request has been approved Authorization Expiration Date: 09/26/2025 * Jaimie Harris - 10/05/2024 2:50 PM EST Prior Authorization for Medication-do not complete and send this encounter unless you have the fax from the pharmacy. Is this a Cover My Meds request: Yes - [place] Code: [id number] Name of Medication Arikayce suspension Dose of Medication 590 MG/ 8.4 ML What is the RX # from the faxed refill? - How does patient take this med? Inhale by mouth through nebulizer What Pharmacy did the fax come from: [facility] Pharmacy fax #: [phone] [employer] Party Information from fax: What Prescription Plan does the patient have? - BIN/PCN if applicable: - Cardholder ID: - Person Code: - Relationship Code: - Help desk phone: - documented in this encounter Plan of Treatment Upcoming Encounters Date Type Department Care Team ([facility] st Contact Info) Description 01/04/2025 1:30 PM EDT Office Visit Pulmonology - [place] [address] [facility] [address] [place] [phone] Richa Mcbride MD [address] [place] [phone] 02/21/2025 2:00 PM EDT Office Visit Infectious Disease - [place] [address] [facility] [address] [place] [address] Winsome Clemons MD [address] [facility] [address] [place] [address] documented as of this encounter Visit Diagnoses Not on filedocumented in this encounter Care Teams Associate Professor Of Mathematics Relationship Specialty Start Date End Date Gabe Burrell MD [address] [place] [address] Dr Osorio [facility] [place] PCP - General 10/05/22 documented as of this encounter
--- OUTSIDE RECORDS SUMMARY | 2024-11-22 11:53 | XMS_ITS | Clinical Summary ---
Author Organization [facility] Address [address] [place] [address] Phone Care Team Providers Care Irrigating Pump Operator Name Role Phone Gabe Burrell MD Primary Care Provider [phone] Allergies Active Allergy Reactions Criticality Noted Date Comments Prednisone Gout High 10/15/2022 Medications ipratropium HFA (ATROVENT HFA) 17 mcg/actuation inhaler Inhale 2 puffs by mouth. Active pseudoephedrine-gu aiFENesin (MUCINEX D) 60-600 mg per 12 hr tablet Take by mouth. Ac tive azithromycin (ZITHROMAX) 500 mg tablet Take 1 tablet (500 mg total) by mouth 3 (three) times a week. 02/09/20 24 Active fluticasone-umecli dinium-vilanterol (TRELEGY ELLIPTA) 200-62.5-25 mcg inhaler Inhale by mouth. Act bruna fluticasone-umecli dinium-vilanterol (Trelegy Ellipta) 200-62.5-25 mcg inhaler Inhale 1 puff (200 mcg total) by mouth. Active ibuprofen (ADVIL,MOTRIN) 800 mg tablet Take 1 tablet (800 mg total) by mouth every 8 (eight) hours if needed. Active IPRATROPIUM BROMIDE INHL Sig - Route: Inhale 2 Puffs into the lungs 4 times daily. - Inhalation Active PARoxetine CR (PAXIL-CR) 25 mg 24 hr tablet Take 1 tablet (25 mg total) by mouth 1 (one) time each day in the morning. Active PARoxetine (PAXIL) 20 mg tablet Take 1 tablet (20 mg total) by mouth 1 (one) time each day in the morning. Active PARoxetine (PAXIL) 20 mg tablet Take 1 tablet (20 mg total) by mouth 1 (one) time each day in the morning. Active rifabutin (MYCOBUTIN) 150 mg capsule Sig - Route: Take 2 Capsules by mouth three times a week for 112 days. - Oral Sent to pharmacy as: Rifabutin 150 MG Oral Capsule (MYCOBUTIN) Active minocycline (DYNACIN) 100 mg tablet Sig - Route: Take 2 Tablets by mouth three times a week for 84 days. - Oral Sent to pharmacy as: Minocycline HCl 100 MG Oral Tablet (DYNACIN) Active guaifenesin/pseudo ephedrne HCl (PSEUDOEPHEDRINE-G UAIFENESIN ORAL) Sig - Route: Take by mouth. - Oral Active omeprazole (PriLOSEC) [address] capsule Take 1 capsule (40 mg total) by mouth 1 (one) time each day. 03/12/20 24 Active ondansetron ODT (ZOFRAN-ODT) 8 mg disintegrating tablet Take 1 tablet (8 mg total) by mouth. 05/03/20 24 Active predniSONE (DELTASONE) 20 mg tablet TAKE 3 TABS ORALLY DAILY FOR ASTHMA FOR 5 DAYS 01/20/20 24 Active sucralfate (CARAFATE) 1 gram tablet Take 1 tablet (1 g total) by mouth. 03/12/20 24 Active albuterol HFA (PROAIR HFA ; PROVENTIL HFA ; VENTOLIN HFA) 90 mcg/actuation inhaler INHALE 2 PUFF INHALED EVERY 6 HOURS NEEDED FOR SHORTNESS OF BREATH OR WHEEZING FOR 90 DAYS 04/17/20 24 Active amikacin (AMIKIN) 250 mg/mL aerosol for inhalation Take 2 mL (250 mg total) by nebulization 2 (two) times a day. 120 mL 2 08/23/20 24 025 azithromycin (ZITHROMAX) 250 mg tablet Take 2 tablets (500 mg total) by mouth 3 (three) times a week. 72 each 08/23/20 24 025 rifabutin (Mycobutin) 150 mg capsule Take 2 capsules (300 mg total) by mouth 3 (three) times a week. 24 capsule 2 08/23/20 24 025 Active Problems Problem Noted Date Diagnosed Date Postoperative air leak 04/12/2023 Pulmonary nodule 04/12/2023 Overview (06/08/2024): Last Assessment & Plan: 87-year-old male with previous wedge resection for a benign nodule consistent with granulomatous changes. Now has a slowly enlarging partially spiculated nodule in the right upper lobe somewhat intraparenchymal that is PET avid along with some PET avidity in the right paratracheal lymph nodes. I had a long discussion with him and his sons about the findings from his previous CAT scans and most recent PET scan as described in HPI. 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 While size, growth, and shape of this nodule makes it suspicious for malignancy, his previous findings from wedge resection make it somewhat less likely. Options I discussed with him were continued observation versus needle biopsy versus surgical resection. I do not think surgery is an option for him both because it is intraparenchymal and because of his significant lung disease, age, and likely scarring on that side. He would like to proceed with needle biopsy after discussing the risks and benefits of each. Will schedule him for the operating room with interventional pulmonary for navigational bronchoscopy/radial EBUS/linear EBUS for biopsy of the right upper lobe nodule and mediastinal nodes. Will discuss with interventional pulmonary. Plan will also be to repeat his CT scan tomorrow or next week for an updated scan prior to that procedure. All questions were answered. 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) 10/05/2024 Telephone Infectious Disease [address] [phone] Gabe Burrell MD Prior Authorization 10/02/2024 Telephone Infectious Disease - [place] [address] [facility] [address] [facility] [address] [place] [address] Ludmila Blount RN 09/26/2024 [place] [facility] - [place] [address] [place] [address] Ludmila Blount RN 09/21/2024 [place] Infect[facility] [address] [facility] [address] [place] [phone] Leisa Latham MA Med Management 08/30/2024 [place] Infect[facility] [address] [facility] [address] [place] [phone] Winsome Clemons MD Medication Problem from Last 3 Months Immunizations Name Administration Dates Next Due COVID-19 (Moderna) 6mo to le ss than 12yr 01/03/2021 Influenza trivalent, 0.5mL ( Fluad) 65yo and older 06/30/2021,06/17/2020,06/30/2018, 016 Influenza trivalent, 0.5mL ( Fluzone High-dose) 65yo and older 06/20/2022,06/24/2011 Surgical History Surgery Date Site/Laterality Comments APPENDECTOMY N/A PROCEDURE: HISTORICAL APPENDECTOMY OTHER SURGICAL HISTORY N/A PROCEDURE: PULMONOLOGY BRONCHOSCOPY CATARACT EXTRACTION N/A PROCEDURE: HISTORICAL CATARACT REMOVAL COLONOSCOPY N/A PROCEDURE: HISTORICAL COLONOSCOPY OTHER SURGICAL HISTORY 03/17/2023 Left PROCEDURE: SD THORACOSCOPY W/DX WEDGE RESEXN ANATO LUNG RESEXN; COMMENT: robotic LLL wedge resection (Dr. Edmond, [facility]) OTHER SURGICAL HISTORY 03/31/2023 Left PROCEDURE: SD BRNCHSC OCCLUSION&INSERT BRONCH VALVE INIT LOBE; COMMENT: medial segment LLL OTHER SURGICAL HISTORY 04/01/2023 Left PROCEDURE: SD THORACOSCOPY W/PLEURODESIS; COMMENT: VATS L mechanical and talc pleurodesis Medical History Medical History Date Comments Anxiety disorder DX:Anxiety diso rder COPD (chronic obstructive pu lmonary disease) ([facility]) DX:COPD (chronic obstructive pulmonary disease) (HCC) GERD (gastroesophageal reflux disease) DX:GERD (gastroesophageal reflux disease) Elevated HDL DX:Elevated HDL Pilonidal cyst DX:Pilonidal cys t Pulmonary nodule DX:Pulmonary no dule Tobacco dependence DX:Tobacco de pendence Tubular adenoma of colon DX:Tubu lar adenoma of colon Shortness of breath DX:Shortness of breath Abdominal pain DX:Abdominal dany n Dysphagia DX:Dysphagia Family History Medical History Relation Name Comments Other cancer Sister 1 Other cancer Sister 2 Relation Name Status Comments Sister 1 Sister 2 Alive Social History Tobacco Use Types Packs/Day Years [...] on file Sexual Orientation Not on file Obstetrics History Last Filed Vital Signs Vital Sign Reading Time Taken Comments Blood Pressure 95/60 11/21/2024 2:53 PM EDT Pulse 76 08/23/2024 3:02 PM EST Temperature 36.3 ??C (97.4 ??F) 11/21/2024 2:53 PM ED T Respiratory Rate 16 08/08/2024 10:30 AM EST Oxygen Saturation 90% 11/21/2024 2:53 PM EDT Inhaled Oxygen Concentration - - Weight 75.6 kg (166 lb 9.6 oz) 11/21/2024 2:53 P M EDT Height 170.2 cm (5' 7 ) 08/08/2024 10:30 AM EST Body Mass Index 26.09 08/08/2024 10:30 AM EST Plan of Treatment Upcoming Encounters Date Type Department Care Team (Late st Contact Info) Description 01/04/2025 1:30 PM EDT Office Visit Pulmonology - [place] [address] [facility] [address] [place] [address] Richa Mcbride MD [address] [place] [address] 02/21/2025 2:00 PM EDT Office Visit Infectious Disease - [place] [address] [facility] [address] [place] [address] Winsome Clemons MD [address] [facility] [address] [place] [address] Health Maintenance Due Date Last Done Comments DTaP,Tdap,and Td Vaccines (1 - Tdap) 12/29/1954 Pneumococcal Vaccine: 50+ Years (1 of 1 - PCV) 1986 Zoster Vaccines (1 of 2) 1986 RSV Immunization Patients 60+ Years Old (1 - 1-dose 75+ series) 12/29/2011 COVID-19 Vaccine (3 - Moderna risk series) 01/31/2021 01/03/2021, 12/05/2020 Cholesterol Screening (Lipid Panel) 10/08/2023 Depression Screening 10/08/2023 Falls Risk Assessment 10/08/2023 Medicare Annual Wellness Visit 10/08/2023 Social Influencers of Health Screening 10/08/2023 Influenza Vaccine Completed 06/14/2024, , 06/20/2022, Additional history exists HIB Vaccines Aged Out No longer eligi ble based on patient's age to complete this topic HPV Vaccines Aged Out No longer eligi ble based on patient's age to complete this topic Hepatitis A Vaccines Aged Out No long er eligible based on patient's age to complete this topic Hepatitis B Vaccines Aged Out No long er eligible based on patient's age to complete this topic IPV Vaccines Aged Out No longer eligi ble based on patient's age to complete this topic MMR Vaccines Aged Out No longer eligi ble based on patient's age to complete this topic Meningococcal ACWY Vaccine Aged Out N o longer eligible based on patient's age to complete this topic Meningococcal B Vacine Aged Out No lo nger eligible based on patient's age to complete this topic RSV Immunization Patients Under 20 months Aged Out No longer eligible based on patient's age to complete this topic Varicella Vaccines Aged Out No longer eligible based on patient's age to complete this topic Insurance MEDICARE [facility] Care Teams Irrigating Pump Operator Relationship Specialty Start Date End Date Gabe Burrell MD [address] [place] [address] [place] PCP - General 10/05/22
== END 2024-11-22 10:49 | disposition home or self-care (01) ==
LOC: HO.HPS 10:22
PROVIDERS: PCP Physician Assistant; Visit Provider Hospitalist
DX: R91.1 Solitary pulmonary nodule (principal); J43.2 Centrilobular emphysema; R91.8 Other nonspecific abnormal finding of lung field
CPT/HCPCS: 99214

== ENCOUNTER → 2024-11-22 10:22 | Outpatient (BNVA) | payer MEDICARE, SELFPAY | PROVIDERS: PCP Physician Assistant; Visit Provider Hospitalist | DX: R91.1 Solitary pulmonary nodule (principal); R91.8 Other nonspecific abnormal finding of lung field; J43.2 Centrilobular emphysema | CPT/HCPCS: 99212 ==

== ENCOUNTER 2025-02-07 10:39 | Outpatient (AMB) | payer MEDICARE, SELFPAY ==
[2025-02-07 11:43] VITALS: BP 110/60; PULSE 96; O2SAT 92
--- NOTE | 2025-02-07 11:43 | MHC.OFFVIS ---
Vital Signs 02/07/25 11:43 Height 5 ft 9 in BP 110/60 Blood Pressure Location Lt brachial Position Sitting Pulse 96 Pulse Source Pulse Oximeter Pulse Oximetry (%) 92 Oxygen Delivery Method Room Air Intake Visit Reasons: 6WM POC Allergies No Known Allergies Allergy (Mild, Verified 02/07/25 11:44) NOT APPLICABLE Medication List - Last Reconciled 02/07/25 by Lashanda Pyle LPN albuterol sulfate 90 mcg/actuation 1 inh inhalation Q6H PRN albuterol sulfate 90 mcg/actuation 2 puffs inhalation Q6H PRN albuterol sulfate 90 mcg/actuation (ProAir HFA) 2 puffs inhalation Q6H PRN 90 days voyovhgkqmh-nyiltnmap-cwiecloo 200-62.5-25 mcg (Trelegy Ellipta) 1 ea inhalation DAILY nngefknswai-voptkdhsh-hqdodilc 200-62.5-25 mcg (Trelegy Ellipta) 1 inh inhalation DAILY Oxygen Home Use As directed paroxetine HCl 20 mg PO DAILY PFSH Medical History Pulmonary nodule Tobacco dependence Tubular adenoma of colon (~1997) COPD (chronic obstructive pulmonary disease) Pilonidal cyst Shortness of breath Abdominal pain HLD (hyperlipidemia) GERD (gastroesophageal reflux disease) Anxiety Surgical History History of bronchoscopy History of cataract surgery History of colonoscopy History of appendectomy Family History Sister Cancer Sister Cancer Social History Are you a primary transitional care manager to a significant other at home: Yes () Alcohol intake: former Patient Tobacco Use Status: Former Tobacco user Tobacco use type: Cigarette Cigarette Packs Per Day: 2.0 Cigarettes Per Day: 40.0 Years Smoked: 40 Second Hand Smoke Exposure: No Current occupational status: retired Current occupation: Right Handed Physical Exam Vital Signs: Last Vital Signs Pulse 96 02/07/25 11:43 BP 110/60 02/07/25 11:43 Pulse Ox 92 02/07/25 11:43 Oxygen Delivery Method Room Air 02/07/25 11:43 Office Procedures 6 Minute Walk Time:: 10:45 SPO2 % at rest: 92 Pulse at rest: 96 SPO2 % during excercise: 86 Pulse during excercise: 110 SPO2 % after excercise: 92 Pulse after excercise: 90 Distance in yards walked: 250 Milly Score: 2 Performance Observations:: Asaf walked on level ground without assistance, he walked for 100 yards on room air before his SPO2 decreased to 86%, Pulsed O2 started at setting 2 SPO2 increased to 88%, O2 increased to pulsed setting 3, SPO2 recovered to 94%. Asaf maintained his SPO2 at 92-94% on pulsed O2 setting 3 for the remainder of the walk. [id number] - 6 Minute Walk Assessment & Plan Assessment & Plan (1) COPD (chronic obstructive pulmonary disease): Code(s): J44.9 - Chronic obstructive pulmonary disease, unspecified Category: Medical Qualifiers: COPD type: emphysema Emphysema type: centrilobular Qualified Code(s): J43.2 - Centrilobular emphysema Plan 6MWT Orders: Orders AMB 6 minute walk Today J43.2 - Centrilobular emphysema Coding Level of Care Code Established Pt Est Pt Level 1 (56679) Patient Type Established Diagnoses Centrilobular emphysema J43.2 COPD type: emphysema Emphysema type: centrilobular CPT Codes Coding ([id number]) Comment NURSE VISIT ONLY
[2025-02-07 11:46] VITALS: PULSE 96; O2SAT 92
== END 2025-02-07 11:16 | disposition home or self-care (01) ==
LOC: HO.HPS 10:39
PROVIDERS: PCP Physician Assistant; Visit Provider Hospitalist
DX: J43.2 Centrilobular emphysema (principal)
CPT/HCPCS: 94618

== ENCOUNTER → 2025-02-07 10:39 | Outpatient (BNVA) | payer MEDICARE, SELFPAY | PROVIDERS: PCP Physician Assistant; Visit Provider Hospitalist | DX: J43.2 Centrilobular emphysema (principal) | CPT/HCPCS: 94618; 99211 ==

== ENCOUNTER 2025-03-20 11:19 | Outpatient (AMB) | payer MEDICARE, SELFPAY ==
--- NOTE | 2025-03-20 11:25 | A.OFFPC_ITS ---
Vital Signs 03/20/25 11:27 03/20/25 11:37 Height 5 ft 9 in BP 108/70 Blood Pressure Location Lt brachial Position Sitting Respiration 16 Pulse 90 Pulse Source Pulse Oximeter Temp 97.4 F Temp Source Temporal Artery Scan Pulse Oximetry (%) 99 Oxygen Delivery Method Room Air Intake Visit Reasons: routine - Dr. Burrell [employer] Sales Manager Required: No Accompanied by: Self / Same As Patient Allergies No Known Allergies Allergy (Mild, Verified 03/20/25 11:26) NOT APPLICABLE HPI HPI Comments History of Present Illness Details 89 year old male with history of copd wi th exercise induced hypoxemia, CLAUDIA infection due to work exposure, hld, gerd, anxiety presents to the office today for management of chornic conditions and to establish care. COPD w/ exercise hypoxemia- rarely using O2. Follows with pulm. compliant with maintenance inhalers, rate albuterol use CLAUDIA infection- following with pulm. No longer following with ID. Unable to tolerate medications Anxiety- managed with paxil HLD- not on statin Concerns: Swelling R elbow- reports bumping the elbow about 1 week ago. Slightly tender, no drainage, warmth. No fevers. Full ROM ROS: General: No fevers, malaise, unintentional weight loss Cardiovascular: No chest pain, palpitations, or leg edema Respiratory: No shortness of breath, wheezing, cough MSK: No myalgia, back pain. see hpi Neuro: No headaches, weakness, paresthesias Skin: No rashes or lesions EXAM: Constitutional - Awake and Alert, No apparent distress Eyes - PERRL Cardiovascular - S1S2, RRR, No edema Respiratory - Normal lung expansion, Normal respiratory effort, No respiratory distress, CTA bilaterally Extremities - no calf tenderness bilaterally, no swelling MSK - mobile fluid filled bursa of the R olecranon Skin - Warm/Dry Neurological - Alert & oriented x3 Psychological - Appropriate affect [facility] Medical History (Updated 03/20/25 @ 11:59 by SACHIN Schmidt) Exercise hypoxemia Olecranon bursitis of right elbow Mycobacterium avium-intracellulare infection Pulmonary nodule Tobacco dependence Tubular adenoma of colon (~1997) COPD (chronic obstructive pulmonary disease) Pilonidal cyst Shortness of breath Abdominal pain HLD (hyperlipidemia) GERD (gastroesophageal reflux disease) Anxiety Surgical History History of bronchoscopy History of cataract surgery History of colonoscopy History of appendectomy Family History Sister Cancer Sister Cancer Social History Are you a primary healthcare liaison to a significant other at home: Yes () Alcohol intake: former Patient Tobacco Use Status: Former Tobacco user Tobacco use type: Cigarette Cigarette Packs Per Day: 2.0 Cigarettes Per Day: 40.0 Years Smoked: 40 Second Hand Smoke Exposure: No Current occupational status: retired Current occupation: Right Handed Questionnaire PHQ-9 Over the last 2 weeks, how often have you been bothered by any of the following problems? 1. Little interest or pleasure in doing things: not at all 2. Feeling down, depressed, or hopeless: not at all 3. Trouble falling or staying asleep, or sleeping too much: not at all 4. Feeling tired or having little energy: not at all 5. Poor appetite or overeating: not at all 6. Feeling bad about yourself - or that you are a failure or have let yourself or your family down: not at all 7. Trouble concentrating on things, such as reading the newspaper or watching television: not at all 8. Moving or speaking so slowly that other people could have noticed. Or the opposite - being so fidgety or restless that you have been moving around a lot more than usual: not at all 9. Thoughts that you would be better off or of hurting yourself in some way: not at all Total score: 0 Depression Screening Interpretation: Negative Depression Screening Done: Yes 82293 - PHQ-9 Billing: Yes Source: Developed by Drs. Jesus Singleton, Izzy Ng, Rashard Alvarez and colleagues, with an educational sydnee from [employer]. Thrive Questionnaire Date Thrive assessed: 03/20/25 I am a: Patient What is your living situation today?: I have a steady place to live Within the past 12 months, did the food you bought not last and you didn't have the money to get more?: Never true Within the past 12 months, did you worry whether your food would run out before you got money to buy more?: Never true Do you have trouble paying for medicines?: No Do you have trouble getting transportation to medical appointments?: No Do you have trouble paying your heating and electricity bill?: No Do you have trouble taking care of your child, family member or friend?: No Do you have trouble with day-to-day activities such as bathing, preparing meals, shopping, managing finances, etc.?: No Are you currently unemployed and looking for a job?: No Are you interested in more education?: No THRIVE Score: 0 OSVALDO-7 AMB Questionnaire OSVALDO-7 Date OSVALDO - 7 assessed: 03/20/25 Feeling nervous, anxious, or on edge: 0 = Not at all Not being able to stop or control worryin = Not at all Worrying too much about different things: 0 = Not at all Trouble relaxin = Not at all Being so restless that it is hard to sit still: 0 = Not at all Becoming easily annoyed or irritable: 0 = Not at all Feeling afraid as if something awful might happen: 0 = Not at all Total OSVALDO-7 score (0-4 normal; 5-9 mild; 10-14 moderate; 15-21 severe): 0 Source: Developed by Drs. Jesus Singleton, Izzy Ng, Rashard Alvarez and colleagues, with an educational sydnee from [employer]. OSVALDO-7 Assessment Billing OSVALDO-7 Assessment Tool: OSVALDO-7 Assessment 44114 Physical exam (Primary Care) Vital Signs: Last Vital Signs Temp 97.4 F 03/20/25 11:37 Pulse 90 03/20/25 11:37 Resp 16 03/20/25 11:37 BP 108/70 03/20/25 11:37 Pulse Ox 99 03/20/25 11:37 Oxygen Delivery Method Room Air 03/20/25 11:37 Tobacco/Smoking Status: Tobacco use Status Patient Tobacco Use Status Former Tobacco user 03/20/25 11:38 Tobacco use type Cigarette 03/20/25 11:38 PHQ-9: PHQ-9 Score PHQ-9: Total score 0 03/20/25 11:47 Depression Screening Interpretation: Negative Thrive Assessment: Date of Thrive Assessment Date Thrive assessed 03/20/25 03/20/25 11:40 Coding Level of Care Code New Pt Level 4 (38368) Complex EM visit Add On G2211 Diagnoses Centrilobular emphysema J43.2 COPD type: emphysema Emphysema type: centrilobular 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 Continue following with pulm. Continue on maintenance inhalers, albuterol prn. (2) Mycobacterium avium-intracellulare infection: Code(s): A31.0 - Pulmonary mycobacterial infection Category: Medical Plan: Continue following with pulm. Unable to tolerate treatment (3) Exercise hypoxemia: Code(s): R09.02 - Hypoxemia Category: Medical Plan: Monitor O2 levels. Supplemental O2 prn (4) Olecranon bursitis of right elbow: Code(s): M70.21 - Olecranon bursitis, right elbow Category: Medical Plan: No evidence of infection. Referred to ortho for aspiration (5) HLD (hyperlipidemia): Code(s): E78.5 - Hyperlipidemia, unspecified Category: Medical Plan: Lipid panel ordered Plan Follow up in 4 months, labs to be completed following visit Orders: Orders Complete Blood Count Auto Diff 03/20/25 E78.5 - Hyperlipidemia, unspecified, J43.2 - Centrilobular emphysema Basic Metabolic Panel 03/20/25 E78.5 - Hyperlipidemia, unspecified, J43.2 - Ce ntrilobular emphysema Lipid Panel 03/20/25 E78.5 - Hyperlipidemia, unspecified, J43.2 - Centrilobular emphysema Liver Panel 03/20/25 E78.5 - Hyperlipidemia, unspecified, J43.2 - Centrilobular emphysema
[2025-03-20 11:37] VITALS: BP 108/70; PULSE 90; RESP 16; TEMP 36.3; O2SAT 99
--- OUTSIDE RECORDS SUMMARY | 2025-03-20 12:27 | XMS_ITS | Clinical Summary ---
Author Organization [facility] Address [address] [place] [address] Phone Care Team Providers Care Club Concierge Name Role Phone Gabe Burrell MD Primary Care Provider [phone] Allergies Active Allergy Reactions Criticality Noted Date [...] ELLIPTA) 200-62.5-25 mcg inhaler Inhale by mouth. Active fluticasone-umecli dinium-vilanterol (Trelegy Ellipta) 200-62.5-25 mcg inhaler [...] WHEEZING FOR 90 DAYS 04/17/20 24 Active Active Problems Problem Noted Date Diagnosed Date [...] general and how their size, shape, and exchange engineer time affect her level of suspicion for [...] Encounters Date Type Department Care Team Description 02/23/2025 Telephone Infectious Disease - [address] [place] [address] Ludmila Blount RN 02/21/2025 2:00 PM EDT Office Visit Infectious Disease - [place] [address] [facility] [address] [place] [phone] Winsome Clemons MD MAI (mycobacterium avium-intracellulare ) ([facility] V24, [facility] V28) (Primary Dx) 01/30/2025 3:30 PM EDT Office Visit Pulmonology - [place] [address] [facility] [address] [place] [phone] Richa Mcbride MD Lung nodule (Primary Dx) 01/24/2025 Telephone Thoracic Surgery - [place] [address] [facility] [address] [place] [phone] Lilliam Deutsch, MURRAY 01/22/2025 3:05 PM EDT - 01/22/2025 11:59 PM EDT Hospital Encounter [facility] CT Scan [address] [place] [phone] Lung nodule Discharge Disposition: Home or Self Care from Last 3 Months Immunizations Name Administration [...] COLONOSCOPY OTHER SURGICAL HISTORY 03/17/2023 Left PROCEDURE: IA THORACOSCOPY W/DX WEDGE RESEXN ANATO LUNG RESEXN; COMMENT: robotic LLL wedge resection (Dr. Edmond, [facility]) OTHER SURGICAL HISTORY 03/31/2023 Left PROCEDURE: IA BRNCHSC OCCLUSION&INSERT BRONCH VALVE INIT LOBE; COMMENT: medial segment LLL OTHER SURGICAL HISTORY 04/01/2023 Left PROCEDURE: IA THORACOSCOPY W/PLEURODESIS; COMMENT: VATS L mechanical and talc pleurodesis Medical History Medical History Date Comments Anxiety disorder DX:Anxiety diso rder COPD (chronic obstructive pu lmonary disease) ([facility] V24, [facility] V28) DX:COPD (chronic o bstructive pulmonary disease) ([facility]) GERD (gastroesophageal reflux disease) DX:GERD (gastroesophageal reflux [...] Sign Reading Time Taken Comments Blood Pressure 111/55 02/21/2025 2:06 PM EDT Pulse 82 02/21/2025 2:06 PM EDT Temperature 36.2 C (97.2 F) 02/21/2025 2:06 PM EDT Respiratory Rate 16 08/08/2024 10:30 AM EST Oxygen Saturation 92% 02/21/2025 2:06 PM EDT Inhaled Oxygen Concentration - - Weight 73.9 kg (163 lb) 02/21/2025 2:06 PM EDT Height 175.3 cm (5' 9 ) 01/30/2025 3:25 PM EDT Body Mass Index 24.07 01/30/2025 3:25 PM EDT Plan of Treatment Health Maintenance Due Date Last Done Comments DTaP,Tdap,and Td Vaccines (1 - Tdap) 12/29/1954 Pneumococcal Vaccine: 50+ Years (1 of 2 - PCV) 12/29/1954 Zoster Vaccines (1 of 2) 1986 RSV Immunization Adult Patients (1 - 1-dose 75+ series) 12/29/2011 COVID-19 Vaccine (3 - Moderna risk series) 01/31/2021 01/03/2021, 12/05/2020 Cholesterol Screening (Lipid Panel) 10/08/2023 Depression Screening 10/08/2023 Falls Risk Assessment 10/08/2023 Medicare Annual Wellness Visit 10/08/2023 Social Influencers of Health Screening 10/08/2023 Influenza Vaccine (#1) 2025 , 06/25/2023, 06/20/2022, Additional history exists HIB Vaccines Aged [...] age to complete this topic Meningococcal B Vaccine Aged Out No l onger eligible based on patient's age to complete this topic RSV Immunization Patients Under 20 months Aged Out No longer eligible based on patient's age to complete this topic Varicella Vaccines Aged Out No longer eligible based on patient's age to complete this topic Procedures Procedure Name Priority Date/Time Associated Diagnosis Comments CT CHEST WO CONTRAST Routine 01/22/2025 3:20 PM EDT Lung nodule from Last 3 Months Results * CT Chest wo Contrast (01/22/2025 3:20 PM EDT) Anatomical Region Laterality Modality Body Computed Tomogra phy 01/22/2025 3:33 PM EDT Impressions 01/22/2025 4:33 PM EDT Stable severe emphysema. Interval decrease in size of an irregular right upper lobe nodule. No new suspicious nodule. -------- FINAL REPORT -------- Dictated By: Hunter Flores Dictated Date: 01/22/2025 15:33 ET Assigned Physician: Hunter Flores Reviewed and Electronically Signed By: Hunter Flores Signed Date: 01/22/2025 16:33 ET Workstation ID: [id number] Transcribed By: Self Edit Transcribed Date: 01/22/2025 15:33 ET Narrative 01/22/2025 4:33 PM EDT PROCEDURE: CT of the chest without intravenous contrast. TECHNIQUE: CT of the chest without intravenous contrast administration. Coronal and sagittal reformats and MIP reconstructions were created. Dose length product: 289 mGy-cm. HISTORY: Abnormal xray - lung nodule, >= 1 cm COMPARISON: 07/14/2024. FINDINGS: LUNGS/PLEURA: Normal caliber airways. Aspirated debris in the distal left trachea and left mainstem bronchus. No suspicious endobronchial nodule. Severe emphysema with bullous changes and stable irregular and in some areas nodular scarring at the apices. An elongated loculated nodule in the right upper lobe (series 3, image 73) measures 12 x 5 mm, previously 12 x 7 mm. Stable scarring and small calcified calcified nodules at the right base. Postsurgical changes of wedge resections at the left apex and in the posterior lingula. No pleural effusion or pneumothorax. Elevated left hemidiaphragm. MEDIASTINUM/ELIEZER: No mediastinal mass or lymphadenopathy. No appreciable hilar lymphadenopathy on limited noncontrast evaluation. VASCULATURE: Normal caliber pulmonary arteries. Mild atherosclerotic calcifications of the aorta and great vessels. CARDIAC: Normal heart size. Moderate aortic annular and coronary artery calcification. CHEST WALL: No axillary or supraclavicular lymphadenopathy. Mild bilateral gynecomastia. LIMITED ABDOMEN: Large rim calcified gallstones. Atherosclerotic calcifications. BONES: Degenerative changes of the spine with several stable Schmorl's nodes. Procedure Note Hunter Flores MD - 01/22/2025 PROCEDURE: CT of the chest without intravenous contrast. TECHNIQUE: CT of the chest without intravenous contrast administration.Coronal and sagittal reformats and MIP reconstructions were created. Dose length product: 289 mGy-cm. HISTORY: Abnormal xray - lung nodule, >= 1 cm COMPARISON: 07/14/2024. FINDINGS: LUNGS/PLEURA: Normal caliber airways. Aspirated debris in the distal lefttrachea and left mainstem bronchus. No suspicious endobronchial nodule.Severe emphysema with bullous changes and stable irregular and in someareas nodular scarring at the apices. An elongated loculated nodule inthe right upper lobe (series 3, image 73) measures 12 x 5 mm, [id number] x 7 mm. Stable scarring and small calcified calcified nodules at theright base. Postsurgical changes of wedge resections at the left apex andin the posterior lingula. No pleural effusion or pneumothorax. Elevatedleft hemidiaphragm. MEDIASTINUM/ELIEZER: No mediastinal mass or lymphadenopathy. No appreciablehilar lymphadenopathy on limited noncontrast evaluation. VASCULATURE: Normal caliber pulmonary arteries. Mild atheroscleroticcalcifications of the aorta and great vessels. CARDIAC: Normal heart size. Moderate aortic annular and coronary arterycalcification. CHEST WALL: No axillary or supraclavicular lymphadenopathy. Mildbilateral gynecomastia. LIMITED ABDOMEN: Large rim calcified gallstones. Atheroscleroticcalcifications. BONES: Degenerative changes of the spine with several stable Schmorl'snodes. IMPRESSION: Stable severe emphysema. Interval decrease in size of an irregular right upper lobe nodule. No newsuspicious nodule. -------- FINAL REPORT -------- Dictated By: Hunter Flores Dictated Date: 01/22/2025 15:33 ET Assigned Physician: Hunter Flores Reviewed and Electronically Signed By: Hunter Flores Signed Date: 01/22/2025 16:33 ET Workstation ID: [id number] Transcribed By: Self Edit Transcribed Date: 01/22/2025 15:33 ET Richa Mcbride MD IMG CT PROCEDURES Final Re sult from Last 3 Months Insurance MEDICARE [facility] Care Teams Club Concierge Relationship Specialty Start Date End Date Gabe Burrell MD [address] [place] [address] Dr [place] PCP - General 10/05/22
--- OUTSIDE RECORDS SUMMARY | 2025-03-20 12:27 | XMS_ITS ---
Author Name [facility] Organization Unknown History of Medication Use Medication Directions Dispensed Refills Start Date End Date Stat us rifabutin (Mycobutin) 150 mg capsule Take 2 capsules (300 mg total) by mouth 3 (three) times a week. 08/23/2024 active omeprazole (PriLOSEC) [address] capsule Take 1 capsule (40 mg total) by mouth 1 (one) time each day. 03/12/2024 active sucralfate (CARAFATE) 1 gram tablet Take 1 tablet (1 g total) by mouth. 03/12/2024 active fluticasone-umeclidin ium-vilanterol (TRELEGY ELLIPTA) 200-62.5-25 mcg inhaler Inhale by mouth. active IPRATROPIUM BROMIDE INHL Sig - Route: Inhale 2 Puffs into the lungs 4 times daily. - Inhalation active ipratropium HFA (ATROVENT HFA) 17 mcg/actuation inhaler Inhale 2 puffs by mouth. active PARoxetine CR (PAXIL-CR) 25 mg 24 hr tablet Take 1 tablet (25 mg total) by mouth 1 (one) time each day in the morning. active Allergies Allergen Reaction Severity Comment Documented Date Source Statu s PREDNISONE GOUT 10/15/2022 [facility] active Problems Problem Status Onset Date Problem Type Date of Resoluti on Source Postoperative air leak active 2023-04-12 ProblemAct [facility] Pulmonary nodule active 2023-04-12 ProblemAct C T_[facility] Immunizations Vaccine Date Source Lot Number Status Influenza trivalent, 0.5mL ( Fluzone High-dose) 65yo and older 06/20/2022 [facility] comple jai Influenza trivalent, 0.5mL ( Fluad) 65yo and older 06/30/2021 [facility] [id number] completed COVID-19 (Moderna) 6mo to less than 12yr 01/03/2021 [facility]_Joshua DANIE completed Influenza trivalent, 0.5mL ( Fluad) 65yo and older 06/17/2020 [id number] completed Influenza trivalent, 0.5mL ( Fluad) 65yo and older 06/30/2018 [facility] [id number] completed Influenza trivalent, 0.5mL ( Fluad) 65yo and older 07/07/2016 [id number] completed Influenza trivalent, 0.5mL ( Fluzone High-dose) 65yo and older 06/24/2011 [facility]
== END 2025-03-20 12:03 | disposition home or self-care (01) ==
LOC: HO.HMCHD 11:24
PROVIDERS: PCP Physician Assistant; Visit Provider Physician Assistant
DX: J43.2 Centrilobular emphysema (principal); A31.0 Pulmonary mycobacterial infection; R09.02 Hypoxemia; M70.21 Olecranon bursitis, right elbow; E78.5 Hyperlipidemia, unspecified

== ENCOUNTER → 2025-03-20 11:19 | Outpatient (BNVA) | payer MEDICARE, SELFPAY | PROVIDERS: PCP Physician Assistant; Visit Provider Physician Assistant | DX: J43.2 Centrilobular emphysema (principal); A31.0 Pulmonary mycobacterial infection; R09.02 Hypoxemia; M70.21 Olecranon bursitis, right elbow; E78.5 Hyperlipidemia, unspecified; Z13.30 Encounter for screening examination for mental health and behavioral disorders, unspecified; Z13.31 Encounter for screening for depression | CPT/HCPCS: 96127; 99202 ==

== ENCOUNTER 2025-03-20 12:07 | Outpatient (REF) | payer MEDICARE, SELFPAY ==
[2025-03-20 13:40] LABS: MANUAL DIFF FLAG NO
[2025-03-20 13:55] LABS: Hematocrit 43.3 % (42.0-52.0); Hemoglobin 14.6 g/dl (14.0-18.0); Imm Gran Abs Auto 0.12 X10*3/uL (0.00-0.03); Imm Gran Pct Auto 1.2 % (0.0-0.4); Lymphocytes Absolute Auto 1.5 X10*3/uL (1.2-4.9); Mean Corpuscular HGB Conc 33.7 g/dl (31.0-36.0); Mean Corpuscular Hemoglobin 30.8 pg (27.0-33.0); Mean Corpuscular Volume 91.4 fL (80.0-98.0); NRBC Abs Auto 0.000 X10*3/uL (0.0-0.012); NRBC Pct Auto 0.0 /100WBC (0.0-0.2); Platelet Count 313 X10*3/uL (160-400); Red Blood Count 4.74 X10*6/uL (4.60-5.80); White Blood Count 10.4 X10*3/uL (4.8-10.8)
[2025-03-20 14:25] LABS: Alanine Aminotransferase 12 U/L (0-40); Albumin Level 4.2 g/dL (3.5-5.0); Alkaline Phosphatase 66 U/L (39-117); Anion Gap 13 (12-20); Aspartate Amino Transferase 19 U/L (5-37); Blood Urea Nitrogen 14 mg/dL (9-16); Calcium 9.6 mg/dL (8.4-10.2); Carbon Dioxide 27 mmol/L (22-29); Chloride 105 mmol/L (96-108); Cholesterol 195 mg/dL (<200); Estimated Glomerular Filt Rate > 60; HDL Cholesterol 42 mg/dL (>40); Potassium 4.6 mmol/L (3.3-5.1); Sodium 140 mmol/L (135-145); Total Protein 7.2 g/dL (6.5-8.0); Triglycerides 125 mg/dL (<150)
== END 2025-03-20 12:08 | disposition home or self-care (01) ==
LOC: HO.10HDL 12:07
PROVIDERS: Visit Provider Physician Assistant
DX: J43.2 Centrilobular emphysema (principal); E78.5 Hyperlipidemia, unspecified
CPT/HCPCS: 36415; 80048; 80061; 80076; 85025

== ENCOUNTER 2025-05-11 06:43 | Inpatient (IN) | payer MEDICARE, SELFPAY ==
[2025-05-11] VITALS (13 sets, daily range): BP systolic 102–147; BP diastolic 44–94; PULSE 82–111; RESP 16–32; TEMP 36.4–37.1; O2SAT 88–100; BMI 25.1; BMI 25.2
--- NOTE | ~2025-05-11 | XR_ITS ---
EXAMINATION: XR CHEST 1 VIEW HISTORY: SOB COMPARISON: Comparison is made with the prior examination dated 05/03/2024. FINDINGS: A single AP portable view of the chest performed at 7:29 AM is submitted. The lungs remain hyperinflated, consistent with COPD. Extensive scarring is again noted bilaterally. There are patchy opacities at the lung bases which may represent atelectasis or pneumonia. There are sutures in the left upper lung. There is no pleural effusion, pneumothorax, or pulmonary vascular congestion. The heart is normal in size. The bones are intact. XR/XR chest 1V IMPRESSION: COPD. Patchy opacities at the lung bases which may represent atelectasis or pneumonia. Electronically signed by: Jesus Gallegos MD 05/11/2025 07:56 AM EDT
--- NOTE | ~2025-05-11 | CT_ITS ---
EXAMINATION: CT ANGIOGRAM CHEST CLINICAL INFORMATION: Dyspnea COMPARISON: November 27, 2023 TECHNIQUE: Multiple axial images were obtained through the chest after the administration of 75 mL of Omnipaque 350 intravenous contrast. Extensive vascular post-processing including two-dimensional and three-dimensional reformatted images were created and reviewed on an independent workstation. This CT examination was performed using dose optimization techniques as appropriate, variously including the following: *Automated exposure control *Adjustment of mA and/or kV according to patient size (this includes techniques or standardized protocols for targeted exams where dose is matched to indication/reason for exam; i.e. extremities or head) *Use of iterative reconstruction technique DLP: 266 mGY*cm FINDINGS: QUALITY OF STUDY/CONTRAST BOLUS: Adequate PULMONARY ARTERIES: No filling defects are identified. THORACIC AORTA: Multifocal atherosclerotic calcifications are present. There is no aneurysm. LUNGS AND PLEURA: Again noted are changes of bullous emphysema with centrilobular and paraseptal changes most advanced in the lung apexes. There are new patchy airspace opacities in the right lower lobe, mostly in the posterior and lateral segment. There is small focal opacity in the lingula that is new since the prior. There is increased airspace opacities in the left lower lobe when compared to the prior examination. There is peribronchial thickening and mild bronchiectasis. There are increasing linear nodular opacities in upper lung zones. There is chronic pleural thickening and calcification in the posterior medial left upper lung zone. MEDIASTINUM: Lymph nodes measured on axial CT #5 Image 12: Right upper paratracheal lymph node is 14 mm short axis, was 13 mm. Image 19: Right lower paratracheal lymph node is 12 mm, unchanged image 31: Paraesophageal and oblique coronal on the right measures 14 mm short axis, previously 12 mm. Image 29: Left hilar interlobar node measures 10 mm short axis, previously 9 mm. Image 35: Right interlobar hilar node measures 11 mm, previously 9 mm. CORONARY ARTERY CALCIFICATION: Present CHEST WALL/AXILLA: No axillary or internal mammary lymphadenopathy. UPPER ABDOMEN: Unremarkable BONES: Degenerative changes are present in the lower thoracic spine. CT/CT angio chest PE protocol IMPRESSION: No evidence of pulmonary embolus. Multifocal pneumonia most advanced in the left lower lobe and right lower lobe. Mediastinal and bilateral hilar adenopathy that is stable to mildly increased. There is severe changes of bullous emphysema with linear and nodular opacities in the upper lungs. Neoplasm is not ruled out. Consider PET/CT. Fleischner guidelines were followed. Electronically signed by: Vishnu Christian MD 05/11/2025 11:16 AM EDT
--- NOTE | 2025-05-11 06:46 | ECG_ITS ---
Test Reason : SOB Blood Pressure : */* mmHG Vent. Rate : 108 BPM Atrial Rate : 108 BPM P-R Int : 176 ms QRS Dur : 84 ms QT Int : 338 ms P-R-T Axes : 79 61 62 degrees QTcB Int : 452 ms Artifact in tracing Probably sinus rhythm Premature atrial complexes Premature ventricular complexes Abnormal ECG When compared with ECG of 02-May-2024 19:24, Premature ventricular complexes are now Present Referred By: Generic ED Physician Electronically Signed By: FREDDIE COLLAZO
--- OUTSIDE RECORDS SUMMARY | 2025-05-11 07:17 | XMS_ITS | Clinical Summary ---
Author Organization [facility] Address [address] [place] [address] Phone Care Team Providers Care Manager Test Name Role Phone Gabe Burrell MD Primary Care Provider Allergies Active Allergy Reactions Criticality Noted Date [...] general and how their size, shape, and change analyst time affect her level of suspicion for [...] Team Description 02/23/2025 Telephone Infectious Disease - [place] [address] [facility] [address] [place] [address] Ludmila Blount RN 02/21/2025 2:00 PM EDT Office Visit Infectious Disease - [place] [address] [facility] [address] [place] [address] Winsome Clemons MD MAI (mycobacterium avium-intracellulare) ([facility] V24, [facility] V28) (Primary Dx) from Last 3 Months Immunizations Name Administration [...] COLONOSCOPY OTHER SURGICAL HISTORY 03/17/2023 Left PROCEDURE: [place] THORACOSCOPY W/DX WEDGE RESEXN ANATO LUNG RESEXN; COMMENT: robotic LLL wedge resection (Dr. Edmond, [facility]) OTHER SURGICAL HISTORY 03/31/2023 Left PROCEDURE: [place] BRNCHSC OCCLUSION&INSERT BRONCH VALVE INIT LOBE; COMMENT: medial segment LLL OTHER SURGICAL HISTORY 04/01/2023 Left PROCEDURE: [place] THORACOSCOPY W/PLEURODESIS; COMMENT: VATS L mechanical and talc pleurodesis Medical History Medical History Date Comments Anxiety disorder DX:Anxiety diso rder COPD (chronic obstructive pu lmonary disease) (CMS/HCC V24, CMS/HCC V28) DX:COPD (chronic o bstructive pulmonary disease) ([facility]) GERD (gastroesophageal reflux disease) DX:GERD (gastroesophageal [...] 01/03/2021, 12/05/2020 Cholesterol Screening (Lipid Panel) 10/08/2023 Falls Risk Assessment 10/08/2023 Medicare Annual Wellness Visit 10/08/2023 Social Influencers of Health Screening 10/08/2023 Depression Screening 09/13/2024 Influenza Vaccine (#1) 2025 , 06/25/2023, 06/20/2022, [...] age to complete this topic Insurance MEDICARE [facility] Care Teams Manager Test Relationship Specialty Start Date End Date Gabe Burrell MD [address] [place] [address] Dr [place] PCP - General 10/05/22
--- OUTSIDE RECORDS SUMMARY | 2025-05-11 07:17 | XMS_ITS | Clinical Summary ---
Author Organization [facility] Address [address] [facility] [address] [place] [address] Phone Care Team Providers Care Hand Cooper Helper Name Role Phone Unavailable Primary Care Provider Unavailabl e Social History Tobacco Use Types Packs/Day Years Used Date Smoking Tobacco: Never Assessed Education Answer Date Recorded Are you interested in more education? Not on juan francisco e 03/19/2023 Are you concerned about learning? Not on file 03/19/2023 No 03/19/2023 No 03/19/2023 Digital Access Answer Date Recorded No 03/19/2023 No 03/19/2023 Reliable internet access at home? Not on file 03/19/2023 Device with a working camera? Not on file Sex and Gender Information Value Date Recorded Sex Assigned at Not on file Legal Sex Male 10:03 AM EDT Gender Identity Not on file Sexual Orientation Not on file Plan of Treatment Not on file Medical Devices Not on file Insurance [place] [id number] [place] [id number] MEDICARE PART [place] & [place] [id number] MEDICARE PART A & B MEDICARE PART A & B MEDICARE PART A & B MEDICARE PART A & B Additional Source Comments The information contained in this document represents components of the legal health record. It is not the complete legal health record.[facility]
[2025-05-11 07:31] LABS: Hematocrit 38.3 % (42.0-52.0); Hemoglobin 13.7 g/dl (14.0-18.0); Imm Gran Abs Auto 0.11 X10*3/uL (0.00-0.03); Imm Gran Pct Auto 0.6 % (0.0-0.4); Lymphocytes Absolute Auto 0.8 X10*3/uL (1.2-4.9); MANUAL DIFF FLAG SCAN; Mean Corpuscular HGB Conc 35.8 g/dl (31.0-36.0); Mean Corpuscular Hemoglobin 31.5 pg (27.0-33.0); Mean Corpuscular Volume 88.0 fL (80.0-98.0); NRBC Abs Auto 0.000 X10*3/uL (0.0-0.012); NRBC Pct Auto 0.0 /100WBC (0.0-0.2); Platelet Count 196 X10*3/uL (160-400); Red Blood Count 4.35 X10*6/uL (4.60-5.80); SCAN SMEAR FLAG 1; White Blood Count 18.0 X10*3/uL (4.8-10.8)
[2025-05-11 07:44] LABS: Alanine Aminotransferase 16 U/L (0-40); Albumin Level 3.7 g/dL (3.5-5.0); Alkaline Phosphatase 67 U/L (39-117); Anion Gap 17 (12-20); Aspartate Amino Transferase 28 U/L (5-37); Blood Urea Nitrogen 13 mg/dL (9-16); Calcium 8.9 mg/dL (8.4-10.2); Carbon Dioxide 24 mmol/L (22-29); Chloride 101 mmol/L (96-108); Creatinine Clr Calc Pharmacy 56.1; Estimated Glomerular Filt Rate > 60; Magnesium 2.2 mg/dL (1.6-2.6); Potassium 3.8 mmol/L (3.3-5.1); Sodium 138 mmol/L (135-145); Total Protein 6.7 g/dL (6.5-8.0)
[2025-05-11 07:51] LABS: Troponin-I High Sensitivity 4.8 ng/L (<3.5-35.0)
[2025-05-11 08:12] LABS: Resp Syncy Virus RNA Qual PCR NEGATIVE (Negative); SARS COV2 PCR INHOUSE NEGATIVE (Negative)
--- NOTE | 2025-05-11 08:34 | ED_ITS ---
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 He has had recent visits for dyspnea last 1 was on May 03. He is oxygen dependent to 3 L as needed states he has been needing it at all times. Related Data Home Medications ?Medication ?Instructions ?Recorded ?Confirmed Oxygen Home Use 01/25/23 02/07/25 albuterol sulfate 90 mcg/actuation 2 puff inhalation Q 6H PRN wheezing 05/04/24 02/07/25 aerosol inhaler vitamins A,C,M-tqvf-xguaxs 4,296 1 cap PO BID 03/20/25 mcg-226 mg-90 mg capsule (PreserVision AREDS) Previous Rx's ?Medication ?Instructions ?Recorded albuterol sulfate 90 mcg/actuation 1 inh inhalation Q6 H PRN shortness 01/20/24 breath activated powder of breath or wheezing #1 ea inhaler,sensor paroxetine HCl 20 mg tablet 20 mg PO DAILY #90 tabs fluticasone fur. 200 mcg-umeclid 1 ea inhalation DAILY #60 ea 04/23/25 62.5 mcg-vilant 25 mcg inhalat.powder (Trelegy Ellipta) Allergies Allergy/AdvReac Type Severity Reaction Status Date / Time No Known Allergies Allergy Mild NOT Verified 05/11/25 06:56 APPLICABLE Review of Systems 2 Constitutional: Constitutional: Reports as per HPI [facility] Past Medical History Medical History (Updated 05/11/25 @ 08:51 by Dewayne Khan DO) Exercise hypoxemia Olecranon bursitis of right elbow Mycobacterium avium-intracellulare infection Pulmonary nodule Tobacco dependence Tubular adenoma of colon (~1997) COPD (chronic obstructive pulmonary disease) Pilonidal cyst Shortness of breath Abdominal pain HLD (hyperlipidemia) GERD (gastroesophageal reflux disease) Anxiety Surgical History History of bronchoscopy History of cataract surgery History of colonoscopy History of appendectomy Family History Family History Sister Cancer Sister Cancer Social History Social History 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 () Alcohol intake: former Patient Tobacco Use Status: Former Tobacco user Tobacco use type: Cigarette Cigarette Packs Per Day: 2.0 Cigarettes Per Day: 40.0 Years Smoked: 40 Second Hand Smoke Exposure: No Advance Directives: No Advance Directives Information Provided: Yes Do you have a plan to hurt others: No Plan Current occupational status: retired Current occupation: Right Handed Physical Exam 2 Vital Signs: Vital Signs: Last Vital Signs Temp 98.2 F 05/11/25 08:00 Pulse 105 H 05/11/25 08:20 Resp 19 05/11/25 08:20 BP 106/54 L 05/11/25 08:20 Pulse Ox 92 05/11/25 08:20 O2 Del Method Nasal Cannula 05/11/25 08:20 O2 Flow Rate 2.5 05/11/25 08:20 Oxygen Flow Rate 4 05/11/25 06:53 BMI result Body Mass Index 25.1 Const: Other: * Gen: ?Overall well-appearing patient * HEENT: PERRLA, EOMI, MMM, * Neck: Supple, no LAD * CV: Tachycardic and regular S1-S2 * Resp: ?Tachypnea, rhonchorous throughout * Abd: ?Bowel sounds are present, no tenderness no rebound no rigidity * MSK: FROM, strength 5/5 all extremities * Skin: Warm, dry, intact, * Neuro: ?Alert and oriented x3, moving upper and lower extremities symmetrically, no obvious facial asymmetry noted Medical Decision Making Medical Decision Making MDM Narrative: Sepsis activated 08:40, patient has tachypnea, tachycardia, leukocytosis which is new and he is not on steroids, chest x-ray suspicious for pneumonia but he also has chronic lung changes so we will obtain CT angio as well, do not feel this is likely consistent with PE, frequent ER visits and recently on azithromycin as well as should be maintained on rifabuin, though he states he is not taking antibiotics perhaps he does not consider the latter medication antibiotic, with that said we will obtain blood cultures, broad-spectrum antibiotics, we will obtain lactate and she had fluids anticipate admission. Differential Diagnosis Differential Diagnoses: The differential diagnosis associated with the presentation includes Admission/Observation Consideration of admission/observation: Escalation of care including admission/observation considered 2022 Emergency Medicine Coding Guide from RxResults on 05/11/2025 All calculations should be rechecked by clinician prior to use RESULT SUMMARY: 5 Estimated Level of Service Problems: High (5) Risk: High (5) Data: Extensive (5) NARRATIVE MDM: This patient's problem complexity is High as patient: with chronic illness(es) with severe exacerbation/progression/side effects. This patient's risk is High due to: overall presentation requiring evaluation for a potentially High-risk process. This patient's data complexity is Extensive due to: -multiple tests ordered/reviewed -external notes reviewed -independent interpretation of imaging or EKG -discussion of management/testing with external professional INPUTS: Number and Complexity ?> 1 = 5: chronic illness w/severe exacerbation (a) Risk level ?> 4 = High Tests ordered ?> 3 = >= Tests results reviewed (excluding labs) ?> 2 = 2 Prior external notes reviewed ?> 1 = 1 Assessment requiring and independent historian ?> 0 = No Independent interpretation of tests ?> 1 = Yes Discussed management/test interpretation w/external professional ?> 1 = Yes Consult Healthcare Provider Management of the patient was discussed with: Hospitalist Lab Data MDM Lab Attestation statement: I reviewed the patient's lab results. 05/11/25 07:23 05/11/25 07:23 Labs: Lab Results 05/11/25 Range/Units 07:23 WBC 18.0 H (4.8-10.8) X10*3/uL RBC 4.35 L (4.60-5.80) X10*6/uL Hgb 13.7 L (14.0-18.0) g/dl Hct 38.3 L (42.0-52.0) % MCV 88.0 (80.0-98.0) fL MCH 31.5 (27.0-33.0) pg MCHC 35.8 (31.0-36.0) g/dl RDW 13.7 (11.0-16.0) % Plt Count 196 D (160-400) X10*3/uL MPV 8.1 L (9.4-12.4) fL Immature Gran % (Auto) 0.6 H (0.0-0.4) % Neut % (Auto) 81.2 H (45-73) % Lymph % (Auto) 4.3 L (20-40) % Grady % (Auto) 13.6 H (2-11) % Eos % (Auto) 0.1 (0-4) % Baso % (Auto) 0.2 (0-2) % Lymph # (Auto) 0.8 L (1.2-4.9) X10*3/uL Grady # (Auto) 2.5 H (0.1-1.2) X10*3/uL Eos # (Auto) 0.0 (0.0-0.4) X10*3/uL Baso # (Auto) 0.0 (0.0-0.2) X10*3/uL Abs Immat Gran (auto) 0.11 H (0.00-0.03) X10*3/uL Absolute Neuts (auto) 14.7 H (2.0-8.3) x10*3/uL Absolute Nucleated RBC 0.000 (0.0-0.012) X10*3/uL Nucleated RBC % (auto) 0.0 (0.0-0.2) /100WBC Smear Tech's Comments VERIFIED Sodium 138 (135-145) mmol/L Potassium 3.8 (3.3-5.1) mmol/L Chloride 101 (96-108) mmol/L Carbon Dioxide 24 (22-29) mmol/L Anion Gap 17 (12-20) BUN 13 (9-16) mg/dL Creatinine 0.91 (0.5-1.4) mg/dL Estim Creat Clear Calc 56.1 Estimated GFR > 60 Random Glucose 123 H (60-115) mg/dL Calcium 8.9 D (8.4-10.2) mg/dL Magnesium 2.2 (1.6-2.6) mg/dL Total Bilirubin 0.8 (0.0-1.0) mg/dL AST 28 (5-37) U/L ALT 16 (0-40) U/L Alkaline Phosphatase 67 (39-117) U/L Troponin I High Sens 4.8 D (<3.5-35.0) ng/L Total Protein 6.7 (6.5-8.0) g/dL Albumin 3.7 (3.5-5.0) g/dL Influenza Type A (PCR) NEGATIVE (Negative) Influenza Type B (PCR) NEGATIVE (Negative) RSV RNA Qual (PCR) NEGATIVE (Negative) SARS-CoV-2 RNA (RT-PCR) NEGATIVE (Negative) Independent Interpretation I performed an independent interpretation of an: EKG (108 sinus tachycardia, frequent PVCs, no ST-T changes, no underlying dysrhythmia) and Plain X-Ray (Chronic lung changes, appears to have new consolidation right lower lobe) Radiology Impression Discussion of test interpretation with radiology: I have reviewed the radiologist's reading. (IMPRESSION: COPD. Patchy opacities at the lung bases which may represent atelectasis or pneumonia.) Critical Care Time Critical Care Time Critical Care Time: Yes Total Critical Care Time: 60 Attestation: Time is exclusive of separately billable procedures. Time includes: direct patient care, patient reassessment, coordination of patient care, interpretation of data (laboratory data, pulse oximetry, arterial blood gases and chest xrays), review of patient's medical records, medical consultation and documentation of patient care. Procedures excluded from critical care time: central intravenous line placement and electrocardiography. Discharge Plan Discharge Clinical Impression: COPD (chronic obstructive pulmonary disease) Qualifiers: COPD type: emphysema Emphysema type: centrilobular Qualified Code(s): J43.2 - Centrilobular emphysema Pneumonia Qualifiers: Pneumonia type: due to Mycoplasma pneumoniae Laterality: right Lung location: l ower lobe of lung Qualified Code(s): J15.7 - Pneumonia due to Mycoplasma pneumoniae Prescriptions: No Action paroxetine HCl 20 mg tablet 20 mg PO DAILY Qty: 90 1RF Trelegy Ellipta 200-62.5-25 mcg blister with device 1 ea INHALATION DAILY Qty: 60 0RF albuterol sulfate 90 mcg/actuation aero powdr breath act w/sensor 1 inh inhalation Q6H PRN (Reason: shortness of breath or wheezing) Qty: 1 0RF albuterol sulfate 90 mcg/actuation HFA aerosol inhaler 2 puff inhalation Q6H PRN (Reason: wheezing) (DME) Oxygen Home Use Kit See Rx Instructions .Route Rx Instructions: As directed PreserVision AREDS 4,296 mcg-226 mg-90 mg capsule 1 cap PO BID Print Language: Gambian
[2025-05-11] MEDS: vancomycin/NS 2,000 MG/500 ML PLAST..BAG 250 MG IV (10:01)
[2025-05-11] MEDS: iohexoL 350 MG/ML 100 ML INFUS..BTL IV (10:45)
--- NOTE | 2025-05-11 10:46 | PHA.MEDREC ---
Addendum entered by Maria Teresa Quesada RPh 05/11/25 10:49: reviewed by [facility]. Original Note: Pharmacy Consult ? Medication Reconciliation Pharmacy has completed the medication reconciliation. Patient was able to confirm all his medications. Patient last had his medications yesterday.
--- NOTE | 2025-05-11 11:23 | P.HPHOSP_ITS ---
History of Present Illness Date of Service: 05/11/25 Attending physician on admission: Ashly Dias Chief Complaint: SOB Pt is an 89-year-old male with a PMH significant for?COPD on 2-3L, CLAUDIA in 01/2023, and depression/anxiety unable to tolerate treatment who presents to the ED with?increased SOB, NAPOLES, and cough x2-3 days. Pt was previously diagnosed with an CLAUDIA in 01/2024 has cultures were positive on bronchial washings from [facility]. Was followed by Dr. Winsome Clemons of [place] infectious disease and initially treated with azithromycin, rifabutin, and ethambutol 3 times a week. However, could not tolerate ethambutol or any of Its alternatives -- minocycline or inhaled amikacyin -- due to significant GI distress and/or hallucinations. All antibiotic treatment was stopped in 10/2024. Overall did well until 3 days ago when he developed progressively worsening significant SOB and NAPOLES. Reports he is completely out of breath taking just 5 steps, and can not go up stairs. No fever. Some nausea and dry heaves. No diarrhea. Denies chest pain/pressure, palpitations. Note, pt follows with Dr. Norris in pulmonology. In the ED pt was tachycardic to 110, tachypneic up to 32, soft BP as low as 102/51. Desatting to the mid 80s on home 3L O2. Labs were significant for leukocytosis of 18.0, otherwise grossly unremarkable and around baseline for pt. No significant electrolyte abnormalities. Stable H&H. Renal function WNL. Hepatic function baseline. Troponin 4.8. Lactic acid WNL. CXR showed COPD with patchy opacities at lung bases which may represent atelectasis or pneumonia. CTA of chest negative for PE, but showed?multifocal pneumonia most advanced in left lower lobe and right lower lobe. Also showed mediastinal bilateral hilar adenopathy stable to mildly increased. Does show severe change to bolus emphysema with linear nodular opacities for neoplasm can not be ruled out. Consider PET/CT. EKG demonstrated sinus rhythm with likely artifact and PVCs. Pt was treated in the ED with IVF, vanc, and Zosyn. Pt is admitted to the hospital for treatment and further evaluation of acute hypoxic respiratory failure in the setting of multifocal pneumonia with sepsis. Review of Systems 2 Review of Systems: Negative except for that which is stated in the HPI. [facility] Medical History Exercise hypoxemia Olecranon bursitis of right elbow Mycobacterium avium-intracellulare infection Pulmonary nodule Tobacco dependence Tubular adenoma of colon (~1997) COPD (chronic obstructive pulmonary disease) Pilonidal cyst Shortness of breath Abdominal pain HLD (hyperlipidemia) GERD (gastroesophageal reflux disease) Anxiety Family History Sister Cancer Sister Cancer Surgical History History of bronchoscopy History of cataract surgery History of colonoscopy History of appendectomy Social History Household Members: None Housing: Apartment 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 () Do you presently have visiting nurse or other home services: No Alcohol intake: former Patient Tobacco Use Status: Former Tobacco user Tobacco use type: Cigarette Cigarette Packs Per Day: 2.0 Cigarettes Per Day: 40.0 Years Smoked: 40 Second Hand Smoke Exposure: No Current occupational status: retired Current occupation: Right Handed Meds Allergies Allergy/AdvReac Type Severity Reaction Status Date / Time No Known Allergies Allergy Mild NOT Verified 05/11/25 06:56 APPLICABLE Home Medications ?Medication ?Instructions ?Recorded ?Confirmed ?Last Taken ?Type Oxygen Home Use 01/25/23 02/07/25 Unknown H istory vitamins A,C,M-blhy-mfoswn 4,296 1 cap PO BID 03/20/25 05/11/25 05/10/25 History mcg-226 mg-90 mg capsule (PreserVision AREDS) fluticasone fur. 200 mcg-umeclid 1 ea inhalation DAILY 05/11/25 05/11/25 05/10/25 History 62.5 mcg-vilant 25 mcg inhalat.powder (Trelegy Ellipta) Physical Exam 2 Vital Signs and Narrative: Vital Signs: Last Vital Signs Temp 98.4 F 05/11/25 10:00 Pulse 106 H 05/11/25 10:00 Resp 25 H 05/11/25 10:12 BP 123/48 L 05/11/25 10:00 Pulse Ox 100 05/11/25 10:00 O2 Del Method Nasal Cannula 05/11/25 10:00 O2 Flow Rate 2 05/11/25 10:00 Oxygen Flow Rate 4 05/11/25 06:53 BMI result Body Mass Index 25.1 General: AOx3, no acute distress Resp: Diminished in mid and lower lobes bilaterally. Some increased work of breathing CVS: S1, S2, tachycardic GI: +BS, NT, no distention Skin: Warm, dry Neuro: Cranial nerves II-XII grossly intact bilaterally. Motor grossly intact bilaterally Extremities: No edema Psych: Appropriate affect Results Labs 05/11/25 07:23 05/11/25 07:23 Labs: Laboratory Results - last 24 hr 05/11/25 05/11/25 07:23 08:45 MCV 88.0 MCH 31.5 MCHC 35.8 RDW 13.7 Plt Count 196 D MPV 8.1 L Immature Gran % (Auto) 0.6 H Neut % (Auto) 81.2 H Lymph % (Auto) 4.3 L Ulster % (Auto) 13.6 H Eos % (Auto) 0.1 Baso % (Auto) 0.2 Lymph # (Auto) 0.8 L Ulster # (Auto) 2.5 H Eos # (Auto) 0.0 Baso # (Auto) 0.0 Abs Immat Gran (auto) 0.11 H Absolute Neuts (auto) 14.7 H Absolute Nucleated RBC 0.000 Nucleated RBC % (auto) 0.0 Smear Tech's Comments VERIFIED Anion Gap 17 Estim Creat Clear Calc 56.1 Estimated GFR > 60 Random Glucose 123 H Lactic Acid 1.6 Calcium 8.9 D Magnesium 2.2 Total Bilirubin 0.8 AST 28 ALT 16 Alkaline Phosphatase 67 Total Protein 6.7 Albumin 3.7 Influenza Type A (PCR) NEGATIVE Influenza Type B (PCR) NEGATIVE RSV RNA Qual (PCR) NEGATIVE SARS-CoV-2 RNA (RT-PCR) NEGATIVE Imaging Radiologist's Impressions: Impressions Chest X-Ray 05/11/25 07:30 IMPRESSION: COPD. Patchy opacities at the lung bases which may represent atelectasis or pneumonia. Electronically signed by: Jesus Gallegos MD 05/11/2025 07:56 AM EDT RP Chest CTA 05/11/25 10:10 IMPRESSION: No evidence of pulmonary embolus. Multifocal pneumonia most advanced in the left lower lobe and right lower lobe. Mediastinal and bilateral hilar adenopathy that is stable to mildly increased. There is severe changes of bullous emphysema with linear and nodular opacities in the upper lungs. Neoplasm is not ruled out. Consider PET/CT. Fleischner guidelines were followed. Electronically signed by: Vishnu Christian MD 05/11/2025 11:16 AM EDT RP Assessment and Plan (1) Acute on chronic hypoxic respiratory failure: Status: Acute (2) Pneumonia: Qualifiers: Laterality: right Lung location: lower lobe of lung Pneumonia type: d ue to Mycoplasma pneumoniae Qualified Code(s): J15.7 - Pneumonia due to Mycoplasma pneumoniae Status: Acute Plan Pt is an 89-year-old male with a PMH significant for?COPD on 2-3L, CLAUDIA in 01/2023, and depression/anxiety unable to tolerate treatment who presents to the ED with?increased SOB, NAPOLES, and cough x2-3 days. Pt is admitted to the hospital for treatment and further evaluation of acute hypoxic respiratory failure in the setting of multifocal pneumonia with sepsis. Acute on chronic hypoxic respiratory failure in the setting of multifocal pneumonia with sepsis Pt with SOB, NAPOLES, productive cough, CTA showing multifocal pneumonia most advanced in bilateral lobes, desatting into mid 80s on home 3L; pt with hx of CLAUDIA (see below) Meets sepsis criteria with leukocytosis, tachycardia, tachypnea; lactic acid WNL, no hypotension Pulmonology consulted, will treat has regular pneumonia with broad-spectrum antibiotics, not as CLAUDIA Treat with vanc and Zosyn, day 1 Duonebs prn, conctinue home inhalers Titrate supplemental O2 >90, wean as tolerated; on 2-3L home O2 prn Follow BCx Hx of CLAUDIA Diagnosed via [facility] in 01/[address] Winsome Clemons of [place] infectious disease Initially treated with azithromycin, rifabutin, and ethambutol 3 times a week; could not tolerate ethambutol, minocycline, or inhaled amikacyin Abx in 10/2024 Nubulized tobramycin tid Follow sputum cultures x2 Mood disorder Continue paroxetine DNR/DNI, verified with pt Attending:?Dr. Dias DVT Prophylaxis: Lovenox Pt will require a hospitalization of at least two nights for treatment of?acute hypoxic respiratory failure in the setting of multifocal pneumonia with sepsis that will require IV antibiotics, supplemental oxygen above baseline, additional treatment rule out CLAUDIA, and close monitoring of labs and respiratory status. Quality Stroke Does the patient have a stroke diagnosis?: No VTE Prior VTE?: No VTE Risk Level:: Medical - moderate - high VTE Device Contraindication: Treatment Not Indicated VTE Drug Contraindication: N/A - Med Ordered
--- NOTE | 2025-05-11 13:45 | PHA.PROG ---
Admission Date/Time: May 11, 2025 10:02 Indication: respiratory Weight in k.2 kg Adjusted body weight in Kg: Treadwell body weight in Kg: Obesity Dosing Indication % IBW: BMI 25.1 Serum Creatinine - Last 168 Hours 05/11/25 07:23 Creatinine 0.91 Estimated CrCl and GFR - Last 168 Hours 05/11/25 07:23 Estim Creat Clear Calc 56.1 Estimated GFR > 60 Vancomycin Loading Dose: 2000mg X1 Current Vancomycin Dosing Regimen: 1500mg Q24H Vancomycin Monitoring using AUC goal of 400 - 600 range with trough as surrogate marker: 572 Date and Time for next Vancomycin Level to be drawn: 05/13 @0800 Pharmacist Comments on Vancomycin Plan: Targeting trough of 16.8. To be adjusted based on renal and trough. Vancomycin dosing will take advantage of [employer] as a clinical decision support tool that uses Bayesian modeling to calculate individual patient's pharmacokinetic parameters and forecast the patient's drug concentration time course with the target goal AUC 24 range of 400 - 600 mg/L/hr.
--- NOTE | 2025-05-11 13:47 | PM.CNPUL ---
History of Present Illness History of Present Illness Consult date: 05/11/25 Chief complaint: Pneumonia Narrative: 89-year-old gentleman with underlying COPD on 2-3 L and CLAUDIA, intolerant of antimycobacterial therapy, patient of Dr. Norris, previously evaluated by [place] [facility], admitted on 05/11/2025 with progressive dyspnea over last week on a background of new cough productive of whitish sputum. On ER evaluation patient with leukocytosis and CT chest with evidence of left basilar pneumonia. Patient started on empiric antibiotics and admitted to medicine service. Review of Systems Constitutional: Constitutional: Denies daytime sleepiness, Denies excessive sweating, Denies fatigue, Denies fever(s), Denies lethargy, Denies malaise, Denies night sweats, Denies snoring and Denies weight loss Eyes: Eyes: Denies blurry vision and Denies itchy eyes ENT: Denies nasal congestion, Denies post nasal drip, Denies sinus pain, Denies sinus pressure and Denies other ( Thrush) Cardiovascular: Cardiovascular: Denies chest pain, Denies pedal edema, Denies dyspnea, Reports dyspnea on exertion, Denies orthopnea and Denies paroxysmal nocturnal dyspnea Respiratory: Respiratory: Reports cough, Denies hemoptysis, Reports excessive phlegm production, Denies dyspnea, Reports dyspnea on exertion, Denies snoring and Denies wheezing Gastrointestinal: Gastrointestinal: Denies abdominal pain and Denies heartburn Musculoskeletal: Musculoskeletal: Denies myalgias, Denies arthralgias and Denies joint swelling Integumentary/Breasts: Skin/Breast: Denies rash Neurologic: Denies memory loss and Denies seizure-like activity Psychiatric: Psychiatric: Denies abnormal sleep pattern, Denies anxiety and Denies memory loss Endocrine: Endocrine: Denies excessive sweating, Denies fatigue and Denies heat intolerance Hematologic/Lymphatic: Hematologic/Lymphatic: Denies easy bruising Allergic/Immunologic: Allergic/Immunologic: Denies itchy eyes, Denies seasonal rhinorrhea and Denies wheezing PMFSH Past Medical History Medical History (Updated 05/11/25 @ 13:49 by William Velasquez MD) Exercise hypoxemia Olecranon bursitis of right elbow Mycobacterium avium-intracellulare infection Pulmonary nodule Tobacco dependence Tubular adenoma of colon (~1997) COPD (chronic obstructive pulmonary disease) Pilonidal cyst Shortness of breath Abdominal pain HLD (hyperlipidemia) GERD (gastroesophageal reflux disease) Anxiety Family History Family History Sister Cancer Sister Cancer Surgical History Surgical History History of bronchoscopy History of cataract surgery History of colonoscopy History of appendectomy Social History Social History 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 to a significant other at home: Yes () Alcohol intake: former Patient Tobacco Use Status: Former Tobacco user Tobacco use type: Cigarette Cigarette Packs Per Day: 2.0 Cigarettes Per Day: 40.0 Years Smoked: 40 Smoked in Last 30 Days: No Second Hand Smoke Exposure: No Use of substances other than those prescribed or required for medical reasons: No Advance Directives: No Advance Directives Information Provided: Yes Do you have a plan to hurt others: No Plan Nutrition Risks: No Nutritional Risk Current occupational status: retired Current occupation: Right [employer]ed [employer] Allergies Allergy/AdvReac Type Severity Reaction Status Date / Time No Known Allergies Allergy Mild NOT Verified 05/11/25 06:56 APPLICABLE Active Medications: Current Medications Acetaminophen (Acetaminophen 325 Mg Tablet) 650 mg PO Q6H PRN PRN Reason: Pain, Mild 1-3,fever,headache Albuterol Sulfate (Albuterol Sulfate 90 Mcg 8 Gm Inhaler) 1 puff INHALE Q6H PRN PRN Reason: shortness of breath or wheezing Albuterol/Ipratropium (Albuterol/Iprat 2.5/0.5mg 3 Ml Ampul.Neb) 3 ml INHALE RQ4H WHILE AWAKE PRN PRN Reason: Shortness of Breath/Wheezing Calcium Carbonate (Calcium Carbonate 750 Mg Tab.Chew) 750 mg PO Q4H PRN PRN Reason: Heartburn Enoxaparin Sodium (Enoxaparin Sodium 40 Mg/0.4 Ml Syringe) 40 mg SUBCUT Q24H [facility] Fluticasone/Umeclidinium/Vilanterol (Fluticasone/Umeclidinium/Vilanterol 200/62.5/25 Blst.W.Dev) 1 puff INHALE RDAILY [facility] Guaifenesin/Dextromethorphan (Guaifenesin Dm 200/20/10 Ml 10 Ml Syrup) 10 ml PO Q4H PRN PRN Reason: Cough Piperacillin Sod/Tazobactam (Sod 4.5 gm/ Sodium Chloride) 100 mls @ 200 mls/hr IV Q6H [facility] Vancomycin HCl 1,500 mg/ (Sodium Chloride) 500 mls @ 333.333 mls/hr IV Q24H [facility] Magnesium Hydroxide (Milk Of Magnesia 30 Ml Oral.Susp) 30 ml PO DAILY PRN PRN Reason: Constipation Melatonin (Melatonin 3 Mg Tablet) 6 mg PO BEDTIME PRN PRN Reason: Insomnia Ondansetron HCl (Ondansetron Hcl 4 Mg/2 Ml Vial) 4 mg IVPUSH Q8H PRN PRN Reason: Nausea and Vomiting Paroxetine HCl (Paroxetine Hcl 20 Mg Tablet) 20 mg PO DAILY [facility] Pharmacy Consult (Consult Rx Vancomycin Dosing) 1 each MISCELLANE DAILY PRN PRN Reason: Consult order Sodium Chloride (0.9 % Sodium Chloride Flush 3 Ml Syringe) 3 ml IVFLUSH QSHIFT [facility] Home Medications ?Medication ?Instructions ?Recorded ?Confirmed ?Last Taken ?Type Oxygen Home Use 01/25/23 02/07/25 Unknown History vitamins A,C,Y-luns-phtzop 4,296 1 cap PO BID 03/20/25 05/11/25 05/10/25 History mcg-226 mg-90 mg capsule (PreserVision AREDS) fluticasone fur. 200 mcg-umeclid 1 ea inhalation DAILY 05/11/25 05/11/25 05/10/25 History 62.5 mcg-vilant 25 mcg inhalat.powder (Trelegy Ellipta) Physical Exam Vital Signs: Vital Signs: Last Vital Signs Temp 98.7 F 05/11/25 12:00 Pulse 101 H 05/11/25 12:00 Resp 22 H 05/11/25 12:00 BP 132/65 05/11/25 12:00 Pulse Ox 88 L 05/11/25 12:00 O2 Del Method Nasal Cannula 05/11/25 12:00 O2 Flow Rate 4 05/11/25 12:00 Oxygen Flow Rate 4 05/11/25 06:53 BMI result Body Mass Index 25.1 Const: General: no acute distress and alert Nutritional Appearance: not obese Orientation/consciousness: Other orientation findings ( oriented) HEENT: Head: Yes atraumatic Eyes: General: appearance normal, both eyes and all related structures Sclerae: sclerae normal EOM: EOMs intact bilaterally Neck: Neck: Yes supple Lymphatic: no lymphadenopathy noted Resp: Effort & Inspection: normal respiratory effort and no use of accessory muscles Auscultation: clear to auscultation bilaterally Cardio: Rate: tachycardic Rhythm: regular rhythm Heart sounds: no gallops, no murmurs and no rubs Skin: General skin exam: other ( warm) Extrem: General: No clubbing, No cyanosis and No edema Results Laboratory Findings 05/11/25 07:23 05/11/25 07:23 Abnormal lab findings: Abnormal Labs 05/11/25 07:23 WBC 18.0 H RBC 4.35 L Hgb 13.7 L Hct 38.3 L MPV 8.1 L Immature Gran % (Auto) 0.6 H Neut % (Auto) 81.2 H Lymph % (Auto) 4.3 L [place] % (Auto) 13.6 H Lymph # (Auto) 0.8 L [place] # (Auto) 2.5 H Abs Immat Gran (auto) 0.11 H Absolute Neuts (auto) 14.7 H Random Glucose 123 H Assessment and Plan (1) Acute respiratory failure with hypoxia: Status: Acute (2) Pneumonia: Qualifiers: Laterality: right Lung location: lower lobe of lung Pneumonia type: due to Mycoplasma pneumoniae Qualified Code(s): J15.7 - Pneumonia due to Mycoplasma pneumoniae Status: Acute (3) Mycobacterium avium-intracellulare infection: Status: Acute (4) COPD (chronic obstructive pulmonary disease): Qualifiers: COPD type: emphysema Emphysema type: centrilobular Qualified Code(s): J43.2 - Centrilobular emphysema Status: Acute Plan Impression: 89-year-old gentleman with underlying oxygen-dependent COPD and CLAUDIA intolerant of antimycobacterial therapy admitted with dyspnea, acute on chronic hypoxia, and productive cough with CT chest showing lab basilar pneumonia. Recommendation: Agree with broad-spectrum antibiotic coverage, consider addition of b.i.d. nebulized tobramycin. Obtain sputum culture. Procedures Date of Service Date of Service: 05/11/25
[2025-05-11] MEDS: 0.9 % Sodium Chloride Flush 3 ML SYRINGE IVFLUSH ×2 (15:35→20:48)
[2025-05-12] VITALS (7 sets, daily range): BP systolic 100–131; BP diastolic 57–69; PULSE 64–99; RESP 16–24; TEMP 36.6–37.2; O2SAT 90–98
[2025-05-12 06:58] LABS: Hematocrit 33.5 % (42.0-52.0); Hemoglobin 11.5 g/dl (14.0-18.0); Mean Corpuscular HGB Conc 34.3 g/dl (31.0-36.0); Mean Corpuscular Hemoglobin 30.8 pg (27.0-33.0); Mean Corpuscular Volume 89.8 fL (80.0-98.0); NRBC Abs Auto 0.000 X10*3/uL (0.0-0.012); NRBC Pct Auto 0.0 /100WBC (0.0-0.2); Platelet Count 200 X10*3/uL (160-400); Red Blood Count 3.73 X10*6/uL (4.60-5.80); White Blood Count 15.2 X10*3/uL (4.8-10.8)
[2025-05-12 07:12] LABS: Anion Gap 17 (12-20); Blood Urea Nitrogen 13 mg/dL (9-16); Calcium 8.2 mg/dL (8.4-10.2); Carbon Dioxide 20 mmol/L (22-29); Chloride 105 mmol/L (96-108); Creatinine Clr Calc Pharmacy 56.1; Estimated Glomerular Filt Rate > 60; Potassium 3.7 mmol/L (3.3-5.1); Sodium 138 mmol/L (135-145)
[2025-05-12] MEDS: 0.9 % Sodium Chloride Flush 3 ML SYRINGE IVFLUSH ×2 (09:12→20:46)
[2025-05-12] MEDS: Fluticasone/Umeclidinium/Vilanterol 200/62.5/25 BLST.W.DEV 1 PUFF INHALE (11:37)
--- NOTE | 2025-05-12 12:23 | P.PNIM_ITS ---
Subjective Subjective Date of Service: 05/12/25 Interval History: Breathing improved, less SOB Does complain of chest discomfort with deep inspiration; is a ?dull ache?; not constant but only with deep breathing Clinically looks improved, no longer tachypneic or with increased work of breathing Currently satting at 93% on home 3 L NC Was unable to produce sputum sample this morning; spit into napkin and not collection cup Review of Systems Review of Systems: Yes all other systems are reviewed and are negative Physical Exam 2 Vital Signs: Vital Signs: Last Vital Signs Temp 97.8 F 05/12/25 07:34 Pulse 78 05/12/25 11:37 Resp 16 05/12/25 11:37 BP 114/57 L 05/12/25 07:34 Pulse Ox 93 05/12/25 07:34 O2 Del Method Nasal Cannula 05/12/25 07:34 O2 Flow Rate 2 05/12/25 07:34 Oxygen Flow Rate 4 05/11/25 06:53 BMI result Body Mass Index 25.2 Objective Data Active Medications Acetaminophen (Acetaminophen 325 Mg Tablet) 650 mg PO Q6H PRN PRN Reason: Pain, Mild 1-3,fever,headache Albuterol Sulfate (Albuterol Sulfate 90 Mcg 8 Gm Inhaler) 1 puff INHALE Q6H PRN PRN Reason: shortness of breath or wheezing Albuterol/Ipratropium (Albuterol/Iprat 2.5/0.5mg 3 Ml Ampul.Neb) 3 ml INHALE RQ4H WHILE AWAKE PRN PRN Reason: Shortness of Breath/Wheezing Calcium Carbonate (Calcium Carbonate 750 Mg Tab.Chew) 750 mg PO Q4H PRN PRN Reason: Heartburn Enoxaparin Sodium (Enoxaparin Sodium 40 Mg/0.4 Ml Syringe) 40 mg SUBCUT Q24H [facility] Last Admin: 05/11/25 14:04 Dose: 40 mg Documented By: YULIET Fluticasone/Umeclidinium/Vilanterol (Fluticasone/Umeclidinium/Vilanterol 200/62.5/25 Blst.W.Dev) 1 puff INHALE RDAILY [facility] Last Admin: 05/12/25 11:37 Dose: 1 puff Documented By: DAVE Guaifenesin/Dextromethorphan (Guaifenesin Dm 200/20/10 Ml 10 Ml Syrup) 10 ml PO Q4H PRN PRN Reason: Cough Piperacillin Sod/Tazobactam (Sod 4.5 gm/ Sodium Chloride) 100 mls @ 200 mls/hr IV Q6H [facility] Last Infusion: 05/12/25 09:57 Dose: Infused Documented By: MERCY Vancomycin HCl 1,500 mg/ (Sodium Chloride) 500 mls @ 333.333 mls/hr IV Q24H [facility] Last Infusion: 05/12/25 11:58 Dose: Infused Documented By: MERCY Magnesium Hydroxide (Milk Of Magnesia 30 Ml Oral.Susp) 30 ml PO DAILY PRN PRN Reason: Constipation Melatonin (Melatonin 3 Mg Tablet) 6 mg PO BEDTIME PRN PRN Reason: Insomnia Ondansetron HCl (Ondansetron Hcl 4 Mg/2 Ml Vial) 4 mg IVPUSH Q8H PRN PRN Reason: Nausea and Vomiting Last Admin: 05/12/25 07:57 Dose: 4 mg Documented By: MERCY Paroxetine HCl (Paroxetine Hcl 20 Mg Tablet) 20 mg PO DAILY [facility] Last Admin: 05/12/25 09:09 Dose: 20 mg Documented By: MERCY Pharmacy Consult (Consult Rx Vancomycin Dosing) 1 each MISCELLANE DAILY PRN PRN Reason: Consult order Sodium Chloride (0.9 % Sodium Chloride Flush 3 Ml Syringe) 3 ml IVFLUSH QSHIFT [facility] Last Admin: 05/12/25 09:12 Dose: 3 ml Documented By: MERCY Tobramycin Sulfate (Tobramycin Sulfate 80 Mg/2 Ml Vial) 300 mg INHALE RBID [facility] Last Admin: 05/12/25 08:18 Dose: 300 mg Documented By: DAVE Labs 05/12/25 06:22 05/12/25 06:22 Labs: Laboratory Results - last 24 hr 05/12/25 06:22 MCV 89.8 MCH 30.8 MCHC 34.3 RDW 13.7 Plt Count 200 MPV 8.8 L Absolute Nucleated RBC 0.000 Nucleated RBC % (auto) 0.0 Anion Gap 17 Estim Creat Clear Calc 56.1 Estimated GFR > 60 Random Glucose 94 Calcium 8.2 L D Hold Yellow Top See Note Microbiology Microbiology Results: Microbiology 05/11/25 08:44 Blood Culture - Preliminary Blood - Venous No growth after 24 hours. 05/11/25 08:44 Blood Culture - Preliminary Blood - Venous No growth after 24 hours. Assessment and Plan (1) Acute on chronic hypoxic respiratory failure: Status: Acute (2) Multifocal pneumonia: Status: Acute Plan Pt is an 89-year-old male with a PMH significant for?COPD on 2-3L, CLAUDIA in 01/2023, and depression/anxiety unable to tolerate treatment who presents to the ED with?increased SOB, [place]ES, and cough x2-3 days. Pt is admitted to the hospital for treatment and further evaluation of acute hypoxic respiratory failure in the setting of multifocal pneumonia with sepsis. Acute on chronic hypoxic respiratory failure in the setting of multifocal pneumonia with sepsis Pt presented with SOB, NAPOLES, productive cough, CTA showing multifocal pneumonia most advanced in bilateral lobes, desatting into mid 80s on home 3L; pt with hx of CLAUDIA (see below) Met sepsis criteria with leukocytosis, tachycardia, tachypnea; lactic acid WNL, no hypotension Pulmonology consulted, will treat as regular pneumonia with broad-spectrum antibiotics, not as CLAUDIA unless cultures positive Treat with vanc and Zosyn, day 2 Duonebs prn, continue home inhalers Titrate supplemental O2 >90, wean as tolerated; on 2-3L home O2 prn BCx neg @24h Hx of CLAUDIA Diagnosed via [facility] in 01/[address] Winsome Clemons of [place] [facility] Initially treated with azithromycin, rifabutin, and ethambutol 3 times a week; could not tolerate ethambutol, minocycline, or inhaled amikacyin Discontinued all abx in 10/2024 Nubulized tobramycin tid to promote Follow sputum cultures x2 Mood disorder Continue paroxetine DNR/DNI, verified with pt DVT Prophylaxis: Lovenox Pt will require a hospitalization of at least two nights for treatment of?acute hypoxic respiratory failure in the setting of multifocal pneumonia with sepsis that will require IV antibiotics, supplemental oxygen above baseline, additional treatment rule out CLAUDIA, and close monitoring of labs and respiratory status. Quality Stroke Does the patient have a stroke diagnosis?: No VTE Prior VTE?: No VTE Risk Level:: Medical - moderate - high VTE Device Contraindication: Treatment Not Indicated VTE Drug Contraindication: N/A - Med Ordered
--- NOTE | 2025-05-12 16:37 | MHC.CM.PN ---
Addendum entered by Mariama Presley 05/13/25 09:23: PTS NEW PCP IS CHRIS CARSON Original Note: PT REPORTS HE LIVES ALONE AND IS INDEPENDENT WITH CARE HE HAS HOME O2 FROM [facility] AND NO SERVICES COPY OF HCP REQUESTED, HE REPORTS HIS SON, KILO AND JAYLA ARE THE AGENTS DR NAIR WAS HIS PCP, HE IS UNSURE WHO THEY ASSIGNED HIM TO IMM DELIVERED DCP: HOME VIA [facility]
[2025-05-13] VITALS (8 sets, daily range): BP systolic 106–126; BP diastolic 56–82; PULSE 75–96; RESP 16–26; TEMP 36.7–37.1; O2SAT 89–97
--- NOTE | 2025-05-13 | ECG_ITS ---
Test Reason : 1st degree block? Blood Pressure : */* mmHG Vent. Rate : 92 BPM Atrial Rate : 92 BPM P-R Int : 184 ms QRS Dur : 94 ms QT Int : 356 ms P-R-T Axes : 84 62 59 degrees QTcB Int : 440 ms Sinus rhythm with sinus arrhythmia with occasional Premature ventricular complexes Otherwise normal ECG When compared with ECG of 11-May-2025 06:50, No significant change was found Referred By: Connie Miramontes Electronically Signed By: ANDREA CASTILLO MD
[2025-05-13] MEDS: guaiFENesin DM 200/20/10 ML 10 ML SYRUP PO (03:12)
[2025-05-13] MEDS: Fluticasone/Umeclidinium/Vilanterol 200/62.5/25 BLST.W.DEV 1 PUFF INHALE (08:04)
[2025-05-13] MEDS: 0.9 % Sodium Chloride Flush 3 ML SYRINGE IVFLUSH ×2 (08:31→21:14)
[2025-05-13 09:41] LABS: Creatinine Clr Calc Pharmacy 58.0; Estimated Glomerular Filt Rate > 60
--- NOTE | 2025-05-13 16:32 | P.PNIM_ITS ---
Subjective Subjective Date of Service: 05/13/25 Interval History: Some difficulty breathing last night, placed on 6 L OxyMask Cough continues, mostly nonproductive Still little to no appetite Produced 1 sample for sputum culture Continued chest discomfort with deep inspiration Review of Systems Review of Systems: Yes all other systems are reviewed and are negative Physical Exam 2 Exam: Exam: General: AOx3, no acute distress. Resting in bed comfortably Resp: Mild wheezing, lungs diminished in mid and lower lobes bilaterally CVS: S1, S2, RRR GI: +BS, NT, no distention Skin: Warm, dry Neuro: Cranial nerves II-XII grossly intact bilaterally. Motor grossly intact bilaterally Extremities: No edema Psych: Appropriate affect Vital Signs: Vital Signs: Last Vital Signs Temp 98.1 F 05/13/25 15:35 Pulse 86 05/13/25 15:35 Resp 20 05/13/25 15:35 BP 111/61 05/13/25 15:35 Pulse Ox 94 05/13/25 15:35 O2 Del Method Oxymask 05/13/25 15:35 O2 Flow Rate 5.0 05/13/25 15:35 Oxygen Flow Rate 4 05/11/25 06:53 BMI result Body Mass Index 25.2 Objective Data Active Medications Acetaminophen (Acetaminophen 325 Mg Tablet) 650 mg PO Q6H PRN PRN Reason: Pain, Mild 1-3,fever,headache Albuterol Sulfate (Albuterol Sulfate 90 Mcg 8 Gm Inhaler) 1 puff INHALE Q6H PRN PRN Reason: shortness of breath or wheezing Albuterol/Ipratropium (Albuterol/Iprat 2.5/0.5mg 3 Ml Ampul.Neb) 3 ml INHALE RQ4H WHILE AWAKE PRN PRN Reason: Shortness of Breath/Wheezing Calcium Carbonate (Calcium Carbonate 750 Mg Tab.Chew) 750 mg PO Q4H PRN PRN Reason: Heartburn Enoxaparin Sodium (Enoxaparin Sodium 40 Mg/0.4 Ml Syringe) 40 mg SUBCUT Q24H [facility] Last Admin: 05/13/25 14:53 Dose: 40 mg Documented By: MERCY Fluticasone/Umeclidinium/Vilanterol (Fluticasone/Umeclidinium/Vilanterol 200/62.5/25 Blst.W.Dev) 1 puff INHALE RDAILY [facility] Last Admin: 05/13/25 08:04 Dose: 1 puff Documented By: YESI Guaifenesin/Dextromethorphan (Guaifenesin Dm 200/20/10 Ml 10 Ml Syrup) 10 ml PO Q4H PRN PRN Reason: Cough Last Admin: 05/13/25 03:12 Dose: 10 ml Documented By: AIME Piperacillin Sod/Tazobactam (Sod 4.5 gm/ Sodium Chloride) 100 mls @ 200 mls/hr IV Q6H [facility] Last Infusion: 05/13/25 15:30 Dose: Infused Documented By: MERCY Vancomycin HCl 1,000 mg/ (Sodium Chloride) 270 mls @ 270 mls/hr IV Q12H [facility] Last Infusion: 05/13/25 11:24 Dose: Infused Documented By: MERCY Magnesium Hydroxide (Milk Of Magnesia 30 Ml Oral.Susp) 30 ml PO DAILY PRN PRN Reason: Constipation Melatonin (Melatonin 3 Mg Tablet) 6 mg PO BEDTIME PRN PRN Reason: Insomnia Ondansetron HCl (Ondansetron Hcl 4 Mg/2 Ml Vial) 4 mg IVPUSH Q8H PRN PRN Reason: Nausea and Vomiting Last Admin: 05/12/25 07:57 Dose: 4 mg Documented By: MERCY Paroxetine HCl (Paroxetine Hcl 20 Mg Tablet) 20 mg PO DAILY [facility] Last Admin: 05/13/25 08:28 Dose: 20 mg Documented By: MERCY Pharmacy Consult (Consult Rx Vancomycin Dosing) 1 each MISCELLANE DAILY PRN PRN Reason: Consult order Sodium Chloride (0.9 % Sodium Chloride Flush 3 Ml Syringe) 3 ml IVFLUSH QSHIFT [facility] Last Admin: 05/13/25 15:30 Dose: Not Given Documented By: MERCY Non-Admin Reason: Previously Administered Tobramycin Sulfate (Tobramycin Sulfate 80 Mg/2 Ml Vial) 300 mg INHALE RBID [facility] Last Admin: 05/13/25 08:04 Dose: 300 mg Documented By: YESI Labs 05/12/25 06:22 05/13/25 08:16 Labs: Laboratory Results - last 24 hr 05/13/25 08:16 Estim Creat Clear Calc 58.0 Estimated GFR > 60 Random Vancomycin 8.7 L Microbiology Microbiology Results: Microbiology 05/11/25 08:44 Blood Culture - Preliminary Blood - Venous No growth after 48 hours. 05/11/25 08:44 Blood Culture - Preliminary Blood - Venous No growth after 48 hours. Assessment and Plan (1) Acute on chronic hypoxic respiratory failure: Status: Acute (2) Multifocal pneumonia: Status: Acute Plan Pt is an 89-year-old male with a PMH significant for?COPD on 2-3L, CLAUDIA in 01/2023, and depression/anxiety unable to tolerate treatment who presents to the ED with?increased SOB, NAPOLES, and cough x2-3 days. Pt is admitted to the hospital for treatment and further evaluation of acute hypoxic respiratory failure in the setting of multifocal pneumonia with sepsis. Acute on chronic hypoxic respiratory failure in the setting of multifocal pneumonia with sepsis Pt presented with SOB, NAPOLES, productive cough, CTA showing multifocal pneumonia most advanced in bilateral lower lobes, desatting into mid 80s on home 3L; pt with hx of CLAUDIA (see below) Met sepsis criteria with leukocytosis, tachycardia, tachypnea; lactic acid WNL, no hypotension Pulmonology consulted, will treat as regular pneumonia with broad-spectrum antibiotics, not as CLAUDIA unless cultures positive Treat with vanc and Zosyn, day 3 Duonebs prn, continue home inhalers Titrate supplemental O2 >90, wean as tolerated; on 2-3L home O2 prn BCx neg @24h Hx of CLAUDIA Diagnosed via [facility]ATS in 01/[address] Winsome Clemons of [place] infectious disease Initially treated with azithromycin, rifabutin, and ethambutol 3 times a week; could not tolerate ethambutol, minocycline, or inhaled amikacyin Discontinued all abx in 10/2024 Nubulized tobramycin tid to promote sputum production Has produced one sputum sample on 05/13; will try for second sample on 05/14 Follow sputum cultures Mood disorder Continue paroxetine DNR/DNI, verified with pt DVT Prophylaxis: Lovenox Pain requires continued hospitalization for treatment with IV antibiotics, supplemental oxygen above baseline, close monitoring labs, and following sputum cultures.. Quality Stroke Does the patient have a stroke diagnosis?: No VTE Prior VTE?: No VTE Risk Level:: Medical - moderate - high VTE Device Contraindication: Treatment Not Indicated VTE Drug Contraindication: N/A - Med Ordered
[2025-05-14 03:07] VITALS: BP 139/58; PULSE 83; RESP 19; TEMP 36.8; O2SAT 95
[2025-05-14 07:02] LABS: Hematocrit 34.0 % (42.0-52.0); Hemoglobin 12.0 g/dl (14.0-18.0); Mean Corpuscular HGB Conc 35.3 g/dl (31.0-36.0); Mean Corpuscular Hemoglobin 30.9 pg (27.0-33.0); Mean Corpuscular Volume 87.6 fL (80.0-98.0); NRBC Abs Auto 0.000 X10*3/uL (0.0-0.012); NRBC Pct Auto 0.0 /100WBC (0.0-0.2); Platelet Count 220 X10*3/uL (160-400); Red Blood Count 3.88 X10*6/uL (4.60-5.80); White Blood Count 11.2 X10*3/uL (4.8-10.8)
--- NOTE | 2025-05-14 07:41 | P.PNIM_ITS ---
Subjective Subjective Date of Service: 05/14/25 Interval History: Patient was diffusely hypoxic requiring 5 L O2, hypoxic with minimal ambulatory movement, we will continue current broad-spectrum antibiotic coverage, have added nebulized tobramycin per Pulm recs Pt is DNR/DNI Physical Exam 2 Exam: Exam: General: mild resp distress Resp: Mild wheezing, lungs diminished in mid and lower lobes bilaterally CVS: S1, S2, RRR GI: +BS, NT, no distention Neuro: Motor grossly intact bilaterally Extremities: No edema Psych: Anxious affect Vital Signs: Vital Signs: Last Vital Signs Temp 98.3 F 05/14/25 03:07 Pulse 83 05/14/25 03:07 Resp 19 05/14/25 03:07 BP 139/58 L 05/14/25 03:07 Pulse Ox 95 05/14/25 03:07 O2 Del Method Oxymask 05/14/25 03:07 O2 Flow Rate 4 05/14/25 03:07 Oxygen Flow Rate 4 05/11/25 06:53 BMI result Body Mass Index 25.2 Objective Data Active Medications Acetaminophen (Acetaminophen 325 Mg Tablet) 650 mg PO Q6H PRN PRN Reason: Pain, Mild 1-3,fever,headache Albuterol Sulfate (Albuterol Sulfate 90 Mcg 8 Gm Inhaler) 1 puff INHALE Q6H PRN PRN Reason: shortness of breath or wheezing Albuterol/Ipratropium (Albuterol/Iprat 2.5/0.5mg 3 Ml Ampul.Neb) 3 ml INHALE RQ4H WHILE AWAKE PRN PRN Reason: Shortness of Breath/Wheezing Calcium Carbonate (Calcium Carbonate 750 Mg Tab.Chew) 750 mg PO Q4H PRN PRN Reason: Heartburn Enoxaparin Sodium (Enoxaparin Sodium 40 Mg/0.4 Ml Syringe) 40 mg SUBCUT Q24H [facility] Last Admin: 05/13/25 14:53 Dose: 40 mg Documented By: MERCY Fluticasone/Umeclidinium/Vilanterol (Fluticasone/Umeclidinium/Vilanterol 200/62.5/25 Blst.W.Dev) 1 puff INHALE RDAILY [facility] Last Admin: 05/13/25 08:04 Dose: 1 puff Documented By: YESI Guaifenesin/Dextromethorphan (Guaifenesin Dm 200/20/10 Ml 10 Ml Syrup) 10 ml PO Q4H PRN PRN Reason: Cough Last Admin: 05/13/25 03:12 Dose: 10 ml Documented By: AIME Piperacillin Sod/Tazobactam (Sod 4.5 gm/ Sodium Chloride) 100 mls @ 200 mls/hr IV Q6H [facility] Last Infusion: 05/14/25 03:39 Dose: Infused Documented By: AIME Vancomycin HCl 1,000 mg/ (Sodium Chloride) 270 mls @ 270 mls/hr IV Q12H [facility] Last Infusion: 05/13/25 22:45 Dose: Infused Documented By: AIME Magnesium Hydroxide (Milk Of Magnesia 30 Ml Oral.Susp) 30 ml PO DAILY PRN PRN Reason: Constipation Melatonin (Melatonin 3 Mg Tablet) 6 mg PO BEDTIME PRN PRN Reason: Insomnia Ondansetron HCl (Ondansetron Hcl 4 Mg/2 Ml Vial) 4 mg IVPUSH Q8H PRN PRN Reason: Nausea and Vomiting Last Admin: 05/12/25 07:57 Dose: 4 mg Documented By: MERCY Paroxetine HCl (Paroxetine Hcl 20 Mg Tablet) 20 mg PO DAILY [facility] Last Admin: 05/13/25 08:28 Dose: 20 mg Documented By: MERCY Pharmacy Consult (Consult Rx Vancomycin Dosing) 1 each MISCELLANE DAILY PRN PRN Reason: Consult order Sodium Chloride (0.9 % Sodium Chloride Flush 3 Ml Syringe) 3 ml IVFLUSH QSHIFT [facility] Last Admin: 05/13/25 21:14 Dose: 3 ml Documented By: AIME Labs 05/14/25 06:18 05/14/25 06:18 Labs: Laboratory Results - last 24 hr 05/13/25 05/14/25 08:16 06:18 MCV 87.6 MCH 30.9 MCHC 35.3 RDW 13.2 Plt Count 220 MPV 8.6 L Absolute Nucleated RBC 0.000 Nucleated RBC % (auto) 0.0 Estim Creat Clear Calc 58.0 Estimated GFR > 60 Random Vancomycin 8.7 L Microbiology Microbiology Results: Microbiology 05/11/25 08:44 Blood Culture - Preliminary Blood - Venous No growth after 48 hours. 05/11/25 08:44 Blood Culture - Preliminary Blood - Venous No growth after 48 hours. 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 Pt is admitted to the hospital for treatment and further evaluation of acute hypoxic respiratory failure in the setting of multifocal pneumonia with sepsis. Acute on chronic hypoxic respiratory failure in the setting of multifocal pneumonia with sepsis in a pt with COPD/CLAUDIA intolerance Pt presented with SOB, NAPOLES, productive cough, CTA showing multifocal pneumonia most advanced in bilateral lower lobes, desatting into mid 80s on home 3L; pt with hx of CLAUDIA (see below) Met sepsis criteria with leukocytosis, tachycardia, tachypnea; lactic acid WNL, no hypotension Pulmonology consulted we will continue broad-spectrum antibiotic coverage, added b.i.d. nebulized tobramycin, obtain sputum culture however sputum culture might be skewed given antibiotic administration prior to sputum culture Treat with vanc and Zosyn, day 4 Initiate tobramycin nebulized b.i.d. Duonebs prn, continue home inhalers Titrate supplemental O2 >90, wean as tolerated; on 2-3L home O2 prn Non bacteremic Hx of CLAUDIA Diagnosed via VATS in 01/[address] Winsome Clemons of [place] infectious disease Initially treated with azithromycin, rifabutin, and ethambutol 3 times a week; could not tolerate ethambutol, minocycline, or inhaled amikacyin Discontinued all abx in 10/2024 Nubulized tobramycin tid to promote sputum production Has produced one sputum sample on 05/13; will try for second sample on 05/14 Follow sputum cultures Mood disorder Continue paroxetine DNR/DNI, verified with pt DVT Prophylaxis: Lovenox Pain requires continued hospitalization for treatment with IV antibiotics, supplemental oxygen above baseline, close monitoring labs, and following sputum cultures.. Quality Stroke Does the patient have a stroke diagnosis?: No VTE Prior VTE?: No VTE Risk Level:: Medical - moderate - high VTE Device Contraindication: Treatment Not Indicated VTE Drug Contraindication: N/A - Med Ordered
[2025-05-14 08:00] VITALS: BP 112/63; PULSE 86; RESP 16; TEMP 36.9; O2SAT 95
[2025-05-14 08:09] LABS: Anion Gap 16 (12-20); Blood Urea Nitrogen 9 mg/dL (9-16); Calcium 8.1 mg/dL (8.4-10.2); Carbon Dioxide 24 mmol/L (22-29); Chloride 102 mmol/L (96-108); Creatinine Clr Calc Pharmacy 60.7; Estimated Glomerular Filt Rate > 60; Potassium 2.8 mmol/L (3.3-5.1); Sodium 139 mmol/L (135-145)
[2025-05-14] MEDS: Potassium Chloride/H20 10 MEQ/100 ML PIGGYBACK 100 MEQ IV ×4 (08:29→13:57)
[2025-05-14] MEDS: Potassium Chloride Packet 20 MEQ PACKET 40 MEQ PO (08:29)
[2025-05-14] MEDS: 0.9 % Sodium Chloride Flush 3 ML SYRINGE IVFLUSH ×3 (08:30→20:04)
[2025-05-14 15:51] VITALS: BP 117/60; PULSE 76; RESP 18; TEMP 36.6; O2SAT 94
[2025-05-14 19:57] VITALS: BP 114/59; PULSE 97; RESP 18; TEMP 36.4; O2SAT 95
[2025-05-14 20:26] VITALS: PULSE 100; RESP 22; O2SAT 95
[2025-05-15] VITALS (7 sets, daily range): BP systolic 115–145; BP diastolic 58–79; PULSE 70–96; RESP 16–19; TEMP 36.6–36.9; O2SAT 92–96
[2025-05-15] MEDS: Fluticasone/Umeclidinium/Vilanterol 200/62.5/25 BLST.W.DEV 1 PUFF INHALE (07:44)
[2025-05-15] MEDS: guaiFENesin DM 200/20/10 ML 10 ML SYRUP PO (07:53)
[2025-05-15] MEDS: 0.9 % Sodium Chloride Flush 3 ML SYRINGE IVFLUSH ×3 (07:53→23:35)
[2025-05-15 08:31] LABS: MANUAL DIFF FLAG NO
[2025-05-15 08:34] LABS: Hematocrit 33.6 % (42.0-52.0); Hemoglobin 11.5 g/dl (14.0-18.0); Imm Gran Abs Auto 0.23 X10*3/uL (0.00-0.03); Imm Gran Pct Auto 2.2 % (0.0-0.4); Lymphocytes Absolute Auto 0.6 X10*3/uL (1.2-4.9); Mean Corpuscular HGB Conc 34.2 g/dl (31.0-36.0); Mean Corpuscular Hemoglobin 30.4 pg (27.0-33.0); Mean Corpuscular Volume 88.9 fL (80.0-98.0); NRBC Abs Auto 0.000 X10*3/uL (0.0-0.012); NRBC Pct Auto 0.0 /100WBC (0.0-0.2); Platelet Count 226 X10*3/uL (160-400); Red Blood Count 3.78 X10*6/uL (4.60-5.80); White Blood Count 10.6 X10*3/uL (4.8-10.8)
[2025-05-15 08:57] LABS: Alanine Aminotransferase 16 U/L (0-40); Albumin Level 3.0 g/dL (3.5-5.0); Alkaline Phosphatase 53 U/L (39-117); Anion Gap 11 (12-20); Aspartate Amino Transferase 35 U/L (5-37); Blood Urea Nitrogen 9 mg/dL (9-16); Calcium 8.2 mg/dL (8.4-10.2); Carbon Dioxide 27 mmol/L (22-29); Chloride 104 mmol/L (96-108); Creatinine Clr Calc Pharmacy 67.1; Estimated Glomerular Filt Rate > 60; Potassium 3.2 mmol/L (3.3-5.1); Sodium 139 mmol/L (135-145); Total Protein 5.6 g/dL (6.5-8.0)
--- NOTE | 2025-05-15 08:57 | HO.PM.IMPN ---
Subjective Subjective Date of Service: 05/15/25 Interval History: Patient continues to be dyspneic requiring around 5 L O2, I have requested if his family members 1 of his sons can come by he reports that he does not feel like he wants to be a burden to them as they were by his side the last time he was admitted However I did mention that this time it looks like to be a very significant change from his baseline and would like to involve his family members in his care Continues to be dyspneic with minimal ambulation/movement Review of Systems Review of Systems: Yes all other systems are reviewed and are negative Physical Exam Exam: Exam: General: mild resp distress Resp: Mild wheezing, lungs diminished in mid and lower lobes bilaterally CVS: S1, S2, RRR GI: +BS, NT, no distention Neuro: Motor grossly intact bilaterally Extremities: No edema Psych: Anxious affect Vital Signs: Vital Signs: Last Vital Signs Temp 98.3 F 05/15/25 07:23 Pulse 95 05/15/25 08:10 Resp 19 05/15/25 08:10 BP 119/79 05/15/25 07:23 Pulse Ox 94 05/15/25 07:23 O2 Del Method Room Air 05/15/25 07:23 O2 Flow Rate 4 05/15/25 03:47 Oxygen Flow Rate 4 05/11/25 06:53 BMI result Body Mass Index 25.2 Objective Data Active Medications Acetaminophen (Acetaminophen 325 Mg Tablet) 650 mg PO Q6H PRN PRN Reason: Pain, Mild 1-3,fever,headache Albuterol Sulfate (Albuterol Sulfate 90 Mcg 8 Gm Inhaler) 1 puff INHALE Q6H PRN PRN Reason: shortness of breath or wheezing Albuterol/Ipratropium (Albuterol/Iprat 2.5/0.5mg 3 Ml Ampul.Neb) 3 ml INHALE RQ4H WHILE AWAKE PRN PRN Reason: Shortness of Breath/Wheezing Calcium Carbonate (Calcium Carbonate 750 Mg Tab.Chew) 750 mg PO Q4H PRN PRN Reason: Heartburn Enoxaparin Sodium (Enoxaparin Sodium 40 Mg/0.4 Ml Syringe) 40 mg SUBCUT Q24H [facility] Last Admin: 05/14/25 13:57 Dose: 40 mg Documented By: DEEPALI Fluticasone/Umeclidinium/Vilanterol (Fluticasone/Umeclidinium/Vilanterol 200/62.5/25 Blst.W.Dev) 1 puff INHALE RDAILY [facility] Last Admin: 05/15/25 07:44 Dose: 1 puff Documented By: EVIN Guaifenesin/Dextromethorphan (Guaifenesin Dm 200/20/10 Ml 10 Ml Syrup) 10 ml PO Q4H PRN PRN Reason: Cough Last Admin: 05/15/25 07:53 Dose: 10 ml Documented By: DEEPALI Piperacillin Sod/Tazobactam (Sod 4.5 gm/ Sodium Chloride) 100 mls @ 200 mls/hr IV Q6H [facility] Last Infusion: 05/15/25 08:38 Dose: Infused Documented By: DEEPALI Vancomycin HCl 1,000 mg/ (Sodium Chloride) 270 mls @ 270 mls/hr IV Q12H [facility] Last Infusion: 05/14/25 22:00 Dose: Infused Documented By: GERONIMO Magnesium Hydroxide (Milk Of Magnesia 30 Ml Oral.Susp) 30 ml PO DAILY PRN PRN Reason: Constipation Melatonin (Melatonin 3 Mg Tablet) 6 mg PO BEDTIME PRN PRN Reason: Insomnia Ondansetron HCl (Ondansetron Hcl 4 Mg/2 Ml Vial) 4 mg IVPUSH Q8H PRN PRN Reason: Nausea and Vomiting Last Admin: 05/12/25 07:57 Dose: 4 mg Documented By: MERCY Paroxetine HCl (Paroxetine Hcl 20 Mg Tablet) 20 mg PO DAILY [facility] Last Admin: 05/15/25 07:53 Dose: 20 mg Documented By: DEEPALI Pharmacy Consult (Consult Rx Vancomycin Dosing) 1 each MISCELLANE DAILY PRN PRN Reason: Consult order Sodium Chloride (0.9 % Sodium Chloride Flush 3 Ml Syringe) 3 ml IVFLUSH QSHIFT [facility] Last Admin: 05/15/25 07:53 Dose: 3 ml Documented By: DEEPALI Tobramycin Sulfate (Tobramycin Sulfate 80 Mg/2 Ml Vial) 300 mg INHALE Q12H [facility] Last Admin: 05/15/25 08:06 Dose: 300 mg Documented By: EVIN Labs 05/15/25 08:27 05/15/25 08:27 Labs: Laboratory Results - last 24 hr 05/14/25 05/15/25 08:24 08:27 MCV 88.9 MCH 30.4 MCHC 34.2 RDW 13.2 Plt Count 226 MPV 8.4 L Immature Gran % (Auto) 2.2 H Neut % (Auto) 75.7 H Lymph % (Auto) 6.0 L [place] % (Auto) 11.9 H Eos % (Auto) 3.6 Baso % (Auto) 0.6 Lymph # (Auto) 0.6 L [place] # (Auto) 1.3 H Eos # (Auto) 0.4 Baso # (Auto) 0.1 Abs Immat Gran (auto) 0.23 H Absolute Neuts (auto) 8.1 Absolute Nucleated RBC 0.000 Nucleated RBC % (auto) 0.0 Random Vancomycin 13.8 L 14.2 L Assessment and Plan (1) Acute on chronic hypoxic respiratory failure: Status: Acute Plan Pt is an 89-year-old male with a PMH significant for?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 Pt is admitted to the hospital for treatment and further evaluation of acute hypoxic respiratory failure in the setting of multifocal pneumonia with sepsis. Acute on chronic hypoxic respiratory failure in the setting of multifocal pneumonia with sepsis in a pt with COPD/CLAUDIA intolerance Pt presented with SOB, NAPOLES, productive cough, CTA showing multifocal pneumonia most advanced in bilateral lower lobes, desatting into mid 80s on home 3L; pt with hx of CLAUDIA (see below) Pulmonology consulted we will continue broad-spectrum antibiotic coverage, continue b.i.d. nebulized tobramycin that was added during this admission, obtain sputum culture however sputum culture might be skewed given antibiotic administration prior to sputum culture Continue with vanc and Zosyn, day 5 Continue tobramycin nebulized b.i.d. initiated during this admission Duonebs prn, continue home inhalers Titrate supplemental O2 >90, wean as tolerated; on 2-3L home O2 prn Non bacteremic Repeat sputum cultures that were drawn yesterday currently pending Prognosis guarded Hx of CLAUDIA Diagnosed via VATS in 01/[address] Winsome Clemons of [place] infectious disease Initially treated with azithromycin, rifabutin, and ethambutol 3 times a week; could not tolerate ethambutol, minocycline, or inhaled amikacyin Discontinued all abx in 10/2024 Nubulized tobramycin tid to promote sputum production Has produced one sputum sample on 05/13; repeat sample drawn 05/14/2025-results pending Mood disorder Continue paroxetine DNR/DNI, verified with pt DVT Prophylaxis: Lovenox Quality Stroke Does the patient have a stroke diagnosis?: No VTE Prior VTE?: No VTE Risk Level:: Medical - moderate - high VTE Device Contraindication: Treatment Not Indicated VTE Drug Contraindication: N/A - Med Ordered
--- NOTE | 2025-05-15 09:04 | HE.PHANOTE ---
RE: VANCO DOSING Trough came back as 14.2 mg/L, renal function is stable. Increase dose to 1250 mg q12h (for respiratory infection), next trough is scheduled for 05/16/25@0800.
[2025-05-15] MEDS: Potassium Chloride ER 20 MEQ TAB.ER.PRT 40 MEQ PO (13:21)
[2025-05-16] VITALS (8 sets, daily range): BP systolic 120–140; BP diastolic 56–67; PULSE 71–98; RESP 16–20; TEMP 36.5–37.2; O2SAT 91–97
[2025-05-16 06:38] LABS: MANUAL DIFF FLAG NO
[2025-05-16 06:44] LABS: Hematocrit 34.0 % (42.0-52.0); Hemoglobin 11.8 g/dl (14.0-18.0); Imm Gran Abs Auto 0.21 X10*3/uL (0.00-0.03); Imm Gran Pct Auto 2.2 % (0.0-0.4); Lymphocytes Absolute Auto 0.7 X10*3/uL (1.2-4.9); Mean Corpuscular HGB Conc 34.7 g/dl (31.0-36.0); Mean Corpuscular Hemoglobin 30.6 pg (27.0-33.0); Mean Corpuscular Volume 88.3 fL (80.0-98.0); NRBC Abs Auto 0.000 X10*3/uL (0.0-0.012); NRBC Pct Auto 0.0 /100WBC (0.0-0.2); Platelet Count 214 X10*3/uL (160-400); Red Blood Count 3.85 X10*6/uL (4.60-5.80); White Blood Count 9.4 X10*3/uL (4.8-10.8)
[2025-05-16 06:56] LABS: Alanine Aminotransferase 16 U/L (0-40); Albumin Level 3.0 g/dL (3.5-5.0); Alkaline Phosphatase 47 U/L (39-117); Anion Gap 13 (12-20); Aspartate Amino Transferase 31 U/L (5-37); Blood Urea Nitrogen 8 mg/dL (9-16); Calcium 8.2 mg/dL (8.4-10.2); Carbon Dioxide 25 mmol/L (22-29); Chloride 104 mmol/L (96-108); Creatinine Clr Calc Pharmacy 68.0; Estimated Glomerular Filt Rate > 60; Potassium 3.2 mmol/L (3.3-5.1); Sodium 139 mmol/L (135-145); Total Protein 5.6 g/dL (6.5-8.0)
[2025-05-16] MEDS: Fluticasone/Umeclidinium/Vilanterol 200/62.5/25 BLST.W.DEV 1 PUFF INHALE (07:30)
--- NOTE | 2025-05-16 08:11 | P.PNIM_ITS ---
Subjective Subjective Date of Service: 05/16/25 Interval History: Patient continues to be dyspneic requiring around 5 L O2, I have requested if his family members 1 of his sons can come by he reports that he does not feel like he wants to be a burden to them as they were by his side the last time he was admitted However I did mention that this time it looks like to be a very significant change from his baseline and would like to involve his family members in his care Continues to be dyspneic with minimal ambulation/movement Guarded prognosis Likely will need pulm rehab Awaiting repeat sputum cultures Review of Systems Review of Systems: Yes all other systems are reviewed and are negative Physical Exam 2 Exam: Exam: General: mild resp distress Resp: Mild wheezing, lungs diminished in mid and lower lobes bilaterally, on 5L NC , unable to wean him down CVS: S1, S2, RRR GI: +BS, NT, no distention Neuro: Motor grossly intact bilaterally Extremities: No edema Psych: Anxious affect Vital Signs: Vital Signs: Last Vital Signs Temp 98.6 F 05/16/25 07:45 Pulse 81 05/16/25 07:45 Resp 16 05/16/25 07:45 BP 121/56 L 05/16/25 07:45 Pulse Ox 97 05/16/25 07:45 O2 Del Method Oxymask 05/16/25 07:45 O2 Flow Rate 4.5 05/16/25 07:45 Oxygen Flow Rate 4 05/11/25 06:53 BMI result Body Mass Index 25.2 Objective Data Active Medications Acetaminophen (Acetaminophen 325 Mg Tablet) 650 mg PO Q6H PRN PRN Reason: Pain, Mild 1-3,fever,headache Albuterol Sulfate (Albuterol Sulfate 90 Mcg 8 Gm Inhaler) 1 puff INHALE Q6H PRN PRN Reason: shortness of breath or wheezing Albuterol/Ipratropium (Albuterol/Iprat 2.5/0.5mg 3 Ml Ampul.Neb) 3 ml INHALE RQ4H WHILE AWAKE PRN PRN Reason: Shortness of Breath/Wheezing Calcium Carbonate (Calcium Carbonate 750 Mg Tab.Chew) 750 mg PO Q4H PRN PRN Reason: Heartburn Enoxaparin Sodium (Enoxaparin Sodium 40 Mg/0.4 Ml Syringe) 40 mg SUBCUT Q24H GE[facility] Last Admin: 05/15/25 13:21 Dose: 40 mg Documented By: DEEPALI Fluticasone/Umeclidinium/Vilanterol (Fluticasone/Umeclidinium/Vilanterol 200/62.5/25 Blst.W.Dev) 1 puff INHALE RDAILY [facility] Last Admin: 05/16/25 07:30 Dose: 1 puff Documented By: EVIN Guaifenesin/Dextromethorphan (Guaifenesin Dm 200/20/10 Ml 10 Ml Syrup) 10 ml PO Q4H PRN PRN Reason: Cough Last Admin: 05/15/25 07:53 Dose: 10 ml Documented By: DEEPALI Piperacillin Sod/Tazobactam (Sod 4.5 gm/ Sodium Chloride) 100 mls @ 200 mls/hr IV Q6H [facility] Last Infusion: 05/16/25 03:37 Dose: Infused Documented By: STAS Vancomycin HCl 1,250 mg/ (Sodium Chloride) 250 mls @ 166.667 mls/hr IV Q12H [facility] Last Infusion: 05/15/25 23:35 Dose: Infused Documented By: STAS Magnesium Hydroxide (Milk Of Magnesia 30 Ml Oral.Susp) 30 ml PO DAILY PRN PRN Reason: Constipation Melatonin (Melatonin 3 Mg Tablet) 6 mg PO BEDTIME PRN PRN Reason: Insomnia Ondansetron HCl (Ondansetron Hcl 4 Mg/2 Ml Vial) 4 mg IVPUSH Q8H PRN PRN Reason: Nausea and Vomiting Last Admin: 05/12/25 07:57 Dose: 4 mg Documented By: MERCY Paroxetine HCl (Paroxetine Hcl 20 Mg Tablet) 20 mg PO DAILY [facility] Last Admin: 05/15/25 07:53 Dose: 20 mg Documented By: DEEPALI Pharmacy Consult (Consult Rx Vancomycin Dosing) 1 each MISCELLANE DAILY PRN PRN Reason: Consult order Sodium Chloride (0.9 % Sodium Chloride Flush 3 Ml Syringe) 3 ml IVFLUSH QSHIFT [facility] Last Admin: 05/15/25 23:35 Dose: 3 ml Documented By: STSA Tobramycin Sulfate (Tobramycin Sulfate 80 Mg/2 Ml Vial) 300 mg INHALE RBID [facility] Last Admin: 05/16/25 07:30 Dose: 300 mg Documented By: EVIN Labs 05/16/25 06:22 05/16/25 06:22 Labs: Laboratory Results - last 24 hr 05/15/25 05/16/25 08:27 06:22 MCV 88.9 88.3 MCH 30.4 30.6 MCHC 34.2 34.7 RDW 13.2 13.3 Plt Count 226 214 MPV 8.4 L 8.3 L Immature Gran % (Auto) 2.2 H 2.2 H Neut % (Auto) 75.7 H 69.8 Lymph % (Auto) 6.0 L 7.3 L [place] % (Auto) 11.9 H 15.8 H Eos % (Auto) 3.6 4.3 H Baso % (Auto) 0.6 0.6 Lymph # (Auto) 0.6 L 0.7 L [place] # (Auto) 1.3 H 1.5 H Eos # (Auto) 0.4 0.4 Baso # (Auto) 0.1 0.1 Abs Immat Gran (auto) 0.23 H 0.21 H Absolute Neuts (auto) 8.1 6.5 Absolute Nucleated RBC 0.000 0.000 Nucleated RBC % (auto) 0.0 0.0 Anion Gap 11 L 13 Estim Creat Clear Calc 67.1 68.0 Estimated GFR > 60 > 60 Random Glucose 101 91 Calcium 8.2 L 8.2 L Total Bilirubin 0.6 0.6 AST 35 31 ALT 16 16 Alkaline Phosphatase 53 47 Total Protein 5.6 L 5.6 L Albumin 3.0 L 3.0 L Random Vancomycin 14.2 L Microbiology Microbiology Results: Microbiology 05/13/25 06:03 Direct Acid Fast Bacilli Smear - Final Sputum - Expectorated Assessment and Plan (1) Acute on chronic hypoxic respiratory failure: Status: Acute Plan Pt is an 89-year-old male with a PMH significant for?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 Pt is admitted to the hospital for treatment and further evaluation of acute hypoxic respiratory failure in the setting of multifocal pneumonia with sepsis. Acute on chronic hypoxic respiratory failure in the setting of multifocal pneumonia with sepsis in a pt with COPD/CLAUDIA intolerance Pt presented with SOB, NAPOLES, productive cough, CTA showing multifocal pneumonia most advanced in bilateral lower lobes, desatting into mid 80s on home 3L; pt with hx of CLAUDIA (see below) Pulmonology consulted we will continue broad-spectrum antibiotic coverage, continue b.i.d. nebulized tobramycin that was added during this admission, obtain sputum culture however sputum culture might be skewed given antibiotic administration prior to sputum culture Continue with vanc and Zosyn, day 6 Continue tobramycin nebulized b.i.d. initiated during this admission Duonebs prn, continue home inhalers Titrate supplemental O2 >90, wean as tolerated; on 2-3L home O2 prn Non bacteremic Repeat sputum cultures that were drawn yesterday currently pending Prognosis guarded Hx of CLAUDIA Diagnosed via [facility]ATS in 01/[address] Winsome Clemons of [place] infectious disease Initially treated with azithromycin, rifabutin, and ethambutol 3 times a week; could not tolerate ethambutol, minocycline, or inhaled amikacyin Discontinued all abx in 10/2024 Nubulized tobramycin tid to promote sputum production Repeat sample drawn 05/14/2025-results pending Mood disorder Continue paroxetine DNR/DNI, verified with pt DVT Prophylaxis: Lovenox This note is constructed using voice recognition software. While every effort has been made to ensure accuracy, agriculture professor errors may have been included. Quality Stroke Does the patient have a stroke diagnosis?: No VTE Prior VTE?: No VTE Risk Level:: Medical - moderate - high VTE Device Contraindication: Treatment Not Indicated VTE Drug Contraindication: N/A - Med Ordered
[2025-05-16] MEDS: 0.9 % Sodium Chloride Flush 3 ML SYRINGE IVFLUSH ×3 (08:26→22:21)
--- NOTE | 2025-05-16 09:27 | HE.PHANOTE ---
RE VANCO: WILL CONTINUE WITH CURRENT REGIMEN OF 1250 Q12 LEVEL TODAY IS 17.4, BUT MAY STILL SEE CONTINUED INCREASES FOR 48 HOURS BEFORE REACHING STEADY STATE. RECHECK RENAL FUNCTION AND VANCO LEVEL TOMORROW MORNING AND REASSESS.
[2025-05-16] MEDS: Potassium Chloride ER 20 MEQ TAB.ER.PRT 40 MEQ PO (10:14)
--- NOTE | 2025-05-16 10:58 | MHC.CM.PN ---
Per MD rounds patient not medically cleared for dc. Home O2 2-3L, requiring 4.5L at this time. Patient could benefit from PT eval to assist w/ dispo planning. [facility] following. CM will continue to follow.
--- NOTE | 2025-05-16 17:50 | PC.NURSE ---
Pt weaned down to 3L oxymask this shift. Tolerating well. Utilizing incentive spirometer several times each hour. SR/ST with frequent PVCs per [facility]. Denies pain. Voids in urinal yellow urine.
[2025-05-17] VITALS (8 sets, daily range): BP systolic 106–146; BP diastolic 55–67; PULSE 75–97; RESP 16–20; TEMP 36.4–36.9; O2SAT 91–95
[2025-05-17 05:48] LABS: MANUAL DIFF FLAG NO
[2025-05-17 05:54] LABS: Hematocrit 32.6 % (42.0-52.0); Hemoglobin 11.4 g/dl (14.0-18.0); Imm Gran Abs Auto 0.18 X10*3/uL (0.00-0.03); Imm Gran Pct Auto 2.0 % (0.0-0.4); Lymphocytes Absolute Auto 0.8 X10*3/uL (1.2-4.9); Mean Corpuscular HGB Conc 35.0 g/dl (31.0-36.0); Mean Corpuscular Hemoglobin 30.4 pg (27.0-33.0); Mean Corpuscular Volume 86.9 fL (80.0-98.0); NRBC Abs Auto 0.000 X10*3/uL (0.0-0.012); NRBC Pct Auto 0.0 /100WBC (0.0-0.2); Platelet Count 225 X10*3/uL (160-400); Red Blood Count 3.75 X10*6/uL (4.60-5.80); White Blood Count 9.0 X10*3/uL (4.8-10.8)
[2025-05-17 06:09] LABS: Alanine Aminotransferase 17 U/L (0-40); Albumin Level 2.9 g/dL (3.5-5.0); Alkaline Phosphatase 45 U/L (39-117); Anion Gap 13 (12-20); Aspartate Amino Transferase 33 U/L (5-37); Blood Urea Nitrogen 8 mg/dL (9-16); Calcium 8.3 mg/dL (8.4-10.2); Carbon Dioxide 27 mmol/L (22-29); Chloride 102 mmol/L (96-108); Creatinine Clr Calc Pharmacy 65.4; Estimated Glomerular Filt Rate > 60; Potassium 3.2 mmol/L (3.3-5.1); Sodium 139 mmol/L (135-145); Total Protein 5.6 g/dL (6.5-8.0)
[2025-05-17] MEDS: Fluticasone/Umeclidinium/Vilanterol 200/62.5/25 BLST.W.DEV 1 PUFF INHALE (07:45)
--- NOTE | 2025-05-17 08:28 | P.PNIM_ITS ---
Subjective Subjective Date of Service: 05/17/25 Interval History: Patient was thankfully able to be weaned to 3 L O2 Patient however continues to be significantly hypoxic requiring 6 L with ambulation with recovery in a few minutes Hence it has been deemed unsafe for him to go home , we will need subacute rehab or [facility] for safe discharge Review of Systems Review of Systems: Yes all other systems are reviewed and are negative Physical Exam 2 Exam: Exam: General: mild resp distress Resp: Mild wheezing, lungs diminished in mid and lower lobes bilaterally, on 5L NC , unable to wean him down CVS: S1, S2, RRR GI: +BS, NT, no distention Neuro: Motor grossly intact bilaterally Skin: White scaly patches on the face and scalp likely psoriasis-needs to be managed outpatient Extremities: No edema Psych: Anxious affect Vital Signs: Vital Signs: Last Vital Signs Temp 98.4 F 05/17/25 07:38 Pulse 97 05/17/25 07:49 Resp 20 05/17/25 07:49 BP 130/59 L 05/17/25 07:38 Pulse Ox 92 05/17/25 07:38 O2 Del Method Room Air 05/17/25 07:38 O2 Flow Rate 3 05/17/25 03:34 Oxygen Flow Rate 4 05/11/25 06:53 BMI result Body Mass Index 25.2 Objective Data Active Medications Acetaminophen (Acetaminophen 325 Mg Tablet) 650 mg PO Q6H PRN PRN Reason: Pain, Mild 1-3,fever,headache Albuterol Sulfate (Albuterol Sulfate 90 Mcg 8 Gm Inhaler) 1 puff INHALE Q6H PRN PRN Reason: shortness of breath or wheezing Albuterol/Ipratropium (Albuterol/Iprat 2.5/0.5mg 3 Ml Ampul.Neb) 3 ml INHALE RQ4H WHILE AWAKE PRN PRN Reason: Shortness of Breath/Wheezing Calcium Carbonate (Calcium Carbonate 750 Mg Tab.Chew) 750 mg PO Q4H PRN PRN Reason: Heartburn Enoxaparin Sodium (Enoxaparin Sodium 40 Mg/0.4 Ml Syringe) 40 mg SUBCUT Q24H COUNTS INCLUDE 234 BEDS AT THE [facility] Last Admin: 05/16/25 14:15 Dose: 40 mg Documented By: MARY Fluticasone/Umeclidinium/Vilanterol (Fluticasone/Umeclidinium/Vilanterol 200/62.5/25 Blst.W.Dev) 1 puff INHALE RDAILY COUNTS INCLUDE 234 BEDS AT THE [facility] Last Admin: 05/17/25 07:45 Dose: 1 puff Documented By: YESI Guaifenesin/Dextromethorphan (Guaifenesin Dm 200/20/10 Ml 10 Ml Syrup) 10 ml PO Q4H PRN PRN Reason: Cough Last Admin: 05/15/25 07:53 Dose: 10 ml Documented By: DEEPALI Piperacillin Sod/Tazobactam (Sod 4.5 gm/ Sodium Chloride) 100 mls @ 200 mls/hr IV Q6H COUNTS INCLUDE 234 BEDS AT THE [facility] Last Infusion: 05/17/25 03:33 Dose: Infused Documented By: BRITTNEE Vancomycin HCl 1,250 mg/ (Sodium Chloride) 250 mls @ 166.667 mls/hr IV Q12H COUNTS INCLUDE 234 BEDS AT THE [facility] Last Infusion: 05/17/25 00:10 Dose: Infused Documented By: BRITTNEE Magnesium Hydroxide (Milk Of Magnesia 30 Ml Oral.Susp) 30 ml PO DAILY PRN PRN Reason: Constipation Melatonin (Melatonin 3 Mg Tablet) 6 mg PO BEDTIME PRN PRN Reason: Insomnia Ondansetron HCl (Ondansetron Hcl 4 Mg/2 Ml Vial) 4 mg IVPUSH Q8H PRN PRN Reason: Nausea and Vomiting Last Admin: 05/12/25 07:57 Dose: 4 mg Documented By: MERCY Paroxetine HCl (Paroxetine Hcl 20 Mg Tablet) 20 mg PO DAILY COUNTS INCLUDE 234 BEDS AT THE [facility] Last Admin: 05/16/25 08:26 Dose: 20 mg Documented By: MARY Pharmacy Consult (Consult Rx Vancomycin Dosing) 1 each MISCELLANE DAILY PRN PRN Reason: Consult order Sodium Chloride (0.9 % Sodium Chloride Flush 3 Ml Syringe) 3 ml IVFLUSH QSHIFT COUNTS INCLUDE 234 BEDS AT THE [facility] Last Admin: 05/16/25 22:21 Dose: 3 ml Documented By: BRITTNEE Tobramycin Sulfate (Tobramycin Sulfate 80 Mg/2 Ml Vial) 300 mg INHALE RBID COUNTS INCLUDE 234 BEDS AT THE [facility] Last Admin: 05/17/25 07:45 Dose: 300 mg Documented By: YESI Comments: qr code on label is for discontinued order Labs 05/17/25 05:23 05/17/25 05:23 Labs: Laboratory Results - last 24 hr 05/16/25 05/17/25 08:40 05:23 MCV 86.9 MCH 30.4 MCHC 35.0 RDW 13.4 Plt Count 225 MPV 8.3 L Immature Gran % (Auto) 2.0 H Neut % (Auto) 68.2 Lymph % (Auto) 8.9 L [place] % (Auto) 15.9 H Eos % (Auto) 4.7 H Baso % (Auto) 0.3 Lymph # (Auto) 0.8 L [place] # (Auto) 1.4 H Eos # (Auto) 0.4 Baso # (Auto) 0.0 Abs Immat Gran (auto) 0.18 H Absolute Neuts (auto) 6.1 Absolute Nucleated RBC 0.000 Nucleated RBC % (auto) 0.0 Anion Gap 13 Estim Creat Clear Calc 65.4 Estimated GFR > 60 Random Glucose 88 Calcium 8.3 L Total Bilirubin 0.5 AST 33 ALT 17 Alkaline Phosphatase 45 Total Protein 5.6 L Albumin 2.9 L Random Vancomycin 17.4 Microbiology Microbiology Results: Microbiology 05/11/25 08:44 Blood Culture - Final Blood - Venous No growth after 5 days. 05/11/25 08:44 Blood Culture - Final Blood - Venous No growth after 5 days. 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 Pt is admitted to the hospital for treatment and further evaluation of acute hypoxic respiratory failure in the setting of multifocal pneumonia with sepsis. Acute on chronic hypoxic respiratory failure in the setting of multifocal pneumonia with sepsis in a pt with COPD/CLAUDIA intolerance Pt presented with SOB, NAPOLES, productive cough, CTA showing multifocal pneumonia most advanced in bilateral lower lobes, desatting into mid 80s on home 3L; pt with hx of CLAUDIA (see below) Pulmonology consulted we will continue broad-spectrum antibiotic coverage, continue b.i.d. nebulized tobramycin that was added during this admission, obtain sputum culture however sputum culture might be skewed given antibiotic administration prior to sputum culture We will DC broad-spectrum antibiotics and switch him to oral levofloxacin given improvement in respiratory status Continue tobramycin nebulized b.i.d. initiated during this admission Needs short-term rehab or inpatient pulmonary rehab-case packer looking into this Hx of CLAUDIA Diagnosed via [facility] in 01/[address] Winsome Clemons of [place] infectious disease Initially treated with azithromycin, rifabutin, and ethambutol 3 times a week; could not tolerate ethambutol, minocycline, or inhaled amikacyin Discontinued all abx in 10/2024 Nubulized tobramycin tid to promote sputum production Repeat sample drawn 05/14/2025-results pending Severe changes of bullous emphysema with linear nodular opacities in the upper lungs-neoplasm not ruled out Bilateral and mediastinal hilar adenopathy stable to mildly increased-needs outpatient pulmonary follow-up We will need PET scan in outpatient setting Psoriasis Patient likely has psoriasis of face and scalp Mood disorder Continue paroxetine DNR/DNI, verified with pt DVT Prophylaxis: Lovenox Needs short-term rehab or inpatient pulmonary rehab-case packer looking into this This note is constructed using voice recognition software. While every effort has been made to ensure accuracy, pickling operator errors may have been included. Quality Stroke Does the patient have a stroke diagnosis?: No VTE Prior VTE?: No VTE Risk Level:: Medical - moderate - high VTE Device Contraindication: Treatment Not Indicated VTE Drug Contraindication: N/A - Med Ordered
[2025-05-17] MEDS: Potassium Chloride ER 20 MEQ TAB.ER.PRT 40 MEQ PO (08:51)
--- NOTE | 2025-05-17 15:19 | MHC.CM.PN ---
Addendum entered by Lea Sorensen RN 05/17/25 15:27: Correction - PT rec inpatient pulm rehab. Referrals sent via [facility]. Original Note: PT rec STR. CM reviewed with patient, who prefers [facility], as he lives at their [facility]. Referrals placed via [facility]. Awaiting bed offer.
[2025-05-18] VITALS (8 sets, daily range): BP systolic 115–155; BP diastolic 55–74; PULSE 60–103; RESP 17–20; TEMP 36–36.8; O2SAT 91–95
[2025-05-18 06:40] LABS: Hematocrit 33.4 % (42.0-52.0); Hemoglobin 11.7 g/dl (14.0-18.0); Imm Gran Abs Auto 0.33 X10*3/uL (0.00-0.03); Imm Gran Pct Auto 3.5 % (0.0-0.4); Lymphocytes Absolute Auto 1.4 X10*3/uL (1.2-4.9); MANUAL DIFF FLAG SCAN; Mean Corpuscular HGB Conc 35.0 g/dl (31.0-36.0); Mean Corpuscular Hemoglobin 31.0 pg (27.0-33.0); Mean Corpuscular Volume 88.6 fL (80.0-98.0); NRBC Abs Auto 0.000 X10*3/uL (0.0-0.012); NRBC Pct Auto 0.0 /100WBC (0.0-0.2); Platelet Count 237 X10*3/uL (160-400); Red Blood Count 3.77 X10*6/uL (4.60-5.80); SCAN SMEAR FLAG 1; White Blood Count 9.3 X10*3/uL (4.8-10.8)
[2025-05-18 06:56] LABS: Alanine Aminotransferase 18 U/L (0-40); Albumin Level 3.1 g/dL (3.5-5.0); Alkaline Phosphatase 46 U/L (39-117); Anion Gap 11 (12-20); Aspartate Amino Transferase 32 U/L (5-37); Blood Urea Nitrogen 9 mg/dL (9-16); Calcium 8.5 mg/dL (8.4-10.2); Carbon Dioxide 29 mmol/L (22-29); Chloride 103 mmol/L (96-108); Creatinine Clr Calc Pharmacy 67.1; Estimated Glomerular Filt Rate > 60; Potassium 3.4 mmol/L (3.3-5.1); Sodium 140 mmol/L (135-145); Total Protein 5.8 g/dL (6.5-8.0)
[2025-05-18] MEDS: Fluticasone/Umeclidinium/Vilanterol 200/62.5/25 BLST.W.DEV 1 PUFF INHALE (08:16)
--- NOTE | 2025-05-18 12:15 | P.DS_ITS ---
DS: Providers Provider Date of Service: 05/18/25 Date of admission: 05/11/25 10:02 Date of discharge: 05/18/25 Primary care physician: SACHIN Scmhidt Consults: 05/11/25 12:47 Consult to Pulmonology Routine Consulting Provider: [facility] Reason for consultation: Hx of CLAUDIA in 01/2024 unable to tolerate tx; here for multifocal pna DS: Diagnosis Discharge Diagnosis (1) Acute on chronic hypoxic respiratory failure: Status: Acute DS: Summary Hospital Course Hospital Course: Acute on chronic hypoxic respiratory failure in the setting of multifocal pneumonia with sepsis in a pt with COPD/CLAUDIA intolerance Pt is an 89-year-old male with a PMH significant for COPD on 2-3 L, CLAUDIA in 01/2023, and depression/anxiety unable to tolerate treatment who presents to the ED with increased SOB, NAPOLES, and cough x2-3 days. Pt is admitted to the hospital for treatment and further evaluation of acute hypoxic respiratory failure in the setting of multifocal pneumonia with sepsis. Pt presented with SOB, NAPOLES, productive cough, CTA showing multifocal pneumonia most advanced in bilateral lower lobes, desatting into mid 80s on home 3L; pt with hx of CLAUDIA (see below) Pulmonology consulted we will continue broad-spectrum antibiotic coverage, continue b.i.d. nebulized tobramycin that was added during this admission, obtain sputum culture however sputum culture might be skewed given antibiotic administration prior to sputum culture We will DC broad-spectrum antibiotics and switch him to oral levofloxacin given improvement in respiratory status which she needs to continue for 10 more days since discharge-last day 05/28/2025 given his significant respiratory comorbidities. Continue tobramycin nebulized b.i.d. initiated during this admission Patient is significantly deconditioned and hence is being sent to short-term rehab Hx of CLAUDIA Diagnosed via [facility] in 01/[address] Winsome Clemons of [place] infectious disease Initially treated with azithromycin, rifabutin, and ethambutol 3 times a week; could not tolerate ethambutol, minocycline, or inhaled amikacyin Discontinued all abx in 10/2024 Nubulized tobramycin tid to promote sputum production Repeat sample drawn 05/14/2025-results pending as of this discharge Severe changes of bullous emphysema with linear nodular opacities in the upper lungs-neoplasm not ruled out Bilateral and mediastinal hilar adenopathy stable to mildly increased-needs outpatient pulmonary follow-up We will need PET scan in outpatient setting Psoriasis Patient likely has psoriasis of face and scalp Mood disorder Continue paroxetine DNR/DNI, verified with pt DVT Prophylaxis: Lovenox Needs short-term rehab or inpatient pulmonary rehab-bilingual patient support caseworker looking into this This note is constructed using voice recognition software. While every effort has been made to ensure accuracy, jointer submarine cable errors may have been included. Time spent discussing smoking cessation with patient: more than 10 minutes Time Attestation Discharge Coordination Time (in mins): 35 minutes Quality: Safe Use of Opioids Does Pt have an Active Cancer Diagnosis on the Problem List?: No Quality: Stroke Does the patient have a stroke diagnosis?: No Physical Exam Vital Signs: Vital Signs: Last Vital Signs Temp 96.8 F 05/18/25 11:44 Pulse 101 H 05/18/25 11:44 Resp 20 05/18/25 11:44 BP 115/58 L 05/18/25 11:44 Pulse Ox 93 05/18/25 11:50 O2 Del Method Oxymask 05/18/25 11:50 O2 Flow Rate 2.5 05/18/25 11:50 Oxygen Flow Rate 4 05/11/25 06:53 BMI result Body Mass Index 25.2 DS: Data Data Completed and Pending Labs on day of discharge: Laboratory Results - last 24 hr 05/18/25 05:30 WBC 9.3 RBC 3.77 L Hgb 11.7 L Hct 33.4 L MCV 88.6 MCH 31.0 MCHC 35.0 RDW 13.5 Plt Count 237 MPV 8.4 L Immature Gran % (Auto) 3.5 H Neut % (Auto) 60.1 Lymph % (Auto) 14.7 L [place] % (Auto) 17.3 H Eos % (Auto) 4.0 Baso % (Auto) 0.4 Lymph # (Auto) 1.4 [place] # (Auto) 1.6 H Eos # (Auto) 0.4 Baso # (Auto) 0.0 Abs Immat Gran (auto) 0.33 H Absolute Neuts (auto) 5.6 Absolute Nucleated RBC 0.000 Nucleated RBC % (auto) 0.0 Smear Tech's Comments VERIFIED Sodium 140 Potassium 3.4 Chloride 103 Carbon Dioxide 29 Anion Gap 11 L BUN 9 Creatinine 0.76 Estim Creat Clear Calc 67.1 Estimated GFR > 60 Random Glucose 85 Calcium 8.5 Total Bilirubin 0.4 AST 32 ALT 18 Alkaline Phosphatase 46 Total Protein 5.8 L Albumin 3.1 L Discharge Plan Discharge Anticipated Discharge Date/Time: 05/18/25 13:59 Patient Disposition: Xfer SNF Discharge Diagnosis: 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 Referrals: Lyndsay Keenan PA [Primary Care Provider, Hospitalist] - 1 Week Discharge Medications: New levofloxacin 750 mg Tablet 750 mg PO Q24H 10 Days Qty: 10 0RF tobramycin sulfate 40 mg/mL Solution 300 mg inhalation RBID 30 Days Qty: 450 0RF Rx Instructions: Needs nebulizer Continued paroxetine HCl 20 mg tablet 20 mg PO DAILY Qty: 90 1RF albuterol sulfate 90 mcg/actuation aero powdr breath act w/sensor 1 inh inhalation Q6H PRN (Reason: shortness of breath or wheezing) Qty: 1 0RF Trelegy Ellipta 200-62.5-25 mcg blister with device 1 ea INHALATION DAILY (DME) Oxygen Home Use Kit See Rx Instructions .Route Rx Instructions: As directed PreserVision AREDS 4,296 mcg-226 mg-90 mg capsule 1 cap PO BID Discharge Orders: Discharge Order (Routine); Ordered 05/18/25 Ordered By: Jessica Shaffer Diet: Low salt diet Activity on Discharge: As tolerated Stand Alone Forms: Patient Portal Discharge page Print Language: Irish Care Plan Goals: Rehab Health Concerns: Rehab Plan of Treatment: Continue nebulizing treatment Assessment: Continue nebulizing treatment
--- NOTE | 2025-05-18 12:44 | MHC.CM.PN ---
PATIENT WILL D/C TO [facility]IA [facility] @ 3PM. IMM DELIVERED. PT, & RN AWARE.
--- NOTE | 2025-05-18 16:12 | PC.NURSE ---
Report called to receiving facility.
== END 2025-05-18 16:14 | disposition skilled nursing facility (03) | DRG 871 ==
LOC: HO.ED 07:13 → HO.EDOVER 10:02 → HO.S3 14:49
PROVIDERS: Admitting Provider Student in an Organized Health Care Education/Training Program; Emergency Provider Emergency Medicine; PCP Physician Assistant; Visit Provider Student in an Organized Health Care Education/Training Program
DX: A41.9 Sepsis, unspecified organism (principal); J18.9 Pneumonia, unspecified organism; J96.21 Acute and chronic respiratory failure with hypoxia; A31.0 Pulmonary mycobacterial infection; L40.9 Psoriasis, unspecified; Z66 Do not resuscitate; J43.9 Emphysema, unspecified; F39 Unspecified mood [affective] disorder; Z20.822 Contact with and (suspected) exposure to COVID-19; Z99.81 Dependence on supplemental oxygen; Z87.891 Personal history of nicotine dependence; Z79.899 Other long term (current) drug therapy
CPT/HCPCS: 36415; 71045; 71275; 80048; 80053; 80202; 82565; 83605; 83735; 84484; 85025; 85027; 87040; 87116; 87206; 87637; 93005; 94640; 97162; 99285; J1650; J2405; J2543; J3260; J3373; J3374; J3480; Q9967

== ENCOUNTER → 2025-05-11 06:46 | Outpatient (BNV) | payer MEDICARE, SELFPAY | PROVIDERS: Admitting Provider Student in an Organized Health Care Education/Training Program; Emergency Provider Emergency Medicine; Visit Provider Internal Medicine | DX: I49.1 Atrial premature depolarization (principal); I49.3 Ventricular premature depolarization | CPT/HCPCS: 93010 ==

== ENCOUNTER → 2025-05-11 06:58 | Outpatient (BNV) | payer MEDICARE, SELFPAY | PROVIDERS: Emergency Provider Emergency Medicine; Visit Provider Radiology Diagnostic Radiology | DX: J44.9 Chronic obstructive pulmonary disease, unspecified (principal); R91.8 Other nonspecific abnormal finding of lung field | CPT/HCPCS: 71045 ==

== ENCOUNTER 2025-05-11 10:02 | Outpatient (BNV) | payer MEDICARE, SELFPAY | END 2025-05-13 09:53 | PROVIDERS: Admitting Provider Student in an Organized Health Care Education/Training Program; Emergency Provider Emergency Medicine; Visit Provider Internal Medicine Cardiovascular Disease | DX: I49.3 Ventricular premature depolarization (principal); I49.9 Cardiac arrhythmia, unspecified | CPT/HCPCS: 93010 ==

== ENCOUNTER → 2025-05-11 10:02 | Outpatient (BNV) | payer MEDICARE, SELFPAY | PROVIDERS: Admitting Provider Student in an Organized Health Care Education/Training Program; Emergency Provider Emergency Medicine; Visit Provider Student in an Organized Health Care Education/Training Program | DX: J96.21 Acute and chronic respiratory failure with hypoxia (principal); J18.8 Other pneumonia, unspecified organism | CPT/HCPCS: 99223; 99233 ==

== ENCOUNTER → 2025-05-11 10:02 | Outpatient (BNV) | payer MEDICARE, SELFPAY | PROVIDERS: Admitting Provider Student in an Organized Health Care Education/Training Program; Emergency Provider Emergency Medicine; Visit Provider Internal Medicine Pulmonary Disease | DX: J96.01 Acute respiratory failure with hypoxia (principal); J15.7 Pneumonia due to Mycoplasma pneumoniae; A31.0 Pulmonary mycobacterial infection; J43.2 Centrilobular emphysema | CPT/HCPCS: 99222 ==

== ENCOUNTER 2025-06-18 08:20 | Outpatient (AMB) | payer MEDICARE, SELFPAY ==
--- NOTE | 2025-06-18 08:25 | A.OFFPC_ITS ---
Vital Signs 06/18/25 08:34 Height 5 ft 9 in Weight 74.389 kg BMI 24.2 BP 110/60 Blood Pressure Location Lt brachial Position Sitting Respiration 18 Pulse 94 Pulse Source Pulse Oximeter Temp 96.8 F Temp Source Temporal Artery Scan Pulse Oximetry (%) 89 L Oxygen Delivery Method Nasal Cannula Intake Visit Reasons: d/c follow up Plumbing Foreman Required: No Accompanied by: Self / Same As Patient Allergies No Known Allergies Allergy (Mild, Verified 06/18/25 08:26) NOT APPLICABLE Medication List - Last Reconciled 06/18/25 by SACHIN Schmidt albuterol sulfate 90 mcg/actuation 1 inh inhalation Q6H PRN tnplbiketvo-pynmjekzi-jvbqapnq 200-62.5-25 mcg (Trelegy Ellipta) 1 ea PO DAILY Oxygen Home Use As directed paroxetine HCl 20 mg PO DAILY vitamins A,C,F-unyg-xtruyt 4,296 mcg-226 mg-90 mg (PreserVision AREDS) 1 cap PO BID Tobacco use date assessed: 06/18/25 Fall risk assessment: No Falls in past year Dental Screening Dental Screen Date: 06/18/25 Did you have a dental visit in the last 12 months?: No Did you have a dental problem in the last 6 months where you did not have access to dental care?: No Was dental information given to patient?: Patient declined HPI HPI Comments History of Present Illness Details 89 year old male with history of copd wi th exercise induced hypoxemia, CLAUDIA infection due to work exposure, hld, gerd, anxiety presents to the office today for management of chronic conditions and hospital discharge follow-up. He was hospitalized at [facility] from 05/11-05/18 due to acute on chronic hypoxic respiratory failure secondary to multifocal pneumonia with sepsis in the setting of COPD exacerbation and CLAUDIA therapy intolerance. CTA of the chest was negative for PE but did show multifocal pneumonia most advanced in the bilateral lower lobes resulting in desaturation into the 80s on home dose 3 L (which was primarily used with exertion). He had met sepsis criteria due to leukocytosis, tachycardia, tachypnea. Lactic acid was normal without any hypotension. Pulmonology was consulted and he was started on broad-spectrum antibiotics and nebulized tobramycin was added. Sputum culture was unable to be obtained but acid-fast cultures were obtained and were negative for any acid-fast bacilli. He was changed to levofloxacin and was ultimately discharged on oral levofloxacin which he completed for additional 10 days from discharge. He was also continued on tobramycin which he discontinued given adverse side effects in the past. He was continued on all other medications. He was evaluated by Physical therapy who recommended discharge to inpatient pulmonary rehab. He comes to the office today for follow-up after discharge from acute rehab setting. He reports he is doing well overall. However now he is requiring constant use of 3 L of O2. Has not required any steroids and continues to report rare albuterol use. He does continue using Trelegy inhaler. He has upcoming appointment with pulmonology on 06/22. He was referred to Dr. King at [facility] but he is uncertain if he wants to continue the tobramycin for the CLAUDIA infection which was diagnosed last year during VATS procedure. He also had not responded well to azithromycin, rifabutin, and ethambutol which he had been taking 3 times a week. As a result, he discontinued all of these medication to. Maintaining oximetry 89-92%. Still does have some dyspnea on exertion but is not overly limiting. No dyspnea at wrist. No lightheadedness or chest pains. Bullous emphysema-previously rarely using O2 but now constant due to above. Oximetry 89% in the office today, maintains oximetry with ambulation. 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 No longer following with ID. Unable to tolerate medications. Was discharged on inhaled tobramycin but also discontinued this Anxiety- managed with paxil HLD- not on statin Concerns: None ROS: General: No fevers, malaise, unintentional weight loss HEENT: No blurred vision, diplopia. No sore throat, nasal congestion, rhinorrhea, sinus pain, ear pain Cardiovascular: No chest pain, palpitations, or leg edema Respiratory: See HPI GI: No abdominal pain, nausea, vomiting, diarrhea, constipation, melena, hematochezia : No dysuria, hematuria, increased urinary frequency, decreased urinary output MSK: No myalgia, back pain Neuro: No headaches, weakness, paresthesias Skin: No rashes or lesions EXAM: Constitutional - Awake and Alert, No apparent distress Eyes - PERRL Cardiovascular - S1S2, RRR, No edema Respiratory - Normal lung expansion, Normal respiratory effort, No respiratory distress at rest or with ambulation, diminished lung sounds but overall clear to auscultation. Extremities - no calf tenderness bilaterally, no swelling MSK - right olecranon bursitis has resolved. No bony abnormality, normal range of motion Skin - Warm/Dry Neurological - Alert & oriented x3 Psychological - Appropriate affect PFSH Medical History Chronic hypoxemic respiratory failure Exercise hypoxemia Olecranon bursitis of right elbow Mycobacterium avium-intracellulare infection Pulmonary nodule Tobacco dependence Tubular adenoma of colon (~1997) COPD (chronic obstructive pulmonary disease) Pilonidal cyst Shortness of breath Abdominal pain HLD (hyperlipidemia) GERD (gastroesophageal reflux disease) Anxiety Surgical History History of bronchoscopy History of cataract surgery History of colonoscopy History of appendectomy Family History Sister Cancer Sister Cancer Social History Household Members: None Housing: Apartment Are you a 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 How often do you have a drink containing alcohol?: Never 3. How often do you have six or more drinks on one occasion?: Never Total Score: 0 OSVALDO-7 AMB Questionnaire OSVALDO-7 Date OSVALDO - 7 assessed: 03/20/25 Source: Developed by Drs. Jesus Singleton, Izzy Ng, Rashard Alvarez and colleagues, with an educational sydnee from [employer]. Physical exam (Primary Care) Vital Signs: Last Vital Signs Temp 96.8 F 06/18/25 08:34 Pulse 94 06/18/25 08:34 Resp 18 06/18/25 08:34 BP 110/60 06/18/25 08:34 Pulse Ox 89 L 06/18/25 08:34 Oxygen Delivery Method Nasal Cannula 06/18/25 08:34 BMI result Body Mass Index 24.2 Tobacco/Smoking Status: Tobacco use Status Tobacco use date assessed 06/18/25 06/18/25 08:36 Patient Tobacco Use Status Former Tobacco user 06/18/25 08:36 Tobacco use type Cigarette 06/18/25 08:36 e-Cigarette/Vaping Use Never Used 06/18/25 08:36 Thrive Assessment: Date of Thrive Assessment Date Thrive assessed 05/12/25 06/18/25 08:36 Coding Level of Care Code Est Pt Level 5 (44377) Complex EM visit Add On G2211 Diagnoses Hospital discharge follow-up Z09 Centrilobular emphysema J43.2 COPD type: emphysema Emphysema type: centrilobular 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 Discharge medications reviewed and reconciled (2) COPD (chronic obstructive pulmonary disease): Code(s): J44.9 - Chronic obstructive pulmonary disease, unspecified Category: Medical Qualifiers: COPD type: emphysema Emphysema type: centrilobular Qualified Code(s): J43.2 - Centrilobular emphysema Plan: Stable, no acute exacerbation. Continue Trelegy Ellipta and use albuterol only as needed, refills provided (3) Mycobacterium avium-intracellulare infection: Code(s): A31.0 - Pulmonary mycobacterial infection Category: Medical Plan: Continue following with pulm. Was prescribed tobramycin on discharge but this was discontinued. Recommend follow-up with Dr. King in infectious disease (4) Chronic hypoxemic respiratory failure: Code(s): J96.11 - Chronic respiratory failure with hypoxia Category: Medical Plan: Secondary to emphysema with acute exacerbation secondary to multifocal pneumonia. Ultimately direct acid-fast bacilli smear negative. Follow-up with pulmonology as scheduled this week (5) Multifocal pneumonia: Code(s): J18.8 - Other pneumonia, unspecified organism Category: Medical Plan: Completed course of antibiotics. Resolved. Does still have some dyspnea on exertion requiring the use of supplemental O2, however ambulatory O2 in the office maintained 90-92% Plan Follow up in 3 months as scheduled, labs to be completed following visit Orders: Orders Lipid Panel 3 Months E78.5 - Hyperlipidemia, unspecified, F41.9 - Anxiety disorder, unspecified, J18.8 - Other pneumonia, unspecified organism, J43.2 - Centrilobular emphysema Basic Metabolic Panel 3 Months E78.5 - Hyperlipidemia, unspecified, F41.9 - Anxiety disorder, unspecified, J18.8 - Other pneumonia, unspecified organism, J43.2 - Centrilobular emphysema Complete Blood Count Auto Diff 3 Months E78.5 - Hyperlipidemia, unspecified, F41.9 - Anxiety disorder, unspecified, J18.8 - Other pneumonia, unspecified organism, J43.2 - Centrilobular emphysema Liver Panel 3 Months E78.5 - Hyperlipidemia, unspecified, F41.9 - Anxiety disorder, unspecified, J18.8 - Other pneumonia, unspecified organism, J43.2 - Centrilobular emphysema Medications: Refilled albuterol sulfate 90 mcg/actuation 1 inh inhalation Q6H PRN 1 ea 0RF shortness of breath or wheezing
[2025-06-18 08:34] VITALS: BP 110/60; PULSE 94; RESP 18; TEMP 36; O2SAT 89; BMI 24.2
--- OUTSIDE RECORDS SUMMARY | 2025-06-18 08:43 | XMS_ITS | Encounter Summary ---
Author Organization [facility] Address [address] [place] [address] Care Team Providers Care Speech Therapy Assistant Name Role Phone Gabe Burrell MD Primary Care Provider [phone] Encounter Details Date Type Department Care Team (Late st Contact Info) Description 06/01/2025 Lab Requisition [facility] - Main Lab [address] [facility] [place] [address] Anabel Callahan MD [address] [place] [address] Pneumonia, unspecified organism; Chronic obstructive pulmonary disease, unspecified (CMS/HCC V24, CMS/[facility] V28); Vitamin B12 deficiency anemia, unspecified Social History Tobacco Use Types Packs/Day Years Used Date Smoking Tobacco: Former Cigarettes 2 52 0 09/13/1941 - 09/13/1993 Smokeless Tobacco: Never Alcohol Use Standard Drinks/Week Comments Not Currently 0 (1 standard drink = 0.6 oz pur e alcohol) Transportation Answer Date Recorded Has the lack of transportati on kept you from meetings, work, or from getting things needed for daily living? No Has the lack of transportati on kept you from medical appointments or from getting medications? No 06/01/2025 Sex and Gender Information Value Date Recorded Sex Assigned at Not on file Legal Sex Male 8:36 PM EST Gender Identity Not on file Sexual Orientation Not on file documented as of this encounter Plan of Treatment Not on file documented as of this encounter Visit Diagnoses Diagnosis Pneumonia, unspecified organism Chronic obstructive pulmonary disease, unspecified (CMS/HCC V24, CMS/[facility] V28) Vitamin B12 deficiency anemia, unspecified documented in this encounter Care Teams Speech Therapy Assistant Relationship Specialty Start Date End Date Gabe Burrell MD [address] [place] [address] Dr Tania [place] PCP - General 10/05/22 documented as of this encounter
--- OUTSIDE RECORDS SUMMARY | 2025-06-18 08:43 | XMS_ITS | Encounter Summary ---
Author Organization [facility] Address [address] [place] [address] Care Team Providers Care Office Director Name Role Phone Gabe Burrell MD Primary Care Provider [phone] Encounter Details Date Type Department Care Team (Late st Contact Info) Description 05/21/2025 Lab Requisition [facility] - Main Lab [address] [facility] [place] [address] Social History Tobacco Use Types Packs/Day Years [...] on filedocumented in this encounter Care Teams Office Director Relationship Specialty Start Date End Date Gabe Burrell MD [address] [place] [address] Dr Tania [place] PCP - General 10/05/22 documented as of this encounter
--- OUTSIDE RECORDS SUMMARY | 2025-06-18 08:43 | XMS_ITS | Encounter Summary ---
Author Organization [facility] Address [address] [place] [address] Care Team Providers Care Sleeve Ironer Name Role Phone Gabe Burrell MD Primary Care Provider [phone] Encounter Details Date Type Department Care Team (Late st Contact Info) Description 05/25/2025 Lab Requisition [facility] - Main Lab [address] [facility] [place] [address] Anabel Callahan MD [address] [place] [address] Type 2 diabetes mellitus without complications (CMS/HCC V24, CMS/HCC V28); Essential (primary) hypertension; Vitamin D deficiency, unspecified Social History Tobacco Use Types Packs/Day [...] on file documented as of this encounter Procedures Procedure Name Priority Date/Time Associated Diagnosis Comments VITAMIN B12 AND FOLATE Routine 05/25/2025 7:30 AM EDT Type 2 diabetes mellitus without complications (CMS/HCC V24, CMS/HCC V28) Essential (primary) hypertension Vitamin D deficiency, unspecified VITAMIN D 25 HYDROXY Routine 05/25/2025 7:30 AM EDT Type 2 diabetes mellitus without complications ([facility] V24, [facility] V28) Essential (primary) hypertension Vitamin D deficiency, unspecified COMPLETE BLOOD COUNT Routine 05/25/2025 7:30 AM EDT Type 2 diabetes mellitus without complications ([facility] V24, [facility] V28) Essential (primary) hypertension Vitamin D deficiency, unspecified THYROID STIMULATING HORMONE Routine 05/25/2025 7:30 AM EDT Type 2 diabetes mellitus without complications ([facility] V24, [facility] V28) Essential (primary) hypertension Vitamin D deficiency, unspecified HEMOGLOBIN A1C Routine 05/25/2025 7:30 AM EDT Type 2 diabetes mellitus without complications ([facility] V24, [facility] V28) Essential (primary) hypertension Vitamin D deficiency, unspecified COMPREHENSIVE METABOLIC PANEL Routine 05/25/2025 7:30 AM EDT Type 2 diabetes mellitus without complications ([facility] V24, [facility] V28) Essential (primary) hypertension Vitamin D deficiency, unspecified documented in this encounter Results * Hemoglobin A1c (05/25/2025 7:30 AM EDT) Hemoglobin A1C 5.5 <6.5 % LAB CHEMISTRY METHOD 05/25/2025 2:22 PM EDT [facility] Mean Bld Glu Estim. 111 mg/dL LAB CHEMISTRY METHOD 05/25/2025 2:22 PM EDT [facility] Blood Venous blood specimen / Unknown Venipuncture / Unknown 05/25/2025 7:30 AM EDT 05/25/2025 10:33 AM EDT us Anable Callahan MD LAB BLOOD ORDERABLES Final Resul t [facility] [address] [place] [address], [place] [phone] * Vitamin B12 and folate (05/25/2025 7:30 AM EDT) Vitamin B-12 329 250 - 900 pcg/mL LAB CHEMISTRY METHOD 05/25/2025 12:18 PM EDT [facility] Folate 4.8 2.8 - 17.0 ng/ml LAB CHEMISTRY METHOD 05/25/2025 12:18 PM EDT [facility] Blood Venous blood specimen / Unknown Venipuncture / Unknown 05/25/2025 7:30 AM EDT 05/25/2025 10:33 AM EDT us Anabel Callahan MD LAB BLOOD ORDERABLES Final Resul t Performing Organization Address [facility]/ZIP Co de Phone Number [facility] [address] [place] [address], [place] [phone] * (ABNORMAL) Vitamin D 25 hydroxy (05/25/2025 7:30 AM EDT) Pathologist [facility] Vit D, 25-Hydroxy 14.6(L) 30.0 - 80.0 ng/mL LAB CHEMISTRY METHOD 05/25/2025 1:37 PM EDT [facility] Blood Venous blood specimen / Unknown Venipuncture / Unknown 05/25/2025 7:30 AM EDT 05/25/2025 10:33 AM EDT us Anabel Callahan MD LAB BLOOD ORDERABLES Final Resul t Performing Organization Address City/[facility]/ZIP Co de Phone Number [facility] [address] [place] [address], [place] [phone] * Thyroid stimulating hormone (05/25/2025 7:30 AM EDT) Pathologist [facility] TSH 2.03 0.40 - 4.00 mcIU/mL LAB CHEMISTRY METHOD 05/25/2025 1:37 PM EDT [facility] Blood Venous blood specimen / Unknown Venipuncture / Unknown 05/25/2025 7:30 AM EDT 05/25/2025 10:33 AM EDT us Anabel Callahan MD LAB BLOOD ORDERABLES Final Resul t [facility] [address] [place] [address], * (ABNORMAL) Comprehensive metabolic panel (05/25/2025 7:30 AM EDT) Sodium 142 133 - 145 mmol/L LAB CHEMISTRY METHOD 05/25/2025 12:18 PM [facility] Potassium 4.2 3.5 - 5.5 mmol/L LAB CHEMISTRY METHOD 05/25/2025 12:18 PM [facility] Chloride 106 96 - 110 mmol/L LAB CHEMISTRY METHOD 05/25/2025 12:18 PM [facility] CO2 29 21 - 32 mmol/L LAB CHEMISTRY METHOD 05/25/2025 12:18 PM [facility] Anion Gap 7 3 - 11 LAB CHEMISTRY METHOD 05/25/2025 12:18 PM [facility] Glucose 76 70 - 100 mg/dL LAB CHEMISTRY METHOD 05/25/2025 12:18 PM [facility] BUN 10 5 - 25 mg/dL LAB CHEMISTRY METHOD 05/25/2025 12:18 PM [facility] Creatinine 0.84 0.70 - 1.30 mg/dL LAB CHEMISTRY METHOD 05/25/2025 12:18 PM [facility] eGFR 84 >=60 mL/min/1. 73m2 LAB CHEMISTRY METHOD 05/25/2025 12:18 PM [facility] Comment:Calculation based on the Chronic Kidney Disease Epidemiology Collaboration (CKD-EPI) equation refit without adjustment for race. BUN/Creatinine Ratio 11.9 LAB CHEMISTRY METHOD 05/25/2025 12:18 PM EDT [facility] Calcium 8.6 8.5 - 10.5 mg/dL LAB CHEMISTRY METHOD 05/25/2025 12:18 PM [facility] AST (SGOT) 20 10 - 42 unit/L LAB CHEMISTRY METHOD 05/25/2025 12:18 PM [facility] ALT (SGPT) 16 10 - 60 unit/L LAB CHEMISTRY METHOD 05/25/2025 12:18 PM [facility] Alkaline Phosphatase 54 42 - 121 unit/L LAB CHEMISTRY METHOD 05/25/2025 12:18 PM T [facility] Total Protein 5.5(L) 6.0 - 8.0 g/dL LAB CHEMISTRY METHOD 05/25/2025 12:18 PM [facility] Albumin 2.6(L) 3.2 - 5.0 g/dL LAB CHEMISTRY METHOD 05/25/2025 12:18 PM [facility] Total Bilirubin 0.3 0.0 - 1.4 mg/dL LAB CHEMISTRY METHOD 05/25/2025 12:18 PM [facility] Blood Venous blood specimen / Unknown Venipuncture / Unknown 05/25/2025 7:30 AM EDT 05/25/2025 10:33 AM EDT us Anabel Callahan MD LAB BLOOD ORDERABLES Final Resul t [facility] [address] [place] [address], * (ABNORMAL) Complete blood count (05/25/2025 7:30 AM EDT) WBC 10.7 4.8 - 10.8 K/mcL LAB HEMETOLOGY METHOD 05/25/2025 10:49 AM EDT [facility] RBC 3.90(L) 4.50 - 5.50 M/mcL LAB HEMETOLOGY METHOD 05/25/2025 10:49 AM [facility] Hemoglobin 11.9(L) 13.5 - 17.5 g/dL LAB HEMETOLOGY METHOD 05/25/2025 10:49 AM [facility] Hematocrit 36.1(L) 42.0 - 54.0 % LAB HEMETOLOGY METHOD 05/25/2025 10:49 AM [facility] MCV 92.1 79.0 - 98.0 FL LAB HEMETOLOGY METHOD 05/25/2025 10:49 AM [facility] MCH 30.4 27.0 - 32.0 pcg LAB HEMETOLOGY METHOD 05/25/2025 10:49 AM [facility] MCHC 33.0 32.0 - 37.0 g/dL LAB HEMETOLOGY METHOD 05/25/2025 10:49 AM [facility] RDW 14.0 11.0 - 15.0 % LAB HEMETOLOGY METHOD 05/25/2025 10:49 AM [facility] Platelets 254 130 - 400 K/mcL LAB HEMETOLOGY METHOD 05/25/2025 10:49 AM [facility] MPV 8.6 7.0 - 11.0 FL LAB HEMETOLOGY METHOD 05/25/2025 10:49 AM [facility] NRBC 0.0 <1.0 % LAB HEMETOLOGY METHOD 05/25/2025 10:49 AM [facility] NRBC Absolute 0.00 <0.10 K/mcL LAB HEMETOLOGY METHOD 05/25/2025 10:49 AM [facility] Blood Venous blood specimen / Unknown Venipuncture / Unknown 05/25/2025 7:30 AM EDT 05/25/2025 10:33 AM EDT us Anabel Callahan MD LAB BLOOD ORDERABLES Final Resul t [facility] ([facility]) [facility] [address] [place] [address], documented in this encounter Visit Diagnoses Diagnosis Type 2 diabetes mellitus without complications (CMS/HCC V24, CMS/HCC V28) Essential (primary) hypertension Unspecified essential hypertension Vitamin D deficiency, unspecified documented in this encounter Care Teams Sleeve Ironer Relationship Specialty Start Date End Date Gabe Burrell MD [address] [facility] [address] [place] PCP - General 10/05/22 documented as of this encounter
--- OUTSIDE RECORDS SUMMARY | 2025-06-18 08:43 | XMS_ITS | Clinical Summary ---
Author Organization [facility] Address [address] [place] [address] Phone Care Team Providers Care Optical Manufacturing Technician Name Role Phone Gabe Burrell MD Primary Care Provider [phone] Allergies Active Allergy Reactions Criticality Noted Date [...] general and how their size, shape, and tire changer time affect her level of suspicion for [...] Encounters Date Type Department Care Team Description 06/01/2025 Lab Requisition [facility] Lab [address] [place] [phone] Anabel Callahan MD Pneumonia, unspecified organism; Chronic obstructive pulmonary disease, unspecified (CMS/HCC V24, CMS/HCC V28); Vitamin B12 deficiency anemia, unspecified 05/25/2025 Lab Requisition [facility] Lab [address] [place] [phone] Anabel Callahan MD Pneumonia, unspecified organism; Chronic obstructive pulmonary disease, unspecified (CMS/HCC V24, CMS/HCC V28); Vitamin B12 deficiency anemia, unspecified 05/25/2025 Lab Requisition [facility] Lab [address] [place] [phone] Anabel Callahan MD Type 2 diabetes mellitus without complications (CMS/HCC V24, CMS/HCC V28); Essential (primary) hypertension; Vitamin D deficiency, unspecified 05/21/2025 Lab Requisition [facility] [address] [place] [phone] 05/21/2025 Lab Requisition [facility] Lab [address] [place] [address] Anabel Callahan MD Pneumonia, unspecified organism; Chronic obstructive pulmonary disease with (acute) lower respiratory infection ([facility] V24, [facility] V28); Vitamin D deficiency, unspecified from Last 3 Months Immunizations Immunization Administration Dates Next Due COVID-19 (Moderna) 6mo to le ss than 12yr 01/03/2021 Influenza trivalent, 0.5mL ( Fluad) 65yo and older 06/30/2021,06/17/2020,06/30/2018,2015 Influenza trivalent, 0.5mL ( Fluzone High-dose) 65yo and older 06/20/2022,06/24/2011 Surgical History Surgery Date Site/Laterality Comments APPENDECTOMY N/A PROCEDURE: HISTORICAL APPENDECTOMY OTHER SURGICAL HISTORY N/A PROCEDURE: PULMONOLOGY BRONCHOSCOPY CATARACT EXTRACTION N/A PROCEDURE: HISTORICAL CATARACT REMOVAL COLONOSCOPY N/A PROCEDURE: HISTORICAL COLONOSCOPY OTHER SURGICAL HISTORY 03/17/2023 Left PROCEDURE: SC THORACOSCOPY W/DX WEDGE RESEXN ANATO LUNG RESEXN; COMMENT: robotic LLL wedge resection (Dr. Edmond, [facility]) OTHER SURGICAL HISTORY 03/31/2023 Left PROCEDURE: SC BRNCHSC OCCLUSION&INSERT BRONCH VALVE INIT LOBE; COMMENT: medial segment LLL OTHER SURGICAL HISTORY 04/01/2023 Left PROCEDURE: SC THORACOSCOPY W/PLEURODESIS; COMMENT: VATS L mechanical and talc pleurodesis Medical History Medical History Date Comments Anxiety disorder DX:Anxiety diso rder COPD (chronic obstructive pu lmonary disease) ([facility] V24, [facility] V28) DX:COPD (chronic o bstructive pulmonary disease) [...] Health Maintenance Due Date Last Done Comments Diabetes: Annual Foot Exam 1945 Diabetes: Annual Retina Eye Exam 1945 DTaP,Tdap,and Td Vaccines (1 - Tdap) 12/29/1955 Pneumococcal Vaccine: 50+ Years (1 of 2 - PCV) 12/29/1955 Zoster Vaccines (1 of 2) 1986 RSV Immunization Adult Patients (1 - 1-dose 75+ series) 12/29/2011 Cholesterol Screening (Lipid Panel) 10/08/2023 Falls Risk Assessment 10/08/2023 Medicare Annual Wellness Visit 10/08/2023 Depression Screening 09/13/2024 COVID-19 Vaccine (2 - season) 2025 01/03/2021, 12/05/2020 Influenza Vaccine (#1) 2025 , 06/25/2023, 06/20/2022, Additional history exists Diabetes: Blood Sugar Control Test (HGBA1C) 11/22/2025 05/25/2025 Hypertension/CHF/CAD Annual BMP Blood Test 05/28/2026 05/28/2025, 05/25/2025, 02/08/2024, Additional history exists Social Influencers of Health Screening 06/01/2026 06/01/2025 HIB Vaccines Aged Out No longer eligi [...] Procedure Name Priority Date/Time Associated Diagnosis Comments BASIC METABOLIC PANEL Routine 05/28/2025 6:08 AM EDT Pneumonia, unspecified organism Chronic obstructive pulmonary disease, unspecified ([facility] V24, [facility] V28) Vitamin B12 deficiency anemia, unspecified COMPLETE BLOOD COUNT Routine 05/28/2025 6:08 AM EDT Pneumonia, unspecified organism Chronic obstructive pulmonary disease, unspecified (CMS/HCC V24, CMS/HCC V28) Vitamin B12 deficiency anemia, unspecified HEMOGLOBIN A1C Routine 05/25/2025 7:30 AM EDT Type 2 diabetes mellitus without complications ([facility] V24, [facility] V28) Essential (primary) hypertension Vitamin D deficiency, unspecified VITAMIN B12 AND FOLATE Routine 05/25/2025 7:30 [...] Essential (primary) hypertension Vitamin D deficiency, unspecified LAVENDER - EDTA Routine 05/21/2025 7:36 AM EDT Pneumonia, unspecified organism Chronic obstructive pulmonary disease with (acute) lower respiratory infection (CMS/HCC V24, CMS/HCC V28) Vitamin D deficiency, unspecified VITAMIN D 25 HYDROXY Routine 05/21/2025 7:36 AM EDT Pneumonia, unspecified organism Chronic obstructive pulmonary disease with (acute) lower respiratory infection (CMS/HCC V24, CMS/HCC V28) Vitamin D deficiency, unspecified VITAMIN B12 AND FOLATE Routine 05/21/2025 7:36 AM EDT Pneumonia, unspecified organism Chronic obstructive pulmonary disease with (acute) lower respiratory infection (CMS/HCC V24, CMS/HCC V28) Vitamin D deficiency, unspecified from Last 3 Months Results * (ABNORMAL) Complete blood count (05/28/2025 6:08 AM EDT) Only the most recent of2 resultswithin the time period is included. [facility] WBC 9.1 4.8 - 10.8 K/mcL LAB HEMETOLOGY METHOD 05/28/2025 12:23 PM [facility] LAB RBC 3.90(L) 4.50 - 5.50 M/mcL LAB HEMETOLOGY METHOD 05/28/2025 12:23 PM [facility] LAB Hemoglobin 11.7(L) 13.5 - 17.5 g/dL LAB HEMETOLOGY METHOD 05/28/2025 12:23 PM [facility] LAB Hematocrit 36.0(L) 42.0 - 54.0 % LAB HEMETOLOGY METHOD 05/28/2025 12:23 PM [facility] LAB MCV 92.1 79.0 - 98.0 FL LAB HEMETOLOGY METHOD 05/28/2025 12:23 PM [facility] LAB MCH 29.9 27.0 - 32.0 pcg LAB HEMETOLOGY METHOD 05/28/2025 12:23 PM [facility] LAB MCHC 32.5 32.0 - 37.0 g/dL LAB HEMETOLOGY METHOD 05/28/2025 12:23 PM [facility] LAB RDW 14.2 11.0 - 15.0 % LAB HEMETOLOGY METHOD 05/28/2025 12:23 PM [facility] LAB Platelets 237 130 - 400 K/mcL LAB HEMETOLOGY METHOD 05/28/2025 12:23 PM [facility] LAB MPV 8.9 7.0 - 11.0 FL LAB HEMETOLOGY METHOD 05/28/2025 12:23 PM [facility] LAB NRBC 0.0 <1.0 % LAB HEMETOLOGY METHOD 05/28/2025 12:23 PM [facility] LAB NRBC Absolute 0.00 <0.10 K/[facility] LAB HEMETOLOGY METHOD 05/28/2025 12:23 PM T [facility] LAB Blood Venous blood specimen / Unknown Venipuncture / Unknown 05/28/2025 6:08 AM EDT 05/28/2025 11:04 AM EDT us Anabel Callahan MD LAB BLOOD ORDERABLES Final Resul t [facility] LAB [address] [place] [address], [place] [phone] * (ABNORMAL) Basic metabolic panel (05/28/2025 6:08 AM EDT) Sodium 141 133 - 145 mmol/L LAB CHEMISTRY METHOD 05/28/2025 2:44 PM [facility] LAB Potassium 3.8 3.5 - 5.5 mmol/L LAB CHEMISTRY METHOD 05/28/2025 2:44 PM [facility] LAB Chloride 104 96 - 110 mmol/L LAB CHEMISTRY METHOD 05/28/2025 2:44 PM [facility] LAB CO2 28 21 - 32 mmol/L LAB CHEMISTRY METHOD 05/28/2025 2:44 PM [facility] LAB Anion Gap 9 3 - 11 LAB CHEMISTRY METHOD 05/28/2025 2:44 PM [facility] LAB Glucose 69(L) 70 - 100 mg/dL LAB CHEMISTRY METHOD 05/28/2025 2:44 PM [facility] LAB BUN 9 5 - 25 mg/dL LAB CHEMISTRY METHOD 05/28/2025 2:44 PM [facility] LAB Creatinine 0.82 0.70 - 1.30 mg/dL LAB CHEMISTRY METHOD 05/28/2025 2:44 PM [facility] LAB eGFR 84 >=60 mL/min/1. 73m2 LAB CHEMISTRY METHOD 05/28/2025 2:44 PM [facility] LAB Comment:Calculation based on the Chronic Kidney Disease Epidemiology Collaboration (CKD-EPI) equation refit without adjustment for race. BUN/Creatinine Ratio 11.0 LAB CHEMISTRY METHOD 05/28/2025 2:44 PM EDT [facility] Calcium 8.5 8.5 - 10.5 mg/dL LAB CHEMISTRY METHOD 05/28/2025 2:44 PM EDT [facility] LAB Blood Venous blood specimen / Unknown Venipuncture / Unknown 05/28/2025 6:08 AM EDT 05/28/2025 11:04 AM EDT us Anabel Callahan MD LAB BLOOD ORDERABLES Final Resul t Performing Organization Address [facility] de Phone Number [facility] [address] [place] [address], [place] [phone] * Vitamin B12 and folate (05/25/2025 7:30 AM EDT) Only the most recent of2 resultswithin the time period is included. Vitamin B-12 329 250 - 900 pcg/mL LAB CHEMISTRY METHOD 05/25/2025 12:18 PM EDT [facility] Folate 4.8 2.8 - 17.0 ng/ml LAB CHEMISTRY METHOD 05/25/2025 12:18 PM EDT [facility] LAB Blood Venous blood specimen / Unknown Venipuncture / Unknown 05/25/2025 7:30 AM EDT 05/25/2025 10:33 AM EDT us Anabel Callahan MD LAB BLOOD ORDERABLES Final Resul t Performing Organization Address [facility]/ZIP Co de Phone Number [facility] [address] [place] [address], [place] [phone] * (ABNORMAL) Vitamin D 25 hydroxy (05/25/2025 7:30 AM EDT) Only the most recent of2 resultswithin the time period is included. Pathologist [facility] Vit D, 25-Hydroxy 14.6(L) 30.0 - 80.0 ng/mL LAB CHEMISTRY METHOD 05/25/2025 1:37 PM EDT [facility] Blood Venous blood specimen / Unknown Venipuncture / Unknown 05/25/2025 7:30 AM EDT 05/25/2025 10:33 AM EDT us Anabel Callahan MD LAB BLOOD ORDERABLES Final Resul t Performing Organization Address [facility] de Phone Number [facility] [address] [place] [address], [place] [phone] * Thyroid stimulating hormone (05/25/2025 7:30 AM EDT) [facility] TSH 2.03 0.40 - 4.00 mcIU/mL LAB CHEMISTRY METHOD 05/25/2025 1:37 PM EDT [facility] Blood Venous blood specimen / Unknown Venipuncture / Unknown 05/25/2025 7:30 AM EDT 05/25/2025 10:33 AM EDT us Anabel Callahan MD LAB BLOOD ORDERABLES Final Resul t Performing Organization Address [facility] de Phone Number [facility] [address] [place] [address], [place] [phone] * Hemoglobin A1c (05/25/2025 7:30 AM EDT) [facility] Hemoglobin A1C 5.5 <6.5 % LAB CHEMISTRY METHOD 05/25/2025 2:22 PM EDT [facility] Mean Bld Glu Estim. 111 mg/dL LAB CHEMISTRY METHOD 05/25/2025 2:22 PM EDT [facility] Blood Venous blood specimen / Unknown Venipuncture / Unknown 05/25/2025 7:30 AM EDT 05/25/2025 10:33 AM EDT us Anabel Callahan MD LAB BLOOD ORDERABLES Final Resul t [facility] [address] [place] [address], [place] [phone] * (ABNORMAL) Comprehensive metabolic panel (05/25/2025 7:30 AM EDT) Sodium 142 133 - 145 mmol/L LAB CHEMISTRY METHOD 05/25/2025 12:18 PM EDT [facility] Potassium 4.2 3.5 - 5.5 mmol/L LAB CHEMISTRY METHOD 05/25/2025 12:18 PM [facility] LAB Chloride 106 96 - 110 mmol/L LAB CHEMISTRY METHOD 05/25/2025 12:18 PM [facility] LAB CO2 29 21 - 32 mmol/L LAB CHEMISTRY METHOD 05/25/2025 12:18 PM [facility] LAB Anion Gap 7 3 - 11 LAB CHEMISTRY METHOD 05/25/2025 12:18 PM [facility] LAB Glucose 76 70 - 100 mg/dL LAB CHEMISTRY METHOD 05/25/2025 12:18 PM [facility] LAB BUN 10 5 - 25 mg/dL LAB CHEMISTRY METHOD 05/25/2025 12:18 PM [facility] LAB Creatinine 0.84 0.70 - 1.30 mg/dL LAB CHEMISTRY METHOD 05/25/2025 12:18 PM [facility] LAB eGFR 84 >=60 mL/min/1. 73m2 LAB CHEMISTRY METHOD 05/25/2025 12:18 PM [facility] LAB Comment:Calculation based on the Chronic Kidney Disease Epidemiology Collaboration (CKD-EPI) equation refit without adjustment for race. BUN/Creatinine Ratio 11.9 LAB CHEMISTRY METHOD 05/25/2025 12:18 PM [facility] LAB Calcium 8.6 8.5 - 10.5 mg/dL LAB CHEMISTRY METHOD 05/25/2025 12:18 PM EDT [facility] AST (SGOT) 20 10 - 42 unit/L LAB CHEMISTRY METHOD 05/25/2025 12:18 PM EDT [facility] ALT (SGPT) 16 10 - 60 unit/L LAB CHEMISTRY METHOD 05/25/2025 12:18 PM EDT [facility] Alkaline Phosphatase 54 42 - 121 unit/L LAB CHEMISTRY METHOD 05/25/2025 12:18 PM EDT [facility] Total Protein 5.5(L) 6.0 - 8.0 g/dL LAB CHEMISTRY METHOD 05/25/2025 12:18 PM EDT [facility] Albumin 2.6(L) 3.2 - 5.0 g/dL LAB CHEMISTRY METHOD 05/25/2025 12:18 PM EDT [facility] Total Bilirubin 0.3 0.0 - 1.4 mg/dL LAB CHEMISTRY METHOD 05/25/2025 12:18 PM EDT [facility] Blood Venous blood specimen / Unknown Venipuncture / Unknown 05/25/2025 7:30 AM EDT 05/25/2025 10:33 AM EDT Anabel Callahan MD LAB BLOOD ORDERABLES Final Resul t [facility] [address] [place] [address], * Lavender tube (05/21/2025 7:36 AM EDT) Extra Tube Hold for add-ons. 05/21/2025 1:02 PM EDT [facility] Comment:Auto resulted. Blood Venous blood specimen / Unknown 05/21/2025 7:36 AM EDT 05/21/2025 11:36 AM EDT us Anabel Callahan MD LAB BLOOD ORDERABLES Final Resul t [facility] [address] [place] [address], [place] [phone] from Last 3 Months Insurance MEDICARE [facility] Care Teams Optical Manufacturing Technician Relationship Specialty Start Date End Date Gabe Burrell MD [address] [place] [address] Dr [place] PCP - General 10/05/22
--- OUTSIDE RECORDS SUMMARY | 2025-06-18 08:43 | XMS_ITS ---
Author Organization [facility] Address [address] [place] [address] Phone Care Team Providers Care Paintings Restorer Name Role Phone Gabe Burrell MD Primary Care Provider [phone] Transitional Care Management Status:Ongoing (Active) Start date:05/31/2025 Enrollment date:05/31/2025 Enrollment reason:Identified using hospital discharge data Related social drivers of health:Housing Instability, Food Access & Nutrition, Access to Healthcare, TH Health Literacy, Financial Risk, Transportation, Social Isolation, Food Risk Case Team Name Relationship Phone Viky Kenney LPN(Responsible Staff) Contact Lens Blocker And Cutter Continued Care and Services Coordination
--- OUTSIDE RECORDS SUMMARY | 2025-06-18 08:43 | XMS_ITS | Encounter Summary ---
Author Organization [facility] Address [address] [place] [address] Care Team Providers Care Utility Pipe Layer Name Role Phone Gabe Burrell MD Primary Care Provider [phone] Encounter Details Date Type Department Care Team (Late st Contact Info) Description 05/21/2025 Lab Requisition [facility] Lab [address] [facility] [place] [address] Anabel Callahan MD [address] [place] [address] Pneumonia, unspecified organism; Chronic obstructive pulmonary disease with (acute) lower respiratory infection (CMS/HCC V24, CMS/HCC V28); Vitamin D deficiency, unspecified Social History Tobacco [...] Diagnosis Comments VITAMIN B12 AND FOLATE Routine 05/21/2025 7:36 AM EDT Pneumonia, unspecified organism Chronic obstructive pulmonary disease with (acute) lower respiratory infection (CMS/HCC V24, CMS/HCC V28) Vitamin D deficiency, unspecified LAVENDER - EDTA Routine 05/21/2025 7:36 AM EDT Pneumonia, unspecified organism Chronic obstructive pulmonary disease with (acute) lower respiratory infection ([facility] V24, [facility] V28) Vitamin D deficiency, unspecified VITAMIN D 25 HYDROXY Routine 05/21/2025 7:36 AM EDT Pneumonia, unspecified organism Chronic obstructive pulmonary disease with (acute) lower respiratory infection ([facility] V24, [facility] V28) Vitamin D deficiency, unspecified documented in this encounter Results * Lavender tube (05/21/2025 7:36 AM EDT) Extra Tube Hold for add-ons. 05/21/2025 1:02 PM EDT [facility] LAB Comment:Auto resulted. Blood Venous blood specimen / Unknown 05/21/2025 7:36 AM EDT 05/21/2025 11:36 AM EDT Anabel Callahan MD LAB BLOOD ORDERABLES Final Resul t Performing Organization Address City/[facility]/ZIP Co de Phone Number [facility] LAB [address] [place] [address], [place] [phone] * (ABNORMAL) Vitamin D 25 hydroxy (05/21/2025 7:36 AM EDT) Vit D, 25-Hydroxy 25.3(L) 30.0 - 80.0 ng/mL LAB CHEMISTRY METHOD 05/21/2025 3:58 PM EDT [facility] Blood Venous blood specimen / Unknown Venipuncture / Unknown 05/21/2025 7:36 AM EDT 05/21/2025 10:12 AM EDT Anabel Callahan MD LAB BLOOD ORDERABLES Final Resul t [facility] [address] [place] [address], [place] [phone] * Vitamin B12 and folate (05/21/2025 7:36 AM EDT) Vitamin B-12 408 250 - 900 pcg/mL LAB CHEMISTRY METHOD 05/21/2025 2:56 PM EDT [facility] Folate 7.0 2.8 - 17.0 ng/ml LAB CHEMISTRY METHOD 05/21/2025 2:56 PM EDT [facility] Blood Venous blood specimen / Unknown Venipuncture / Unknown 05/21/2025 7:36 AM EDT 05/21/2025 10:12 AM EDT us Anabel Callahan MD LAB BLOOD ORDERABLES Final Resul t [facility] [address] [place] [address], documented in this encounter Visit Diagnoses Diagnosis Pneumonia, unspecified organism Chronic obstructive pulmonary disease with (acute) lower respiratory infection (CMS/HCC V24, CMS/HCC V28) Vitamin D deficiency, unspecified documented in this encounter Care Teams Utility Pipe Layer Relationship Specialty Start Date End Date Gabe Burrell MD [address] [place] [address] Dr [place] PCP - General 10/05/22 documented as of this encounter
--- OUTSIDE RECORDS SUMMARY | 2025-06-18 08:43 | XMS_ITS | Clinical Summary ---
Author Organization [facility] Address [address] [place] [address] Phone Care Team Providers Care Shoe Shiner Name Role Phone Unavailable Primary Care Provider [...] Insurance [place] [id number] [place] [address] MEDICARE PART [place] [address] MEDICARE PART A & B MEDICARE PART A & B MEDICARE PART A & B MEDICARE PART A & B Additional Source Comments The information contained in this document represents components of the legal health record. It is not the complete legal health record.[facility]
--- OUTSIDE RECORDS SUMMARY | 2025-06-18 08:43 | XMS_ITS | Encounter Summary ---
Author Organization [facility] Address [address] [place] [address] Care Team Providers Care Etcher Machine Name Role Phone Gabe Burrell MD Primary Care Provider [phone] Encounter Details Date Type Department Care Team (Late st Contact Info) Description 05/25/2025 Lab Requisition [facility] - Main Lab [address] [facility] [place] [address] Anabel Callahan MD [address] [place] [address] Pneumonia, unspecified organism; Chronic obstructive pulmonary disease, unspecified (CMS/HCC V24, CMS/HCC V28); Vitamin B12 deficiency anemia, unspecified Social [...] Procedure Name Priority Date/Time Associated Diagnosis Comments COMPLETE BLOOD COUNT Routine 05/28/2025 6:08 AM EDT Pneumonia, unspecified organism Chronic obstructive pulmonary disease, unspecified (CMS/HCC V24, CMS/HCC V28) Vitamin B12 deficiency anemia, unspecified BASIC METABOLIC PANEL Routine 05/28/2025 6:08 AM EDT Pneumonia, unspecified organism Chronic obstructive pulmonary disease, unspecified ([facility] V24, [facility] V28) Vitamin B12 deficiency anemia, unspecified documented in this encounter Results * (ABNORMAL) Basic metabolic panel (05/28/2025 6:08 AM EDT) Sodium 141 133 - 145 mmol/L LAB CHEMISTRY METHOD 05/28/2025 2:44 PM [facility] Potassium 3.8 3.5 - 5.5 mmol/L LAB CHEMISTRY METHOD 05/28/2025 2:44 PM [facility] Chloride 104 96 - 110 mmol/L LAB CHEMISTRY METHOD 05/28/2025 2:44 PM [facility] CO2 28 21 - 32 mmol/L LAB CHEMISTRY METHOD 05/28/2025 2:44 PM [facility] Anion Gap 9 3 - 11 LAB CHEMISTRY METHOD 05/28/2025 2:44 PM [facility] Glucose 69(L) 70 - 100 mg/dL LAB CHEMISTRY METHOD 05/28/2025 2:44 PM [facility] BUN 9 5 - 25 mg/dL LAB CHEMISTRY METHOD 05/28/2025 2:44 PM [facility] Creatinine 0.82 0.70 - 1.30 mg/dL LAB CHEMISTRY METHOD 05/28/2025 2:44 PM [facility] eGFR 84 >=60 mL/min/1. 73m2 LAB CHEMISTRY METHOD 05/28/2025 2:44 PM [facility] Comment:Calculation based on the Chronic Kidney Disease Epidemiology Collaboration (CKD-EPI) equation refit without adjustment for race. BUN/Creatinine Ratio 11.0 LAB CHEMISTRY METHOD 05/28/2025 2:44 PM [facility] Calcium 8.5 8.5 - 10.5 mg/dL LAB CHEMISTRY METHOD 05/28[facility]25 2:[facility] PM [facility] Blood Venous blood specimen / Unknown Venipuncture / Unknown 05/28/2025 6:08 AM EDT 05/28/2025 11:04 AM EDT Anabel Callahan MD LAB BLOOD ORDERABLES Final Resul t [facility] [address] [place] [address], * (ABNORMAL) Complete blood count (05/28/2025 6:08 AM EDT) WBC 9.1 4.8 - 10.8 K/mcL LAB HEMETOLOGY METHOD 05/28/2025 12:23 PM [facility] RBC 3.90(L) 4.50 - 5.50 M/mcL LAB HEMETOLOGY METHOD 05/28/2025 12:23 PM [facility] Hemoglobin 11.7(L) 13.5 - 17.5 g/dL LAB HEMETOLOGY METHOD 05/28/2025 12:23 PM [facility] Hematocrit 36.0(L) 42.0 - 54.0 % LAB HEMETOLOGY METHOD 05/28/2025 12:23 PM [facility] MCV 92.1 79.0 - 98.0 FL LAB HEMETOLOGY METHOD 05/28/2025 12:23 PM [facility] MCH 29.9 27.0 - 32.0 pcg LAB HEMETOLOGY METHOD 05/28/2025 12:23 PM [facility] MCHC 32.5 32.0 - 37.0 g/dL LAB HEMETOLOGY METHOD 05/28/2025 12:23 PM [facility] RDW 14.2 11.0 - 15.0 % LAB HEMETOLOGY METHOD 05/28/2025 12:23 PM [facility] Platelets 237 130 - 400 K/mcL LAB HEMETOLOGY METHOD 05/28/2025 12:23 PM EDT [facility] MPV 8.9 7.0 - 11.0 FL LAB HEMETOLOGY METHOD 05/28/2025 12:23 PM EDT [facility] NRBC 0.0 <1.0 % LAB HEMETOLOGY METHOD 05/28/2025 12:23 PM EDT [facility] NRBC Absolute 0.00 <0.10 K/mcL LAB HEMETOLOGY METHOD 05/28/2025 12:23 PM EDT [facility] Blood Venous blood specimen / Unknown Venipuncture / Unknown 05/28/2025 6:08 AM EDT 05/28/2025 11:04 AM EDT Anabel Callahan MD LAB BLOOD ORDERABLES Final Resul t [facility] [address] [place] [address], documented in this encounter Visit Diagnoses Diagnosis Pneumonia, unspecified organism Chronic obstructive pulmonary disease, unspecified (CMS/HCC V24, CMS/HCC V28) Vitamin B12 deficiency anemia, unspecified documented in this encounter Care Teams Etcher Machine Relationship Specialty Start Date End Date Gabe Burrell MD [address] [place] [address] Dr Tania [place] PCP - General 10/05/22 documented as of this encounter
== END 2025-06-18 09:10 | disposition home or self-care (01) ==
LOC: HO.HMCHD 08:20
PROVIDERS: PCP Physician Assistant; Visit Provider Physician Assistant
DX: Z09 Encounter for follow-up examination after completed treatment for conditions other than malignant neoplasm (principal); J43.2 Centrilobular emphysema; A31.0 Pulmonary mycobacterial infection; J96.11 Chronic respiratory failure with hypoxia; J18.8 Other pneumonia, unspecified organism

== ENCOUNTER → 2025-06-18 08:20 | Outpatient (BNVA) | payer MEDICARE, SELFPAY | PROVIDERS: PCP Physician Assistant; Visit Provider Physician Assistant | DX: Z09 Encounter for follow-up examination after completed treatment for conditions other than malignant neoplasm (principal); J43.2 Centrilobular emphysema; A31.0 Pulmonary mycobacterial infection; J96.11 Chronic respiratory failure with hypoxia; J18.8 Other pneumonia, unspecified organism; F41.9 Anxiety disorder, unspecified; Z79.899 Other long term (current) drug therapy | CPT/HCPCS: 99212 ==

== ENCOUNTER 2025-06-22 09:54 | Outpatient (AMB) | payer MEDICARE, SELFPAY ==
[2025-06-22 10:08] VITALS: BP 110/64; PULSE 97; O2SAT 91; BMI 23.6
--- NOTE | 2025-06-22 10:08 | MHC.OFFVIS ---
Vital Signs 06/22/25 10:08 Height 5 ft 9 in Weight 159 lb 13.362 oz BMI 23.6 BP 110/64 Blood Pressure Location Lt brachial Position Sitting Pulse 97 Pulse Source Pulse Oximeter Pulse Oximetry (%) 91 L Oxygen Delivery Method Nasal Cannula Oxygen Flow Rate 2 Intake Visit Reasons: Resp failure Assistant Guest Services Manager Required: No Allergies No Known Allergies Allergy (Mild, Verified 06/22/25 10:12) NOT APPLICABLE HPI Comments Details: The patient is an 89-year-old gentleman with a known history of COPD who apparently was in his usual state health until he started developing malaise worsening cough as well as other constitutional symptoms. He felt like he had pneumonia. Therefore, he went to the ER for further evaluation. There he had an abnormal chest x-ray and subsequently had any CT scan of the chest. It did demonstrate small pulmonary nodules in addition to know mediastinal lymphadenopathy. In addition to that appeared to have an endobronchial lesion of some type. Therefore the patient was referred to Oncology and subsequently went to thoracic surgery. I did perform an endobronchial ultrasound bronchoscopy in sample the 3 different stations; right paratracheal, subcarinal and right hilar lymph node. The specimens demonstrated small lymphocytes consistent with normal lymph node aspirate, without any malignancy. He did have a granuloma noted bringing up the question of sarcoidosis. No evidence of any fungal or AFB on smear or on culture. In addition to that he had no evidence of any endobronchial lesions. It was only mucus. The endobronchial biopsies were consistent with benign bronchial mucosa. The patient also had moderate amount of emphysema in his CAT scan. At this point he continues his respiratory therapy with good effect. 02/24/2022 the patient is here for pulmonary follow-up visit. Overall the patient is feeling better. The azithromycin seems to be improving his respiratory capacity and chest congestion. He is back to playing golf. This week he played a 18 hope. His last week he can only play 9 because of the weather. He is monitoring closely the weather specially heat humidity that make his breathing worse. We did review his pulmonary function studies. He does have moderate COPD but a severe diffusion impairment. The patient did qualify for oxygen during the last visit. At this point he seems to be doing well will retest him in 6 months when he comes back with a 6 minute walk test. I do not believe that he needs oxygen at this time. We also reviewed his CT scan of the chest. It appears that he has stable pulmonary nodules he also has an irregular reticular nodular area in the left upper lobe area. Seems to be slightly more pronounced but about the same size. Will have him come back in 6 months and assess his symptoms. If he has any worsening symptoms will go ahead and repeat the CT scan sooner than expected otherwise if he is doing well will plan to follow-up with a CT scan 1 year from the last. He is really not a surgical candidate. He is also not a great candidate for CT-guided biopsy of this nodular density due to high risk of pneumothorax. The only real option would be if this nodular densities growing would be to consider a PET scan and or consider SBRT. Will continue monitoring closely. 03/31/2022 the patient is here for a pulmonary follow-up visit. He continues to do well with the chest congestion. He is tolerating the azithromycin. Is helping his chronic bronchitis. However, he continues to have shortness of breath. He has been having hard time when he is playing golf. He does have his own pulse oximeter that sometimes reads in the mid 80s. We did review his CT scan demonstrating extensive emphysema. He does have the nodular density that is concerning that he has to be followed closely. In addition to that we did do a 6 minutes walk test the patient did desaturate down to 87%. She was placed on the conserving device initially at 2 L and his pulse ox did decrease down to 80%. On 3 L pulse to maintain a pulse ox of 92%. Therefore I will request him to start oxygen with portability at 2 L pulse. In the meantime we need to continue to monitor his abnormal CT scan. 08/25/2022 the patient is here for a pulmonary follow-up visit. Overall the patient is feeling well. He is tolerating the current respiratory regimen appears to be working well for him. He also uses the oxygen with activity. This also has been helpful for him. He did undergo a CT scan of the chest that was personally by me. Appears to have a 2 cm nodular density in the left upper lobe which appears to be new and concerning. The recommendations from the radiologist was to get a PET scan. The patient should get a PET scan to further address this area. If the patient does have an avid hyper metabolic area to suggest malignancy he should consider having a CT-guided biopsy. but, if the nodular density does not have any significant FDG activity been hold off on any high risk procedures for this patient significant emphysema and respiratory failure. The patient is agreeable to undergoing a PET scan at this time. 09/18/2022 The patient is here for a pulmonary follow up visit. He did undergo a PET scan. Then, he started complainng of hand pain and swealling. He is getting better, but it may be a bout of gout. In the meantime, we did discuss his abnormal PET scan. He does have an abnormal pulmonary nodule concerning for malignancy. Although, it is a solitary nodule, it is centrally located. It would be technically difficult to perform a CT guided biopsy. Therefore, he will be referred to Thoracic surgery. 01/25/2023 the patient is here for a pulmonary follow-up visit. The patient underwent a repeat CT scan of the chest and is here for follow-up. Unfortunately looks like the left lower lobe pulmonary nodule has increased in size. Appears to be more spiculated. This color starting for malignant process. The patient already had a PET scan that demonstrated significant FDG activity. The patient had been referred to thoracic surgery where he did undergo a CT-guided biopsy that was nondiagnostic. Not clear if the patient wanted to pursue any interventions at that point. Therefore he was referred back to Pulmonary. Now this CT scan demonstrates interval worsening of the nodule. We did review his last PFTs from February 2022 which demonstrated a DLCO 31% predicted. He has a lot of emphysema so therefore the area that is surrounding this nodular density has a lot of emphysema which is reassuring. The problem is that the nodule is abutting the fissure and is in the lower lobe where he has more preserved lung capacity. Therefore difficult for him to tolerate a full left lower lobe lobectomy. I will discuss this with thoracic surgery. The patient being to have a resection at this point the other option is stereotactic radiation if the resection is not possible. 05/14/2023 the patient is here for a pulmonary follow-up visit. She has been doing better. He did have surgery video-assisted thoracoscopy knee with resection of the nodule and lymph node biopsies. 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 Afterwards developed significant air leak requiring further interventions. Currently has a one-way valve because of the air leak that was persistent. He is scheduled to have that 1 way air valve removed in the coming days. His oxygen requirements have been decreasing which is reassuring. He is back to using the Trelegy now that he is recovering. The patient is having a productive cough with yellow sputum. He went back on the azithromycin 3 times a week that provide him some relief. In addition to that will start him on doxy just to cover better for MRSA specially after surgery and being in the hospital. Will continue with current respiratory therapy. Will get a placard card provided based on his oxygen needs any COPD and chronic respiratory failure. 01/24/2024 the patient is here for a pulmonary follow-up visit. Since we last spoke he did go to the ER for worsening respiratory symptoms. He was also complaining of productive cough with green sputum. In the ER patient was given prednisone for a COPD exacerbation. He was also given a short-acting beta agonist to use. He has been also been using the Trelegy inhaler. The prednisone did help although he still developing a productive cough with now grayish sputum. I did review his chest x-ray. Has small trace pleural effusion on the left side where he had surgery and also has not hazy changes. Will going to go ahead and give him Augmentin to treat for lower respiratory infection. Clinically he is feeling better. He does have a pulmonary nodule in the right upper lobe. He is following closely with Interventional Pulmonary at [facility]. He will be undergoing a CT or PET scan sometime in February and then follow-up then. They decide what to do with the abnormal finding. I did encourage him to consider undergoing stereotactic radiation in case if the areas positive on PET and avoid any complication from an invasive diagnostic intervention that may lead to further complications. 05/24/2024 The patient is here for a pulmonary follow up visit. Overall, doing well. 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 He was then referred to ID and started on anti mycobacterial therapy 3 times a week. About a week ago he stopped the Ethambutol due to GI adverse effects. He continues on his respiratory therapy with good effect. Also, continues to use the oxygen with activity with good effect. We will request records from [facility]. 11/22/2024 the patient is here for a pulmonary follow-up visit. Overall he is doing okay. Could not tolerate the antimycobacterial therapy because of significant GI discomforts and other constitutional symptoms. So therefore he is completely off it. He will follow-up with Infectious Disease and they will going to order another CT scan. He does reasonable. In the meantime he continues to respond well to the oxygen. The therapy has been affecting beneficial. He also has his respiratory therapy. He is going to follow-up with thoracic surgery and having CT scan soon. Will plan to follow-up in 6-8 months. If he has any issues prior to that he will call for an earlier assessment. 06/22/2025 the patient is here for hospital follow-up visit. Back in April he developed worsening respiratory symptoms with the acute respiratory failure. He was diagnosed with bilateral pneumonia. He did have a CT scan of the chest while he was in the hospital. I did personally reviewed. He has his underlying pulmonary nodules although it appeared that the nodules appear to be slightly larger. In addition to that significant airspace disease and consolidations left more than right base. He was given antibiotics. His white count was indeed elevated in the white count did normalize by the end of the stay. The cultures were not able to identify any organisms. Currently he is doing better he is still using oxygen with activity. He seems to be doing okay at rest. He does have [employer] company [employer] that gives him conserving devices. I believe this is perfectly fine. Will plan to repeat the CAT scan in a month to make sure that the airspace disease in the nodular densities have not worsened. And will have him follow-up a few months from then. He will continue with his current respiratory therapy. Although I will switch his Trelegy over to Anoro to minimize the risk of infections. The patient also get his vaccines including RSV pneumonia shot and also the flu shot. [facility] Medical History Chronic hypoxemic respiratory failure Exercise hypoxemia Olecranon bursitis of right elbow Mycobacterium avium-intracellulare infection Pulmonary nodule Tobacco dependence Tubular adenoma of colon (~1997) COPD (chronic obstructive pulmonary disease) Pilonidal cyst Shortness of breath Abdominal pain HLD (hyperlipidemia) GERD (gastroesophageal reflux disease) Anxiety Surgical History History of bronchoscopy History of cataract surgery History of colonoscopy History of appendectomy Family History Sister Cancer Sister Cancer Social History Household Members: None Housing: Apartment 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 () Do you presently have visiting nurse or other home services: No Alcohol intake: former Patient Tobacco Use Status: Former Tobacco user Tobacco use type: Cigarette Cigarette Packs Per Day: 2.0 Cigarettes Per Day: 40.0 Years Smoked: 40 e-Cigarette/Vaping Use: Never Used Second Hand Smoke Exposure: No service: Yes Current occupational status: retired Current occupation: Right Handed Review of Systems Const Denies night sweats ENT Denies change in voice, Denies lip swelling, Denies mouth pain, Reports nasal congestion, Reports nasal discharge and Denies tongue swelling Card Denies chest pain and Reports dyspnea on exertion Resp Reports change in phlegm color, Reports chest congestion, Reports cough and Reports dyspnea on exertion GI Denies abdominal pain Musc Denies no additional complaints, Reports arthralgias and Reports joint swelling Neuro Denies Neuro-related abnormal movements Psych Denies no additional complaints Rafael/Lymph Denies easy bleeding and Denies lymphadenopathy Aller/Immun Denies lip swelling and Denies tongue swelling Physical Exam Vital Signs: Last Vital Signs Pulse 97 06/22/25 10:08 BP 110/64 06/22/25 10:08 Pulse Ox 91 L 06/22/25 10:08 Oxygen Delivery Method Nasal Cannula 06/22/25 10:08 Oxygen Flow Rate 2 06/22/25 10:08 BMI result Body Mass Index 23.6 Const General: healthy appearing Orientation/consciousness: patient oriented x3 Eyes General: appearance normal, both eyes and all related structures Neck Neck: Yes normal visual inspection Chest Chest palpation & inspection: normal inspection of the chest Resp Effort & Inspection: normal respiratory effort and able to speak in complete sentences Auscultation: no crackles, no wheezes and diminished lung sounds Cardio Rate: regular rate Rhythm: regular rhythm Heart sounds: S1 normal heart sound present and S2 normal heart sound present GI Palpation (GI): Soft to palpation and nontender Auscultation: normal bowel sounds Skin General skin exam: no rashes or lesions noted Neuro General: patient oriented x3 and moves all extremities Extrem Other: Left knee Inspection: No visual abnormalities Alignment: Normal Palpation: Exquisite tenderness to palpation the distal quadriceps the suprapatellar area. Does not have any significant retropatellar tenderness itself. No joint line pain. ROM: Full range of motion Stability: Cruciate collateral ligaments intact Strength: He has full strength with straight leg raising. He has good resisted strength for knee extension though he has pain in the area of the superior patella. Distal neurovascular is normal Radiological investigations: Bilateral standing AP lateral skyline views of the left knee demonstrates he has chondrocalcinosis minimal degenerative changes. Results Reviewed Results Reviewed: personally reviewed CT chest with multilobar consolidation, extensive bronchiectatic changes and nodular changes due to the NTB disease, also emphysema Assessment & Plan Assessment & Plan (1) Pulmonary nodule: Code(s): R91.1 - Solitary pulmonary nodule Category: Medical (2) COPD (chronic obstructive pulmonary disease): Code(s): J44.9 - Chronic obstructive pulmonary disease, unspecified Category: Medical Qualifiers: COPD type: emphysema Emphysema type: centrilobular Qualified Code(s): J43.2 - Centrilobular emphysema (3) Lung nodules: Code(s): R91.8 - Other nonspecific abnormal finding of lung field Category: Medical (4) Multifocal pneumonia: Code(s): J18.8 - Other pneumonia, unspecified organism Category: Medical Plan stop Trelegy 200 daily Start Anoro ABILIO as needed acapella valve OFF all anti mycobacterial therapy. He will meet with ID soon. Will have a CT chest at [facility]. continue Oxygen conserving device 3L pulse with activity repeat CT chest F/U 2-3 months Medications: New umeclidinium-vilanterol 62.5-25 mcg/actuation (Anoro Ellipta) 1 inh inhalation DAILY 60 ea 11RF J44.89 - Other specified chronic obstructive pulmonary disease Discontinued [id number] 200-62.5-25 mcg (Trelegy Ellipta) Discontinued Reason: Doctor's Order 1 ea PO DAILY 60 ea 0RF Coding Level of Care Code Est Pt Level 5 (26169) Complex EM visit Add On G2211 Diagnoses Pulmonary nodule R91.1 Centrilobular emphysema J43.2 COPD type: emphysema Emphysema type: centrilobular Lung nodules R91.8 Multifocal pneumonia J18.8 Time Spent (min) 50
--- OUTSIDE RECORDS SUMMARY | 2025-06-22 10:46 | XMS_ITS | Encounter Summary ---
Author Organization [facility] Address [address] [place] [address] Care Team Providers Care Middle [employer] Professional Name Role Phone Gabe Burrell MD Primary Care Provider [phone] Encounter Details Date Type Department Care Team (Late st Contact Info) Description 05/25/2025 Lab Requisition [facility] - Main Lab 299 [facility] [place] [address] Anabel Callahan MD [address] [place] [address] Pneumonia, unspecified organism; Chronic obstructive pulmonary disease, [...] unspecified organism Chronic obstructive pulmonary disease, unspecified ([facility] V24, [facility] V28) Vitamin B12 deficiency anemia, unspecified documented in this encounter Results * (ABNORMAL) Basic metabolic panel (05/28/2025 6:08 AM EDT) Sodium 141 133 - 145 mmol/L LAB CHEMISTRY METHOD 05/28/2025 2:44 PM [facility] Potassium 3.8 3.5 - 5.5 mmol/L LAB CHEMISTRY METHOD 05/28/2025 2:44 PM [facility] Chloride 104 96 - 110 mmol/L LAB CHEMISTRY METHOD 05/28/2025 2:44 PM [facility] CO2 28 21 - 32 mmol/L LAB CHEMISTRY METHOD 05/28/2025 2:44 PM [facility] Anion Gap 9 3 - 11 LAB CHEMISTRY METHOD 05/28/2025 2:44 PM [facility] Glucose 69(L) 70 - 100 mg/dL LAB CHEMISTRY METHOD 05/28/2025 2:44 PM [facility] BUN 9 5 - 25 mg/dL LAB CHEMISTRY METHOD 05/28/2025 2:44 PM [facility] Creatinine 0.82 0.70 - 1.30 mg/dL LAB CHEMISTRY METHOD 05/28/2025 2:44 PM [facility] eGFR 84 >=60 mL/min/1. 73m2 LAB CHEMISTRY METHOD 05/28/2025 2:44 PM [facility] Comment:Calculation based on the Chronic Kidney Disease Epidemiology Collaboration (CKD-EPI) equation refit without adjustment for race. BUN/Creatinine Ratio 11.0 LAB CHEMISTRY METHOD 05/28/2025 2:44 PM [facility] Calcium 8.5 8.5 - 10.5 mg/dL LAB CHEMISTRY METHOD 05/28/2025 2:44 PM [facility] Blood Venous blood specimen / Unknown Venipuncture / Unknown 05/28/2025 6:08 AM EDT 05/28/2025 11:04 AM EDT Anabel Callahan MD LAB BLOOD ORDERABLES Final Resul t [facility] [address] [place] [address], * (ABNORMAL) Complete blood count (05/28/2025 6:08 AM EDT) WBC 9.1 4.8 - 10.8 K/mcL LAB HEMETOLOGY METHOD 05/28/2025 12:23 PM [facility] RBC 3.90(L) 4.50 - 5.50 M/mcL LAB HEMETOLOGY METHOD 05/28/2025 12:23 PM [facility] Hemoglobin 11.7(L) 13.5 - 17.5 g/dL LAB HEMETOLOGY METHOD 05/28/2025 12:23 PM [facility] Hematocrit 36.0(L) 42.0 - 54.0 % LAB HEMETOLOGY METHOD 05/28/2025 12:23 PM [facility] MCV 92.1 79.0 - 98.0 FL LAB HEMETOLOGY METHOD 05/28/2025 12:23 PM [facility] MCH 29.9 27.0 - 32.0 pcg LAB HEMETOLOGY METHOD 05/28/2025 12:23 PM [facility] MCHC 32.5 32.0 - 37.0 g/dL LAB HEMETOLOGY METHOD 05/28/2025 12:23 PM [facility] RDW 14.2 11.0 - 15.0 % LAB HEMETOLOGY METHOD 05/28/2025 12:23 PM [facility] Platelets 237 130 - 400 K/mcL [...] t [facility] [address] [place] [address], documented in this encounter Visit Diagnoses Diagnosis Pneumonia, unspecified organism Chronic obstructive pulmonary disease, unspecified (CMS/HCC V24, CMS/HCC V28) Vitamin B12 deficiency anemia, unspecified documented in this encounter Care Teams Middle [employer] Professional Relationship Specialty Start Date End Date Gabe Burrell MD [address] [place] [address] Dr Tania [place] PCP - General 10/05/22 documented as of this encounter
--- OUTSIDE RECORDS SUMMARY | 2025-06-22 10:46 | XMS_ITS | Encounter Summary ---
Author Organization [facility] Address [address] [place] [address] Care Team Providers Care Restoration Ecologist Name Role Phone Gabe Burrell MD Primary Care Provider [phone] Encounter Details Date Type Department Care Team (Late st Contact Info) Description 05/25/2025 Lab Requisition [facility] - Main Lab 299 [facility] [place] [address] Anabel Callahan MD [address] [place] [address] Type 2 diabetes mellitus without complications (CMS/HCC [...] EDT Type 2 diabetes mellitus without complications ([facility] V24, [facility] V28) Essential (primary) hypertension Vitamin D deficiency, unspecified COMPLETE BLOOD COUNT Routine 05/25/2025 7:30 AM EDT Type 2 diabetes mellitus without complications ([facility] V24, [facility] V28) Essential (primary) hypertension Vitamin D deficiency, unspecified THYROID STIMULATING HORMONE Routine 05/25/2025 7:30 AM EDT Type 2 diabetes mellitus without complications ([facility] V24, [facility] V28) Essential (primary) hypertension Vitamin D deficiency, unspecified HEMOGLOBIN A1C Routine 05/25/2025 7:30 AM EDT Type 2 diabetes mellitus without complications ([facility] V24, [facility] V28) Essential (primary) hypertension Vitamin D deficiency, unspecified COMPREHENSIVE METABOLIC PANEL Routine 05/25/2025 7:30 AM EDT Type 2 diabetes mellitus without complications ([facility] V24, [facility] V28) Essential (primary) hypertension Vitamin D deficiency, unspecified documented in this encounter Results * Hemoglobin A1c (05/25/2025 7:30 AM EDT) Hemoglobin A1C 5.5 <6.5 % LAB CHEMISTRY METHOD 05/25/2025 2:22 PM EDT [facility] Mean Bld Glu Estim. 111 mg/dL LAB CHEMISTRY METHOD 05/25/2025 2:22 PM EDT [facility] Blood Venous blood specimen / Unknown Venipuncture / Unknown 05/25/2025 7:30 AM EDT 05/25/2025 10:33 AM EDT us Anabel Callahan MD LAB BLOOD ORDERABLES Final Resul t [facility] [address] [place] [address], [place] [phone] * Vitamin B12 and folate (05/25/2025 7:30 AM EDT) Vitamin B-12 329 250 - 900 pcg/mL LAB CHEMISTRY METHOD 05/25/2025 12:18 PM EDT [facility] Folate 4.8 2.8 - 17.0 ng/ml LAB CHEMISTRY METHOD 05/25/2025 12:18 PM EDT [facility] Blood Venous blood specimen / Unknown Venipuncture / Unknown 05/25/2025 7:30 AM EDT 05/25/2025 10:33 AM EDT us Anabel Callahan MD LAB BLOOD ORDERABLES Final Resul t Performing Organization Address [facility]/ZIP Co de Phone Number [facility] [address] [place] [address], [place] [phone] * (ABNORMAL) Vitamin D 25 hydroxy (05/25/2025 7:30 AM EDT) Pathologist [facility] Vit D, 25-Hydroxy 14.6(L) 30.0 - 80.0 ng/mL LAB CHEMISTRY METHOD 05/25/2025 1:37 PM EDT [facility] Blood Venous blood specimen / Unknown Venipuncture / Unknown 05/25/2025 7:30 AM EDT 05/25/2025 10:33 AM EDT us Anabel Callahan MD LAB BLOOD ORDERABLES Final Resul t Performing Organization Address City/[facility]/ZIP Co de Phone Number [facility] [address] [place] [address], [place] [phone] * Thyroid stimulating hormone (05/25/2025 7:30 AM EDT) Pathologist [facility] TSH 2.03 0.40 - 4.00 mcIU/mL LAB CHEMISTRY METHOD 05/25/2025 1:37 PM EDT [facility] Blood Venous blood specimen / Unknown Venipuncture / Unknown 05/25/2025 7:30 AM EDT 05/25/2025 10:33 AM EDT us Anabel Callahan MD LAB BLOOD ORDERABLES Final Resul t [facility] [address] [place] [address], * (ABNORMAL) Comprehensive metabolic panel (05/25/2025 7:30 AM EDT) Sodium 142 133 - 145 mmol/L LAB CHEMISTRY METHOD 05/25/2025 12:18 PM [facility] Potassium 4.2 3.5 - 5.5 mmol/L LAB CHEMISTRY METHOD 05/25/2025 12:18 PM [facility] Chloride 106 96 - 110 mmol/L LAB CHEMISTRY METHOD 05/25/2025 12:18 PM [facility] CO2 29 21 - 32 mmol/L LAB CHEMISTRY METHOD 05/25/2025 12:18 PM [facility] Anion Gap 7 3 - 11 LAB CHEMISTRY METHOD 05/25/2025 12:18 PM [facility] Glucose 76 70 - 100 mg/dL LAB CHEMISTRY METHOD 05/25/2025 12:18 PM [facility] BUN 10 5 - 25 mg/dL LAB CHEMISTRY METHOD 05/25/2025 12:18 PM [facility] Creatinine 0.84 0.70 - 1.30 mg/dL LAB CHEMISTRY METHOD 05/25/2025 12:18 PM [facility] eGFR 84 >=60 mL/min/1. 73m2 LAB CHEMISTRY METHOD 05/25/2025 12:18 PM [facility] Comment:Calculation based on the Chronic Kidney Disease Epidemiology Collaboration (CKD-EPI) equation refit without adjustment for race. BUN/Creatinine Ratio 11.9 LAB CHEMISTRY METHOD 05/25/2025 12:18 PM EDT [facility] Calcium 8.6 8.5 - 10.5 mg/dL LAB CHEMISTRY METHOD 05/25/2025 12:18 PM [facility] AST (SGOT) 20 10 - 42 unit/L LAB CHEMISTRY METHOD 05/25/2025 12:18 PM [facility] ALT (SGPT) 16 10 - 60 unit/L LAB CHEMISTRY METHOD 05/25/2025 12:18 PM [facility] Alkaline Phosphatase 54 42 - 121 unit/L LAB CHEMISTRY METHOD 05/25/2025 12:18 PM T [facility] Total Protein 5.5(L) 6.0 - 8.0 g/dL LAB CHEMISTRY METHOD 05/25/2025 12:18 PM [facility] Albumin 2.6(L) 3.2 - 5.0 g/dL LAB CHEMISTRY METHOD 05/25/2025 12:18 PM [facility] Total Bilirubin 0.3 0.0 - 1.4 mg/dL LAB CHEMISTRY METHOD 05/25/2025 12:18 PM [facility] Blood Venous blood specimen / Unknown Venipuncture / Unknown 05/25/2025 7:30 AM EDT 05/25/2025 10:33 AM EDT us Anabel Callahan MD LAB BLOOD ORDERABLES Final Resul t [facility] [address] [place] [address], * (ABNORMAL) Complete blood count (05/25/2025 7:30 AM EDT) WBC 10.7 4.8 - 10.8 K/mcL LAB HEMETOLOGY METHOD 05/25/2025 10:49 AM EDT [facility] RBC 3.90(L) 4.50 - 5.50 M/mcL LAB HEMETOLOGY METHOD 05/25/2025 10:49 AM [facility] Hemoglobin 11.9(L) 13.5 - 17.5 g/dL LAB HEMETOLOGY METHOD 05/25/2025 10:49 AM [facility] Hematocrit 36.1(L) 42.0 - 54.0 % LAB HEMETOLOGY METHOD 05/25/2025 10:49 AM [facility] MCV 92.1 79.0 - 98.0 FL LAB HEMETOLOGY METHOD 05/25/2025 10:49 AM [facility] MCH 30.4 27.0 - 32.0 pcg LAB HEMETOLOGY METHOD 05/25/2025 10:49 AM [facility] MCHC 33.0 32.0 - 37.0 g/dL LAB HEMETOLOGY METHOD 05/25/2025 10:49 AM [facility] RDW 14.0 11.0 - 15.0 % LAB HEMETOLOGY METHOD 05/25/2025 10:49 AM [facility] Platelets 254 130 - 400 K/mcL LAB HEMETOLOGY METHOD 05/25/2025 10:49 AM [facility] MPV 8.6 7.0 - 11.0 FL LAB HEMETOLOGY METHOD 05/25/2025 10:49 AM [facility] NRBC 0.0 <1.0 % LAB HEMETOLOGY METHOD 05/25/2025 10:49 AM [facility] NRBC Absolute 0.00 <0.10 K/mcL LAB HEMETOLOGY METHOD 05/25/2025 10:49 AM [facility] Blood Venous blood specimen / Unknown Venipuncture / Unknown 05/25/2025 7:30 AM EDT 05/25/2025 10:33 AM EDT us Anabel Callahan MD LAB BLOOD ORDERABLES Final Resul t [facility] ([facility] [address] [place] [address], documented in this encounter Visit Diagnoses Diagnosis Type 2 diabetes mellitus without complications (CMS/HCC V24, CMS/HCC V28) Essential (primary) hypertension Unspecified essential hypertension Vitamin D deficiency, unspecified documented in this encounter Care Teams Restoration Ecologist Relationship Specialty Start Date End Date Gabe Burrell MD [address] [place] PCP - General 10/05/22 documented as of this encounter
--- OUTSIDE RECORDS SUMMARY | 2025-06-22 10:46 | XMS_ITS | Clinical Summary ---
Author Organization [facility] Address [address] [facility] [address] [place] [address] Phone Care Team Providers Care Supervisor Nurse Name Role Phone Unavailable Primary Care Provider [...] Insurance MEDIC[place] [id number] [place] [id number] MEDICARE PART A & [place] [address] MEDICARE PART A & B MEDICARE PART A & B MEDICARE PART A & B MEDICARE PART A & B Additional Source Comments The information contained in this document represents components of the legal health record. It is not the complete legal health record.[facility]
--- OUTSIDE RECORDS SUMMARY | 2025-06-22 10:46 | XMS_ITS | Encounter Summary ---
Author Organization [facility] Address [address] [place] [address] Care Team Providers Care Return To Factory Clerk Name Role Phone Gabe Burrell MD Primary Care Provider [phone] Encounter Details Date Type Department Care Team (Late st Contact Info) Description 05/21/2025 Lab Requisition [facility] - Main Lab [address] [facility] [place] [address] Anabel Callahan MD [address] [place] [address] Pneumonia, unspecified organism; Chronic obstructive pulmonary disease [...] pulmonary disease with (acute) lower respiratory infection ([facility] V24, [facility] V28) Vitamin D deficiency, unspecified VITAMIN D 25 HYDROXY Routine 05/21/2025 7:36 AM EDT Pneumonia, unspecified organism Chronic obstructive pulmonary disease with (acute) lower respiratory infection ([facility] V24, [facility] V28) Vitamin D deficiency, unspecified documented in this encounter Results * Lavender tube (05/21/2025 7:36 AM EDT) Extra Tube Hold for add-ons. 05/21/2025 1:02 PM EDT [facility] Comment:Auto resulted. Blood Venous blood specimen / Unknown 05/21/2025 7:36 AM EDT 05/21/2025 11:36 AM EDT Anabel Callahan MD LAB BLOOD ORDERABLES Final Resul t Performing Organization Address City/[facility]/ZIP Co de Phone Number [facility] [address] [place] [address], [place] [phone] * (ABNORMAL) Vitamin D 25 hydroxy (05/21/2025 7:36 AM EDT) Vit D, 25-Hydroxy 25.3(L) 30.0 - 80.0 ng/mL LAB CHEMISTRY METHOD 05/21/2025 3:58 PM EDT [facility] Blood Venous blood specimen / Unknown Venipuncture / Unknown 05/21/2025 7:36 AM EDT 05/21/2025 10:12 AM EDT Anabel Callahan MD LAB BLOOD ORDERABLES Final Resul t [facility] [address] [place] [address], [place] [phone] * Vitamin B12 and folate (05/21/2025 7:36 AM EDT) Vitamin B-12 408 250 - 900 pcg/mL LAB CHEMISTRY METHOD 05/21/2025 2:56 PM EDT [facility] Folate 7.0 2.8 - 17.0 ng/ml LAB CHEMISTRY METHOD 05/21/2025 2:56 PM EDT [facility] Blood Venous blood specimen / Unknown Venipuncture / Unknown 05/21/2025 7:36 AM EDT 05/21/2025 10:12 AM EDT us Anabel Callahan MD LAB BLOOD ORDERABLES Final Resul t [facility] [address] [place] [address], documented in this encounter Visit Diagnoses Diagnosis Pneumonia, unspecified organism Chronic obstructive pulmonary disease with (acute) lower respiratory infection (CMS/HCC V24, CMS/HCC V28) Vitamin D deficiency, unspecified documented in this encounter Care Teams Return To Factory Clerk Relationship Specialty Start Date End Date Gabe Burrell MD [address] [place] [address] Dr Marin MD PCP - General 10/05/22 documented as of this encounter
--- OUTSIDE RECORDS SUMMARY | 2025-06-22 10:46 | XMS_ITS ---
Author Organization [facility] Address [address] [place] [address] Phone Care Team Providers Care Medical Services Manager Name Role Phone Gabe Burrell MD Primary Care Provider [phone] Transitional Care Management Status:Ongoing (Active) Start date:05/31/2025 Enrollment date:05/31/2025 Enrollment reason:Identified using hospital discharge data Related social drivers of health:Housing Instability, Food Access & Nutrition, Access to Healthcare, TH Health Literacy, Financial Risk, Transportation, Social Isolation, Food Risk Case Team Name Relationship Phone Viky Kenney LPN(Responsible Staff) Radio/Tv Technician Continued Care and Services Coordination
--- OUTSIDE RECORDS SUMMARY | 2025-06-22 10:46 | XMS_ITS | Encounter Summary ---
Author Organization [facility] Address [address] [place] [address] Care Team Providers Care Processing Mgr Name Role Phone Gabe Burrell MD Primary Care Provider [phone] Encounter Details Date Type Department Care Team (Late st Contact Info) Description 06/01/2025 Lab Requisition [facility] - Main Lab [address] [facility] [place] [address] Anabel Callahan MD [address] [place] [address] Pneumonia, unspecified organism; Chronic obstructive pulmonary disease, unspecified (CMS/HCC V24, CMS/[facility] V28); Vitamin B12 deficiency anemia, unspecified Social [...] Chronic obstructive pulmonary disease, unspecified (CMS/HCC V24, CMS/[facility] V28) Vitamin B12 deficiency anemia, unspecified documented in this encounter Care Teams Processing Mgr Relationship Specialty Start Date End Date Gabe Burrell MD [address] [place] [address] Dr Tania [place] PCP - General 10/05/22 documented as of this encounter
--- OUTSIDE RECORDS SUMMARY | 2025-06-22 10:46 | XMS_ITS | Encounter Summary ---
Author Organization [facility] Address [address] [place] [address] Care Team Providers Care Mortgage Protection Specialist Name Role Phone Gabe Burrell MD Primary Care Provider [phone] Encounter Details Date Type Department Care Team (Late st Contact Info) Description 05/21/2025 Lab Requisition [facility] - Main Lab [address] [facility] [place] [address] Social History Tobacco Use Types [...] on filedocumented in this encounter Care Teams Mortgage Protection Specialist Relationship Specialty Start Date End Date Gabe Burrell MD [address] [place] [address] Dr Tania [place] PCP - General 10/05/22 documented as of this encounter
--- OUTSIDE RECORDS SUMMARY | 2025-06-22 10:46 | XMS_ITS | Clinical Summary ---
Author Organization [facility] Address [address] [place] [address] Phone Care Team Providers Care Flume Maker Name Role Phone Gabe Burrell MD Primary Care Provider [phone] Allergies Active Allergy Reactions Criticality Noted Date [...] general and how their size, shape, and currency exchange specialist time affect her level of suspicion for [...] Department Care Team Description 06/01/[address] [facility] [address] [place] [phone] Anabel Callahan MD Pneumonia, unspecified organism; Chronic obstructive pulmonary disease, unspecified (CMS/HCC V24, CMS/HCC V28); Vitamin B12 deficiency anemia, unspecified 05/25/[address] [facility] [address] [place] [phone] Anabel Callahan MD Pneumonia, unspecified organism; Chronic obstructive pulmonary disease, unspecified (CMS/HCC V24, CMS/HCC V28); Vitamin B12 deficiency anemia, unspecified 05/25/[address] [facility] [address] [place] [phone] Anabel Callahan MD Type 2 diabetes mellitus without complications (CMS/HCC V24, CMS/HCC V28); Essential (primary) hypertension; Vitamin D deficiency, unspecified 05/21/[address] [facility] [address] [place] [phone] 05/21/[address] [facility] [address] [place] [phone] Anabel Callahan MD Pneumonia, unspecified organism; Chronic obstructive pulmonary disease with (acute) lower respiratory infection ([facility] V24, [facility] V28); Vitamin D deficiency, unspecified from Last [...] COLONOSCOPY OTHER SURGICAL HISTORY 03/17/2023 Left PROCEDURE: TX THORACOSCOPY W/DX WEDGE RESEXN ANATO LUNG RESEXN; COMMENT: robotic LLL wedge resection (Dr. Edmond, [facility]) OTHER SURGICAL HISTORY 03/31/2023 Left PROCEDURE: TX BRNCHSC OCCLUSION&INSERT BRONCH VALVE INIT LOBE; COMMENT: medial segment LLL OTHER SURGICAL HISTORY 04/01/2023 Left PROCEDURE: TX THORACOSCOPY W/PLEURODESIS; COMMENT: VATS L mechanical and talc pleurodesis Medical History Medical History Date Comments Anxiety disorder DX:Anxiety diso rder COPD (chronic obstructive pu lmonary disease) ([facility] V24, [facility] V28) DX:COPD (chronic o bstructive pulmonary disease) ([facility]) GERD (gastroesophageal reflux disease) DX:GERD (gastroesophageal reflux [...] unspecified organism Chronic obstructive pulmonary disease, unspecified ([facility] V24, [facility] V28) Vitamin B12 deficiency anemia, unspecified COMPLETE BLOOD COUNT Routine 05/28/2025 6:08 AM EDT Pneumonia, unspecified organism Chronic obstructive pulmonary disease, unspecified (CMS/HCC V24, CMS/HCC V28) Vitamin B12 deficiency anemia, unspecified HEMOGLOBIN A1C Routine 05/25/2025 7:30 AM EDT Type 2 diabetes mellitus without complications (CMS/[facility] V24, CMS/[facility] V28) Essential (primary) hypertension Vitamin D deficiency, [...] of2 resultswithin the time period is included. [facility] WBC 9.1 4.8 - 10.8 K/mcL LAB HEMETOLOGY METHOD 05/28/2025 12:23 PM [facility] RBC 3.90(L) 4.50 - 5.50 M/mcL LAB HEMETOLOGY METHOD 05/28/2025 12:23 PM [facility] Hemoglobin 11.7(L) 13.5 - 17.5 g/dL LAB HEMETOLOGY METHOD 05/28/2025 12:23 PM [facility] Hematocrit 36.0(L) 42.0 - 54.0 % LAB HEMETOLOGY METHOD 05/28/2025 12:23 PM [facility] MCV 92.1 79.0 - 98.0 FL LAB HEMETOLOGY METHOD 05/28/2025 12:23 PM [facility] MCH 29.9 27.0 - 32.0 pcg LAB HEMETOLOGY METHOD 05/28/2025 12:23 PM [facility] MCHC 32.5 32.0 - 37.0 g/dL LAB HEMETOLOGY METHOD 05/28/2025 12:23 PM [facility] RDW 14.2 11.0 - 15.0 % LAB HEMETOLOGY METHOD 05/28/2025 12:23 PM [facility] Platelets 237 130 - 400 K/mcL LAB HEMETOLOGY METHOD 05/28/2025 12:23 PM [facility] MPV 8.9 7.0 - 11.0 FL LAB HEMETOLOGY METHOD 05/28/2025 12:23 PM [facility] NRBC 0.0 <1.0 % LAB HEMETOLOGY METHOD 05/28/2025 12:23 PM [facility] NRBC Absolute 0.00 <0.10 K/[facility] LAB HEMETOLOGY METHOD 05/28/2025 12:23 PM T [facility] Blood Venous blood specimen / Unknown Venipuncture / Unknown 05/28/2025 6:08 AM EDT 05/28/2025 11:04 AM EDT us Anabel Callahan MD LAB BLOOD ORDERABLES Final Resul t [facility] [address] [place] [address], [place] [phone] * (ABNORMAL) Basic metabolic panel (05/28/2025 6:08 AM EDT) Sodium 141 133 - 145 mmol/L LAB CHEMISTRY METHOD 05/28/2025 2:44 PM [facility] Potassium 3.8 3.5 - 5.5 mmol/L LAB CHEMISTRY METHOD 05/28/2025 2:44 PM [facility] Chloride 104 96 - 110 mmol/L LAB CHEMISTRY METHOD 05/28/2025 2:44 PM [facility] CO2 28 21 - 32 mmol/L LAB CHEMISTRY METHOD 05/28/2025 2:44 PM [facility] Anion Gap 9 3 - 11 LAB CHEMISTRY METHOD 05/28/2025 2:44 PM [facility] Glucose 69(L) 70 - 100 mg/dL LAB CHEMISTRY METHOD 05/28/2025 2:44 PM [facility] BUN 9 5 - 25 mg/dL LAB CHEMISTRY METHOD 05/28/2025 2:44 PM [facility] Creatinine 0.82 0.70 - 1.30 mg/dL LAB CHEMISTRY METHOD 05/28/2025 2:44 PM [facility] eGFR 84 >=60 mL/min/1. 73m2 LAB CHEMISTRY METHOD 05/28/2025 2:44 PM [facility] Comment:Calculation based on the Chronic Kidney Disease Epidemiology Collaboration (CKD-EPI) equation refit without adjustment for race. BUN/Creatinine Ratio 11.0 LAB CHEMISTRY METHOD 05/28/2025 2:44 PM EDT [facility] Calcium 8.5 8.5 - 10.5 mg/dL LAB CHEMISTRY METHOD 05/28/2025 2:44 PM EDT [facility] Blood Venous blood specimen / Unknown Venipuncture / Unknown 05/28/2025 6:08 AM EDT 05/28/2025 11:04 AM EDT us Anabel Callahan MD LAB BLOOD ORDERABLES Final Resul t Performing Organization Address [facility] de Phone Number [facility] [address] [place] [address], [place] [phone] * Vitamin B12 and folate (05/25/2025 7:30 AM EDT) Only the most recent of2 resultswithin the time period is included. Vitamin B-12 329 250 - 900 pcg/mL LAB CHEMISTRY METHOD 05/25/2025 12:18 PM EDT [facility] Folate 4.8 2.8 - 17.0 ng/ml LAB CHEMISTRY METHOD 05/25/2025 12:18 PM EDT [facility] Blood Venous blood specimen / Unknown Venipuncture / Unknown 05/25/2025 7:30 AM EDT 05/25/2025 10:33 AM EDT us Anabel Callahan MD LAB BLOOD ORDERABLES Final Resul t Performing Organization Address [facility]/ZIP Co de Phone Number [facility] [address] [place] [address], [place] [phone] * (ABNORMAL) Vitamin D 25 hydroxy (05/25/2025 7:30 AM EDT) Only the most recent of2 resultswithin the time period is included. Pathologist [facility] Vit D, 25-Hydroxy 14.6(L) 30.0 - 80.0 ng/mL LAB CHEMISTRY METHOD 05/25/2025 1:37 PM EDT [facility] Blood Venous blood specimen / Unknown Venipuncture / Unknown 05/25/2025 7:30 AM EDT 05/25/2025 10:33 AM EDT us Anabel Callahan MD LAB BLOOD ORDERABLES Final Resul t Performing Organization Address [facility] de Phone Number [facility] [address] [place] [address], [place] [phone] * Thyroid stimulating hormone (05/25/2025 7:30 AM EDT) [facility] TSH 2.03 0.40 - 4.00 mcIU/mL LAB CHEMISTRY METHOD 05/25/2025 1:37 PM EDT [facility] Blood Venous blood specimen / Unknown Venipuncture / Unknown 05/25/2025 7:30 AM EDT 05/25/2025 10:33 AM EDT us Anabel Callahan MD LAB BLOOD ORDERABLES Final Resul t Performing Organization Address [facility] de Phone Number [facility] [address] [place] [address], [place] [phone] * Hemoglobin A1c (05/25/2025 7:30 AM EDT) [facility] Hemoglobin A1C 5.5 <6.5 % LAB CHEMISTRY METHOD 05/25/2025 2:22 PM EDT [facility] Mean Bld Glu Estim. 111 mg/dL LAB CHEMISTRY METHOD 05/25/2025 2:22 PM EDT [facility] Blood Venous blood specimen / Unknown Venipuncture / Unknown 05/25/2025 7:30 AM EDT 05/25/2025 10:33 AM EDT us Anabel Callahan MD LAB BLOOD ORDERABLES Final Resul t [facility] [address] [place] [address], [place] [phone] * (ABNORMAL) Comprehensive metabolic panel (05/25/2025 7:30 AM EDT) Sodium 142 133 - 145 mmol/L LAB CHEMISTRY METHOD 05/25/2025 12:18 PM EDT [facility] Potassium 4.2 3.5 - 5.5 mmol/L LAB CHEMISTRY METHOD 05/25/2025 12:18 PM [facility] Chloride 106 96 - 110 mmol/L LAB CHEMISTRY METHOD 05/25/2025 12:18 PM [facility] CO2 29 21 - 32 mmol/L LAB CHEMISTRY METHOD 05/25/2025 12:18 PM [facility] Anion Gap 7 3 - 11 LAB CHEMISTRY METHOD 05/25/2025 12:18 PM [facility] Glucose 76 70 - 100 mg/dL LAB CHEMISTRY METHOD 05/25/2025 12:18 PM [facility] BUN 10 5 - 25 mg/dL LAB CHEMISTRY METHOD 05/25/2025 12:18 PM [facility] Creatinine 0.84 0.70 - 1.30 mg/dL LAB CHEMISTRY METHOD 05/25/2025 12:18 PM [facility] eGFR 84 >=60 mL/min/1. 73m2 LAB CHEMISTRY METHOD 05/25/2025 12:18 PM [facility] Comment:Calculation based on the Chronic Kidney Disease Epidemiology Collaboration (CKD-EPI) equation refit without adjustment for race. BUN/Creatinine Ratio 11.9 LAB CHEMISTRY METHOD 05/25/2025 12:18 PM [facility] Calcium 8.6 8.5 - 10.5 mg/dL LAB CHEMISTRY METHOD 05/25/2025 12:18 PM EDT [facility] AST (SGOT) 20 10 - 42 unit/L LAB CHEMISTRY METHOD 05/25/2025 12:18 PM EDT [facility] ALT (SGPT) 16 10 - 60 unit/L LAB CHEMISTRY METHOD 05/25/2025 12:18 PM EDT [facility] Alkaline Phosphatase 54 42 - 121 unit/L LAB CHEMISTRY METHOD 05/25/2025 12:18 PM EDT [facility] Total Protein 5.5(L) 6.0 - 8.0 g/dL LAB CHEMISTRY METHOD 05/25/2025 12:18 PM EDT [facility] Albumin 2.6(L) 3.2 - 5.0 g/dL LAB CHEMISTRY METHOD 05/25/2025 12:18 PM EDT [facility] Total Bilirubin 0.3 0.0 - 1.4 mg/dL LAB CHEMISTRY METHOD 05/25/2025 12:18 PM EDT [facility] Blood Venous blood specimen / Unknown Venipuncture / Unknown 05/25/2025 7:30 AM EDT 05/25/2025 10:33 AM EDT Anabel Callahan MD LAB BLOOD ORDERABLES Final Resul t [facility] [address] [place] [address], * Lavender tube (05/21/2025 7:36 AM EDT) Extra Tube Hold for add-ons. 05/21/2025 1:02 PM EDT [facility] Comment:Auto resulted. Blood Venous blood specimen / Unknown 05/21/2025 7:36 AM EDT 05/21/2025 11:36 AM EDT us Anabel Callahan MD LAB BLOOD ORDERABLES Final Resul t [facility] [address] [place] [address], [place] [phone] from Last 3 Months Insurance MEDICARE [facility] Care Teams Flume Maker Relationship Specialty Start Date End Date Gabe Burrell MD [address] [place] [address] Dr [place] PCP - General 10/05/22
== END 2025-06-22 10:45 | disposition home or self-care (01) ==
PROVIDERS: PCP Physician Assistant; Visit Provider Hospitalist
DX: R91.1 Solitary pulmonary nodule (principal); J43.2 Centrilobular emphysema; R91.8 Other nonspecific abnormal finding of lung field; J18.8 Other pneumonia, unspecified organism
CPT/HCPCS: 99215; G2211

== ENCOUNTER → 2025-06-22 09:54 | Outpatient (BNVA) | payer MEDICARE, SELFPAY | PROVIDERS: PCP Physician Assistant; Visit Provider Hospitalist | DX: R91.1 Solitary pulmonary nodule (principal); J43.2 Centrilobular emphysema; R91.8 Other nonspecific abnormal finding of lung field; J18.8 Other pneumonia, unspecified organism | CPT/HCPCS: 99212 ==

== ENCOUNTER 2025-07-05 10:30 | Emergency (ER) | payer MEDICARE, SELFPAY ==
--- NOTE | ~2025-07-05 | XR_ITS ---
EXAMINATION: XR CHEST 1 VIEW HISTORY: sob COMPARISON: Comparison is made with the prior examination dated 05/11/2025. FINDINGS: Two AP portable views of the chest performed at 10:58 AM are submitted. The lungs are hyperinflated, consistent with COPD. Extensive scarring is seen bilaterally. There are sutures in the left upper lung zone. There are patchy opacities at the lung bases which may represent atelectasis or pneumonia. There is no pleural effusion, pneumothorax, or pulmonary vascular congestion. The heart is normal in size. The bones are intact. XR/XR chest 1V IMPRESSION: COPD. Patchy opacities at the lung bases which may represent atelectasis or pneumonia. Electronically signed by: Jesus Gallegos MD 07/05/2025 11:14 AM EDT
[2025-07-05 10:39] VITALS: BP 122/87; PULSE 80; O2SAT 96
[2025-07-05 10:44] VITALS: BP 120/71; PULSE 80; RESP 20; TEMP 36.4; O2SAT 94; BMI 22.3
--- NOTE | 2025-07-05 10:49 | ECG_ITS ---
Test Reason : SOB Blood Pressure : */* mmHG Vent. Rate : 83 BPM Atrial Rate : 83 BPM P-R Int : 208 ms QRS Dur : 88 ms QT Int : 382 ms P-R-T Axes : 77 51 -7 degrees QTcB Int : 448 ms Sinus rhythm with Premature atrial complexes Nonspecific ST abnormality Abnormal ECG When compared with ECG of 13-May-2025 09:53, Premature ventricular complexes are no longer Present Premature atrial complexes are now Present ST now depressed in Inferior leads T wave inversion now evident in Inferior leads Referred By: Generic ED Physician Electronically Signed By: ANDREA CASTILLO MD
--- NOTE | 2025-07-05 10:54 | ED_ITS ---
HPI - SOB/Dyspnea General Chief Complaint: Dyspnea Stated Complaint: SOB,NONPROD COUGH X1W FROM CORRECTION PER EMS Time Seen by Provider: 07/05/25 10:53 Source: patient, EMS, RN notes reviewed and old records reviewed Mode of arrival: EMS Limitations: no limitations History of Present Illness ED Provider: Ary Snyder PA-C HPI Narrative: 89 year old male with history of chronic respiratory failure, COPD, GERD presenting for generalized weakness with shortness of breath and cough that he has had over the past week. Reports having a dry cough at baseline but feels like he has more air hunger than usual. He reports that he is normally on 3 L via nasal cannula does not feel like it is helping. When he went to go walk to the bathroom this morning his oxygen went from 95 on nasal cannula to 88 on nasal cannula when he got back up over a course of 5 minutes. He denies feeling any chest pain or tightness knees without any headaches or dizziness. No falls or trauma. Does not feel febrile. He reports having an upset stomach but no nausea vomiting or diarrhea. He is without any new onset of joint pain or rashes. He reports slight decrease in appetite. He last saw his scientific affairs manager 1 week ago just prior to the symptom onset who recently changed his medications and took him off the nebulizer patient did not feel this was appropriate. He has had to use his rescue inhaler a few times and does not feel like it is helping. He was last admitted to the hospital here on 05/11/2025 for acute on chronic hypoxic respiratory failure with MAC. He is a resident at [facility]. Reviewed patient's scientific affairs manager note dated on 06/22/2025 he has seen and followed by Dr. Norris. elicited complaint: shortness of breath and cough Pertinent past history: COPD Related Data Home Medications ?Medication ?Instructions ?Recorded ?Confirmed Oxygen Home Use 01/25/23 06/18/25 vitamins A,C,P-gwtz-booffp 4,296 1 cap PO BID 03/20/25 07/05/25 mcg-226 mg-90 mg capsule (PreserVision AREDS) Previous Rx's ?Medication ?Instructions ?Recorded paroxetine HCl 20 mg tablet 20 mg PO DAILY #90 tabs albuterol sulfate 90 mcg/actuation 1 puff inhalation Q ID PRN 06/18/25 aerosol inhaler (Ventolin HFA) shortness of breath or wheezing #8.5 grams Anoro Ellipta 62.5 mcg-25 1 inh inhalation DAILY #60 e a 06/26/25 mcg/actuation powder for inhalation (umeclidinium-vilanterol) azithromycin 250 mg tablet 250 mg PO DAILY 4 days #4 t abs 07/05/25 cefpodoxime 200 mg tablet 200 mg PO BID #7 tabs Allergies Allergy/AdvReac Type Severity Reaction Status Date / Time No Known Allergies Allergy Mild NOT Verified 07/05/25 10:47 APPLICABLE Review of Systems 2 Review of Systems: Yes all other systems are reviewed and are negative PMFSH Past Medical History Attestation statement: The following information was validated with the patient. Source: old records reviewed and nursing notes reviewed Medical History Chronic hypoxemic respiratory failure Exercise hypoxemia Olecranon bursitis of right elbow Mycobacterium avium-intracellulare infection Pulmonary nodule Tobacco dependence Tubular adenoma of colon (~1997) COPD (chronic obstructive pulmonary disease) Pilonidal cyst Shortness of breath Abdominal pain HLD (hyperlipidemia) GERD (gastroesophageal reflux disease) Anxiety Surgical History History of bronchoscopy History of cataract surgery History of colonoscopy History of appendectomy Family History Family History Sister Cancer Sister Cancer Social History Social History Household Members: None Housing: Apartment Are you a primary managed care director to a significant other at home: Yes () Do you presently have visiting nurse or other home services: No Alcohol intake: former Patient Tobacco Use Status: Former Tobacco user Tobacco use type: Cigarette Cigarette Packs Per Day: 2.0 Cigarettes Per Day: 40.0 Years Smoked: 40 e-Cigarette/Vaping Use: Never Used Second Hand Smoke Exposure: No Advance Directives: No Advance Directives Information Provided: Yes service: Yes Current occupational status: retired Current occupation: Right Handed Physical Exam 2 Exam: Exam: General: Appears in no acute distress, appears well nourished body habitus is average, appears stated age. No septic or ill-appearing. Vitals reviewed normal, PMH/Social and Surgical hx reviewed including allergies and current medications. - reviewed for prior visits here and med as it pertains a similar chief complaint. He is not tachypneic or tachycardic. Afebrile, not septic or toxic appearing Head: Normocephalic, no obvious trauma or skin lesions noted. Eyes: EOMI no scleral icterus ENMT: moist oral mucosa Neck: trachea midline no lymphadenopathy Cardiovascular: peripheral perfusion normal, Regular heart rate regular rhythm Respiratory: no respiratory distress, no crackles or rales slight end expiratory wheeze in the right upper lobe no stridor Abdomen: nondistended Extremities: warm and moving without difficulty warm and well profused extremities, no CVA tenderness Psych: Cooperative Neuro: Alert and oriented. Vital Signs: Vital Signs: Last Vital Signs Temp 97.5 F 07/05/25 10:44 Pulse 84 07/05/25 16:20 Resp 22 H 07/05/25 16:20 BP 128/77 07/05/25 16:20 Pulse Ox 96 07/05/25 16:20 O2 Del Method Nasal Cannula 07/05/25 16:20 O2 Flow Rate 2 07/05/25 16:20 Oxygen Flow Rate 2 07/05/25 10:44 BMI result Body Mass Index 22.3 Medications Administered Generic Name Dose Route Start Last Admin Trade Name Freq PRN Reason Stop Dose Admin Ceftriaxone Sodium 1 gm/ 50 mls @ 100 mls/hr 07/05/25 12:00 07/05/25 12:59 Sodium Chloride IV Infused Q12H GEOVANNA Infusion Discontinued Medications Generic Name Dose Route Start Last Admin Trade Name Freq PRN Reason Stop Dose Admin Azithromycin 500 mg 07/05/25 11:59 07/05/25 12:29 Azithromycin 500 Mg Tablet PO 07/05/25 12:00 500 mg ONCE ONE Administration Potassium Chloride 10 meq in 100 mls @ 100 mls/hr 07/05/25 12:00 07/05/25 16:31 Potassium Chloride/H20 IV 07/05/25 15:59 Infused Q1H GEOVANNA Infusion Medical Decision Making Medical Decision Making [facility] Narrative: 89 year old arrives to ED for generalized weakness and continued sob. Upon arrival to ED he is afebrile non tachycardic and no tachypnea. He is on 2 L via nasal cannula saturating 95%. No auditory wheezing or stridor. He does not appear to be septic or toxic and no concurrent coughing in the room. Appears hydrated on exam with no peripheral edema. Only a scant fitted wheeze in the right upper lobe. 1202: There is leukocytosis with left shift it was compared to his last x-ray here, clinically the images appear the same to me. Patchy opacities at the lung bases which may represent atelectasis or pneumonia. He continues to be afebrile and not ill or septic but given his leukocytosis and these findings we will obtain lactate and blood cultures just in case and start antibiotics however he still does not appear to be septic we will hold off on fluids at this time given that his proBNP is elevated however no cardiomegaly and he does not appear to be fluid overloaded. Troponin is negative EKG without ischemic changes. Baseline anemia noted, could be hemoconcentration is setting of potentional dehydration given above baseline h/h. His potassium is 3.2 will replenish. Urine small amount of leuks, no sxs but given weakness could be atypical presentation 1g of ceftriaxone for co coverage ordered, urine cx to reflex. COVID pending, FLu negative. Plan to consult hospitalist once lactate returns. Lactate normal at 1.2. Will consult hospitalist on admit with consideration for echo vs outpatient care and followup.Consult placed at 1305. 1347: Hospitalist Dr. Shaffer agrees with plan to admit. Ordered placed. It did speak with the patient's healthcare proxy who is the son Jose E who is aware that his father is here and visited him and agrees with the plan patient also agrees with the plan. 1400: Dr. Shaffer consulted back, in review of scientific affairs manager, hospitalist recommends outpatient management and follow up and he does not require bipap or cpap or IV medications. Rediscussed this with the patient and son. Plan updated for home treatment and scientific affairs manager follow up. Differential Diagnosis Differential Diagnoses: The differential diagnosis associated with the presentation includes Admission/Observation Consideration of admission/observation: Escalation of care including admission/observation considered Consult Healthcare Provider Management of the patient was discussed with: Hospitalist Lab Data MDM Lab Attestation statement: I reviewed the patient's lab results. 07/05/25 11:14 07/05/25 11:14 Labs: Lab Results 07/05/25 07/05/25 07/05/25 Range/Units 11:09 11:14 12:16 WBC 13.0 H (4.8-10.8) X10*3/uL RBC 4.44 L (4.60-5.80) X10*6/uL Hgb 13.2 L (14.0-18.0) g/dl Hct 39.0 L (42.0-52.0) % MCV 87.8 (80.0-98.0) fL MCH 29.7 (27.0-33.0) pg MCHC 33.8 (31.0-36.0) g/dl RDW 14.1 (11.0-16.0) % Plt Count 242 (160-400) X10*3/uL MPV 8.5 L (9.4-12.4) fL Immature Gran % (Auto) 0.7 H (0.0-0.4) % Neut % (Auto) 82.0 H (45-73) % Lymph % (Auto) 7.6 L (20-40) % [place] % (Auto) 8.4 (2-11) % Eos % (Auto) 0.8 (0-4) % Baso % (Auto) 0.5 (0-2) % Lymph # (Auto) 1.0 L (1.2-4.9) X10*3/uL [place] # (Auto) 1.1 (0.1-1.2) X10*3/uL Eos # (Auto) 0.1 (0.0-0.4) X10*3/uL Baso # (Auto) 0.1 (0.0-0.2) X10*3/uL Abs Immat Gran (auto) 0.09 H (0.00-0.03) X10*3/uL Absolute Neuts (auto) 10.7 H (2.0-8.3) x10*3/uL Absolute Nucleated RBC 0.000 (0.0-0.012) X10*3/uL Nucleated RBC % (auto) 0.0 (0.0-0.2) /100WBC PT 12.7 H (10.9-12.4) SEC INR 1.1 (0.9-1.1) Sodium 145 (135-145) mmol/L Potassium 3.2 L (3.3-5.1) mmol/L Chloride 105 (96-108) mmol/L Carbon Dioxide 30 H (22-29) mmol/L Anion Gap 13 (12-20) BUN 13 (9-16) mg/dL Creatinine 0.94 (0.5-1.4) mg/dL Estim Creat Clear Calc 52.5 Estimated GFR > 60 Random Glucose 124 H (60-115) mg/dL Lactic Acid 1.2 (0.5-2.0) mmol/L Calcium 9.4 D (8.4-10.2) mg/dL Total Bilirubin 0.6 (0.0-1.0) mg/dL AST 24 (5-37) U/L ALT 8 (0-40) U/L Alkaline Phosphatase 64 (39-117) U/L Troponin I High Sens 4.6 (<3.5-35.0) ng/L NT-Pro-B Natriuret Pep 456.6 H (<300) pg/mL Total Protein 7.0 (6.5-8.0) g/dL Albumin 3.9 (3.5-5.0) g/dL Influenza Type A (AIDEE) Negative (Negative) Influenza Type B (AIDEE) Negative (Negative) Influenza A & B Note See Note Independent Interpretation I performed an independent interpretation of an: EKG and Plain X-Ray Radiology Impression Discussion of test interpretation with radiology: I have reviewed the radiologist's reading. Independent Historian Clinical information obtained from an independent historian. History obtained from or confirmed by: EMS External Record Review External record reviewed: Inpatient record Tests considered The following testing was considered but not selected: CTA chest, does not appear to by consistent with PE, therefore deferred. Prescription Management I considered prescription management with: Antibiotic Chronic Conditions Patient?s care impacted by: Other Social Determinants Patient?s care significantly limited by Social Determinants of Health including: Other Social Determinant of Health Critical Care Time Critical Care Time Critical Care Time: Yes Total Critical Care Time: 40 Attestation: This patient required critical care. Due to the fact that the patient required a significant amount of one on one physician ? patient contact time, ordering and review of studies, arranging urgent treatment with development of a management plan, evaluation of patient?s response to treatment with frequent reassessments, and discussions with other providers this patient required critical care time in excess of 30 minutes. Critical care time was indicated due to the inherent instability and/or potential for instability in this patient. The critical care time that is allocated to this patient is above and beyond any time spent on any other billable procedures performed on this patient. Discharge Plan Discharge Clinical Impression: Acute UTI, Weakness, Acute hypokalemia Pneumonia Qualifiers: Pneumonia type: due to unspecified organism Laterality: bilateral Lung location: lower lobe of lung Qualified Code(s): J18.9 - Pneumonia, unspecified organism Patient Disposition: Home, Self-Care Additional Instructions: You were seen in the emergency department today with increased work of breathing. You have chronic respiratory failure. You recently had a medication change by her scientific affairs manager it is recommended that you see him again for reconsideration of going back on your previous medication as this seemed to be better for you. When you ambulate as you have not higher increase in oxygen demand it is okay to increase your oxygen she would not need to go past 6 L. you had a chest x-ray done today that either shows scarring from her prior pneumonia versus a new infection you were given a dose of ceftriaxone and azithromycin while here we will continue with similar medications at home starting tomorrow. You also had a urinalysis that is suggestive of a potential UTI which could explain your generalized weakness the medication that is treating your pneumonia we will also treat for this as well we will follow up with the urine culture. You had slightly low potassium while here this was replenished via IV. Try to increase your potassium containing foods such as banana. No cardiac findings were identified today please follow up with your scientific affairs manager and return for any acute concerns or changes. Hope you continue to feel well Prescriptions: New cefpodoxime 200 mg tablet 200 mg PO BID Qty: 7 0RF Rx Instructions: must administer with a meal/food. start on 07/06/2025 azithromycin 250 mg tablet 250 mg PO DAILY 4 Days Qty: 4 0RF Rx Instructions: start on day 2 of therapy on 07/06/2025, first dose given in ER. No Action paroxetine HCl 20 mg tablet 20 mg PO DAILY Qty: 90 1RF albuterol sulfate [Ventolin HFA] 90 mcg/actuation HFA aerosol inhaler 1 puff inhalation QID PRN (Reason: shortness of breath or wheezing) Qty: 8.5 1RF umeclidinium-vilanterol [Anoro Ellipta] 62.5-25 mcg/actuation blister with device 1 inh inhalation DAILY Qty: 60 11RF (DME) Oxygen Home Use Kit See Rx Instructions .Route Rx Instructions: As directed PreserVision AREDS 4,296 mcg-226 mg-90 mg capsule 1 cap PO BID Referrals: Bacilio Norris MD [Physician, Pulmonology] Referral Note: ED follow, consider changing back to old inhaler Clinical Impression: Pneumonia Print Language: Kosovan
[2025-07-05 11:19] LABS: MANUAL DIFF FLAG NO
[2025-07-05 11:24] LABS: Hematocrit 39.0 % (42.0-52.0); Hemoglobin 13.2 g/dl (14.0-18.0); Imm Gran Abs Auto 0.09 X10*3/uL (0.00-0.03); Imm Gran Pct Auto 0.7 % (0.0-0.4); Lymphocytes Absolute Auto 1.0 X10*3/uL (1.2-4.9); Mean Corpuscular HGB Conc 33.8 g/dl (31.0-36.0); Mean Corpuscular Hemoglobin 29.7 pg (27.0-33.0); Mean Corpuscular Volume 87.8 fL (80.0-98.0); NRBC Abs Auto 0.000 X10*3/uL (0.0-0.012); NRBC Pct Auto 0.0 /100WBC (0.0-0.2); Platelet Count 242 X10*3/uL (160-400); Red Blood Count 4.44 X10*6/uL (4.60-5.80); White Blood Count 13.0 X10*3/uL (4.8-10.8)
[2025-07-05 11:27] LABS: INTERNATIONAL NORM RATIO 1.1 (0.9-1.1); Prothrombin Time 12.7 SEC (10.9-12.4)
[2025-07-05 11:35] LABS: Alanine Aminotransferase 8 U/L (0-40); Albumin Level 3.9 g/dL (3.5-5.0); Alkaline Phosphatase 64 U/L (39-117); Anion Gap 13 (12-20); Aspartate Amino Transferase 24 U/L (5-37); Blood Urea Nitrogen 13 mg/dL (9-16); Calcium 9.4 mg/dL (8.4-10.2); Carbon Dioxide 30 mmol/L (22-29); Chloride 105 mmol/L (96-108); Creatinine Clr Calc Pharmacy 52.5; Estimated Glomerular Filt Rate > 60; Potassium 3.2 mmol/L (3.3-5.1); Sodium 145 mmol/L (135-145); Total Protein 7.0 g/dL (6.5-8.0)
[2025-07-05 11:42] LABS: NT Pro B Type Natriuretic Pept 456.6 pg/mL (<300); Troponin-I High Sensitivity 4.6 ng/L (<3.5-35.0)
[2025-07-05 12:01] VITALS: BP 120/63; PULSE 70; RESP 19; O2SAT 93
[2025-07-05 12:04] LABS: IDNOW Serial# 58CA691E; Influenza B2 Negative (Negative)
[2025-07-05] MEDS: Potassium Chloride/H20 10 MEQ/100 ML PIGGYBACK 100 MEQ IV ×2 (13:28→14:42)
--- NOTE | 2025-07-05 13:29 | P.HPHOSP_ITS ---
[facility] Medical History Chronic hypoxemic respiratory failure Exercise hypoxemia Olecranon bursitis of right elbow Mycobacterium avium-intracellulare infection Pulmonary nodule Tobacco dependence Tubular adenoma of colon (~1997) COPD (chronic obstructive pulmonary disease) Pilonidal cyst Shortness of breath Abdominal pain HLD (hyperlipidemia) GERD (gastroesophageal reflux disease) Anxiety Family History Sister Cancer Sister Cancer Surgical History History of bronchoscopy History of cataract surgery History of colonoscopy History of appendectomy Social History Household Members: None Housing: Apartment Are you a primary health care administrator to a significant other at home: Yes () Do you presently have visiting nurse or other home services: No Alcohol intake: former Patient Tobacco Use Status: Former Tobacco user Tobacco use type: Cigarette Cigarette Packs Per Day: 2.0 Cigarettes Per Day: 40.0 Years Smoked: 40 e-Cigarette/Vaping Use: Never Used Second Hand Smoke Exposure: No Advance Directives: No Advance Directives Information Provided: Yes service: Yes Current occupational status: retired Current occupation: Right Handed Meds Allergies Allergy/AdvReac Type Severity Reaction Status Date / Time No Known Allergies Allergy Mild NOT Verified 07/05/25 10:47 APPLICABLE Active Medications: Current Medications Potassium Chloride (Potassium Chloride/H20) 10 meq in 100 mls @ 100 mls/hr IV Q1H [facility] Stop: 07/05/25 15:59 Last Admin: 07/05/25 13:28 Dose: 100 mls/hr Ceftriaxone Sodium 1 gm/ (Sodium Chloride) 50 mls @ 100 mls/hr IV Q12H [facility] Last Infusion: 07/05/25 12:59 Dose: Infused Home Medications ?Medication ?Instructions ?Recorded ?Confirmed ?Last Taken ?Type Oxygen Home Use 01/25/23 06/18/25 Unknown H istory vitamins A,C,M-soxs-rpqzrv 4,296 1 cap PO BID 03/20/25 06/18/25 05/10/25 History mcg-226 mg-90 mg capsule (PreserVision AREDS) Physical Exam 2 Vital Signs and Narrative: Vital Signs: Last Vital Signs Temp 97.5 F 07/05/25 10:44 Pulse 70 07/05/25 12:01 Resp 19 07/05/25 12:01 BP 120/63 07/05/25 12:01 Pulse Ox 93 07/05/25 12:01 O2 Del Method Nasal Cannula 07/05/25 12:01 O2 Flow Rate 2 07/05/25 12:01 Oxygen Flow Rate 2 07/05/25 10:44 BMI result Body Mass Index 22.3 Results Labs 07/05/25 11:14 07/05/25 11:14 Labs: Laboratory Results - last 24 hr 07/05/25 07/05/25 07/05/25 11:09 11:14 12:16 MCV 87.8 MCH 29.7 MCHC 33.8 RDW 14.1 Plt Count 242 MPV 8.5 L Immature Gran % (Auto) 0.7 H Neut % (Auto) 82.0 H Lymph % (Auto) 7.6 L [place] % (Auto) 8.4 Eos % (Auto) 0.8 Baso % (Auto) 0.5 Lymph # (Auto) 1.0 L [place] # (Auto) 1.1 Eos # (Auto) 0.1 Baso # (Auto) 0.1 Abs Immat Gran (auto) 0.09 H Absolute Neuts (auto) 10.7 H Absolute Nucleated RBC 0.000 Nucleated RBC % (auto) 0.0 PT 12.7 H INR 1.1 Anion Gap 13 Estim Creat Clear Calc 52.5 Estimated GFR > 60 Random Glucose 124 H Lactic Acid 1.2 Calcium 9.4 D Total Bilirubin 0.6 AST 24 ALT 8 Alkaline Phosphatase 64 Troponin I High Sens 4.6 NT-Pro-B Natriuret Pep 456.6 H Total Protein 7.0 Albumin 3.9 Influenza Type A (AIDEE) Negative Influenza Type B (AIDEE) Negative Influenza A & B Note See Note Imaging Radiologist's Impressions: Impressions Chest X-Ray 07/05/25 10:57 IMPRESSION: COPD. Patchy opacities at the lung bases which may represent atelectasis or pneumonia. Electronically signed by: Jesus Gallegos MD 07/05/2025 11:14 AM EDT
--- NOTE | 2025-07-05 14:23 | PHA.MEDREC ---
Addendum entered by Lebron Salinas PharmD 07/05/25 14:30: reviewed Addendum entered by Martine Jennings 07/05/25 14:24: Patient confirmed he is now taking Anoro Ellipta 62.5-25 mcg inhaler. Patient is no longer taking Trelegy Ellipta. Original Note: Pharmacy Consult ? Medication Reconciliation Pharmacy has completed the medication reconciliation. Patient was able to confirm all of his medications. Patient last had his medications yesterday.
[2025-07-05 14:41] VITALS: BP 112/60; PULSE 84; RESP 24; O2SAT 96
[2025-07-05 16:20] VITALS: BP 128/77; PULSE 84; RESP 22; O2SAT 96
[2025-07-05] MEDS: Lidocaine HCl Viscous 2 % 15 ML SOLUTION MUCOUS MEM (16:36)
[2025-07-05] MEDS: Magnesium Hydrox/Alum Hydrox 30 ML ORAL.SUSP 15 ML PO (16:36)
[2025-07-05] MEDS: Potassium Chloride ER 20 MEQ TAB.ER.PRT PO (16:36)
[2025-07-05 16:49] VITALS: BP 128/77; PULSE 84; RESP 22; TEMP 36.3; O2SAT 96
[2025-07-05 20:52] LABS: COVID-19 Test Negative (Negative); IDNOW Serial# 55D5AD1C
== END 2025-07-05 16:50 | disposition home or self-care (01) ==
PROVIDERS: Emergency Medicine; Physician Assistant Medical; Emergency Provider Emergency Medicine; PCP Physician Assistant
DX: J18.9 Pneumonia, unspecified organism (principal); N39.0 Urinary tract infection, site not specified; J96.10 Chronic respiratory failure, unspecified whether with hypoxia or hypercapnia; J44.9 Chronic obstructive pulmonary disease, unspecified; E87.6 Hypokalemia; R53.1 Weakness; Z79.899 Other long term (current) drug therapy
CPT/HCPCS: 36415; 71045; 80053; 83605; 83880; 84484; 85025; 85610; 87040; 87502; 87635; 93005; 96365; 99284; 99285; J0696; J3480

== ENCOUNTER → 2025-07-05 10:49 | Outpatient (BNV) | payer MEDICARE, SELFPAY | PROVIDERS: Emergency Provider Emergency Medicine; PCP Physician Assistant; Visit Provider Internal Medicine Cardiovascular Disease | DX: I49.1 Atrial premature depolarization (principal) | CPT/HCPCS: 93010 ==

== ENCOUNTER → 2025-07-05 10:57 | Outpatient (BNV) | payer MEDICARE, SELFPAY | PROVIDERS: Emergency Provider Emergency Medicine; PCP Physician Assistant; Visit Provider Radiology Diagnostic Radiology | DX: J44.9 Chronic obstructive pulmonary disease, unspecified (principal); R91.8 Other nonspecific abnormal finding of lung field | CPT/HCPCS: 71045 ==